=== PATIENT | female | born 1950 | race Caucasian/White ===

== ENCOUNTER 2016-09-04 06:00 | Inpatient (IN) | payer MEDICARE, OTHER ==
[2016-09-04] MEDS ORDERED: IBUPROFEN 600 MG TAB PO STA (06:09)
[2016-09-04] MEDS ORDERED: ACETAMINOPHEN TAB 500 MG TAB PO STA (06:09)
--- NOTE | 2016-09-04 06:13 | ED ---
General Adult HPI - General Source: patient, EMS, RN notes reviewed Mode of arrival: EMS Limitations: no limitations <Subhash Strickland - Last Filed: 09/04/16 06:58> <Subhash Amos - Last Filed: 09/04/16 08:44> - General Chief complaint: Back Pain/Injury Stated complaint: back pain Time Seen by Provider: 09/04/16 06:00 - History of Present Illness Initial comments: This is a 65-year-old female who presents emergency department stating that last couple of days she's had some right lower back pain. Patient points to her sacroiliac area. Patient states there is no pain radiating down her leg. Patient states movement doesn't appear to make it worse. Patient also is complaining of urinary frequency. And patient states she does not have a fever even though we took her temperature and she has 100.9 temperature in the ER. Patient denies any cough or difficulty breathing [place] of breath. Patient states she has had a ulceration to the bottom of the right foot on the instep which is been there for quite a while. Patient states it started and is spread a little. Patient states she also has a mild headache. Patient denies any recent lifting or trauma to the lower back. (Subhash Strickland) - Related Data Home Medications Medication Instructions Recorded Confirmed Acyclovir [Zovirax] 400 mg PO BID 01/21/15 04/09/15 Aspirin [Adult Low Dose Aspirin EC] 81 mg PO DAILY 01/21/15 04/09/15 Atorvastatin [Lipitor] 80 mg PO HS 01/21/15 04/09/15 Gemfibrozil [Lopid] 600 mg PO AC-BID 01/21/15 04/09/15 Hydrochlorothiazide [Hydrodiuril] 25 mg PO DAILY 01/21/15 04/09/15 Insulin Aspart [NovoLOG] 10 - 50 units SQ ACHS 01/21/15 04/09/15 Insulin Detemir [Levemir] 40 - 80 unit SQ TID 01/21/15 04/09/15 Lisinopril 40 mg PO DAILY 01/21/15 04/09/15 Metoprolol Tartrate [Lopressor] 75 mg PO BID 01/21/15 04/09/15 Naproxen Sodium [Aleve] 220 mg PO DAILY 01/21/15 04/09/15 Primidone [Mysoline] 150 mg PO BID 01/21/15 04/09/15 Venlafaxine HCl [Effexor XR] 150 mg PO BID 01/21/15 04/09/15 clonazePAM [KlonoPIN] 1 mg PO BID 01/21/15 04/09/15 metFORMIN HCL [Glucophage] 1,000 mg PO HS 01/21/15 04/09/15 Acetaminophen Tab [Tylenol Tab] 1,000 mg PO Q6HR PRN 01/28/15 04/09/15 Albuterol Inhaler [Ventolin 1 - 2 puff INHALATION Q6HR PRN 01/28/15 04/09/15 Inhaler] Aspirin/Acetaminophen/Caffeine 1 each PO Q6H PRN 01/28/15 04/09/15 [Excedrin Extra Strength Caplet] Cetirizine HCl [Zyrtec] 10 mg PO HS 03/11/15 04/09/15 Allergies Allergy/AdvReac Type Severity Reaction Status Date / Time codeine Allergy Nausea & Verified 09/04/16 06:02 Vomiting codeine phosphate AdvReac Unknown Verified 09/04/16 06:02 [From Codar GF] guaifenesin [From Codar GF] AdvReac Unknown Verified 09/04/16 06:02 Review of Systems ROS Other: All systems not noted in ROS Statement are negative. <Subhash Strickland - Last Filed: 09/04/16 06:58> ROS Other: All systems not noted in ROS Statement are negative. <Subhash Amos - Last Filed: 09/04/16 08:44> ROS Statement: Those systems with pertinent positive or pertinent negative responses have been documented in the HPI. Past Medical History Past Medical History: COPD, Diabetes Mellitus, Hyperlipidemia, Hypertension, Musculoskeletal Disorder, Osteoarthritis (OA) Additional Past Medical History / Comment(s): tremors, migraines History of Any Multi-Drug Resistant Organisms: None Reported Past Surgical History: Cholecystectomy, Hysterectomy, Orthopedic Surgery, Tubal Ligation Additional Past Surgical History / Comment(s): partial amp. toe R foot. June 2014 - cervical fusion (steel plate and cages) Past Anesthesia/Blood Transfusion Reactions: Motion Sickness Past Psychological History: Depression Smoking Status: Former smoker - Past Family History Mother Family Medical History: Cancer <Subhash Strickland - Last Filed: 09/04/16 06:58> General Exam Limitations: no limitations <Subhash Strickland - Last Filed: 09/04/16 06:58> General appearance: alert, in no apparent distress Head exam: Present: atraumatic, normocephalic, normal inspection Eye exam: Present: normal appearance, PERRL, EOMI. Absent: scleral icterus, conjunctival injection, periorbital swelling ENT exam: Present: normal exam, mucous membranes moist Neck exam: Present: normal inspection. Absent: tenderness, meningismus, lymphadenopathy Respiratory exam: Present: normal lung sounds bilaterally. Absent: respiratory distress, wheezes, rales, rhonchi, stridor Cardiovascular Exam: Present: regular rate, normal rhythm, normal heart sounds. Absent: systolic murmur, diastolic murmur, rubs, gallop, clicks GI/Abdominal exam: Present: soft, normal bowel sounds. Absent: distended, tenderness, guarding, rebound, rigid Extremities exam: Present: normal inspection, full ROM, normal capillary refill. Absent: tenderness, pedal edema, joint swelling, calf tenderness Back exam: Present: normal inspection Neurological exam: Present: alert, oriented X3, CN II-XII intact Psychiatric exam: Present: normal affect, normal mood Skin exam: Present: warm, dry, intact, normal color. Absent: rash <Subhash Amos Sunita - Last Filed: 09/04/16 08:44> - General Exam Comments Initial Comments: GENERAL: Patient is well-developed and well-nourished. Patient is nontoxic and well- hydrated and is in mild distress. ENT: Neck is soft and supple. No significant lymphadenopathy is noted. Oropharynx is clear. Moist mucous membranes. Neck has full range of motion without eliciting any pain. EYES: The sclera were anicteric and conjunctiva were pink and moist. Extraocular movements were intact and pupils were equal round and reactive to light. Eyelids were unremarkable. PULMONARY: Unlabored respirations. Good breath sounds bilaterally. No audible rales rhonchi or wheezing was noted. CARDIOVASCULAR: There is a regular rate and rhythm without any murmurs gallops or rubs. ABDOMEN: Soft and nontender with normal bowel sounds. No palpable organomegaly was noted. There is no palpable pulsatile mass. SKIN: There is a ulceration to the left foot on the plantar surface in the instep of the foot. It is mildly erythematous NEUROLOGIC: Patient is alert and oriented x3. Cranial nerves II through XII are grossly intact. Motor and sensory are also intact. Normal speech, volume and content. Symmetrical smile. MUSCULOSKELETAL: Normal extremities with adequate strength and full range of motion. No lower extremity swelling or edema. No calf tenderness. LYMPHATICS: No significant lymphadenopathy is noted PSYCHIATRIC: Normal psychiatric evaluation. Normal interpersonal interactions appears functionally intact in deals appropriately with others. No signs of depression. No signs of anxiety. (Subhash Strickland) Course <Suhbash Strickland - Last Filed: 09/04/16 06:58> <Subhash Amos - Last Filed: 09/04/16 08:44> Vital Signs 09/04/16 06:02 Temperature 100.9 F H Pulse Rate 75 Respiratory 18 Rate Blood Pressure 186/77 O2 Sat by Pulse 97 Oximetry - Reevaluation(s) Reevaluation #1: 09/04/16 08:43 Patient is having symptoms and pain control, feeling better with IV hydration and fever control (Subhash Amos) Medical Decision Making - Lab Data Result diagrams: 09/04/16 06:15 09/04/16 06:15 <Subhash Strickland - Last Filed: 09/04/16 06:58> - Lab Data Result diagrams: 09/04/16 06:15 09/04/16 06:15 - Radiology Data Radiology results: report reviewed (CT head and pelvis negative for kidney stone positive pyelonephritis), image reviewed <Subhash Amos - Last Filed: 09/04/16 08:44> - Medical Decision Making Dr. Amos will be taking over the care of this patient at 7 AM (Subhash Strickland) 58 female here with fever flank pain. Positive left-sided pyelonephritis, no kidney stone noted, patient will be admitted for IV antibiotics and IV resuscitation, fever control and treatment of sepsis (Subhash Amos) - Lab Data Lab Results 09/04/16 09/04/16 09/04/16 Range/Units 06:15 06:15 06:15 WBC 11.9 H (3.8-10.6) k/uL RBC 3.46 L (3.80-5.40) m/uL Hgb 12.0 (11.4-16.0) gm/dL Hct 34.3 (34.0-46.0) % MCV 99.1 (80.0-100.0) fL MCH 34.6 (25.0-35.0) pg MCHC 34.9 (31.0-37.0) g/dL RDW 14.1 (11.5-15.5) % Plt Count 230 (150-450) k/uL Neutrophils % 87 % Lymphocytes % 6 % Monocytes % 5 % Eosinophils % 1 % Basophils % 0 % Neutrophils # 10.3 H (1.3-7.7) k/uL Lymphocytes # 0.7 L (1.0-4.8) k/uL Monocytes # 0.6 (0-1.0) k/uL Eosinophils # 0.1 (0-0.7) k/uL Basophils # 0.0 (0-0.2) k/uL PT (9.0-12.0) sec INR (<1.2) APTT (22.0-30.0) sec Sodium 135 L (137-145) mmol/L Potassium 4.9 (3.5-5.1) mmol/L Chloride 105 (98-107) mmol/L Carbon Dioxide 17 L (22-30) mmol/L Anion Gap 13 mmol/L BUN 23 H (7-17) mg/dL Creatinine 0.81 (0.52-1.04) mg/dL Est GFR (MDRD) Af Amer >60 (>60 ml/min/1.73 sqM) Est GFR (MDRD) Non-Af >60 (>60 ml/min/1.73 sqM) Glucose 206 H (74-99) mg/dL Plasma Lactic Acid [place] 1.7 (0.7-2.0) mmol/L Calcium 8.9 (8.4-10.2) mg/dL Total Bilirubin 0.5 (0.2-1.3) mg/dL AST 23 (14-36) U/L ALT 29 (9-52) U/L Alkaline Phosphatase 164 H (38-126) U/L Total Protein 6.7 (6.3-8.2) g/dL Albumin 4.2 (3.5-5.0) g/dL Urine Color Urine Appearance (Clear) Urine pH (5.0-8.0) Ur Specific [place] (1.001-1.035) Urine Protein (Negative) Urine Glucose (UA) (Negative) Urine Ketones (Negative) Urine Blood (Negative) Urine Nitrite (Negative) Urine Bilirubin (Negative) Urine Urobilinogen (<2.0) mg/dL Ur Leukocyte Esterase (Negative) Urine WBC (0-5) /hpf Urine WBC Clumps (None) /hpf Ur Squamous Epith Cells (0-4) /hpf Urine Bacteria (None) /hpf 09/04/16 09/04/16 Range/Units 06:15 06:45 WBC (3.8-10.6) k/uL RBC (3.80-5.40) m/uL Hgb (11.4-16.0) gm/dL Hct (34.0-46.0) % MCV (80.0-100.0) fL MCH (25.0-35.0) pg MCHC (31.0-37.0) g/dL RDW (11.5-15.5) % Plt Count (150-450) k/uL Neutrophils % % Lymphocytes % % Monocytes % % Eosinophils % % Basophils % % Neutrophils # (1.3-7.7) k/uL Lymphocytes # (1.0-4.8) k/uL Monocytes # (0-1.0) k/uL Eosinophils # (0-0.7) k/uL Basophils # (0-0.2) k/uL PT 10.3 (9.0-12.0) sec INR 1.0 (<1.2) APTT 33.2 H (22.0-30.0) sec Sodium (137-145) mmol/L Potassium (3.5-5.1) mmol/L Chloride (98-107) mmol/L Carbon Dioxide (22-30) mmol/L Anion Gap mmol/L BUN (7-17) mg/dL Creatinine (0.52-1.04) mg/dL Est GFR (MDRD) Af Amer (>60 ml/min/1.73 sqM) Est GFR (MDRD) Non-Af (>60 ml/min/1.73 sqM) Glucose (74-99) mg/dL Plasma Lactic Acid [place] (0.7-2.0) mmol/L Calcium (8.4-10.2) mg/dL Total Bilirubin (0.2-1.3) mg/dL AST (14-36) U/L ALT (9-52) U/L Alkaline Phosphatase (38-126) U/L Total Protein (6.3-8.2) g/dL Albumin (3.5-5.0) g/dL Urine Color Yellow Urine Appearance Cloudy H (Clear) Urine pH 5.5 (5.0-8.0) Ur Specific [place] 1.014 (1.001-1.035) Urine Protein 1+ H (Negative) Urine Glucose (UA) Negative (Negative) Urine Ketones Negative (Negative) Urine Blood Trace H (Negative) Urine Nitrite Positive H (Negative) Urine Bilirubin Negative (Negative) Urine Urobilinogen <2.0 (<2.0) mg/dL Ur Leukocyte Esterase Large H (Negative) Urine WBC >182 H (0-5) /hpf Urine WBC Clumps Few H (None) /hpf Ur Squamous Epith Cells <1 (0-4) /hpf Urine Bacteria Few H (None) /hpf Disposition <Subhash Strickland - Last Filed: 09/04/16 06:58> <Subhash Amos - Last Filed: 09/04/16 08:44> Clinical Impression: UTI (urinary tract infection), Pyelonephritis, Fever Disposition: ADMITTED IP TO THIS HOSP Condition: Fair Referrals: Rainer Dey MD [Primary Care Provider] - 1-2 days
[2016-09-04] MEDS: SODIUM CHLORIDE 0.9% 500 ML IV SCH ×2 (06:14→07:46)
[2016-09-04 06:33] LABS: Basophils % (A) 0 %; CH 34.7; CHCM 35.2; Eosinophils # (A) 0.1 k/uL (0-0.7); Eosinophils % (A) 1 %; HCT 34.3 % (34.0-46.0); HDW 3.22; Luc % (Auto) 1; Lymphocytes # (A) 0.7 k/uL (1.0-4.8); Lymphocytes % (A) 6 %; MCH 34.6 pg (25.0-35.0); MCHC 34.9 g/dL (31.0-37.0); MCV 99.1 fL (80.0-100.0); Monocytes # (A) 0.6 k/uL (0-1.0); Monocytes % (A) 5 %; Neutrophils # (A) 10.3 k/uL (1.3-7.7); Neutrophils % (A) 87 %; RBC 3.46 m/uL (3.80-5.40); RDW 14.1 % (11.5-15.5); WBC 11.9 k/uL (3.8-10.6); WBC (Perox) 12.15
[2016-09-04 06:38] LABS: Partial Thromboplastin Time 33.2 sec (22.0-30.0); Prothrombin Time 10.3 sec (9.0-12.0)
[2016-09-04 06:40] LABS: ALT 29 U/L (9-52); AST 23 U/L (14-36); Alkaline Phosphatase 164 U/L (38-126); Anion Gap 13 mmol/L; Blood Urea Nitrogen 23 mg/dL (7-17); Calcium 8.9 mg/dL (8.4-10.2); Carbon Dioxide 17 mmol/L (22-30); Chloride 105 mmol/L (98-107); Glucose 206 mg/dL (74-99); Non-African American GFR(MDRD) >60 (>60 ml/min/1.73 sqM); Potassium 4.9 mmol/L (3.5-5.1); Sodium 135 mmol/L (137-145); Total Bilirubin 0.5 mg/dL (0.2-1.3); Total Protein 6.7 g/dL (6.3-8.2)
[2016-09-04 07:01] LABS: Appearance,Urine Cloudy (Clear); Bacteria,Urine Few /hpf; Bilirubin,Urine Negative (Negative); Glucose,Urine (UA) Negative (Negative); Ketones,Urine Negative (Negative); Leukocyte Esterase,Urine Large (Negative); Nitrite,Urine Positive (Negative); PH, Urine 5.5 (5.0-8.0); Particle Count 7368; Protein,Urine 1+ (Negative); Specific Gravity,Urine 1.014 (1.001-1.035); Squamous Epithelial Cell,Urine <1 /hpf (0-4); UA Billing (MACRO vs. MICRO) MICRO; Urobilinogen,Urine <2.0 mg/dL (<2.0); WBC,Urine >182 /hpf (0-5)
--- NOTE | 2016-09-04 07:09 | XR ---
EXAM: XR Chest, 2 Views CLINICAL HISTORY: Reason: Fever TECHNIQUE: Frontal and lateral views of the chest. COMPARISON: None FINDINGS: Lungs: The lung volumes are low with hypoventilatory changes. There is no acute airspace disease or pulmonary edema. Pleural space: Unremarkable. No pneumothorax. Heart: Mild prominence of the cardiomediastinal silhouette. Bones/joints: Anterior cervical fusion plate is visualized from C6 partially down to T1. There are no acute osseous abnormalities. IMPRESSION: Low lung volumes with hypoventilatory changes. No acute cardiopulmonary abnormalities.
[2016-09-04] MEDS ORDERED: cefTRIAXone 2,000 MG in SODIUM CHLORIDE 0.9% 100 ML IVPB STA (07:38)
[2016-09-04] MEDS ORDERED: MORPHINE SULFATE 4 MG/ML SYRINGE IVP STA (07:48)
--- NOTE | 2016-09-04 08:11 | CT ---
EXAMINATION TYPE: CT abdomen pelvis wo con DATE OF EXAM: 09/04/2016 COMPARISON: NONE HISTORY: Bilateral flank pain, UTI CT DLP: 832.3 mGycm Examination of the solid and hollow viscera is limited given the lack of contrast. FINDINGS: LUNG BASES: No evidence for nodule. No evidence for infiltrate. LIVER/GB: Cholecystectomy clips are in place. No space-occupying hepatic lesion. PANCREAS: No pancreatic mass identified. No inflammatory process seen. SPLEEN: No evidence for splenomegaly. No intrasplenic lesions seen. ADRENALS: No adrenal nodules identified. No evidence for thickening. KIDNEYS: There is bilateral left greater than right perinephric stranding which is nonspecific and ca n be seen in patients with prior infection or obstruction. Correlate clinically. No evidence for gee l mass. No nephrolithiasis. No hydronephrosis. BOWEL: Appendix has a normal appearance. No evidence of bowel obstruction. No inflammatory process. Lymph nodes: No evidence for adenopathy greater than 1 cm. Abdominal aorta: Atheromatous changes seen. No evidence for aneurysm. Genital organs: No significant abnormality. Other: Subcutaneous low anterior abdominal wall increased attenuation may reflect ecchymosis from tra umatic event or injection. Small umbilical fat-containing hernia. Degenerative changes the lumbar spi ne IMPRESSION: 1.There is bilateral left greater than right perinephric stranding which is nonspecific and can be se en in patients with prior infection or obstruction. Correlate clinically.
[2016-09-04] MEDS ORDERED: SODIUM CHLORIDE 0.9% 1,000 ML IV ONE (08:41)
[2016-09-04] MEDS ORDERED: SODIUM CHLORIDE 0.9% 2,000 ML IV STA (08:41)
[2016-09-04 10:07] LABS: Glucose,Whole Blood 235 mg/dL (75-99)
[2016-09-04] MEDS: SODIUM CHLORIDE 0.9% 1,000 ML IV SCH ×2 (10:08→21:57)
[2016-09-04] MEDS: ENOXAPARIN 40 MG/0.4 ML SYRINGE SQ SCH (11:00)
[2016-09-04 11:56] VITALS: BMI 31.3
[2016-09-04] MEDS ORDERED: ALBUTEROL NEBULIZED 2.5 MG/3 ML INHALATION PRN (12:45)
--- NOTE | 2016-09-04 12:45 | P.HPIM ---
History of Present Illness This is a 65-year-old female who presents emergency department stating that last couple of days she's had some right lower back pain. Patient points to her sacroiliac area. Patient states there is no pain radiating down her leg. Patient states movement doesn't appear to make it worse. Patient also is complaining of urinary frequency. And patient states she does not have a fever even though we took her temperature and she has 100.9 temperature in the ER. Patient denies any cough or difficulty breathing [place] of breath. Patient states she has had a ulceration to the bottom of the right foot on the instep which is been there for quite a while. Patient states it started and is spread a little. Patient states she also has a mild headache. Patient denies any recent lifting or trauma to the lower back. The significant abnormalities that were found in further evaluation of her supple pyelonephritis, and significantly abnormal urine with Ativan 200 WBC in the urine with positive leukocyte esterase. Patient was started on IV antibiotics. Urine cultures blood cultures were obtained. Review of Systems REVIEW OF SYSTEMS: CONSTITUTIONAL: No fever, no malaise, no fatigue. HEENT: No recent visual problems or hearing problems. Denied any sore throat. CARDIOVASCULAR: No chest pain, orthopnea, PND, no palpitations, no syncope. PULMONARY: No shortness of breath, no cough, no hemoptysis. GASTROINTESTINAL: No diarrhea, no nausea, no vomiting, no abdominal pain. Normoactive bowel sounds. NEUROLOGICAL: No headaches, no weakness, no numbness. HEMATOLOGICAL: Denies any bleeding or petechiae. GENITOURINARY: Denies any burning micturition, patient does have increased frequency MUSCULOSKELETAL/RHEUMATOLOGICAL: Denies any joint pain, swelling, or any muscle pain. ENDOCRINE: Denies any polyuria or polydipsia. The rest of the 14-point review of systems is negative. Past Medical History Past Medical History: COPD, Diabetes Mellitus, Hyperlipidemia, Hypertension, Musculoskeletal Disorder, Osteoarthritis (OA) Additional Past Medical History / Comment(s): tremors, migraines History of Any Multi-Drug Resistant Organisms: None Reported Past Surgical History: Cholecystectomy, Hysterectomy, Orthopedic Surgery, Tubal Ligation Additional Past Surgical History / Comment(s): partial amp. toe R foot. June 2014 - cervical fusion (steel plate and cages) Past Anesthesia/Blood Transfusion Reactions: Motion Sickness Past Psychological History: Depression Smoking Status: Former smoker Past Alcohol Use History: None Reported Past Drug Use History: None Reported - Past Family History Mother Family Medical History: Cancer Medications and Allergies Home Medications Medication Instructions Recorded Confirmed Type Aspirin [Adult Low Dose Aspirin EC] 81 mg PO DAILY 01/21/15 09/04/16 History Atorvastatin [Lipitor] 80 mg PO HS 01/21/15 09/04/16 History Hydrochlorothiazide [Hydrodiuril] 25 mg PO DAILY 01/21/15 09/04/16 History Insulin Aspart [NovoLOG] See Protocol SQ ACHS 01/21/15 09/04/16 History Insulin Detemir [Levemir] 40 - 72 unit SQ BID 01/21/15 09/04/16 History Lisinopril 40 mg PO DAILY 01/21/15 09/04/16 History Metoprolol Tartrate [Lopressor] 75 mg PO BID 01/21/15 09/04/16 History Naproxen Sodium [Aleve] 220 mg PO DAILY 01/21/15 09/04/16 History Primidone [Mysoline] 150 mg PO BID 01/21/15 09/04/16 History Venlafaxine HCl [Effexor XR] 150 mg PO BID 01/21/15 09/04/16 History clonazePAM [KlonoPIN] 1 mg PO BID 01/21/15 09/04/16 History metFORMIN HCL [Glucophage] 1,000 mg PO HS 01/21/15 09/04/16 History Acetaminophen Tab [Tylenol Tab] 1,500 mg PO Q6HR PRN 01/28/15 09/04/16 History Albuterol Inhaler [Ventolin 1 - 2 puff INHALATION Q6HR PRN 01/28/15 09/04/16 History Inhaler] Cetirizine HCl [Zyrtec] 10 mg PO HS 03/11/15 09/04/16 History Propranolol [Inderal] 10 mg PO BID 09/04/16 09/04/16 History Allergies Allergy/AdvReac Type Severity Reaction Status Date / Time codeine Allergy Nausea & Verified 09/04/16 11:47 Vomiting codeine phosphate AdvReac Unknown Verified 09/04/16 11:47 [From Codar GF] guaifenesin [From Codar GF] AdvReac Unknown Verified 09/04/16 11:47 Physical Exam Vitals: Vital Signs Temp Pulse Pulse Resp BP BP Pulse Ox 09/04/16 10:14 98.2 F 71 16 145/69 95 09/04/16 09:15 98.9 F 83 20 171/85 92 L 09/04/16 08:00 71 18 167/72 92 L 09/04/16 06:02 100.9 F H 75 18 186/77 97 Intake and Output 09/03/16 09/04/16 09/04/16 22:59 06:59 14:59 Other: Weight 90.718 kg 90.71 kg Patient Weight 09/05/16 06:59 Weight 90.71 kg PHYSICAL EXAMINATION: GENERAL: The patient is alert and oriented x3, not in any acute distress. Well developed, well nourished. HEENT: Pupils are round and equally reacting to light. EOMI. No scleral icterus. No conjunctival pallor. Normocephalic, atraumatic. No pharyngeal erythema. No thyromegaly. CARDIOVASCULAR: S1 and S2 present. No murmurs, rubs, or gallops. PULMONARY: Chest is clear to auscultation, no wheezing or crackles. ABDOMEN: Soft, nontender, nondistended, normoactive bowel sounds. No palpable organomegaly. Doesn't have any significant course total angle tenderness. MUSCULOSKELETAL: No joint swelling or deformity. EXTREMITIES: No cyanosis, clubbing, or pedal edema. NEUROLOGICAL: Gross neurological examination did not reveal any focal deficits. SKIN: No rashes. Results CBC & Chem 7: 09/04/16 06:15 09/04/16 06:15 Labs: Abnormal Lab Results - Last 24 Hours (Table) 09/04/16 09/04/16 09/04/16 Range/Units 06:15 06:15 06:15 WBC 11.9 H (3.8-10.6) k/uL RBC 3.46 L (3.80-5.40) m/uL Neutrophils # 10.3 H (1.3-7.7) k/uL Lymphocytes # 0.7 L (1.0-4.8) k/uL APTT 33.2 H (22.0-30.0) sec Sodium 135 L (137-145) mmol/L Carbon Dioxide 17 L (22-30) mmol/L BUN 23 H (7-17) mg/dL Glucose 206 H (74-99) mg/dL POC Glucose (mg/dL) (75-99) mg/dL Alkaline Phosphatase 164 H (38-126) U/L Urine Appearance (Clear) Urine Protein (Negative) Urine Blood (Negative) Urine Nitrite (Negative) Ur Leukocyte Esterase (Negative) Urine WBC (0-5) /hpf Urine WBC Clumps (None) /hpf Urine Bacteria (None) /hpf 09/04/16 09/04/16 Range/Units 06:45 10:05 WBC (3.8-10.6) k/uL RBC (3.80-5.40) m/uL Neutrophils # (1.3-7.7) k/uL Lymphocytes # (1.0-4.8) k/uL APTT (22.0-30.0) sec Sodium (137-145) mmol/L Carbon Dioxide (22-30) mmol/L BUN (7-17) mg/dL Glucose (74-99) mg/dL POC Glucose (mg/dL) 235 H (75-99) mg/dL Alkaline Phosphatase (38-126) U/L Urine Appearance Cloudy H (Clear) Urine Protein 1+ H (Negative) Urine Blood Trace H (Negative) Urine Nitrite Positive H (Negative) Ur Leukocyte Esterase Large H (Negative) Urine WBC >182 H (0-5) /hpf Urine WBC Clumps Few H (None) /hpf Urine Bacteria Few H (None) /hpf Microbiology - Last 24 Hours (Table) 09/04/16 06:45 Urine Culture - Preliminary Urine,Voided 09/04/16 06:15 Wound Culture - Preliminary Foot - Left Assessment and Plan Plan: #1 sepsis secondary to urinary tract infection: Patient is on IV fluids and Rocephin which will be continued awaiting urine cultures and blood cultures. #2 Anion gap metabolic acidosis will obtain lactic acid levels. Part of metabolic is xerosis is secondary to hyperchloremia. #3 type 2 diabetes mellitus: Continue with home regimen and titration of medications depending on the blood sugars here. #4 hypertension: Hold off antiemesis medications with concerns of severe sepsis and hypotension. #5 COPD without any acute exacerbation. #6 hyperlipidemia.
[2016-09-04 12:54] LABS: Glucose,Whole Blood 178 mg/dL (75-99)
[2016-09-04] MEDS: ONDANSETRON 4 MG/2 ML VIAL IVP PRN (13:13)
[2016-09-04] MEDS: ACETAMINOPHEN TAB 325 MG TAB PO PRN (14:34)
[2016-09-04 15:42] LABS: Glucose,Whole Blood 262 mg/dL (75-99)
[2016-09-04 18:06] LABS: Glucose,Whole Blood 293 mg/dL (75-99)
[2016-09-04] MEDS: INSULIN LISPRO (humaLOG) 300 UNIT/3 ML VIAL SQ SCH ×2 (18:29→21:57)
[2016-09-04 18:34] LABS: Hemoglobin A1C 6.4 % (4.2-6.1)
[2016-09-04 20:04] LABS: Glucose,Whole Blood 298 mg/dL (75-99)
[2016-09-04] MEDS: INSULIN DETEMIR 100 UNIT/ML 10 ML VIAL SQ SCH (21:49)
[2016-09-04] MEDS: PRIMIDONE 50 MG TAB PO SCH (21:50)
[2016-09-04] MEDS: METOPROLOL TARTRATE 50 MG TAB PO SCH (21:51)
[2016-09-04] MEDS: VENLAFAXINE HCL ER 75 MG CAP PO SCH (21:51)
[2016-09-04] MEDS: ATORVASTATIN 80 MG TAB PO SCH (21:51)
[2016-09-04] MEDS: LORATADINE 10 MG TAB PO SCH (21:51)
[2016-09-05] MEDS: SODIUM CHLORIDE 0.9% 1,000 ML IV SCH ×2 (07:07→15:12)
[2016-09-05] MEDS: cefTRIAXone 2,000 MG in SODIUM CHLORIDE 0.9% 100 ML IVPB SCH (07:08)
[2016-09-05] MEDS: ACETAMINOPHEN TAB 325 MG TAB PO PRN ×3 (07:10→20:46)
[2016-09-05] MEDS: ASPIRIN 81 MG CHEW PO SCH (07:15)
[2016-09-05] MEDS: VENLAFAXINE HCL ER 75 MG CAP PO SCH ×2 (07:15→20:28)
[2016-09-05] MEDS: METOPROLOL TARTRATE 50 MG TAB PO SCH ×2 (07:15→20:29)
[2016-09-05] MEDS: ENOXAPARIN 40 MG/0.4 ML SYRINGE SQ SCH (07:15)
[2016-09-05] MEDS: PRIMIDONE 50 MG TAB PO SCH ×2 (07:15→20:28)
[2016-09-05] MEDS: INSULIN DETEMIR 100 UNIT/ML 10 ML VIAL SQ SCH ×2 (07:26→20:29)
[2016-09-05 07:49] LABS: CH 34.3; CHCM 34.4; HCT 29.6 % (34.0-46.0); HDW 3.35; HGB 10.2 gm/dL (11.4-16.0); MCH 34.7 pg (25.0-35.0); MCHC 34.5 g/dL (31.0-37.0); MCV 100.4 fL (80.0-100.0); Macrocytosis Slight; Mean Platelet Volume 8.3; RBC 2.95 m/uL (3.80-5.40); WBC 7.3 k/uL (3.8-10.6)
[2016-09-05 08:08] LABS: Glucose,Whole Blood 219 mg/dL (75-99)
[2016-09-05 08:18] LABS: Anion Gap 11 mmol/L; Blood Urea Nitrogen 15 mg/dL (7-17); Calcium 8.2 mg/dL (8.4-10.2); Carbon Dioxide 22 mmol/L (22-30); Chloride 103 mmol/L (98-107); Glucose 208 mg/dL (74-99); Non-African American GFR(MDRD) >60 (>60 ml/min/1.73 sqM); Potassium 3.9 mmol/L (3.5-5.1); Sodium 136 mmol/L (137-145)
[2016-09-05] MEDS: INSULIN LISPRO (humaLOG) 300 UNIT/3 ML VIAL SQ SCH ×4 (08:21→20:29)
--- NOTE | 2016-09-05 10:32 | P.PN ---
Subjective 65-year-old admitted secondary to sepsis from urinary tract infection and pyelonephritis and patient has positive blood cultures today.. Patient flank pain improved today. Patient today denied any chest pain, nausea, abdominal pain, fever, chills, dysuria, lightheadedness, new focal weakness. Objective - Vital Signs Vital signs: Vital Signs Temp 98.8 F 09/05/16 07:00 Pulse 87 09/05/16 08:00 Resp 16 09/05/16 08:00 BP 165/73 09/05/16 07:00 Pulse Ox 94 L 09/05/16 07:00 Intake & Output 09/04/16 09/05/16 09/05/16 18:59 06:59 18:59 Intake Total 450 500 Balance 450 500 Weight 90.71 kg 90.71 kg Intake: Intake, IV Titration 350 Amount Sodium Chloride 0.9% 1, 350 000 ml @ 100 mls/hr IV . Q10H KATIE Rx#:[id number] Oral 100 500 Other: Voiding Method Toilet Toilet # Voids 2 1 1 - Exam GENERAL: The patient is alert and oriented x3, not in any acute distress. Well developed, well nourished. HEENT: Pupils are round and equally reacting to light. EOMI. No scleral icterus. No conjunctival pallor. Normocephalic, atraumatic. No pharyngeal erythema. No thyromegaly. CARDIOVASCULAR: S1 and S2 present. No murmurs, rubs, or gallops. PULMONARY: Chest is clear to auscultation, no wheezing or crackles. ABDOMEN: Soft, nontender, nondistended, normoactive bowel sounds. No palpable organomegaly. Doesn't have any significant course total angle tenderness. MUSCULOSKELETAL: No joint swelling or deformity. EXTREMITIES: No cyanosis, clubbing, or pedal edema. NEUROLOGICAL: Gross neurological examination did not reveal any focal deficits. SKIN: No rashes. - Labs CBC & Chem 7: 09/05/16 07:09/05/16 07:17 Labs: Abnormal Lab Results - Last 24 Hours (Table) 09/04/16 09/04/16 09/04/16 Range/Units 06:15 12:41 15:37 RBC (3.80-5.40) m/uL Hgb (11.4-16.0) gm/dL Hct (34.0-46.0) % MCV (80.0-100.0) fL Sodium (137-145) mmol/L Glucose (74-99) mg/dL POC Glucose (mg/dL) 178 H 262 H (75-99) mg/dL Hemoglobin A1c 6.4 H (4.2-6.1) % Calcium (8.4-10.2) mg/dL 09/04/16 09/04/16 09/05/16 Range/Units 17:51 20:02 07:17 RBC 2.95 L (3.80-5.40) m/uL Hgb 10.2 L (11.4-16.0) gm/dL Hct 29.6 L (34.0-46.0) % MCV 100.4 H (80.0-100.0) fL Sodium (137-145) mmol/L Glucose (74-99) mg/dL POC Glucose (mg/dL) 293 H 298 H (75-99) mg/dL Hemoglobin A1c (4.2-6.1) % Calcium (8.4-10.2) mg/dL 09/05/16 09/05/16 Range/Units 07:17 07:56 RBC (3.80-5.40) m/uL Hgb (11.4-16.0) gm/dL Hct (34.0-46.0) % MCV (80.0-100.0) fL Sodium 136 L (137-145) mmol/L Glucose 208 H (74-99) mg/dL POC Glucose (mg/dL) 219 H (75-99) mg/dL Hemoglobin A1c (4.2-6.1) % Calcium 8.2 L (8.4-10.2) mg/dL Microbiology - Last 24 Hours (Table) 09/04/16 06:18 Blood Culture Gram Stain - Preliminary Blood 09/04/16 06:15 Gram Stain - Preliminary Foot - Left Wound Culture - Preliminary Presumptive Staph aureus 09/04/16 06:15 Blood Culture - Final Blood 09/04/16 06:45 Urine Culture - Preliminary Urine,Voided Assessment and Plan Plan: #1 sepsis secondary to urinary tract infection: Patient is on IV fluids and Rocephin which will be continued awaiting urine cultures. patient is an appropriate antibiotics will repeat blood cultures today and tomorrow and blood cultures are positive for gram-negative bacilli. #2 Anion gap metabolic lactic acid levels are now within normal limits and anion gap metabolic acidosis resolved. Part of metabolic acidosis is secondary to hyperchloremia. #3 type 2 diabetes mellitus: Continue with home regimen and titration of medications depending on the blood sugars here. #4 hypertension: The patient is bit higher today patient will be resumed back on her lisinopril hydrochlorothiazide will be held #5 COPD without any acute exacerbation. #6 hyperlipidemia.
[2016-09-05 12:04] LABS: Glucose,Whole Blood 264 mg/dL (75-99)
[2016-09-05] MEDS: ONDANSETRON 4 MG/2 ML VIAL IVP PRN ×2 (15:32→20:27)
[2016-09-05 17:07] LABS: Glucose,Whole Blood 323 mg/dL (75-99)
[2016-09-05 20:24] LABS: Glucose,Whole Blood 327 mg/dL (75-99)
[2016-09-05] MEDS: ATORVASTATIN 80 MG TAB PO SCH (20:25)
[2016-09-05] MEDS: LORATADINE 10 MG TAB PO SCH (20:30)
[2016-09-06] MEDS: SODIUM CHLORIDE 0.9% 1,000 ML IV SCH ×2 (06:52→12:46)
[2016-09-06 07:32] LABS: Glucose,Whole Blood 263 mg/dL (75-99)
[2016-09-06] MEDS: METOPROLOL TARTRATE 50 MG TAB PO SCH ×2 (07:44→20:00)
[2016-09-06] MEDS: ASPIRIN 81 MG CHEW PO SCH (07:44)
[2016-09-06] MEDS: VENLAFAXINE HCL ER 75 MG CAP PO SCH ×2 (07:44→20:05)
[2016-09-06] MEDS: LISINOPRIL 20 MG TAB PO SCH (07:44)
[2016-09-06] MEDS: PRIMIDONE 50 MG TAB PO SCH ×2 (07:44→20:21)
[2016-09-06] MEDS: ENOXAPARIN 40 MG/0.4 ML SYRINGE SQ SCH (07:44)
[2016-09-06] MEDS: cefTRIAXone 2,000 MG in SODIUM CHLORIDE 0.9% 100 ML IVPB SCH (07:45)
[2016-09-06] MEDS: INSULIN LISPRO (humaLOG) 300 UNIT/3 ML VIAL SQ SCH ×5 (07:45→21:41)
[2016-09-06] MEDS: INSULIN DETEMIR 100 UNIT/ML 10 ML VIAL SQ SCH ×2 (07:53→20:03)
--- NOTE | 2016-09-06 08:25 | P.PN ---
Subjective Principal diagnosis: Flank pain. This is a continue progress note on a 65-year-old white female essentially admitted for pyelonephritis and sepsis. She, on admission, had bilateral flank pain with elevated temperature. Now, she has mainly right-sided flank pain and headache. We'll go ahead and reconcile her home medications. No significant chest pain. No diarrhea is stated. Objective - Vital Signs Vital signs: Vital Signs Temp 97.9 F 09/06/16 07:00 Pulse 74 09/06/16 07:00 Resp 16 09/06/16 07:00 BP 204/94 09/06/16 07:00 Pulse Ox 92 L 09/06/16 07:00 Intake & Output 09/05/16 09/06/16 09/06/16 18:59 06:59 18:59 Intake Total 800 Balance 800 Weight 90.71 kg Intake: IV 800 Sodium Chloride 0.9% 1, 800 000 ml @ 100 mls/hr IV . Q10H KATIE Rx#:[id number] Other: Voiding Method Toilet Toilet # Voids 2 2 - Constitutional General appearance: Present: average body habitus - EENT Eyes: Absent: abnormal pupil - Respiratory Respiratory: bilateral: CTA - Cardiovascular Rhythm: regular Heart sounds: normal: S1, S2 - Gastrointestinal General gastrointestinal: Present: soft. Absent: tenderness - Neurologic Neurologic: Present: CNII-XII intact - Labs CBC & Chem 7: 09/05/16 07:17 09/05/16 07:17 Labs: Abnormal Lab Results - Last 24 Hours (Table) 09/05/16 09/05/16 09/05/16 Range/Units 11:56 17:03 20:23 POC Glucose (mg/dL) 264 H 323 H 327 H (75-99) mg/dL 09/06/16 Range/Units 07:30 POC Glucose (mg/dL) 263 H (75-99) mg/dL Microbiology - Last 24 Hours (Table) 09/04/16 06:18 Blood Culture Gram Stain - Preliminary Blood Blood Culture - Preliminary Gram Neg Bacilli 09/04/16 06:45 Urine Culture - Preliminary Urine,Voided Gram Neg Bacilli 09/04/16 06:15 Gram Stain - Preliminary Foot - Left Wound Culture - Preliminary Presumptive Staph aureus 09/04/16 06:15 Blood Culture - Final Blood Assessment and Plan (1) Pyelonephritis Status: Acute (2) Cervical postlaminectomy syndrome Status: Chronic (3) Chronic pain syndrome Status: Chronic Plan: Reconcile home medications. Check CBC in the a.m. Pain control. Question need for Ultram. The patient states she does not wish to take any Tylenol based products. Time with Patient: Less than 30
[2016-09-06 08:34] LABS: Basophils % (A) 0 %; CH 34.5; Eosinophils # (A) 0.1 k/uL (0-0.7); Eosinophils % (A) 1 %; HCT 28.3 % (34.0-46.0); HDW 3.51; HGB 9.8 gm/dL (11.4-16.0); Luc # (Auto) 0.18; Luc % (Auto) 4; Lymphocytes # (A) 0.8 k/uL (1.0-4.8); Lymphocytes % (A) 18 %; MCH 34.4 pg (25.0-35.0); MCHC 34.6 g/dL (31.0-37.0); MCV 99.3 fL (80.0-100.0); Mean Platelet Volume 8.6; Monocytes # (A) 0.4 k/uL (0-1.0); Monocytes % (A) 8 %; Neutrophils # (A) 3.3 k/uL (1.3-7.7); Neutrophils % (A) 69 %; Poikilocytosis Slight; RBC 2.84 m/uL (3.80-5.40); RDW 14.2 % (11.5-15.5); WBC 4.7 k/uL (3.8-10.6); WBC (Perox) 4.99
[2016-09-06] MEDS ORDERED: PROPRANOLOL 10 MG TAB PO SCH (09:00)
[2016-09-06] MEDS: clonazePAM 1 MG TAB PO SCH ×2 (09:30→20:16)
[2016-09-06] MEDS: traMADol 50 MG TAB PO PRN ×2 (09:33→23:01)
[2016-09-06 12:34] LABS: Glucose,Whole Blood 296 mg/dL (75-99)
[2016-09-06] MEDS: PROPRANOLOL 10 MG TAB PO SCH ×2 (12:41→19:59)
[2016-09-06] MEDS: ACYCLOVIR 200 MG CAP PO SCH ×2 (12:42→20:04)
[2016-09-06] MEDS: GEMFIBROZIL 600 MG TAB PO SCH ×2 (12:43→16:41)
[2016-09-06] MEDS: amLODIPine 5 MG TAB PO SCH (12:43)
[2016-09-06 16:39] LABS: Glucose,Whole Blood 274 mg/dL (75-99)
[2016-09-06] MEDS: metFORMIN 500 MG TAB PO SCH (20:01)
[2016-09-06] MEDS: ATORVASTATIN 80 MG TAB PO SCH (20:03)
[2016-09-06] MEDS: LORATADINE 10 MG TAB PO SCH (20:10)
[2016-09-06 20:20] LABS: Glucose,Whole Blood 273 mg/dL (75-99)
[2016-09-07] MEDS: SODIUM CHLORIDE 0.9% 1,000 ML IV SCH ×3 (06:11→15:19)
[2016-09-07 07:20] LABS: Glucose,Whole Blood 158 mg/dL (75-99)
[2016-09-07] MEDS: GEMFIBROZIL 600 MG TAB PO SCH ×2 (07:55→15:19)
[2016-09-07] MEDS: INSULIN LISPRO (humaLOG) 300 UNIT/3 ML VIAL SQ SCH ×4 (07:55→21:32)
[2016-09-07] MEDS: PROPRANOLOL 10 MG TAB PO SCH ×2 (07:56→21:22)
[2016-09-07] MEDS: ACYCLOVIR 200 MG CAP PO SCH ×2 (07:56→21:21)
[2016-09-07] MEDS: METOPROLOL TARTRATE 50 MG TAB PO SCH ×2 (07:56→21:22)
[2016-09-07] MEDS: PRIMIDONE 50 MG TAB PO SCH ×2 (07:57→21:22)
[2016-09-07] MEDS: VENLAFAXINE HCL ER 75 MG CAP PO SCH ×2 (07:57→21:22)
[2016-09-07] MEDS: LISINOPRIL 20 MG TAB PO SCH (07:57)
[2016-09-07] MEDS: amLODIPine 5 MG TAB PO SCH (08:03)
[2016-09-07] MEDS: ASPIRIN 81 MG CHEW PO SCH (08:04)
[2016-09-07] MEDS: ENOXAPARIN 40 MG/0.4 ML SYRINGE SQ SCH (08:06)
[2016-09-07] MEDS: INSULIN DETEMIR 100 UNIT/ML 10 ML VIAL SQ SCH ×2 (08:20→21:34)
[2016-09-07] MEDS: cefTRIAXone 2,000 MG in SODIUM CHLORIDE 0.9% 100 ML IVPB SCH (08:21)
[2016-09-07] MEDS: clonazePAM 1 MG TAB PO SCH ×2 (08:21→21:33)
[2016-09-07 08:43] LABS: CH 34.5; HCT 29.3 % (34.0-46.0); HDW 3.58; HGB 10.4 gm/dL (11.4-16.0); MCH 35.1 pg (25.0-35.0); MCHC 35.4 g/dL (31.0-37.0); MCV 99.1 fL (80.0-100.0); Mean Platelet Volume 8.3; Poikilocytosis Slight; RBC 2.95 m/uL (3.80-5.40); RDW 14.3 % (11.5-15.5); WBC 6.2 k/uL (3.8-10.6)
[2016-09-07 11:58] LABS: Glucose,Whole Blood 270 mg/dL (75-99)
[2016-09-07 17:30] LABS: Glucose,Whole Blood 223 mg/dL (75-99)
[2016-09-07 20:20] LABS: Glucose,Whole Blood 195 mg/dL (75-99)
[2016-09-07] MEDS: LORATADINE 10 MG TAB PO SCH (21:23)
[2016-09-07] MEDS: ATORVASTATIN 80 MG TAB PO SCH (21:23)
[2016-09-07] MEDS: metFORMIN 500 MG TAB PO SCH (21:23)
[2016-09-07] MEDS: traMADol 50 MG TAB PO PRN (23:15)
[2016-09-08] MEDS: SODIUM CHLORIDE 0.9% 1,000 ML IV SCH ×2 (06:12→15:33)
[2016-09-08 07:24] LABS: Glucose,Whole Blood 125 mg/dL (75-99)
[2016-09-08] MEDS: INSULIN DETEMIR 100 UNIT/ML 10 ML VIAL SQ SCH ×2 (07:40→20:46)
[2016-09-08] MEDS: cefTRIAXone 2,000 MG in SODIUM CHLORIDE 0.9% 100 ML IVPB SCH (07:40)
[2016-09-08] MEDS: ENOXAPARIN 40 MG/0.4 ML SYRINGE SQ SCH (07:41)
[2016-09-08] MEDS: clonazePAM 1 MG TAB PO SCH ×2 (07:41→20:54)
[2016-09-08] MEDS: ASPIRIN 81 MG CHEW PO SCH (07:42)
[2016-09-08] MEDS: PROPRANOLOL 10 MG TAB PO SCH ×2 (07:42→20:45)
[2016-09-08] MEDS: PRIMIDONE 50 MG TAB PO SCH ×2 (07:42→20:45)
[2016-09-08] MEDS: ACYCLOVIR 200 MG CAP PO SCH ×2 (07:42→20:45)
[2016-09-08] MEDS: VENLAFAXINE HCL ER 75 MG CAP PO SCH ×2 (07:42→20:45)
[2016-09-08] MEDS: amLODIPine 5 MG TAB PO SCH ×2 (07:43→20:47)
[2016-09-08] MEDS: METOPROLOL TARTRATE 50 MG TAB PO SCH ×2 (07:43→20:51)
[2016-09-08] MEDS: LISINOPRIL 20 MG TAB PO SCH (07:43)
[2016-09-08] MEDS: INSULIN LISPRO (humaLOG) 300 UNIT/3 ML VIAL SQ SCH ×4 (07:44→20:48)
[2016-09-08] MEDS: GEMFIBROZIL 600 MG TAB PO SCH ×2 (07:44→17:52)
--- NOTE | 2016-09-08 08:26 | P.PN ---
Subjective Principal diagnosis: Elevated blood pressure. Continuing care. This is a continue progress on a 65-year-old white female centimeter for pyelonephritis. She hasn't underlying history of diabetes which is fairly well controlled. Her blood sugar has been stable. However, she has developed hypertension. We will restart her hydrochlorothiazide today. White blood cell count was not nominal. She's been afebrile tolerating diet Objective - Vital Signs Vital signs: Vital Signs Temp 98.1 F 09/08/16 07:00 Pulse 62 09/08/16 07:00 Resp 18 09/08/16 07:00 BP 197/85 09/08/16 07:00 Pulse Ox 95 09/08/16 07:00 Intake & Output 09/07/16 09/08/16 09/08/16 18:59 06:59 18:59 Intake Total 360 1140 Balance 360 1140 Intake: IV 900 Sodium Chloride 0.9% 1, 900 000 ml @ 100 mls/hr IV . Q10H KATIE Rx#:[id number] Oral 360 240 Other: Voiding Method Toilet Toilet # Voids 2 3 - Constitutional General appearance: Present: average body habitus - EENT Eyes: Absent: abnormal pupil - Respiratory Respiratory: bilateral: CTA - Cardiovascular Rhythm: regular Heart sounds: normal: S1, S2 - Gastrointestinal General gastrointestinal: Present: soft. Absent: tenderness - Integumentary Integumentary: Absent: cellulitis - Psychiatric Psychiatric: Present: A&O x's 3, appropriate affect, intact judgment & insight - Labs CBC & Chem 7: 09/07/16 08:06 09/05/16 07:17 Labs: Abnormal Lab Results - Last 24 Hours (Table) 09/07/16 09/07/16 09/07/16 Range/Units 08:06 11:47 17:28 RBC 2.95 L (3.80-5.40) m/uL Hgb 10.4 L (11.4-16.0) gm/dL Hct 29.3 L (34.0-46.0) % MCH 35.1 H (25.0-35.0) pg POC Glucose (mg/dL) 270 H 223 H (75-99) mg/dL 09/07/16 09/08/16 Range/Units 20:18 07:22 RBC (3.80-5.40) m/uL Hgb (11.4-16.0) gm/dL Hct (34.0-46.0) % MCH (25.0-35.0) pg POC Glucose (mg/dL) 195 H 125 H (75-99) mg/dL Microbiology - Last 24 Hours (Table) 09/05/16 09:24 Blood Culture - Preliminary Blood No Growth after 48 hours 09/06/16 07:38 Blood Culture - Preliminary Blood No Growth after 24 hours Assessment and Plan (1) Pyelonephritis Status: Acute (2) Cervical postlaminectomy syndrome Status: Chronic (3) Chronic pain syndrome Status: Chronic Plan: Because of her blood pressure. We will go ahead and possibly given another dose and Norvasc 5 mg. Restart hydrochlorothiazide 25 mg daily. Check CMP in a.m. Anticipate discharge in a.m. Time with Patient: Less than 30
[2016-09-08] MEDS ORDERED: amLODIPine 5 MG TAB PO STA (09:28)
[2016-09-08] MEDS: HYDROCHLOROTHIAZIDE 25 MG TAB PO SCH (10:10)
[2016-09-08 10:33] LABS: ALT 43 U/L (9-52); AST 43 U/L (14-36); Alkaline Phosphatase 111 U/L (38-126); Anion Gap 9 mmol/L; Blood Urea Nitrogen 14 mg/dL (7-17); Calcium 8.3 mg/dL (8.4-10.2); Carbon Dioxide 23 mmol/L (22-30); Chloride 105 mmol/L (98-107); Glucose 215 mg/dL (74-99); Non-African American GFR(MDRD) >60 (>60 ml/min/1.73 sqM); Potassium 4.4 mmol/L (3.5-5.1); Sodium 137 mmol/L (137-145); Total Bilirubin 0.2 mg/dL (0.2-1.3); Total Protein 5.7 g/dL (6.3-8.2)
[2016-09-08 11:18] LABS: Glucose,Whole Blood 252 mg/dL (75-99)
[2016-09-08] MEDS: ALPRAZolam 0.5 MG TAB PO PRN ×2 (16:28→22:05)
[2016-09-08 17:25] LABS: Glucose,Whole Blood 184 mg/dL (75-99)
[2016-09-08] MEDS: traMADol 50 MG TAB PO PRN (17:32)
[2016-09-08 20:17] LABS: Glucose,Whole Blood 180 mg/dL (75-99)
[2016-09-08] MEDS: metFORMIN 500 MG TAB PO SCH (20:45)
[2016-09-08] MEDS: ATORVASTATIN 80 MG TAB PO SCH (20:45)
[2016-09-08] MEDS: LORATADINE 10 MG TAB PO SCH (20:46)
[2016-09-08] MEDS ORDERED: hydrALAZINE HCL 20 MG/ML 1 ML VIAL IVP STA (22:18)
[2016-09-09] MEDS: SODIUM CHLORIDE 0.9% 1,000 ML IV SCH ×2 (01:33→08:54)
[2016-09-09] MEDS: traMADol 50 MG TAB PO PRN (01:34)
[2016-09-09] MEDS: hydrALAZINE HCL 10 MG TAB PO SCH ×2 (03:50→07:34)
[2016-09-09 07:15] LABS: Glucose,Whole Blood 220 mg/dL (75-99)
[2016-09-09] MEDS: METOPROLOL TARTRATE 50 MG TAB PO SCH (07:31)
[2016-09-09] MEDS: clonazePAM 1 MG TAB PO SCH (07:31)
[2016-09-09] MEDS: cefTRIAXone 2,000 MG in SODIUM CHLORIDE 0.9% 100 ML IVPB SCH (07:31)
[2016-09-09] MEDS: LISINOPRIL 20 MG TAB PO SCH (07:33)
[2016-09-09] MEDS: HYDROCHLOROTHIAZIDE 25 MG TAB PO SCH (07:33)
[2016-09-09] MEDS: ALPRAZolam 0.5 MG TAB PO PRN (07:33)
[2016-09-09] MEDS: PROPRANOLOL 10 MG TAB PO SCH (07:33)
[2016-09-09] MEDS: amLODIPine 5 MG TAB PO SCH (07:34)
[2016-09-09] MEDS: INSULIN DETEMIR 100 UNIT/ML 10 ML VIAL SQ SCH (07:52)
[2016-09-09] MEDS: INSULIN LISPRO (humaLOG) 300 UNIT/3 ML VIAL SQ SCH (07:53)
[2016-09-09 07:56] VITALS: RESP 16; TEMP 98
--- NOTE | 2016-09-09 08:28 | P.DS ---
Providers Date of admission: 09/04/16 08:41 Attending physician: Rainer Dey Primary care physician: Rainer Dey - Discharge Diagnosis(es) (1) Pyelonephritis Current Visit: Yes Status: Acute (2) Cervical postlaminectomy syndrome Current Visit: No Status: Chronic (3) Chronic pain syndrome Current Visit: No Status: Chronic (4) Hypertension Current Visit: Yes Status: Acute Hospital Course: This is a discharge summary on a 65-year-old white female essentially admitted for pallor nephritis and sepsis. She was placed on ceftriaxone and did quite well. However, she's developed malignant hypertension. Medications have been adjusted. She wishes to go home under the understanding that if she has any symptoms, she will return immediately. She'll follow-up with me in 24 hours for blood pressure check and adjustment. I suggested possible cardiology evaluation today, she wishes to go home. She has not had a history of severe hypertension since she's been a patient mine for the last several years. We will discharge her in guarded condition to follow-up with me as stated above. Patient Condition at Discharge: Fair Plan - Discharge Summary New Discharge Prescriptions: New RX: amLODIPine [Norvasc] 10 mg PO DAILY #30 tab RX: Gemfibrozil [Lopid] 600 mg PO AC-BID tab Levofloxacin [Levaquin] 500 mg PO DAILY #7 tab Continue RX: Insulin Detemir [Levemir] 40 - 72 unit SQ BID RX: Insulin Aspart [NovoLOG] See Protocol SQ ACHS RX: Atorvastatin [Lipitor] 80 mg PO HS RX: metFORMIN HCL [Glucophage] 1,000 mg PO HS RX: clonazePAM [KlonoPIN] 1 mg PO BID RX: Venlafaxine HCl [Effexor XR] 150 mg PO BID RX: Primidone [Mysoline] 150 mg PO BID RX: Metoprolol Tartrate [Lopressor] 75 mg PO BID RX: Lisinopril 40 mg PO DAILY RX: Hydrochlorothiazide [Hydrodiuril] 25 mg PO DAILY RX: Naproxen Sodium [Aleve] 220 mg PO DAILY RX: Aspirin [Adult Low Dose Aspirin EC] 81 mg PO DAILY RX: Acetaminophen Tab [Tylenol] 1,500 mg PO Q6HR PRN PRN Reason: Pain RX: Albuterol Inhaler [Ventolin Hfa Inhaler] 1 - 2 puff INHALATION Q6HR PRN PRN Reason: Shortness Of Breath RX: Cetirizine HCl [Zyrtec] 10 mg PO HS RX: Propranolol [Inderal] 10 mg PO BID Discharge Medication List RX: Aspirin [Adult Low Dose Aspirin EC] 81 mg PO DAILY 01/21/15 [History] RX: Atorvastatin [Lipitor] 80 mg PO HS 01/21/15 [History] RX: Hydrochlorothiazide [Hydrodiuril] 25 mg PO DAILY 01/21/15 [History] RX: Insulin Aspart [NovoLOG] See Protocol SQ ACHS 01/21/15 [History] RX: Insulin Detemir [Levemir] 40 - 72 unit SQ BID 01/21/15 [History] RX: Lisinopril 40 mg PO DAILY 01/21/15 [History] RX: Metoprolol Tartrate [Lopressor] 75 mg PO BID 01/21/15 [History] RX: Naproxen Sodium [Aleve] 220 mg PO DAILY 01/21/15 [History] RX: Primidone [Mysoline] 150 mg PO BID 01/21/15 [History] RX: Venlafaxine HCl [Effexor XR] 150 mg PO BID 01/21/15 [History] RX: clonazePAM [KlonoPIN] 1 mg PO BID 01/21/15 [History] RX: metFORMIN HCL [Glucophage] 1,000 mg PO HS 01/21/15 [History] RX: Acetaminophen Tab [Tylenol] 1,500 mg PO Q6HR PRN 01/28/15 [History] RX: Albuterol Inhaler [Ventolin Hfa Inhaler] 1 - 2 puff INHALATION Q6HR PRN [History] RX: Cetirizine HCl [Zyrtec] 10 mg PO HS 03/11/15 [History] RX: Propranolol [Inderal] 10 mg PO BID 09/04/16 [History] Levofloxacin [Levaquin] 500 mg PO DAILY #7 tab 09/09/16 [Rx] RX: Gemfibrozil [Lopid] 600 mg PO AC-BID tab 09/09/16 [Rx] RX: amLODIPine [Norvasc] 10 mg PO DAILY #30 tab 09/09/16 [Rx] Follow up Appointment(s)/Referral(s): Tiburcio,Rainer, MD [Primary Care Provider] - 1-2 days Discharge Disposition: HOME SELF-CARE
[2016-09-09] MEDS: ASPIRIN 81 MG CHEW PO SCH (08:43)
[2016-09-09] MEDS: ENOXAPARIN 40 MG/0.4 ML SYRINGE SQ SCH (08:44)
[2016-09-09] MEDS: ACYCLOVIR 200 MG CAP PO SCH (08:44)
[2016-09-09] MEDS: VENLAFAXINE HCL ER 75 MG CAP PO SCH (08:44)
[2016-09-09] MEDS: GEMFIBROZIL 600 MG TAB PO SCH (08:44)
[2016-09-09] MEDS: PRIMIDONE 50 MG TAB PO SCH (08:56)
[2016-09-09 10:06] VITALS: BP 160/68; PULSE 60
== END 2016-09-09 11:27 | disposition home or self-care (01) | DRG 872 ==
LOC: EC 06:00 → 5MS5E 08:41
PROVIDERS: ADMIT Family Medicine; ATTEND Family Medicine
DX: A41.50 Gram-negative sepsis, unspecified (principal); E87.2 Acidosis; J44.9 Chronic obstructive pulmonary disease, unspecified; E87.8 Other disorders of electrolyte and fluid balance, not elsewhere classified; N12 Tubulo-interstitial nephritis, not specified as acute or chronic; I10 Essential (primary) hypertension; E11.9 Type 2 diabetes mellitus without complications; M96.1 Postlaminectomy syndrome, not elsewhere classified; G43.909 Migraine, unspecified, not intractable, without status migrainosus; R25.1 Tremor, unspecified; L97.519 Non-pressure chronic ulcer of other part of right foot with unspecified severity; F32.9 Major depressive disorder, single episode, unspecified; M19.90 Unspecified osteoarthritis, unspecified site; L85.3 Xerosis cutis; E78.5 Hyperlipidemia, unspecified; G89.4 Chronic pain syndrome; Z79.899 Other long term (current) drug therapy; Z79.82 Long term (current) use of aspirin; Z79.4 Long term (current) use of insulin; Z87.891 Personal history of nicotine dependence; Z88.5 Allergy status to narcotic agent; Z88.8 Allergy status to other drugs, medicaments and biological substances; Z80.9 Family history of malignant neoplasm, unspecified; Z79.1 Long term (current) use of non-steroidal anti-inflammatories (NSAID); Z90.710 Acquired absence of both cervix and uterus; Z90.49 Acquired absence of other specified parts of digestive tract; Z98.51 Tubal ligation status; Z89.421 Acquired absence of other right toe(s); Z98.1 Arthrodesis status
CPT/HCPCS: 36415; 71020; 74176; 80048; 80053; 81001; 83036; 83605; 85025; 85027; 85610; 85730; 87040; 87070; 87077; 87086; 87186; 87205; 96361; 96365; 96375; 99285

== ENCOUNTER → 2016-09-27 | Outpatient (CLI) | payer MEDICARE ==
--- NOTE | 2016-10-07 10:25 | MM ---
Reason for exam: screening (asymptomatic). Last mammogram was performed 3 years and 7 months ago. History: Patient is postmenopausal. Family history of breast cancer in maternal aunt. Physical Findings: A clinical breast exam by your physician is recommended on an annual basis and results should be correlated with mammographic findings. MG Screening Mammo w CAD Bilateral CC and MLO view(s) were taken. Prior study comparison: March 07, 2013, mammogram, performed at [facility]. September 27, 2011, mammogram, performed at [facility]. There are scattered fibroglandular densities. No significant changes when compared with prior studies. ASSESSMENT: Negative, BI-RAD 1 RECOMMENDATION: Routine screening mammogram of both breasts in 1 year.
== END | disposition home or self-care (01) ==
LOC: RADMAMWWP 14:40
PROVIDERS: ATTEND Family Medicine
DX: Z12.31 Encounter for screening mammogram for malignant neoplasm of breast (principal)

== ENCOUNTER 2016-10-18 12:56 | Emergency (ER) | payer MEDICARE ==
--- NOTE | 2016-10-18 13:36 | ED ---
General Adult HPI - General Chief complaint: Wound/Laceration Stated complaint: Ulcer on Left Foot Time Seen by Provider: 10/18/16 13:35 Source: patient Mode of arrival: ambulatory Limitations: no limitations - History of Present Illness Initial comments: Patient is a 65-year-old female with past medical history of poorly controlled diabetes who presents to the emergency department via private vehicle for evaluation of left foot wound patient states that approximately one year ago she developed a blister on the medial arch of her foot, she was placed in a walking boot by her milieu counselor. She subsequently developed a pressure sore from the strap on the walking boot area patient reports that she is followed with her milieu counselor over the course of one year and has been told that she can no longer manage the patient's wound in the patient needs to be seen by primary care and wound care. Patient reports that she has attempted to establish care with a primary care doctor but that she's been unable to get an appointment. Patient's [id number] works at a primary care office and encouraged the patient to come to the emergency department for further evaluation. Patient reports that the wound is nontender, there is no purulence or foul odor from the wound. She keeps the wound clean and dressed as she was educated to do so by her milieu counselor. She denies any fevers, chills, nausea or vomiting. Patient does report that she feels very isolated at home. She states that this makes her very sad. She states that at times she has thoughts that she could stop taking all of her diabetes medications and just . Patient does have a son and [id number] that live in town as well as 2 grandchildren but she reports she sees them minimally. She does have a therapist that she follows with closely. She was last seen by her therapist on Tuesday. Was independently and is able to drive. She does not participate in any social groups or holiness activities. She has no history of suicide attempts in the past. - Related Data Home Medications Medication Instructions Recorded Confirmed Aspirin [Adult Low Dose Aspirin EC] 81 mg PO DAILY 01/21/15 10/18/16 Atorvastatin [Lipitor] 80 mg PO HS 01/21/15 10/18/16 Hydrochlorothiazide [Hydrodiuril] 25 mg PO DAILY 01/21/15 10/18/16 Insulin Aspart [NovoLOG] See Protocol SQ AC-TID 01/21/15 10/18/16 Lisinopril 40 mg PO DAILY 01/21/15 10/18/16 Metoprolol Tartrate [Lopressor] 75 mg PO BID 01/21/15 10/18/16 Naproxen Sodium [Aleve] 220 mg PO DAILY PRN 01/21/15 10/18/16 Primidone [Mysoline] 150 mg PO BID 01/21/15 10/18/16 Venlafaxine HCl [Effexor XR] 150 mg PO BID 01/21/15 10/18/16 clonazePAM [KlonoPIN] 1 mg PO BID 01/21/15 10/18/16 Albuterol Inhaler [Ventolin Hfa 1 - 2 puff INHALATION RT-Q6H PRN 01/28/15 Inhaler] Cetirizine HCl [Zyrtec] 10 mg PO HS 03/11/15 10/18/16 Propranolol [Inderal] 20 mg PO BID 09/04/16 10/18/16 Acyclovir [Zovirax] 400 mg PO BID 10/18/16 10/18/16 Insulin Detemir [Levemir Flextouch] 40 unit SQ QAM 10/18/16 10/18/16 Insulin Detemir [Levemir Flextouch] 80 units SQ HS 10/18/16 10/18/16 metFORMIN HCL ER [Glucophage Xr] 1,000 mg PO PC-SUPPER 10/18/16 10/18/16 Previous Rx's Medication Instructions Recorded Gemfibrozil [Lopid] 600 mg PO AC-BID tab 09/09/16 amLODIPine [Norvasc] 10 mg PO DAILY #30 tab 09/09/16 Allergies Allergy/AdvReac Type Severity Reaction Status Date / Time codeine Allergy Nausea & Verified 10/18/16 14:10 Vomiting codeine phosphate AdvReac Unknown Verified 10/18/16 14:10 [From Codar GF] [email or web address] [From Codar GF] AdvReac Unknown Verified 10/18/16 14:10 Review of Systems ROS Statement: Those systems with pertinent positive or pertinent negative responses have been documented in the HPI. ROS Other: All systems not noted in ROS Statement are negative. Constitutional: Denies: fever, chills ENT: Denies: throat pain Respiratory: Denies: cough, dyspnea Cardiovascular: Denies: chest pain, palpitations Endocrine: Denies: fatigue Gastrointestinal: Denies: abdominal pain, nausea, vomiting Genitourinary: Denies: urgency, dysuria Musculoskeletal: Denies: back pain Skin: Reports: lesions Psychiatric: Reports: depression Hematological/Lymphatic: Denies: easy bleeding, easy bruising Past Medical History Past Medical History: COPD, Diabetes Mellitus, Hyperlipidemia, Hypertension, Musculoskeletal Disorder, Osteoarthritis (OA) Additional Past Medical History / Comment(s): tremors, migraines History of Any Multi-Drug Resistant Organisms: None Reported Past Surgical History: Cholecystectomy, Hysterectomy, Orthopedic Surgery, Tubal Ligation Additional Past Surgical History / Comment(s): partial amp. toe R foot. June 2014 - cervical fusion (steel plate and cages) Past Anesthesia/Blood Transfusion Reactions: Motion Sickness Past Psychological History: Depression Smoking Status: Former smoker Past Alcohol Use History: None Reported Past Drug Use History: None Reported - Past Family History Mother Family Medical History: Cancer General Exam Limitations: no limitations General appearance: alert Head exam: Present: atraumatic, normocephalic, normal inspection Eye exam: Present: normal appearance, PERRL, EOMI. Absent: scleral icterus, conjunctival injection, periorbital swelling ENT exam: Present: normal exam, mucous membranes moist Neck exam: Present: normal inspection. Absent: tenderness, meningismus, lymphadenopathy Respiratory exam: Present: normal lung sounds bilaterally. Absent: respiratory distress, wheezes, rales, rhonchi, stridor Cardiovascular Exam: Present: regular rate, normal rhythm, normal heart sounds. Absent: systolic murmur, diastolic murmur, rubs, gallop, clicks GI/Abdominal exam: Present: soft, normal bowel sounds. Absent: distended, tenderness, guarding, rebound, rigid Extremities exam: Present: full ROM, normal capillary refill. Absent: tenderness, pedal edema Left Foot/Toe exam: Present: full ROM. Absent: tenderness, deformity, crepitus 1 - Chronic nonhealing ulcer, no surrounding cellulitis, no purulence Neurological exam: Present: alert, oriented X3 Psychiatric exam: Present: depressed, flat affect Skin exam: Present: warm, dry Course Vital Signs 10/18/16 10/18/16 13:00 15:52 Temperature 97.4 F L 98.0 F Pulse Rate 55 L 72 Respiratory 16 16 Rate Blood Pressure 191/126 174/75 O2 Sat by Pulse 96 98 Oximetry - Reevaluation(s) Reevaluation #1: Patient reevaluated, blood pressure has improved. Will be evaluated by social work Reevaluation #2: Patient reevaluated, awaiting social work consult Medical Decision Making - Medical Decision Making Patient was seen and evaluated History was obtained from patient Patient with chronic nonhealing ulcer of left medial foot, no surrounding cellulitis no evidence of infection Granulation tissues noted in the wound bed Labs were ordered Foot ulcer with no evidence of acute infection, I advised the patient she needs to be referred to primary care and wound care. Patient states that she is planning to follow up with Dr. Dey in the next week and to be referred to wound care. She has made no attempts to contact wound care to establish care there at this point. I will provide her with referrals Patient with passive suicidal thoughts. Expresses depression over feeling lonely. States that she has considered stopping her anti-hyperglycemics, psych will be consult at. clerical warehouse worker unable to evaluate patient due to hyperglycemia and hypertension. Insulin ordered for hyperglycemia. Patient reevaluated and hypertension has improved. Patient was evaluated by the psychiatric service criminal justice social worker. Who discussed the patient's care with the psychiatrist on-call. They state that considering the patient's history, establish care with a therapist outpatient they feel she is safe for discharge home at this time. All questions pertaining to care were answered to the best of my ability and the patient was discharged home in stable condition with referrals to primary care, wound care. Patient was advised to return to the emergency department should she develop any worsening pain, swelling, erythema or drainage from the wound in her foot. Patient's breast understanding and agreement with plan. - Lab Data Result diagrams: 10/18/16 14:31 10/18/16 14:31 Lab Results 10/18/16 10/18/16 10/18/16 Range/Units 13:25 14:31 14:31 WBC 8.5 (3.8-10.6) k/uL RBC 2.90 L (3.80-5.40) m/uL Hgb 9.6 L (11.4-16.0) gm/dL Hct 29.0 L (34.0-46.0) % MCV 100.0 (80.0-100.0) fL MCH 33.3 (25.0-35.0) pg MCHC 33.3 (31.0-37.0) g/dL RDW 14.8 (11.5-15.5) % Plt Count 414 (150-450) k/uL Neutrophils % 66 % Lymphocytes % 23 % Monocytes % 7 % Eosinophils % 2 % Basophils % 0 % Neutrophils # 5.6 (1.3-7.7) k/uL Lymphocytes # 2.0 (1.0-4.8) k/uL Monocytes # 0.6 (0-1.0) k/uL Eosinophils # 0.1 (0-0.7) k/uL Basophils # 0.0 (0-0.2) k/uL Macrocytosis Slight Sodium 138 (137-145) mmol/L Potassium 5.1 (3.5-5.1) mmol/L Chloride 106 (98-107) mmol/L Carbon Dioxide 21 L (22-30) mmol/L Anion Gap 11 mmol/L BUN 25 H (7-17) mg/dL Creatinine 0.90 (0.52-1.04) mg/dL Est GFR (MDRD) Af Amer >60 (>60 ml/min/1.73 sqM) Est GFR (MDRD) Non-Af >60 (>60 ml/min/1.73 sqM) Glucose 301 H (74-99) mg/dL POC Glucose (mg/dL) (75-99) mg/dL POC Glu Supervisor Insulation ID Calcium 9.4 (8.4-10.2) mg/dL Urine Color Yellow Urine Appearance Clear (Clear) Urine pH 5.5 (5.0-8.0) Ur Specific [place] 1.016 (1.001-1.035) Urine Protein Trace H (Negative) Urine Glucose (UA) 2+ H (Negative) Urine Ketones Negative (Negative) Urine Blood Negative (Negative) Urine Nitrite Negative (Negative) Urine Bilirubin Negative (Negative) Urine Urobilinogen <2.0 (<2.0) mg/dL Ur Leukocyte Esterase Small H (Negative) Urine RBC 1 (0-5) /hpf Urine WBC 4 (0-5) /hpf Ur Squamous Epith Cells 1 (0-4) /hpf Urine Bacteria Rare H (None) /hpf 10/18/16 Range/Units 16:18 WBC (3.8-10.6) k/uL RBC (3.80-5.40) m/uL Hgb (11.4-16.0) gm/dL Hct (34.0-46.0) % MCV (80.0-100.0) fL MCH (25.0-35.0) pg MCHC (31.0-37.0) g/dL RDW (11.5-15.5) % Plt Count (150-450) k/uL Neutrophils % % Lymphocytes % % Monocytes % % Eosinophils % % Basophils % % Neutrophils # (1.3-7.7) k/uL Lymphocytes # (1.0-4.8) k/uL Monocytes # (0-1.0) k/uL Eosinophils # (0-0.7) k/uL Basophils # (0-0.2) k/uL Macrocytosis Sodium (137-145) mmol/L Potassium (3.5-5.1) mmol/L Chloride (98-107) mmol/L Carbon Dioxide (22-30) mmol/L Anion Gap mmol/L BUN (7-17) mg/dL Creatinine (0.52-1.04) mg/dL Est GFR (MDRD) Af Amer (>60 ml/min/1.73 sqM) Est GFR (MDRD) Non-Af (>60 ml/min/1.73 sqM) Glucose (74-99) mg/dL POC Glucose (mg/dL) 364 H (75-99) mg/dL POC Glu Supervisor Insulation ID Samir, Livia Calcium (8.4-10.2) mg/dL Urine Color Urine Appearance (Clear) Urine pH (5.0-8.0) Ur Specific [place] (1.001-1.035) Urine Protein (Negative) Urine Glucose (UA) (Negative) Urine Ketones (Negative) Urine Blood (Negative) Urine Nitrite (Negative) Urine Bilirubin (Negative) Urine Urobilinogen (<2.0) mg/dL Ur Leukocyte Esterase (Negative) Urine RBC (0-5) /hpf Urine WBC (0-5) /hpf Ur Squamous Epith Cells (0-4) /hpf Urine Bacteria (None) /hpf Disposition Clinical Impression: Diabetic foot ulcer, Depression Disposition: HOME SELF-CARE Condition: Good Instructions: Chronic Wound Care (ED) Referrals: Rainer Dey MD [Primary Care Provider] - 1-2 days [facility] [[facility] - 1-2 days Wes Austin MD [STAFF PHYSICIAN] - 1-2 days Time of Disposition: 17:58 Decision Time: 17:58
[2016-10-18 14:48] LABS: Basophils % (A) 0 %; CH 34.2; CHCM 34.5; Eosinophils # (A) 0.1 k/uL (0-0.7); Eosinophils % (A) 2 %; HDW 3.29; HGB 9.6 gm/dL (11.4-16.0); Luc % (Auto) 2; Lymphocytes % (A) 23 %; MCH 33.3 pg (25.0-35.0); MCHC 33.3 g/dL (31.0-37.0); Macrocytosis Slight; Mean Platelet Volume 8.5; Monocytes # (A) 0.6 k/uL (0-1.0); Monocytes % (A) 7 %; Neutrophils # (A) 5.6 k/uL (1.3-7.7); Neutrophils % (A) 66 %; RDW 14.8 % (11.5-15.5); WBC 8.5 k/uL (3.8-10.6); WBC (Perox) 8.63
[2016-10-18 14:58] LABS: Anion Gap 11 mmol/L; Blood Urea Nitrogen 25 mg/dL (7-17); Calcium 9.4 mg/dL (8.4-10.2); Carbon Dioxide 21 mmol/L (22-30); Chloride 106 mmol/L (98-107); Glucose 301 mg/dL (74-99); Non-African American GFR(MDRD) >60 (>60 ml/min/1.73 sqM); Potassium 5.1 mmol/L (3.5-5.1); Sodium 138 mmol/L (137-145)
[2016-10-18] MEDS ORDERED: INSULIN REGULAR 100 UNIT/ML VIAL SQ ONE ×2 (15:14→17:56)
--- NOTE | 2016-10-18 15:24 | XR ---
EXAMINATION TYPE: XR foot complete LT DATE OF EXAM: 10/18/2016 COMPARISON: NONE HISTORY: Diabetic ulcer medial side proximal left foot x1 year TECHNIQUE: 3 view left foot FINDINGS: No displaced fractures are evident. Hammertoes are present. Degenerative joint changes are present especially noted at the first metatarsophalangeal joint space. Soft tissue abnormality is noted at the medial proximal forefoot. No suspicious cortical erosions are identified to suggest osteomyelitis. Some soft tissue swelling over the distal foot may be present. There are some changes which appear to be related to the calcaneus laterally as identified on the AP projection IMPRESSION: 1. No suspicious erosions to suggest acute osteomyelitis. 2. Some Charcot joint of the calcaneal cuboid junction may be present. Additional evaluation can be p erformed as clinically indicated. 3. Degenerative changes within the first metatarsophalangeal joint space
[2016-10-18 15:42] LABS: Appearance,Urine Clear (Clear); Bacteria,Urine Rare /hpf; Bilirubin,Urine Negative (Negative); Glucose,Urine (UA) 2+ (Negative); Ketones,Urine Negative (Negative); Leukocyte Esterase,Urine Small (Negative); Nitrite,Urine Negative (Negative); PH, Urine 5.5 (5.0-8.0); Particle Count 1189; Protein,Urine Trace (Negative); RBC,Urine 1 /hpf (0-5); Specific Gravity,Urine 1.016 (1.001-1.035); Squamous Epithelial Cell,Urine 1 /hpf (0-4); UA Billing (MACRO vs. MICRO) MICRO; Urobilinogen,Urine <2.0 mg/dL (<2.0); WBC,Urine 4 /hpf (0-5)
[2016-10-18 15:53] VITALS: TEMP 98
[2016-10-18 16:22] LABS: Glucose,Whole Blood 364 mg/dL (75-99)
[2016-10-18 18:31] VITALS: BP 178/76; PULSE 78; RESP 18
== END 2016-10-18 18:40 | disposition home or self-care (01) ==
LOC: EC 12:56
DX: E11.621 Type 2 diabetes mellitus with foot ulcer (principal); L97.429 Non-pressure chronic ulcer of left heel and midfoot with unspecified severity; F32.9 Major depressive disorder, single episode, unspecified; R45.851 Suicidal ideations; E11.65 Type 2 diabetes mellitus with hyperglycemia; E78.5 Hyperlipidemia, unspecified; I10 Essential (primary) hypertension; M19.90 Unspecified osteoarthritis, unspecified site; Z87.891 Personal history of nicotine dependence; Z79.4 Long term (current) use of insulin; Z79.82 Long term (current) use of aspirin; Z79.899 Other long term (current) drug therapy; Z79.84 Long term (current) use of oral hypoglycemic drugs; Z88.5 Allergy status to narcotic agent; Z88.8 Allergy status to other drugs, medicaments and biological substances; Z89.421 Acquired absence of other right toe(s)
CPT/HCPCS: 36415; 80048; 81001; 82075; 85025; 87070; 87077; 87186; 87205; 99284

== ENCOUNTER 2017-12-07 16:00 | Inpatient (IN) | payer MEDICARE ==
[2017-12-07] MEDS ORDERED: SODIUM CHLORIDE 0.9% 1,000 ML IV ONE (16:05)
--- NOTE | 2017-12-07 16:25 | ED ---
Altered Mental Status HPI - General Stated Complaint: ALTERED MENTAL STATUS Time Seen by Provider: 12/07/17 16:00 Source: patient, EMS, RN notes reviewed Mode of arrival: EMS Limitations: no limitations - History of Present Illness Initial Comments: This is a 66-year-old female with a history of diabetes any recent left below the knee" about 2 months ago who is brought in by EMS for evaluation of altered mental status decreased level of consciousness. She apparently has been declining over the past 2 weeks as far as her cognitive abilities. She's had 2 recent falls last one being in early this morning. She has exertional dyspnea. She has a history of familial tremors and has had some increasing tremors. She denies any fevers chills nausea vomiting sweats dysuria cough phlegm production or other symptoms at this time her blood glucose was 158 per paramedics. No dysrhythmias reported. No other modifying factors at this time MD Complaint: altered mental status, confusion, decreased responsiveness - Related Data Home Medications Medication Instructions Recorded Confirmed Aspirin [Adult Low Dose Aspirin EC] 81 mg PO DAILY 01/21/15 12/07/17 Atorvastatin [Lipitor] 80 mg PO HS 01/21/15 12/07/17 Insulin Aspart [NovoLOG] See Protocol SQ ACHS 01/21/15 12/07/17 Lisinopril 40 mg PO DAILY 01/21/15 12/07/17 Primidone [Mysoline] 150 mg PO BID 01/21/15 12/07/17 clonazePAM [KlonoPIN] 1 mg PO BID 01/21/15 12/07/17 Albuterol Inhaler [Ventolin Hfa 1 - 2 puff INHALATION RT-Q6H PRN 01/28/15 Inhaler] Cetirizine HCl [Zyrtec] 10 mg PO DAILY 03/11/15 12/07/17 Insulin Detemir [Levemir Flextouch] 45 units SQ HS 10/18/16 12/07/17 Acetaminophen/Diphenhydramine 2 tab PO HS PRN 12/07/17 12/07/17 [Tylenol PM 500-25mg] Carvedilol [Coreg] 12.5 mg PO BID 12/07/17 12/07/17 Chlorthalidone 25 mg PO DAILY 12/07/17 12/07/17 DULoxetine HCL [Cymbalta] 30 mg PO BID 12/07/17 12/07/17 Famotidine [Pepcid] 20 mg PO BID 12/07/17 12/07/17 Isosorbide Mononitrate ER [Imdur] 30 mg PO DAILY 12/07/17 12/07/17 Losartan [Cozaar] 50 mg PO DAILY 12/07/17 12/07/17 amLODIPine [Norvasc] 5 mg PO DAILY 12/07/17 12/07/17 levETIRAcetam [Keppra] 500 mg PO BID 12/07/17 12/07/17 metFORMIN HCL 1,000 mg PO BID 12/07/17 12/07/17 Previous Rx's Medication Instructions Recorded Gemfibrozil [Lopid] 600 mg PO AC-BID tab 09/09/16 Allergies Allergy/AdvReac Type Severity Reaction Status Date / Time codeine Allergy Nausea & Verified 12/07/17 16:52 Vomiting codeine phosphate AdvReac Unknown Verified 12/07/17 16:52 [From Codar GF] guaifenesin [From Codar GF] AdvReac Unknown Verified 12/07/17 16:52 Review of Systems ROS Statement: Those systems with pertinent positive or pertinent negative responses have been documented in the HPI. ROS Other: All systems not noted in ROS Statement are negative. Past Medical History Past Medical History: COPD, Diabetes Mellitus, Hyperlipidemia, Hypertension, Musculoskeletal Disorder, Osteoarthritis (OA) Additional Past Medical History / Comment(s): tremors, migraines History of Any Multi-Drug Resistant Organisms: None Reported Past Surgical History: Cholecystectomy, Hysterectomy, Orthopedic Surgery, Tubal Ligation Additional Past Surgical History / Comment(s): partial amp. toe R foot. June 2014 - cervical fusion (steel plate and cages) Past Anesthesia/Blood Transfusion Reactions: Motion Sickness Past Psychological History: Depression Smoking Status: Former smoker Past Alcohol Use History: None Reported Past Drug Use History: None Reported - Past Family History Mother Family Medical History: Cancer General Exam - General Exam Comments Initial Comments: well-nourished awake alert but confused female she is confused to the year at this time Limitations: no limitations General appearance: alert Head exam: Present: atraumatic, normocephalic, normal inspection Eye exam: Present: normal appearance, PERRL, EOMI. Absent: scleral icterus, conjunctival injection, periorbital swelling ENT exam: Present: mucous membranes dry Neck exam: Present: normal inspection, full ROM, other (No stridor JVD or bruits ). Absent: tenderness, meningismus, lymphadenopathy Respiratory exam: Present: normal lung sounds bilaterally. Absent: respiratory distress, wheezes, rales, rhonchi, stridor Cardiovascular Exam: Present: regular rate, normal rhythm, normal heart sounds. Absent: systolic murmur, diastolic murmur, rubs, gallop, clicks GI/Abdominal exam: Present: soft, normal bowel sounds. Absent: distended, tenderness, guarding, rebound, rigid, bruit, pulsatile mass, hernia Rectal exam: Present: deferred Extremities exam: Present: full ROM, normal capillary refill, other (Left lower leg limitations demonstrated no evidence of any wound dehiscence no evidence of infection.). Absent: tenderness, pedal edema, joint swelling, calf tenderness Back exam: Present: normal inspection Neurological exam: Present: alert, altered, CN II-XII intact, other. Absent: motor sensory deficit Psychiatric exam: Present: normal affect, normal mood Skin exam: Present: warm, dry, intact, normal color. Absent: rash Course Vital Signs 12/07/17 16:03 Temperature 98.7 F Pulse Rate 98 Respiratory 16 Rate Blood Pressure 190/97 O2 Sat by Pulse 97 Oximetry Medical Decision Making - Medical Decision Making I did discuss findings with the patient and with family members as well as with Dr. Dey the patient be admitted for evaluation of altered mental status and dehydration and failure to thrive - Lab Data Result diagrams: 12/07/17 16:11 12/07/17 16:11 Lab Results 12/07/17 12/07/17 12/07/17 Range/Units 16:11 16:11 16:11 WBC 10.2 (3.8-10.6) k/uL RBC 4.09 (3.80-5.40) m/uL Hgb 12.0 (11.4-16.0) gm/dL Hct 37.6 (34.0-46.0) % MCV 92.0 (80.0-100.0) fL MCH 29.4 (25.0-35.0) pg MCHC 31.9 (31.0-37.0) g/dL RDW 15.8 H (11.5-15.5) % Plt Count 349 (150-450) k/uL Neutrophils % 77 % Lymphocytes % 16 % Monocytes % 4 % Eosinophils % 1 % Basophils % 0 % Neutrophils # 7.9 H (1.3-7.7) k/uL Lymphocytes # 1.6 (1.0-4.8) k/uL Monocytes # 0.4 (0-1.0) k/uL Eosinophils # 0.1 (0-0.7) k/uL Basophils # 0.0 (0-0.2) k/uL PT (9.0-12.0) sec INR (<1.2) APTT (22.0-30.0) sec Sodium 141 (137-145) mmol/L Potassium 5.6 H (3.5-5.1) mmol/L Chloride 107 (98-107) mmol/L Carbon Dioxide 12 L (22-30) mmol/L Anion Gap 22 mmol/L BUN 18 H (7-17) mg/dL Creatinine 1.02 (0.52-1.04) mg/dL Est GFR (CKD-EPI)AfAm 66 (>60 ml/min/1.73 sqM) Est GFR (CKD-EPI)NonAf 57 (>60 ml/min/1.73 sqM) Glucose 155 H (74-99) mg/dL Calcium 9.9 (8.4-10.2) mg/dL Magnesium 1.3 L (1.6-2.3) mg/dL Total Bilirubin 0.4 (0.2-1.3) mg/dL AST 30 (14-36) U/L ALT 29 (9-52) U/L Alkaline Phosphatase 170 H (38-126) U/L Ammonia (<30) umol/L Total Creatine Kinase 208 H (30-135) U/L CK-MB (CK-2) 2.0 (0.0-2.4) ng/mL CK-MB (CK-2) Rel Index 1.0 Troponin I 0.033 (0.000-0.034) ng/mL Total Protein 7.4 (6.3-8.2) g/dL Albumin 4.6 (3.5-5.0) g/dL TSH 0.627 (0.465-4.680) mIU/L Urine Color Urine Appearance (Clear) Urine pH (5.0-8.0) Ur Specific [place] (1.001-1.035) Urine Protein (Negative) Urine Glucose (UA) (Negative) Urine Ketones (Negative) Urine Blood (Negative) Urine Nitrite (Negative) Urine Bilirubin (Negative) Urine Urobilinogen (<2.0) mg/dL Ur Leukocyte Esterase (Negative) Urine RBC (0-5) /hpf Urine WBC (0-5) /hpf Ur Squamous Epith Cells (0-4) /hpf Urine Bacteria (None) /hpf Hyaline Casts (0-2) /lpf Urine Mucus (None) /hpf Urine Opiates Screen (NotDetected) Ur Oxycodone Screen (NotDetected) Urine Methadone Screen (NotDetected) Ur Propoxyphene Screen (NotDetected) Ur Barbiturates Screen (NotDetected) U Tricyclic Antidepress (NotDetected) Ur Phencyclidine Scrn (NotDetected) Ur Amphetamines Screen (NotDetected) U Methamphetamines Scrn (NotDetected) U Benzodiazepines Scrn (NotDetected) Urine Cocaine Screen (NotDetected) U Marijuana (THC) Screen (NotDetected) 12/07/17 12/07/17 12/07/17 Range/Units 16:11 16:11 17:30 WBC (3.8-10.6) k/uL RBC (3.80-5.40) m/uL Hgb (11.4-16.0) gm/dL Hct (34.0-46.0) % MCV (80.0-100.0) fL MCH (25.0-35.0) pg MCHC (31.0-37.0) g/dL RDW (11.5-15.5) % Plt Count (150-450) k/uL Neutrophils % % Lymphocytes % % Monocytes % % Eosinophils % % Basophils % % Neutrophils # (1.3-7.7) k/uL Lymphocytes # (1.0-4.8) k/uL Monocytes # (0-1.0) k/uL Eosinophils # (0-0.7) k/uL Basophils # (0-0.2) k/uL PT 15.9 H (9.0-12.0) sec INR 1.7 H (<1.2) APTT 40.6 H (22.0-30.0) sec Sodium (137-145) mmol/L Potassium (3.5-5.1) mmol/L Chloride (98-107) mmol/L Carbon Dioxide (22-30) mmol/L Anion Gap mmol/L BUN (7-17) mg/dL Creatinine (0.52-1.04) mg/dL Est GFR (CKD-EPI)AfAm (>60 ml/min/1.73 sqM) Est GFR (CKD-EPI)NonAf (>60 ml/min/1.73 sqM) Glucose (74-99) mg/dL Calcium (8.4-10.2) mg/dL Magnesium (1.6-2.3) mg/dL Total Bilirubin (0.2-1.3) mg/dL AST (14-36) U/L ALT (9-52) U/L Alkaline Phosphatase (38-126) U/L Ammonia <9 (<30) umol/L Total Creatine Kinase (30-135) U/L CK-MB (CK-2) (0.0-2.4) ng/mL CK-MB (CK-2) Rel Index Troponin I (0.000-0.034) ng/mL Total Protein (6.3-8.2) g/dL Albumin (3.5-5.0) g/dL TSH (0.465-4.680) mIU/L Urine Color Yellow Urine Appearance Cloudy H (Clear) Urine pH 5.5 (5.0-8.0) Ur Specific [place] 1.020 (1.001-1.035) Urine Protein 3+ H (Negative) Urine Glucose (UA) Negative (Negative) Urine Ketones 4+ H (Negative) Urine Blood Moderate H (Negative) Urine Nitrite Negative (Negative) Urine Bilirubin 1+ H (Negative) Urine Urobilinogen 3.0 (<2.0) mg/dL Ur Leukocyte Esterase Small H (Negative) Urine RBC >182 H (0-5) /hpf Urine WBC 15 H (0-5) /hpf Ur Squamous Epith Cells 4 (0-4) /hpf Urine Bacteria Rare H (None) /hpf Hyaline Casts 3 H (0-2) /lpf Urine Mucus Rare H (None) /hpf Urine Opiates Screen Not Detected (NotDetected) Ur Oxycodone Screen Not Detected (NotDetected) Urine Methadone Screen Not Detected (NotDetected) Ur Propoxyphene Screen Not Detected (NotDetected) Ur Barbiturates Screen Detected H (NotDetected) U Tricyclic Antidepress Not Detected (NotDetected) Ur Phencyclidine Scrn Not Detected (NotDetected) Ur Amphetamines Screen Not Detected (NotDetected) U Methamphetamines Scrn Not Detected (NotDetected) U Benzodiazepines Scrn Not Detected (NotDetected) Urine Cocaine Screen Not Detected (NotDetected) U Marijuana (THC) Screen Not Detected (NotDetected) - EKG Data -: EKG Interpreted by Me EKG shows normal: sinus rhythm (Sinus rhythm rate of 101 44 QRS 84 QT since QTC 350/[address] configuration) - Radiology Data Radiology results: report reviewed (I did review the imaging and report no acute findings.), image reviewed Disposition Clinical Impression: Delirium due to general medical condition, Dehydration, Hypomagnesemia syndrome , Failure to thrive in adult Disposition: ADMITTED IP TO THIS [facility] Condition: Stable Referrals: Rainer Dey MD [Primary Care Provider] - 1-2 days
[2017-12-07 16:36] LABS: Basophils % (A) 0 %; Eosinophils # (A) 0.1 k/uL (0-0.7); Eosinophils % (A) 1 %; HCT 37.6 % (34.0-46.0); Lymphocytes # (A) 1.6 k/uL (1.0-4.8); Lymphocytes % (A) 16 %; MCH 29.4 pg (25.0-35.0); MCHC 31.9 g/dL (31.0-37.0); Mean Platelet Volume 7.5; Monocytes # (A) 0.4 k/uL (0-1.0); Monocytes % (A) 4 %; Neutrophils # (A) 7.9 k/uL (1.3-7.7); Neutrophils % (A) 77 %; Platelet Count 349 k/uL (150-450); RBC 4.09 m/uL (3.80-5.40); RDW 15.8 % (11.5-15.5); WBC 10.2 k/uL (3.8-10.6)
[2017-12-07 16:44] LABS: Albumin 4.6 g/dL (3.5-5.0); Calcium 9.9 mg/dL (8.4-10.2); Magnesium 1.3 mg/dL (1.6-2.3); Potassium 5.6 mmol/L (3.5-5.1); Total Bilirubin 0.4 mg/dL (0.2-1.3); Total Protein 7.4 g/dL (6.3-8.2)
[2017-12-07 16:50] LABS: INR 1.7 (<1.2); Partial Thromboplastin Time 40.6 sec (22.0-30.0); Prothrombin Time 15.9 sec (9.0-12.0)
[2017-12-07 17:12] LABS: Troponin I 0.033 ng/mL (0.000-0.034)
--- NOTE | 2017-12-07 17:42 | CT ---
EXAMINATION TYPE: CT brain wo con DATE OF EXAM: 12/07/2017 COMPARISON: None HISTORY: Fall injury CT DLP: 1183.4 mGycm Automated exposure control for dose reduction was used. FINDINGS: There is mild cerebral cortical atrophy. There is no mass effect nor midline shift. There is no sign of intracranial hemorrhage. The calvarium is intact. IMPRESSION: NEGATIVE CT SCAN OF THE BRAIN.
[2017-12-07 17:52] LABS: Appearance,Urine Cloudy (Clear); Bacteria,Urine Rare /hpf; Bilirubin,Urine 1+ (Negative); Blood,Urine Moderate (Negative); Color,Urine Yellow; Glucose,Urine (UA) Negative (Negative); Hyaline Casts,Urine 3 /lpf (0-2); Ketones,Urine 4+ (Negative); Leukocyte Esterase,Urine Small (Negative); Mucus,Urine Rare /hpf; Nitrite,Urine Negative (Negative); PH, Urine 5.5 (5.0-8.0); Protein,Urine 3+ (Negative); RBC,Urine >182 /hpf (0-5); Squamous Epithelial Cell,Urine 4 /hpf (0-4); WBC,Urine 15 /hpf (0-5)
[2017-12-07 17:57] LABS: Amphetamine Screen,Urine Not Detected (NotDetected); Barbiturate Screen,Urine Detected (NotDetected); Benzodiazepines Screen,Urine Not Detected (NotDetected); Cocaine Screen,Urine Not Detected (NotDetected); Methadone Screen, Urine Not Detected (NotDetected); Opiate Screen,Urine Not Detected (NotDetected); Oxycodone Screen, Urine Not Detected (NotDetected); Phencyclidine Screen,Urine Not Detected (NotDetected); Tricyclic Antidepressant,Urine Not Detected (NotDetected); Urn Cannabinoid Scrn Not Detected (NotDetected)
--- NOTE | 2017-12-07 18:08 | XR ---
EXAMINATION TYPE: XR chest 2V DATE OF EXAM: 12/07/2017 COMPARISON: 09/04/2016 HISTORY: Altered mental status TECHNIQUE: Frontal and lateral views of the chest are obtained. FINDINGS: Heart and mediastinum are normal. Lungs are clear. Diaphragm is normal. Bony thorax is int act. There are chest leads. IMPRESSION: Normal chest. No change.
[2017-12-07] MEDS ORDERED: MAGNESIUM SULFATE-D5W PMX 1 GM in DEXTROSE/WATER 1 100ML.BAG IVPB ONE (20:18)
[2017-12-07] MEDS ORDERED: NALOXONE 0.4 MG/ML 1 ML VIAL IV PRN (20:19)
[2017-12-07] MEDS ORDERED: ALBUTEROL NEBULIZED 2.5 MG/3 ML INHALATION PRN (20:22)
[2017-12-07] MEDS ORDERED: ACETAMINOPHEN TAB 500 MG TAB PO PRN (20:22)
[2017-12-07] MEDS ORDERED: SODIUM CHLORIDE 0.9% 500 ML 500 ML IV STA (20:24)
[2017-12-07] MEDS ORDERED: diphenhydrAMINE 50 MG CAP PO PRN (20:27)
[2017-12-07] MEDS ORDERED: hydrALAZINE HCL 20 MG/ML 1 ML VIAL IVP STA (21:09)
[2017-12-07 21:59] LABS: Glucose,Whole Blood 156 mg/dL (75-99)
[2017-12-07] MEDS: CARVEDILOL 12.5 MG TAB PO SCH (22:36)
[2017-12-07] MEDS: DULoxetine HCL 30 MG CAPSULE.DR PO SCH (22:36)
[2017-12-07] MEDS: ATORVASTATIN 80 MG TAB PO SCH (22:36)
[2017-12-07] MEDS: metFORMIN 500 MG TAB PO SCH (22:37)
[2017-12-07] MEDS: FAMOTIDINE 20 MG TAB PO SCH (22:37)
[2017-12-07] MEDS: PRIMIDONE 50 MG TAB PO SCH (22:37)
[2017-12-07] MEDS: INSULIN DETEMIR 100 UNIT/ML 10 ML VIAL SQ SCH (22:37)
[2017-12-07] MEDS: levETIRAcetam 500 MG TAB PO SCH (22:37)
[2017-12-07] MEDS: clonazePAM 1 MG TAB PO SCH (22:48)
[2017-12-07] MEDS: SODIUM CHLORIDE 0.9% 1,000 ML IV SCH (22:49)
[2017-12-08 00:34] LABS: Glucose,Whole Blood 191 mg/dL (75-99)
[2017-12-08] MEDS: INSULIN DETEMIR 100 UNIT/ML 10 ML VIAL SQ SCH ×2 (00:44→20:37)
[2017-12-08] MEDS: traMADol 50 MG TAB PO PRN ×2 (01:11→15:00)
[2017-12-08 03:52] LABS: Glucose,Whole Blood 183 mg/dL (75-99)
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
[2017-12-08 07:32] LABS: Glucose,Whole Blood 171 mg/dL (75-99)
[2017-12-08] MEDS: metFORMIN 500 MG TAB PO SCH ×2 (08:24→20:23)
[2017-12-08] MEDS: FENOFIBRATE 160 MG TAB PO SCH (08:24)
[2017-12-08] MEDS: ISOSORBIDE MONONITRATE ER 30 MG TAB.ER.24H PO SCH (08:24)
[2017-12-08] MEDS: PRIMIDONE 50 MG TAB PO SCH ×2 (08:24→20:23)
[2017-12-08] MEDS: clonazePAM 1 MG TAB PO SCH ×2 (08:24→20:32)
[2017-12-08] MEDS: CARVEDILOL 12.5 MG TAB PO SCH ×2 (08:25→17:58)
[2017-12-08] MEDS: amLODIPine 10 MG TAB PO SCH (08:25)
[2017-12-08] MEDS: LOSARTAN 50 MG TAB PO SCH (08:25)
[2017-12-08] MEDS: levETIRAcetam 500 MG TAB PO SCH ×2 (08:25→20:23)
[2017-12-08] MEDS: CHLORTHALIDONE 25 MG TAB PO SCH (08:25)
[2017-12-08] MEDS: DULoxetine HCL 30 MG CAPSULE.DR PO SCH ×2 (08:25→20:23)
[2017-12-08] MEDS: ASPIRIN 81 MG PO SCH (08:25)
[2017-12-08 08:46] LABS: Anisocytosis Slight; Basophils % (A) 0 %; Eosinophils # (A) 0.3 k/uL (0-0.7); Eosinophils % (A) 3 %; HCT 32.4 % (34.0-46.0); HGB 10.7 gm/dL (11.4-16.0); Lymphocytes # (A) 2.4 k/uL (1.0-4.8); Lymphocytes % (A) 25 %; MCH 30.1 pg (25.0-35.0); MCHC 32.9 g/dL (31.0-37.0); MCV 91.3 fL (80.0-100.0); Mean Platelet Volume 7.3; Monocytes # (A) 0.7 k/uL (0-1.0); Monocytes % (A) 7 %; Neutrophils # (A) 6.1 k/uL (1.3-7.7); Neutrophils % (A) 63 %; Platelet Count 298 k/uL (150-450); RBC 3.55 m/uL (3.80-5.40); RDW 16.1 % (11.5-15.5); WBC 9.7 k/uL (3.8-10.6)
[2017-12-08] MEDS ORDERED: amLODIPine 5 MG TAB PO SCH (09:00)
[2017-12-08] MEDS: LORATADINE 10 MG TAB PO SCH (09:04)
[2017-12-08] MEDS: LISINOPRIL 20 MG TAB PO SCH (09:04)
[2017-12-08] MEDS: SODIUM CHLORIDE 0.9% 1,000 ML IV SCH ×2 (09:04→20:22)
[2017-12-08] MEDS: FAMOTIDINE 20 MG TAB PO SCH ×2 (09:04→21:47)
[2017-12-08 12:17] LABS: Glucose,Whole Blood 211 mg/dL (75-99)
[2017-12-08] MEDS: INSULIN ASPART 100 UNIT/ML 1 ML 10 ML VIAL SQ SCH ×3 (12:39→20:37)
[2017-12-08 16:37] LABS: Hemoglobin A1C 6.3 % (4.0-6.0)
[2017-12-08 16:56] LABS: Glucose,Whole Blood 200 mg/dL (75-99)
[2017-12-08] MEDS: ATORVASTATIN 80 MG TAB PO SCH (20:23)
[2017-12-08] MEDS: ACETAMINOPHEN TAB 500 MG TAB PO PRN (20:32)
[2017-12-08 20:44] LABS: Glucose,Whole Blood 180 mg/dL (75-99)
[2017-12-09 02:13] LABS: Glucose,Whole Blood 165 mg/dL (75-99)
--- NOTE | 2017-12-09 07:34 | P.PN ---
Subjective Progress Note Date: 12/09/17 Principal diagnosis: Dehydration. Altered mental status This continue present 58-year-old white female essentially admitted for dehydration and altered mental status. Appreciate neurology input. The patient has rested well and states no voiding difficulties. I suspect given her left lower 78 dictation and comorbidities, we will place to ECF in several days. No voiding difficulties. No significant nausea, vomiting or diarrhea. Objective - Vital Signs Vital signs: Vital Signs Temp 97.8 F 12/09/17 06:00 Pulse 64 12/09/17 06:00 Resp 20 12/09/17 06:00 BP 137/65 12/09/17 06:00 Pulse Ox 97 12/09/17 06:00 Intake & Output 12/08/17 12/09/17 12/09/17 18:59 06:59 18:59 Intake Total 840 500 Balance 840 500 Intake: Intake, IV Titration 640 Amount Sodium Chloride 0.9% 1, 640 000 ml @ 80 mls/hr IV . [id number] KATIE Rx#:[id number] Oral 200 500 Other: # Voids 1 1 # Bowel Movements 0 - Constitutional General appearance: Present: average body habitus - EENT Eyes: Absent: abnormal pupil - Respiratory Respiratory: bilateral: CTA, diminished - Cardiovascular Rhythm: regular Heart sounds: normal: S1, S2 Abnormal Heart Sounds: Absent: S3 Gallop - Gastrointestinal General gastrointestinal: Present: soft. Absent: tenderness - Neurologic Neurologic: Present: CNII-XII intact - Psychiatric Psychiatric: Present: A&O x's 3 - Labs CBC & Chem 7: 12/08/17 08:13 12/07/17 16:11 Labs: Abnormal Lab Results - Last 24 Hours (Table) 12/08/17 12/08/17 12/08/17 Range/Units 07:22 08:13 08:13 RBC 3.55 L (3.80-5.40) m/uL Hgb 10.7 L (11.4-16.0) gm/dL Hct 32.4 L (34.0-46.0) % RDW 16.1 H (11.5-15.5) % POC Glucose (mg/dL) 171 H (75-99) mg/dL Hemoglobin A1c 6.3 H (4.0-6.0) % 12/08/17 12/08/17 12/08/17 Range/Units 12:16 16:55 20:30 RBC (3.80-5.40) m/uL Hgb (11.4-16.0) gm/dL Hct (34.0-46.0) % RDW (11.5-15.5) % POC Glucose (mg/dL) 211 H 200 H 180 H (75-99) mg/dL Hemoglobin A1c (4.0-6.0) % 12/09/17 Range/Units 02:09 RBC (3.80-5.40) m/uL Hgb (11.4-16.0) gm/dL Hct (34.0-46.0) % RDW (11.5-15.5) % POC Glucose (mg/dL) 165 H (75-99) mg/dL Hemoglobin A1c (4.0-6.0) % Microbiology - Last 24 Hours (Table) 12/07/17 16:11 Blood Culture - Preliminary Blood No Growth after 24 hours Assessment and Plan (1) Altered mental status Current Visit: Yes Status: Acute Code(s): R41.82 - ALTERED MENTAL STATUS, UNSPECIFIED SNOMED Code(s): 785848205 (2) Memory loss Current Visit: Yes Status: Acute Code(s): R41.3 - OTHER AMNESIA SNOMED Code(s): 804354770 (3) Knee contusion Current Visit: Yes Status: Acute Code(s): S80.00XA - CONTUSION OF UNSPECIFIED KNEE, INITIAL ENCOUNTER SNOMED Code(s): 17967798 (4) Fall (on)(from) incline, initial encounter Current Visit: Yes Status: Acute Code(s): W10.2XXA - FALL (ON)(FROM) INCLINE , INITIAL ENCOUNTER SNOMED Code(s): 614981432 (5) Dehydration Current Visit: Yes Status: Acute Code(s): E86.0 - DEHYDRATION SNOMED Code( s): 36880701 (6) Chronic pain syndrome Current Visit: No Status: Chronic Code(s): G89.4 - CHRONIC PAIN SYNDROME SNOMED Code(s): 050440965 Plan: The patient will get her magnesium rechecked today. ECF placement most likely given her mentation. Check CBC CMP and magnesium in a.m. Dr. Matute's group will be covering for the weekend. Anticipate discharge on Tuesday for transfer to probable home versus ECF. Time with Patient: Less than 30
[2017-12-09 07:46] LABS: Glucose,Whole Blood 153 mg/dL (75-99)
[2017-12-09] MEDS: DULoxetine HCL 30 MG CAPSULE.DR PO SCH ×2 (07:54→21:27)
[2017-12-09] MEDS: LORATADINE 10 MG TAB PO SCH (07:54)
[2017-12-09] MEDS: PRIMIDONE 50 MG TAB PO SCH ×2 (07:54→21:27)
[2017-12-09] MEDS: LOSARTAN 50 MG TAB PO SCH (07:54)
[2017-12-09] MEDS: CHLORTHALIDONE 25 MG TAB PO SCH (07:54)
[2017-12-09] MEDS: LISINOPRIL 20 MG TAB PO SCH (07:54)
[2017-12-09] MEDS: FENOFIBRATE 160 MG TAB PO SCH (07:54)
[2017-12-09] MEDS: ISOSORBIDE MONONITRATE ER 30 MG TAB.ER.24H PO SCH (07:54)
[2017-12-09] MEDS: metFORMIN 500 MG TAB PO SCH ×2 (07:54→21:27)
[2017-12-09] MEDS: FAMOTIDINE 20 MG TAB PO SCH ×2 (07:54→21:27)
[2017-12-09] MEDS: levETIRAcetam 500 MG TAB PO SCH ×2 (07:54→21:27)
[2017-12-09] MEDS: ASPIRIN 81 MG PO SCH (07:55)
[2017-12-09] MEDS: clonazePAM 1 MG TAB PO SCH ×2 (07:55→21:35)
[2017-12-09] MEDS: amLODIPine 10 MG TAB PO SCH (07:55)
[2017-12-09] MEDS: CARVEDILOL 12.5 MG TAB PO SCH ×2 (07:55→18:42)
[2017-12-09] MEDS: INSULIN ASPART 100 UNIT/ML 1 ML 10 ML VIAL SQ SCH ×4 (07:55→21:36)
[2017-12-09 08:19] LABS: HCT 30.4 % (34.0-46.0); HGB 10.3 gm/dL (11.4-16.0); MCH 30.9 pg (25.0-35.0); MCV 90.8 fL (80.0-100.0); Mean Platelet Volume 7.7; Platelet Count 263 k/uL (150-450); RBC 3.34 m/uL (3.80-5.40); WBC 6.7 k/uL (3.8-10.6)
[2017-12-09] MEDS ORDERED: Magnesium Replacement Protocol 1 EACH MISC MISCELLANE PRN (08:38)
[2017-12-09] MEDS: MAGNESIUM SULFATE-D5W PMX 1 GM in DEXTROSE/WATER 1 100ML.BAG IVPB SCH ×3 (09:22→11:31)
[2017-12-09] MEDS: SODIUM CHLORIDE 0.9% 1,000 ML IV SCH (10:25)
[2017-12-09] MEDS: ACETAMINOPHEN TAB 325 MG TAB PO PRN (11:41)
[2017-12-09 11:59] LABS: Glucose,Whole Blood 278 mg/dL (75-99)
[2017-12-09 17:09] LABS: Glucose,Whole Blood 129 mg/dL (75-99)
[2017-12-09] MEDS ORDERED: MD COMMUNICATION TO PHARMACY 1 EACH MISC PO PRN (17:15)
[2017-12-09] MEDS ORDERED: LEVOFLOXACIN 500MG-D5W PMX 500 MG in DEXTROSE/WATER 1 100ML.BAG IVPB SCH (18:00)
[2017-12-09 20:36] LABS: Glucose,Whole Blood 202 mg/dL (75-99)
[2017-12-09] MEDS: ACETAMINOPHEN TAB 500 MG TAB PO PRN (20:37)
[2017-12-09] MEDS: ATORVASTATIN 80 MG TAB PO SCH (21:27)
[2017-12-09] MEDS: INSULIN DETEMIR 100 UNIT/ML 10 ML VIAL SQ SCH (21:35)
[2017-12-10] MEDS: SODIUM CHLORIDE 0.9% 1,000 ML IV SCH ×2 (05:08→09:16)
[2017-12-10 07:30] LABS: Glucose,Whole Blood 76 mg/dL (75-99)
[2017-12-10 07:35] LABS: HCT 29.8 % (34.0-46.0); MCH 30.3 pg (25.0-35.0); MCHC 33.6 g/dL (31.0-37.0); MCV 90.1 fL (80.0-100.0); Mean Platelet Volume 7.5; Platelet Count 228 k/uL (150-450); RBC 3.31 m/uL (3.80-5.40); RDW 15.8 % (11.5-15.5); WBC 6.8 k/uL (3.8-10.6)
[2017-12-10] MEDS: INSULIN ASPART 100 UNIT/ML 1 ML 10 ML VIAL SQ SCH ×4 (07:47→21:08)
[2017-12-10 07:55] LABS: ALT 22 U/L (9-52); AST 21 U/L (14-36); Albumin 3.1 g/dL (3.5-5.0); Alkaline Phosphatase 99 U/L (38-126); Anion Gap 7 mmol/L; Blood Urea Nitrogen 12 mg/dL (7-17); Calcium 8.6 mg/dL (8.4-10.2); Carbon Dioxide 23 mmol/L (22-30); Chloride 108 mmol/L (98-107); Glucose 75 mg/dL (74-99); Magnesium 1.6 mg/dL (1.6-2.3); Potassium 4.2 mmol/L (3.5-5.1); Sodium 138 mmol/L (137-145); Total Bilirubin 0.2 mg/dL (0.2-1.3); Total Protein 5.6 g/dL (6.3-8.2)
[2017-12-10] MEDS: PRIMIDONE 50 MG TAB PO SCH ×2 (09:14→21:03)
[2017-12-10] MEDS: CARVEDILOL 12.5 MG TAB PO SCH ×2 (09:14→16:40)
[2017-12-10] MEDS: LORATADINE 10 MG TAB PO SCH (09:15)
[2017-12-10] MEDS: levETIRAcetam 500 MG TAB PO SCH ×2 (09:15→21:04)
[2017-12-10] MEDS: amLODIPine 10 MG TAB PO SCH (09:15)
[2017-12-10] MEDS: LISINOPRIL 20 MG TAB PO SCH (09:15)
[2017-12-10] MEDS: FAMOTIDINE 20 MG TAB PO SCH ×2 (09:15→21:04)
[2017-12-10] MEDS: CHLORTHALIDONE 25 MG TAB PO SCH (09:15)
[2017-12-10] MEDS: metFORMIN 500 MG TAB PO SCH ×2 (09:16→21:03)
[2017-12-10] MEDS: LOSARTAN 50 MG TAB PO SCH (09:16)
[2017-12-10] MEDS: FENOFIBRATE 160 MG TAB PO SCH (09:16)
[2017-12-10] MEDS: ISOSORBIDE MONONITRATE ER 30 MG TAB.ER.24H PO SCH (09:20)
[2017-12-10] MEDS: DULoxetine HCL 30 MG CAPSULE.DR PO SCH ×2 (09:20→21:03)
[2017-12-10] MEDS: clonazePAM 1 MG TAB PO SCH ×2 (09:23→21:07)
--- NOTE | 2017-12-10 10:11 | CONS ---
DATE OF CONSULTATION: 12/10/2017 This patient is known to me from the past. Patient had a left BK amputation done by me in the past. She came in with some mental status change. The patient has some abrasion on the right foot big toe and knee area. She has been admitted for further evaluation. I was consulted for local wound care. MEDICAL HISTORY: 1. History of COPD. 2. Diabetes. 3. Hypertension. PHYSICAL EXAMINATION: Patient was seen in her room, lying comfortably in bed. NECK: Supple. Trachea central. CHEST: Clear on auscultation. ABDOMEN: Soft. Femorals are palpable. Left BKA stump is healing well. On the right big toe patient has some abrasion of the skin. No discharge or redness noted. PLAN: We will use Silvadene cream and cover with 4x4. At this point, she does not need any surgical intervention. If she goes home, I will follow her in my office. We will continue with local wound care. If she needs surgical intervention, we will proceed. At this point, we will treat with local wound care. MMODL / IJN: [id number] / MTDD
[2017-12-10] MEDS: ASPIRIN 81 MG PO SCH (10:45)
[2017-12-10 11:54] LABS: Glucose,Whole Blood 104 mg/dL (75-99)
--- NOTE | 2017-12-10 16:29 | P.PN ---
Subjective it security consultant hospitalist covering for over the weekend. this is a pleasant 66 yo F presents with altered mental status. when i asked the pt , she told me she came to hospital because she fell twice at home while she was trying to get out of bed while she forgot to use her prosthesis so she fell and hit her head twice , but she was not sure if she passed out or not. however son at bed side state that is not the reason she came to hospital but because she looked confused when his called her . as per son, pt is improving significantly since admission but she is still confused which is her new baseline and that they are obtaining guardianship in this coming Tuesday. pt keeps forgetting since last year, eg as per son she was telling everybody she is having Physical therapy when she is not. today pt was complaining from epigastric discomfort. with little dyspnea. Objective - Vital Signs Vital signs: Vital Signs Temp 97.8 F 12/10/17 15:00 Pulse 55 L 12/10/17 15:00 Resp 18 12/10/17 15:00 BP 154/71 12/10/17 15:00 Pulse Ox 97 12/10/17 15:00 Intake & Output 12/09/17 12/10/17 12/10/17 18:59 06:59 18:59 Intake Total 365 Balance 365 Weight 77.111 kg Intake: Oral 365 Other: Voiding Method Bedside Commode Bedpan # Voids 1 6 2 # Bowel Movements 1 - Exam GENERAL: The patient is alert and awake, not in any acute distress. HEENT: Pupils are round and equally reacting to light. EOMI. No scleral icterus. No conjunctival pallor. Normocephalic, atraumatic. No pharyngeal erythema. No thyromegaly. CARDIOVASCULAR: S1 and S2 present. No murmurs, rubs, or gallops. PULMONARY: Chest is clear to auscultation, no wheezing or crackles. ABDOMEN: Soft, nontender, nondistended, normoactive bowel sounds. No palpable organomegaly. MUSCULOSKELETAL: No joint swelling or deformity. EXTREMITIES: No cyanosis, clubbing, or pedal edema. NEUROLOGICAL: Gross neurological examination did not reveal any focal deficits. SKIN: No rashes. - Labs CBC & Chem 7: 12/10/17 07:14 12/10/17 07:14 Labs: Abnormal Lab Results - Last 24 Hours (Table) 12/09/17 12/09/17 12/10/17 Range/Units 17:04 20:36 07:14 RBC 3.31 L (3.80-5.40) m/uL Hgb 10.0 L (11.4-16.0) gm/dL Hct 29.8 L (34.0-46.0) % RDW 15.8 H (11.5-15.5) % Chloride (98-107) mmol/L POC Glucose (mg/dL) 129 H 202 H (75-99) mg/dL Total Protein (6.3-8.2) g/dL Albumin (3.5-5.0) g/dL 12/10/17 12/10/17 Range/Units 07:14 11:51 RBC (3.80-5.40) m/uL Hgb (11.4-16.0) gm/dL Hct (34.0-46.0) % RDW (11.5-15.5) % Chloride 108 H (98-107) mmol/L POC Glucose (mg/dL) 104 H (75-99) mg/dL Total Protein 5.6 L (6.3-8.2) g/dL Albumin 3.1 L (3.5-5.0) g/dL Microbiology - Last 24 Hours (Table) 12/07/17 16:11 Blood Culture - Preliminary Blood No Growth after 48 hours Assessment and Plan Assessment: metabolic encephalopathy secondary to UTI and possible other causes UTI possible syncope frequent fall possible dementia epigastric discomfort dehydration Plan: this is a pleasant 66 F presents with UTI and confusion, possible syncope. we will do serial cardiac enzymes , and call cardiology consult for further evaluation . pt looks has a baseline of worsening dementia , will benefit from re-evaluation with mini-mental exam for dementia as outpt . pt with possible UTI , unfortunately urine cultuer has not been sent before , we will sen urine culture although the yield is low now as pt is been on antibiotic already , continue with antibiotic for now.pt with h/o seizure , we will call neurology consult. family are obtaining guardinship on this tuesday . GI and DVT prophylasix . further recommendation as per medical progress dvt px : heparin GI px: pepcid prognosis is guarded PT/OT ;pending
[2017-12-10] MEDS: LEVOFLOXACIN 500 MG TAB PO SCH (16:40)
[2017-12-10 17:33] LABS: Glucose,Whole Blood 127 mg/dL (75-99)
[2017-12-10 18:04] LABS: Creatine Kinase MB 0.8 ng/mL (0.0-2.4)
--- NOTE | 2017-12-10 19:07 | P.CNNES ---
History of Present Illness Consult date: 12/10/17 Requesting physician: Rainer Dey Reason for Consult: Altered mental status History of Present Illness: Patient is a pleasant 66-year-old female who is being evaluated by the neurology service on 12/11/2017 per the request of Dr. Dey for altered mental status. Patient has a significant history of diabetes with foot ulcers. Patient recently had left below the knee amputation. Patient informs me she feels her mentation has been declining ever since last December. Patient informs me last December she had a fall at home hitting her head on the cement. She was seen at a local facility and transferred to [facility] due to subdural hematoma. No surgical intervention was required. Patient states ever since then she has noticed her memory has not been the same. Patient's family states memory is declining as well. This is not an acute finding. Patient has been treated for multiple infections prior to amputation. Patient had a PICC line giving antibiotics to herself to try and save her leg. Patient states she lives alone. Given multiple infections, recent surgery with loss of lower leg, and the fact she lives alone and is trying to perform all her own ADLs she is extremely stressed and is noticing herself that her mentation is not as it used to be. Patient's states her family is wanting to place her in a penitentiary due to her declining cognition , and this upsets her. Patient is tearful speaking about it. Patient has history of tremors for which she follows with Dr. Caban as an outpatient. Vital signs on admission were temperature 98.7, pulse rate 98, respiratory rate 16, blood pressure 190/97, and O2 saturation was 97% on room air. Labs on admission show disc exam 5.6, BUN 18, glucose 155, magnesium low at 1.3. UA reveals urinary tract infection. Computed tomography scan on admission was negative for any acute process. At the time of my evaluation, patient is sitting up in bed eating dinner and appears to be in no acute distress. Review of Systems REVIEW OF SYSTEMS: Otherwise unremarkable and noncontributory. Past Medical History Past Medical History: COPD, Diabetes Mellitus, Hyperlipidemia, Hypertension, Musculoskeletal Disorder, Osteoarthritis (OA) Additional Past Medical History / Comment(s): tremors, migraines History of Any Multi-Drug Resistant Organisms: None Reported Past Surgical History: Cholecystectomy, Hysterectomy, Orthopedic Surgery, Tubal Ligation Additional Past Surgical History / Comment(s): partial amp. toe R foot. June 2014 - cervical fusion (steel plate and cages) Past Anesthesia/Blood Transfusion Reactions: Motion Sickness Past Psychological History: Depression Smoking Status: Former smoker Past Alcohol Use History: None Reported Past Drug Use History: None Reported - Past Family History Mother Family Medical History: Cancer Medications and Allergies Home Medications Medication Instructions Recorded Confirmed Type Aspirin [Adult Low Dose Aspirin EC] 81 mg PO DAILY 01/21/15 12/07/17 History Atorvastatin [Lipitor] 80 mg PO HS 01/21/15 12/07/17 History Insulin Aspart [NovoLOG] See Protocol SQ ACHS 01/21/15 12/07/17 History Lisinopril 40 mg PO DAILY 01/21/15 12/07/17 History Primidone [Mysoline] 150 mg PO BID 01/21/15 12/07/17 History clonazePAM [KlonoPIN] 1 mg PO BID 01/21/15 12/07/17 History Albuterol Inhaler [Ventolin Hfa 1 - 2 puff INHALATION RT-Q6H PRN 01/28/15 History Inhaler] Cetirizine HCl [Zyrtec] 10 mg PO DAILY 03/11/15 12/07/17 History Gemfibrozil [Lopid] 600 mg PO AC-BID tab 09/09/16 12/07/17 Rx Insulin Detemir [Levemir Flextouch] 45 units SQ HS 10/18/16 12/07/17 History Acetaminophen/Diphenhydramine 2 tab PO HS PRN 12/07/17 12/07/17 History [Tylenol PM 500-25mg] Carvedilol [Coreg] 12.5 mg PO BID 12/07/17 12/07/17 History Chlorthalidone 25 mg PO DAILY 12/07/17 12/07/17 History DULoxetine HCL [Cymbalta] 30 mg PO BID 12/07/17 12/07/17 History Famotidine [Pepcid] 20 mg PO BID 12/07/17 12/07/17 History Isosorbide Mononitrate ER [Imdur] 30 mg PO DAILY 12/07/17 12/07/17 History Losartan [Cozaar] 50 mg PO DAILY 12/07/17 12/07/17 History amLODIPine [Norvasc] 5 mg PO DAILY 12/07/17 12/07/17 History levETIRAcetam [Keppra] 500 mg PO BID 12/07/17 12/07/17 History metFORMIN HCL 1,000 mg PO BID 12/07/17 12/07/17 History Allergies Allergy/AdvReac Type Severity Reaction Status Date / Time codeine Allergy Nausea & Verified 12/07/17 16:52 Vomiting codeine phosphate AdvReac Nausea & Verified 12/07/17 23:26 [From Codar GF] Vomiting guaifenesin [From Codar GF] AdvReac Unknown Verified 12/07/17 16:52 Physical Examination - Vital Signs Vital Signs: Vital Signs Temp Pulse Pulse Resp BP Pulse Ox 12/10/17 15:00 97.8 F 55 L 18 154/71 97 12/10/17 09:14 70 12/10/17 07:00 97.6 F 54 L 18 153/65 96 12/09/17 22:54 98.0 F 66 18 137/64 98 12/09/17 19:30 81 16 12/09/17 19:21 84 16 Intake and Output 12/10/17 12/10/17 12/10/17 06:59 14:59 22:59 Intake Total 365 350 Balance 365 350 Intake: Oral 365 350 Other: Voiding Method Bedpan Bedside Commode # Voids 6 2 Weight 77.111 kg PHYSICAL EXAM: GENERAL APPEARANCE: Patient is a well-developed, female who appears to be in no acute distress. HEENT: Normocephalic, atraumatic, no facial asymmetry is seen. Neck is supple with no masses felt. CARDIOVASCULAR: Regular rate and rhythm. ABDOMEN: Nontender, nondistended. EXTREMITIES: Show left below the knee amputation. NEUROLOGICAL EXAM: Patient is awake, alert, and oriented 3. Speech and language are normal. Strength is full in bilateral upper extremities. Strength is 5/5 in right lower extremity and 4/5 in left lower extremity. Left lower extremity is below the knee amputation. No facial asymmetry is seen on cranial nerve testing. Sensory exam is normal to light touch in all 4 extremities. No seizure activity noted. Patient has significant postural tremors/intentional tremors. Results - Laboratory Findings CBC and BMP: 12/10/17 07:14 12/10/17 07:14 Abnormal Lab Findings: Abnormal Labs 12/07/17 12/07/17 12/07/17 16:11 16:11 16:11 RBC Hgb Hct RDW 15.8 H Neutrophils # 7.9 H PT INR APTT Potassium 5.6 H Chloride Carbon Dioxide 12 L BUN 18 H Glucose 155 H POC Glucose (mg/dL) Hemoglobin A1c Magnesium 1.3 L Alkaline Phosphatase 170 H Total Creatine Kinase 208 H Total Protein Albumin Urine Appearance Urine Protein Urine Ketones Urine Blood Urine Bilirubin Ur Leukocyte Esterase Urine RBC Urine WBC Urine Bacteria Hyaline Casts Urine Mucus Ur Barbiturates Screen 12/07/17 12/07/17 12/07/17 16:11 17:30 21:57 RBC Hgb Hct RDW Neutrophils # PT 15.9 H INR 1.7 H APTT 40.6 H Potassium Chloride Carbon Dioxide BUN Glucose POC Glucose (mg/dL) 156 H Hemoglobin A1c Magnesium Alkaline Phosphatase Total Creatine Kinase Total Protein Albumin Urine Appearance Cloudy H Urine Protein 3+ H Urine Ketones 4+ H Urine Blood Moderate H Urine Bilirubin 1+ H Ur Leukocyte Esterase Small H Urine RBC >182 H Urine WBC 15 H Urine Bacteria Rare H Hyaline Casts 3 H Urine Mucus Rare H Ur Barbiturates Screen Detected H 12/08/17 12/08/17 12/08/17 00:26 03:40 07:22 RBC Hgb Hct RDW Neutrophils # PT INR APTT Potassium Chloride Carbon Dioxide BUN Glucose POC Glucose (mg/dL) 191 H 183 H 171 H Hemoglobin A1c Magnesium Alkaline Phosphatase Total Creatine Kinase Total Protein Albumin Urine Appearance Urine Protein Urine Ketones Urine Blood Urine Bilirubin Ur Leukocyte Esterase Urine RBC Urine WBC Urine Bacteria Hyaline Casts Urine Mucus Ur Barbiturates Screen 12/08/17 12/08/17 12/08/17 08:13 08:13 12:16 RBC 3.55 L Hgb 10.7 L Hct 32.4 L RDW 16.1 H Neutrophils # PT INR APTT Potassium Chloride Carbon Dioxide BUN Glucose POC Glucose (mg/dL) 211 H Hemoglobin A1c 6.3 H Magnesium Alkaline Phosphatase Total Creatine Kinase Total Protein Albumin Urine Appearance Urine Protein Urine Ketones Urine Blood Urine Bilirubin Ur Leukocyte Esterase Urine RBC Urine WBC Urine Bacteria Hyaline Casts Urine Mucus Ur Barbiturates Screen 12/08/17 12/08/17 12/09/17 16:55 20:30 02:09 RBC Hgb Hct RDW Neutrophils # PT INR APTT Potassium Chloride Carbon Dioxide BUN Glucose POC Glucose (mg/dL) 200 H 180 H 165 H Hemoglobin A1c Magnesium Alkaline Phosphatase Total Creatine Kinase Total Protein Albumin Urine Appearance Urine Protein Urine Ketones Urine Blood Urine Bilirubin Ur Leukocyte Esterase Urine RBC Urine WBC Urine Bacteria Hyaline Casts Urine Mucus Ur Barbiturates Screen 12/09/17 12/09/17 12/09/17 07:21 07:33 07:33 RBC 3.34 L Hgb 10.3 L Hct 30.4 L RDW 16.0 H Neutrophils # PT INR APTT Potassium Chloride Carbon Dioxide BUN Glucose POC Glucose (mg/dL) 153 H Hemoglobin A1c Magnesium 1.3 L Alkaline Phosphatase Total Creatine Kinase Total Protein Albumin Urine Appearance Urine Protein Urine Ketones Urine Blood Urine Bilirubin Ur Leukocyte Esterase Urine RBC Urine WBC Urine Bacteria Hyaline Casts Urine Mucus Ur Barbiturates Screen 12/09/17 12/09/17 12/09/17 11:53 17:04 20:36 RBC Hgb Hct RDW Neutrophils # PT INR APTT Potassium Chloride Carbon Dioxide BUN Glucose POC Glucose (mg/dL) 278 H 129 H 202 H Hemoglobin A1c Magnesium Alkaline Phosphatase Total Creatine Kinase Total Protein Albumin Urine Appearance Urine Protein Urine Ketones Urine Blood Urine Bilirubin Ur Leukocyte Esterase Urine RBC Urine WBC Urine Bacteria Hyaline Casts Urine Mucus Ur Barbiturates Screen 12/10/17 12/10/17 12/10/17 07:14 07:14 11:51 RBC 3.31 L Hgb 10.0 L Hct 29.8 L RDW 15.8 H Neutrophils # PT INR APTT Potassium Chloride 108 H Carbon Dioxide BUN Glucose POC Glucose (mg/dL) 104 H Hemoglobin A1c Magnesium Alkaline Phosphatase Total Creatine Kinase Total Protein 5.6 L Albumin 3.1 L Urine Appearance Urine Protein Urine Ketones Urine Blood Urine Bilirubin Ur Leukocyte Esterase Urine RBC Urine WBC Urine Bacteria Hyaline Casts Urine Mucus Ur Barbiturates Screen 12/10/17 17:31 RBC Hgb Hct RDW Neutrophils # PT INR APTT Potassium Chloride Carbon Dioxide BUN Glucose POC Glucose (mg/dL) 127 H Hemoglobin A1c Magnesium Alkaline Phosphatase Total Creatine Kinase Total Protein Albumin Urine Appearance Urine Protein Urine Ketones Urine Blood Urine Bilirubin Ur Leukocyte Esterase Urine RBC Urine WBC Urine Bacteria Hyaline Casts Urine Mucus Ur Barbiturates Screen Assessment and Plan Plan: Impression: 1. Altered mental status, resolved 2. Postural tremors 3. Diabetes mellitus 4. Urinary tract infection 5. Hyperkalemia 6. Hypertension 7. Hyperlipidemia 8. Recent fall 9. Memory loss Recommendations: It does appear patient is having some cognitive function decline over the last year. This is not an acute finding. I doubt this is stroke. Due to the fact that memory loss is interfering with her daily living, further workup can be done as an outpatient to rule out or rule in dementia. Cognitive testing can be done per psychology and a lumbar puncture can be performed to send out cerebral spinal fluid for Alzheimer dementia testing. I recommend a psychiatric consult due to patient's significant anxiety over her current situation. As for her tremors, I suggest increasing Mysoline 150 mg by mouth to 3 times a day. Given her essential tremors along with head tremors, propanolol would be the best choice of drug. Patient states there are times she cannot eat due to tremors. I suggest reevaluating her antihypertensive medicines and adding propanolol 40 mg twice a day to start. No further neurological workup is needed at this time. Patient should follow-up with her neurologist Dr. Caban upon discharge. I will continue to follow with you on an as-needed basis. Feel free to call with any questions or concerns. Thank you for allowing me to participate in the care of your patient. Feel free to call with any questions or concerns. I performed an examination of the patient and discussed the management with the MAIL MESSENGER CONTRACTOR. I have reviewed the MAIL MESSENGER CONTRACTOR notes and agree with the findings and plan of care.
[2017-12-10 20:31] LABS: Glucose,Whole Blood 181 mg/dL (75-99)
[2017-12-10] MEDS: ATORVASTATIN 80 MG TAB PO SCH (21:03)
[2017-12-10] MEDS: HEPARIN SODIUM,PORCINE 5,000 UNIT/ML 1 ML VIAL SQ SCH (21:04)
[2017-12-10] MEDS: INSULIN DETEMIR 100 UNIT/ML 10 ML VIAL SQ SCH (21:08)
[2017-12-11 00:54] LABS: Creatine Kinase MB 0.7 ng/mL (0.0-2.4)
[2017-12-11 00:57] LABS: Troponin I 0.014 ng/mL (0.000-0.034)
[2017-12-11] MEDS: ACETAMINOPHEN TAB 500 MG TAB PO PRN (01:02)
[2017-12-11 07:04] LABS: Glucose,Whole Blood 82 mg/dL (75-99)
[2017-12-11] MEDS: PRIMIDONE 50 MG TAB PO SCH ×2 (08:23→21:51)
[2017-12-11] MEDS: amLODIPine 10 MG TAB PO SCH (08:24)
[2017-12-11] MEDS: LISINOPRIL 20 MG TAB PO SCH (08:24)
[2017-12-11] MEDS: ISOSORBIDE MONONITRATE ER 30 MG TAB.ER.24H PO SCH (08:24)
[2017-12-11] MEDS: CARVEDILOL 12.5 MG TAB PO SCH ×2 (08:24→17:54)
[2017-12-11] MEDS: LOSARTAN 50 MG TAB PO SCH (08:24)
[2017-12-11] MEDS: LORATADINE 10 MG TAB PO SCH (08:24)
[2017-12-11] MEDS: ASPIRIN 81 MG PO SCH (08:24)
[2017-12-11] MEDS: metFORMIN 500 MG TAB PO SCH ×2 (08:24→21:50)
[2017-12-11] MEDS: CHLORTHALIDONE 25 MG TAB PO SCH (08:24)
[2017-12-11] MEDS: FENOFIBRATE 160 MG TAB PO SCH (08:24)
[2017-12-11] MEDS: FAMOTIDINE 20 MG TAB PO SCH ×2 (08:24→21:51)
[2017-12-11] MEDS: levETIRAcetam 500 MG TAB PO SCH ×2 (08:24→21:51)
[2017-12-11] MEDS: DULoxetine HCL 30 MG CAPSULE.DR PO SCH ×2 (08:25→21:50)
[2017-12-11] MEDS: clonazePAM 1 MG TAB PO SCH ×2 (08:25→21:56)
[2017-12-11] MEDS: INSULIN ASPART 100 UNIT/ML 1 ML 10 ML VIAL SQ SCH ×4 (08:25→21:52)
[2017-12-11] MEDS: HEPARIN SODIUM,PORCINE 5,000 UNIT/ML 1 ML VIAL SQ SCH ×2 (08:25→21:51)
--- NOTE | 2017-12-11 08:42 | CONS ---
CONSULTATION DATE OF SERVICE: 12/10/2017. REASON FOR CONSULTATION: Right great toe wound. HISTORY OF PRESENT ILLNESS: The patient is a 66-year-old female well known to my service from [facility] wound care where the patient was evaluated for left foot nonhealing wound. The patient started having left [id number] amputation done by Dr. Calderon. The patient wound to the left BKA stump has completely healed up. The patient now has been brought to the [facility] ER on December 07 for mental status changes and recurrent falls. Apparently the patient has been declining over the last 2 weeks and did have multiple falls. The patient denies high-grade fever, rigors or chills. Denies having any headache. No URI symptoms. No chest pain, shortness of breath or cough. No abdominal pain or any diarrhea. The patient also developed a wound on her right big toe as well as a ruptured blister. However, the patient not very clear how did the blister started or if the patient has any trauma to that toe. I was asked to see the patient for further local wound care and need for antibiotic therapy. REVIEW OF SYSTEMS: CONSTITUTIONAL: Positive for weakness. No fever. Eyes no complaint. ENT no complaint. Respiratory no complaint. Cardiovascular no complaint. Genitourinary no complaint. Gastrointestinal: No complaint. Musculoskeletal as per HPI. INTEGUMENTARY as per HPI. Psychological no complaint. Endocrine: No complaint. Neurologic no complaint. PAST MEDICAL HISTORY: Significant for COPD, diabetes mellitus, hypertension, hyperlipidemia, osteoarthritis, tremors, migraine, and diabetic foot wound to the left foot. PAST SURGICAL HISTORY: Cholecystectomy hysterectomy, tubal ligation, cervical fusion and left [id number] amputation. SOCIAL HISTORY: Remote history of smoking. No drinking. No drug use. FAMILY HISTORY: Mother with history of cancer. ALLERGIES: CODEINE. MEDICATIONS: Medications currently include the patient is on Ultram, Mysoline, Narcan, Glucophage, Cozaar, Claritin, Zestril, Levaquin, Keppra, Imdur, Levemir, NovoLog, Fenofibrate, Pepcid, Cymbalta, Benadryl, Klonopin, Coreg, Lipitor, aspirin, Norvasc and Tylenol. EXAMINATION: Blood pressure is 197/79 with a pulse of 53. Temperature 96.7, she is 93% on room air. General description is an elderly female up in the chair in no distress. No tachypnea or accessory muscles of respiration use. HEENT: Shows pallor. No scleral icterus. Oral mucosa membranes dry. No pharyngeal erythema or thrush. Neck: Trachea central. No thyromegaly. LUNGS: Unlabored breathing. Clear to auscultation anteriorly. No wheeze or crackles. Heart S1, S2. Regular rate and rhythm. ABDOMEN: Soft, no tenderness. No guarding or rigidity. Extremities: Feet examination of the right big toe did have a wound which is mostly superficial. No significant redness or any foul-smelling drainage. No slough tissue. Neurological: The patient is awake, alert, oriented x3. Mood and affect normal. LABS: Hemoglobin is 10 with white count 6.8. BUN of 12, creatinine 0.73. Electrolytes have been normal. Liver enzymes are normal. Urine mostly with hematuria and no significant pyuria. Blood culture has been negative. DIAGNOSTIC IMPRESSION AND PLAN: 1. Patient with right big toe wound started as a blister. Currently with no evidence of any cellulitis. We will recommend local wound care. 2. Mildly positive UA with predominantly red cells. The patient with no urinary symptoms. Clinically doubt UTI to be responsible for symptoms of multiple falls. PLAN: 1. We would advise local wound care to the right big toe with Aquacel Silver dressing to be changed q.48 hours and discontinue the Silvadene as can cause mostly maceration of the wound. 2. We will continue to monitor the patient closely for any signs, symptoms of infection which should be treated aggressively in view of previous history of osteomyelitis of the left foot. Thank you for this consultation. Will follow this patient along with you. MMODL / IJN: [id number] /
--- NOTE | 2017-12-11 10:48 | P.PN ---
Subjective industrial relations officer hospitalist covering for over the weekend. this is a pleasant 66 yo F presents with altered mental status. when i asked the pt , she told me she came to hospital because she fell twice at home while she was trying to get out of bed while she forgot to use her prosthesis so she fell and hit her head twice , but she was not sure if she passed out or not. however son at bed side state that is not the reason she came to hospital but because she looked confused when his called her . as per son, pt is improving significantly since admission but she is still confused which is her new baseline and that they are obtaining guardianship in this coming Tuesday. pt keeps forgetting since last year, eg as per son she was telling everybody she is having Physical therapy when she is not. today pt was complaining from epigastric discomfort. with little dyspnea. 12/11/2017 Patient is awake and alert today she is oriented to time place and person. She denies any urinary signs and symptoms. No dysuria and she says that her frequency during the night is improving to 3-4/10, which is usually more than that. Vitas looks kaur and patient is afebrile. Neurology consult is appreciated and medication has been adjusted. Patient has been treated for UTI. Urine culture still in the process. Patient denies chest pain. No more dizziness or syncope. Blood pressure is better. Cardiology to evaluate the patient. ID and Dr. Calderon are seeing the patient for her right toe wound. Objective - Vital Signs Vital signs: Vital Signs Temp 97.5 F L 12/11/17 07:00 Pulse 57 L 12/11/17 07:00 Resp 18 12/11/17 07:00 BP 158/67 12/11/17 07:00 Pulse Ox 93 L 12/11/17 07:00 Intake & Output 12/10/17 12/11/17 12/11/17 18:59 06:59 18:59 Intake Total 715 Balance 715 Weight 77.111 kg Intake: Oral 715 Other: Voiding Method Bedside Commode Bedside Commode # Voids 2 1 # Bowel Movements 1 - Exam GENERAL: The patient is alert and awake, not in any acute distress. HEENT: Pupils are round and equally reacting to light. EOMI. No scleral icterus. No conjunctival pallor. Normocephalic, atraumatic. No pharyngeal erythema. No thyromegaly. CARDIOVASCULAR: S1 and S2 present. No murmurs, rubs, or gallops. PULMONARY: Chest is clear to auscultation, no wheezing or crackles. ABDOMEN: Soft, nontender, nondistended, normoactive bowel sounds. No palpable organomegaly. MUSCULOSKELETAL: No joint swelling or deformity. EXTREMITIES: No cyanosis, clubbing, or pedal edema. NEUROLOGICAL: Gross neurological examination did not reveal any focal deficits. SKIN: No rashes. - Labs CBC & Chem 7: 12/10/17 07:14 12/10/17 07:14 Labs: Abnormal Lab Results - Last 24 Hours (Table) 12/10/17 12/10/17 12/10/17 Range/Units 11:51 17:31 20:30 POC Glucose (mg/dL) 104 H 127 H 181 H (75-99) mg/dL Microbiology - Last 24 Hours (Table) 12/10/17 17:00 Urine Culture - Preliminary Urine,Clean Catch 12/07/17 16:11 Blood Culture - Preliminary Blood No Growth after 72 hours Assessment and Plan Assessment: metabolic encephalopathy secondary to UTI and possible other causes UTI possible syncope frequent fall possible dementia epigastric discomfort dehydration Plan: this is a pleasant 66 F presents with UTI and confusion, possible syncope. we will do serial cardiac enzymes , and call cardiology consult for further evaluation . pt looks has a baseline of worsening dementia , will benefit from re-evaluation with mini-mental exam for dementia as outpt . pt with possible UTI , unfortunately urine cultuer has not been sent before , we will sen urine culture although the yield is low now as pt is been on antibiotic already , continue with antibiotic for now.pt with h/o seizure , we will call neurology consult. family are obtaining guardinship on this tuesday . GI and DVT prophylasix . further recommendation as per medical progress dvt px : heparin GI px: pepcid prognosis is guarded PT/OT ;pending
[2017-12-11 11:27] LABS: Glucose,Whole Blood 193 mg/dL (75-99)
--- NOTE | 2017-12-11 14:49 | P.CRDCN ---
History of Present Illness History of present illness: This is a pleasant 66-year-old female past medical history significant for COPD, diabetes mellitus, dyslipidemia, hypertension, recent left [id number] amputation secondary to nonhealing ulcer and former nicotine dependence. She denies history of coronary artery disease. We have been asked to see her in consultation for symptoms of possible syncope. She states she has been falling much more frequently in the last year or so. She states she gets dizzy prior to falling. She denies symptoms of chest pain, shortness of breath or palpitations. She states she suffered a similar episode in December of last year where she got dizzy and fell suffering a subdural hematoma. She was treated at [facility] in [place]. She stated that time they told her she may have suffered a heart attack based on EKG findings. His records are unavailable at this time. CT of the brain was obtained at admission is negative for an acute intracranial process. She has also been seen in consultation by neurology and they have recommended further outpatient evaluation of possible dementia. EKG reveals sinus mechanism with no acute ST or T wave abnormalities noted. Chest x-ray is negative for acute cardiopulmonary process. Laboratory data reviewed, cardiac enzymes negative 2, hemoglobin 10, platelets 228, sodium 138, potassium 4.2, creatinine 0.73. Current cardiac medications include losartan 50 mg daily, amlodipine 5 mg daily , Imdur 30 mg daily, lisinopril 40 mg daily, aspirin 81 mg daily, atorvastatin 80 mg daily, carvedilol 12.5 mg twice a day and chlorthalidone 25 mg daily. At the time of my exam: CONSTITUTIONAL: Denies fever. Denies chills. EYES: Denies blurred vision. Denies vision changes. Denies eye pain. EARS, NOSE, MOUTH & THROAT: Denies headache. Denies sore throat. Denies ear pain. CARDIOVASCULAR: Denies chest pain. Denies shortness of breath. Denies orthopnea. Denies PND. Denies palpitations. RESPIRATORY: Denies cough. GASTROINTESTINAL: Denies abdominal pain. Denies diarrhea. Denies constipation. Denies nausea. Denies vomiting. MUSCULOSKELETAL: Denies myalgias. INTEGUMENTARY: Denies pruitis. Denies rash. NEUROLOGIC: Denies numbness. Denies tingling. Denies weakness. PSYCHIATRIC: Denies anxiety. Denies depression. ENDOCRINE: Denies fatigue. Denies weight change. Denies polydipsia. Denies polyurina. GENITOURINARY: Denies burning, hematuria or urgency with micturation. HEMATOLOGIC: Denies history of anemia. Denies bleeding. Blood pressure 158/67 heart rate 57 afebrile maintaining oxygen saturation on room air GENERAL: This is a 66-year-old female in no apparent distress at the time of my examination. HEENT: Head is atraumatic, normocephalic. Pupils are equal, round. Sclerae anicteric. Conjunctivae are clear. Mucous membranes of the mouth are moist. Neck is supple. There is no jugular venous distention. No carotid bruit is heard. LUNGS: Clear to auscultation no wheezes, rales or rhonchi. No chest wall tenderness is noted on palpation or with deep breathing. HEART: Regular rate and rhythm without murmurs, rubs or gallops. S1 and S2 heard. ABDOMEN: Soft, nontender. Bowel sounds are heard. No organomegaly noted. EXTREMITIES: No evidence of peripheral edema and no calf tenderness noted. Left BKA. VASCULAR: Radial and dorsalis pedis pulse palpated, no evidence of clubbing. Left BKA. NEUROLOGIC: Patient is awake, alert and oriented x3. ASSESSMENT Syncope with fall Altered mental status Urinary tract infection Hypertension Dyslipidemia PLAN An acute coronary event has been ruled out with no EKG evidence of ischemia and negative cardiac enzymes. Obtain records from recent hospitalization at [facility] December 2016. Her symptoms are not indicative of an arrhythmia or coronary etiology. We will obtain a 2-D echocardiogram and Doppler study to assess cardiac structure and function. Home medications have been discussed with the patient and we advised discontinuing lisinopril. She is our [place] on [place]. The use of both medications can cause kidney dysfunction. If blood pressure is elevated we can increase losartan to 100 mg daily. This has been explained in detail to the patient. Further recommendations to follow based upon clinical course. Thank you kindly for this consultation. Nurse Practitioner note has been reviewed, I agree with a documented findings and plan of care. Patient was seen and examined. Past Medical History Past Medical History: COPD, Diabetes Mellitus, Hyperlipidemia, Hypertension, Musculoskeletal Disorder, Osteoarthritis (OA) Additional Past Medical History / Comment(s): tremors, migraines History of Any Multi-Drug Resistant Organisms: None Reported Past Surgical History: Cholecystectomy, Hysterectomy, Orthopedic Surgery, Tubal Ligation Additional Past Surgical History / Comment(s): partial amp. toe R foot. June 2014 - cervical fusion (steel plate and cages) Past Anesthesia/Blood Transfusion Reactions: Motion Sickness Past Psychological History: Depression Smoking Status: Former smoker Past Alcohol Use History: None Reported Past Drug Use History: None Reported - Past Family History Mother Family Medical History: Cancer Medications and Allergies Home Medications Medication Instructions Recorded Confirmed Type Aspirin [Adult Low Dose Aspirin EC] 81 mg PO DAILY 01/21/15 12/07/17 History Atorvastatin [Lipitor] 80 mg PO HS 01/21/15 12/07/17 History Insulin Aspart [NovoLOG] See Protocol SQ ACHS 01/21/15 12/07/17 History Lisinopril 40 mg PO DAILY 01/21/15 12/07/17 History Primidone [Mysoline] 150 mg PO BID 01/21/15 12/07/17 History clonazePAM [KlonoPIN] 1 mg PO BID 01/21/15 12/07/17 History Albuterol Inhaler [Ventolin Hfa 1 - 2 puff INHALATION RT-Q6H PRN 01/28/15 History Inhaler] Cetirizine HCl [Zyrtec] 10 mg PO DAILY 03/11/15 12/07/17 History Gemfibrozil [Lopid] 600 mg PO AC-BID tab 09/09/16 12/07/17 Rx Insulin Detemir [Levemir Flextouch] 45 units SQ HS 10/18/16 12/07/17 History Acetaminophen/Diphenhydramine 2 tab PO HS PRN 12/07/17 12/07/17 History [Tylenol PM 500-25mg] Carvedilol [Coreg] 12.5 mg PO BID 12/07/17 12/07/17 History Chlorthalidone 25 mg PO DAILY 12/07/17 12/07/17 History DULoxetine HCL [Cymbalta] 30 mg PO BID 12/07/17 12/07/17 History Famotidine [Pepcid] 20 mg PO BID 12/07/17 12/07/17 History Isosorbide Mononitrate ER [Imdur] 30 mg PO DAILY 12/07/17 12/07/17 History Losartan [Cozaar] 50 mg PO DAILY 12/07/17 12/07/17 History amLODIPine [Norvasc] 5 mg PO DAILY 12/07/17 12/07/17 History levETIRAcetam [Keppra] 500 mg PO BID 12/07/17 12/07/17 History metFORMIN HCL 1,000 mg PO BID 12/07/17 12/07/17 History Allergies Allergy/AdvReac Type Severity Reaction Status Date / Time codeine Allergy Nausea & Verified 12/07/17 16:52 Vomiting codeine phosphate AdvReac Nausea & Verified 12/07/17 23:26 [From Codar GF] Vomiting guaifenesin [From Codar GF] AdvReac Unknown Verified 12/07/17 16:52 Physical Exam Vitals: Vital Signs Temp Pulse Resp BP Pulse Ox 12/11/17 07:00 97.5 F L 57 L 18 158/67 93 L 12/10/17 22:38 96.7 F L 63 17 197/79 96 12/10/17 15:00 97.8 F 55 L 18 154/71 97 Intake and Output 12/10/17 12/11/17 12/11/17 22:59 06:59 14:59 Intake Total 350 0 Balance 350 0 Intake: Intake, IV Titration 0 Amount Sodium Chloride 0.9% 1, 0 000 ml @ 80 mls/hr IV . [id number] [facility] Rx#:[id number] Oral 350 Other: Voiding Method Bedside Commode # Voids 2 1 # Bowel Movements 1 Results 12/10/17 07:14 12/10/17 07:14 Cardiac Enzymes 12/10/17 12/11/17 Range/Units 16:28 00:12 CK-MB (CK-2) 0.8 0.7 (0.0-2.4) ng/mL Troponin I 0.014 (0.000-0.034) ng/mL Current Medications Generic Name Dose Route Start Last Admin Trade Name Freq PRN Reason Stop Dose Admin Acetaminophen 1,000 mg 12/07/17 20:27 12/11/17 01:02 Tylenol Tab PO 1,000 mg HS PRN Administration Pain/Insomnia Acetaminophen 650 mg 12/09/17 11:27 12/09/17 11:41 Tylenol Tab PO 650 mg Q6HR PRN Administration Fever and/ or Mild Pain Albuterol Sulfate 2.5 mg 12/07/17 20:22 12/09/17 19:21 Ventolin Nebulized INHALATION 2.5 mg RT-Q6H PRN Administration Shortness Of Breath Amlodipine Besylate 10 mg 12/08/17 09:00 12/11/17 08:24 Norvasc PO 10 mg DAILY KATIE Administration Aspirin 81 mg 12/08/17 09:00 12/11/17 08:24 Aspirin PO 81 mg DAILY KATIE Administration Atorvastatin Calcium 80 mg 12/07/17 21:00 12/10/17 21:03 Lipitor PO 80 mg HS KATIE Administration Carvedilol 25 mg 12/11/17 07:30 12/11/17 08:24 Coreg PO 25 mg BID-W/MEALS KATIE Administration Chlorthalidone 25 mg 12/08/17 09:00 12/11/17 08:24 Hygroton PO 25 mg DAILY KATIE Administration Clonazepam 1 mg 12/07/17 21:00 12/11/17 08:25 Klonopin PO 1 mg BID KATIE Administration Diphenhydramine HCl 100 mg 12/07/17 20:27 12/11/17 01:02 Benadryl PO 100 mg HS PRN Administration Pain/Insomnia Duloxetine HCl 30 mg 12/07/17 21:00 12/11/17 08:25 Cymbalta PO 30 mg BID KATIE Administration Famotidine 20 mg 12/07/17 21:00 12/11/17 08:24 Pepcid PO 20 mg BID KATIE Administration Fenofibrate 160 mg 12/08/17 09:00 12/11/17 08:24 Lofibra PO 160 mg DAILY KATIE Administration Heparin Sodium (Porcine) 5,000 unit 12/10/17 21:00 12/11/17 08:25 Heparin SQ 5,000 unit Q12HR KATIE Administration Insulin Aspart 0 unit 12/08/17 12:30 12/11/17 12:52 Novolog SQ Not Given ACHS [facility] Protocol Insulin Detemir 45 unit 12/07/17 21:00 12/10/17 21:08 Levemir SQ 45 unit HS KATIE Administration Isosorbide Mononitrate 30 mg 12/08/17 09:00 12/11/17 08:24 Imdur PO 30 mg DAILY KATIE Administration Levetiracetam 500 mg 12/07/17 21:00 12/11/17 08:24 Keppra PO 500 mg BID KATIE Administration Levofloxacin 500 mg 12/10/17 18:00 12/10/17 16:40 Levaquin PO 500 mg Q24H KATIE Administration Loratadine 10 mg 12/08/17 09:00 12/11/17 08:24 Claritin PO 10 mg DAILY KATIE Administration Losartan Potassium 50 mg 12/08/17 09:00 12/11/17 08:24 Cozaar PO 50 mg DAILY KAITE Administration Metformin HCl 1,000 mg 12/07/17 21:00 12/11/17 08:24 Glucophage PO 1,000 mg BID KATIE Administration Miscellaneous Information 1 each 12/09/17 08:38 Magnesium Per Protocol MISCELLANE DAILY PRN Per Protocol Protocol Naloxone HCl 0.2 mg 12/07/17 20:19 Narcan IV Q2M PRN Opioid Reversal Primidone 150 mg 12/07/17 21:00 12/11/17 08:23 Mysoline PO 150 mg BID KATIE Administration Tramadol HCl 50 mg 12/08/17 00:32 12/08/17 15:00 Ultram PO 50 mg QID PRN Administration pain Intake and Output 12/10/17 12/11/17 12/11/17 22:59 06:59 14:59 Intake Total 350 0 Balance 350 0 Intake: Intake, IV Titration 0 Amount Sodium Chloride 0.9% 1, 0 000 ml @ 80 mls/hr IV . [id number] [facility] Rx#:[id number] Oral 350 Other: Voiding Method Bedside Commode # Voids 2 1 # Bowel Movements 1 12/10/17 07:14 12/10/17 07:14
[2017-12-11 17:27] LABS: Glucose,Whole Blood 183 mg/dL (75-99)
[2017-12-11] MEDS: LEVOFLOXACIN 500 MG TAB PO SCH (17:54)
[2017-12-11] MEDS: ACETAMINOPHEN TAB 325 MG TAB PO PRN (18:18)
[2017-12-11 21:05] LABS: Glucose,Whole Blood 120 mg/dL (75-99)
[2017-12-11] MEDS: ATORVASTATIN 80 MG TAB PO SCH (21:51)
--- NOTE | 2017-12-11 23:02 | PN ---
PROGRESS NOTE DATE OF SERVICE: 12/11/2017. REASON FOR FOLLOWUP: Right big toe wound. INTERVAL HISTORY: The patient is currently afebrile. She is breathing comfortably. Patient denies having any chest pain, shortness of breath or cough. No abdominal pain or any pain to the right big toe area. EXAMINATION: Blood pressure is 149/65 with a pulse of 63, temperature 98.3. She is 95% on room air. General description is an elderly female up in the chair in no distress. Respiratory system: Unlabored breathing. Clear to auscultation anteriorly. Heart S1, S2. Regular rate and rhythm. Abdomen soft, no tenderness. Right big toe currently covered with Aquacel Silver. Overall drainage has resolved. No redness. DIAGNOSTIC IMPRESSION AND PLAN: Patient with right big toe wound with no evidence of any cellulitis. Recommend local wound care with Aquacel Silver dressing. No need for any systemic antibiotic therapy. Continue supportive care. MMODL / IJN: [id number] /
[2017-12-12 03:14] LABS: Glucose,Whole Blood 125 mg/dL (75-99)
[2017-12-12] MEDS: INSULIN DETEMIR 100 UNIT/ML 10 ML VIAL SQ SCH ×2 (03:31→20:59)
[2017-12-12 07:35] LABS: Glucose,Whole Blood 151 mg/dL (75-99)
--- NOTE | 2017-12-12 07:53 | P.DS ---
Providers Date of admission: 12/07/17 20:19 Attending physician: Rainer Dey Consults: 12/09/17 17:12 Consult Physician Routine Consulting Provider: Arlene Johns Consult Reason/Comments: right great toe ulcer Do you want consulting provider notified?: Yes 12/09/17 17:13 Consult Physician Routine Consulting Provider: Tien Calderon Consult Reason/Comments: right great toe ulcer Do you want consulting provider notified?: Yes 12/10/17 13:57 Consult Physician Routine Consulting Provider: Fang Madden Consult Reason/Comments: ams, fall Do you want consulting provider notified?: Yes 12/10/17 16:17 Consult Physician Urgent Consulting Provider: Rafa Callahan Consult Reason/Comments: EPIGASTRIC DISCOMFORT , POSSIBLE SYNCOPE Do you want consulting provider notified?: Yes Primary care physician: Rainer Dey - Discharge Diagnosis(es) (1) Altered mental status Current Visit: Yes Status: Acute (2) Memory loss Current Visit: Yes Status: Acute (3) Knee contusion Current Visit: Yes Status: Acute (4) Fall (on)(from) incline, initial encounter Current Visit: Yes Status: Acute (5) Dehydration Current Visit: Yes Status: Acute (6) Chronic pain syndrome Current Visit: No Status: Chronic Hospital Course: This discharge summary on a 66-year-old white female essentially admitted for altered mental status dehydration and element of pneumonia. Altered mental status is most likely related to presenile dementia. Syncopal episodes were also noted. However, given cardiac enzymes being negative and workup with cardiology being negative, we will continue to observe at this point. She has had history of fall and has significant safety issues related to living at home. Her mentation is slowly coming senile at times with elements of memory loss. The patient will be transferred to [facility] after discussion with her guardian. Family is in agreement Patient Condition at Discharge: Stable Plan - Discharge Summary Discharge Rx Participant: No New Discharge Prescriptions: New Acetaminophen Tab [Tylenol] 650 mg PO Q6HR PRN tab PRN Reason: Fever and/ or Mild Pain amLODIPine [Norvasc] 10 mg PO DAILY tab Levofloxacin [Levaquin] 500 mg PO Q24H #0 tab traMADol HCl [Ultram] 50 mg PO QID PRN #120 tab PRN Reason: pain Continue Insulin Aspart [NovoLOG] See Protocol SQ ACHS Atorvastatin [Lipitor] 80 mg PO HS Primidone [Mysoline] 150 mg PO BID Lisinopril 40 mg PO DAILY Aspirin [Adult Low Dose Aspirin EC] 81 mg PO DAILY Albuterol Inhaler [Ventolin Hfa Inhaler] 1 - 2 puff INHALATION RT-Q6H PRN PRN Reason: Shortness Of Breath Cetirizine HCl [Zyrtec] 10 mg PO DAILY Gemfibrozil [Lopid] 600 mg PO AC-BID tab Insulin Detemir [Levemir Flextouch] 45 units SQ HS Acetaminophen/Diphenhydramine [Tylenol PM 500-25mg] 2 tab PO HS PRN PRN Reason: Pain Carvedilol [Coreg] 12.5 mg PO BID Chlorthalidone 25 mg PO DAILY DULoxetine HCL [Cymbalta] 30 mg PO BID Famotidine [Pepcid] 20 mg PO BID Isosorbide Mononitrate ER [Imdur] 30 mg PO DAILY levETIRAcetam [Keppra] 500 mg PO BID Losartan [Cozaar] 50 mg PO DAILY metFORMIN HCL 1,000 mg PO BID clonazePAM [KlonoPIN] 1 mg PO BID #60 tab Discontinued amLODIPine [Norvasc] 5 mg PO DAILY Discharge Medication List Aspirin [Adult Low Dose Aspirin EC] 81 mg PO DAILY 01/21/15 [History] Atorvastatin [Lipitor] 80 mg PO HS 01/21/15 [History] Insulin Aspart [NovoLOG] See Protocol SQ ACHS 01/21/15 [History] Lisinopril 40 mg PO DAILY 01/21/15 [History] Primidone [Mysoline] 150 mg PO BID 01/21/15 [History] Albuterol Inhaler [Ventolin Hfa Inhaler] 1 - 2 puff INHALATION RT-Q6H PRN [History] Cetirizine HCl [Zyrtec] 10 mg PO DAILY 03/11/15 [History] Gemfibrozil [Lopid] 600 mg PO AC-BID tab 09/09/16 [Rx] Insulin Detemir [Levemir Flextouch] 45 units SQ HS 10/18/16 [History] Acetaminophen/Diphenhydramine [Tylenol PM 500-25mg] 2 tab PO HS PRN 12/07/17 [ History] Carvedilol [Coreg] 12.5 mg PO BID 12/07/17 [History] Chlorthalidone 25 mg PO DAILY 12/07/17 [History] DULoxetine HCL [Cymbalta] 30 mg PO BID 12/07/17 [History] Famotidine [Pepcid] 20 mg PO BID 12/07/17 [History] Isosorbide Mononitrate ER [Imdur] 30 mg PO DAILY 12/07/17 [History] Losartan [Cozaar] 50 mg PO DAILY 12/07/17 [History] levETIRAcetam [Keppra] 500 mg PO BID 12/07/17 [History] metFORMIN HCL 1,000 mg PO BID 12/07/17 [History] Acetaminophen Tab [Tylenol] 650 mg PO Q6HR PRN tab 12/12/17 [Rx] Levofloxacin [Levaquin] 500 mg PO Q24H #0 tab 12/12/17 [Rx] amLODIPine [Norvasc] 10 mg PO DAILY tab 12/12/17 [Rx] clonazePAM [KlonoPIN] 1 mg PO BID #60 tab 12/12/17 [Rx] traMADol HCl [Ultram] 50 mg PO QID PRN #120 tab 12/12/17 [Rx] Follow up Appointment(s)/Referral(s): Tien Calderon MD [STAFF PHYSICIAN] - 1 Week Rainer Dey MD [Primary Care Provider] - 1 Week Activity/Diet/Wound Care/Special Instructions: Aquacel Silver on toe wounds, change Q48 hours. Follow in wound care enter with Dr. Johns Discharge Disposition: TRANSFER TO SNF/ECF
[2017-12-12] MEDS: CHLORTHALIDONE 25 MG TAB PO SCH (08:26)
[2017-12-12] MEDS: FENOFIBRATE 160 MG TAB PO SCH (08:26)
[2017-12-12] MEDS: levETIRAcetam 500 MG TAB PO SCH ×2 (08:26→20:17)
[2017-12-12] MEDS: PRIMIDONE 50 MG TAB PO SCH ×2 (08:26→20:17)
[2017-12-12] MEDS: metFORMIN 500 MG TAB PO SCH ×2 (08:26→20:17)
[2017-12-12] MEDS: amLODIPine 10 MG TAB PO SCH (08:27)
[2017-12-12] MEDS: LOSARTAN 50 MG TAB PO SCH (08:27)
[2017-12-12] MEDS: HEPARIN SODIUM,PORCINE 5,000 UNIT/ML 1 ML VIAL SQ SCH ×2 (08:27→20:18)
[2017-12-12] MEDS: CARVEDILOL 12.5 MG TAB PO SCH ×2 (08:27→17:55)
[2017-12-12] MEDS: DULoxetine HCL 30 MG CAPSULE.DR PO SCH ×2 (08:27→20:18)
[2017-12-12] MEDS: ISOSORBIDE MONONITRATE ER 30 MG TAB.ER.24H PO SCH (08:27)
[2017-12-12] MEDS: FAMOTIDINE 20 MG TAB PO SCH ×2 (08:27→20:17)
[2017-12-12] MEDS: ASPIRIN 81 MG PO SCH (08:28)
[2017-12-12] MEDS: LORATADINE 10 MG TAB PO SCH (08:28)
[2017-12-12] MEDS: INSULIN ASPART 100 UNIT/ML 1 ML 10 ML VIAL SQ SCH ×4 (08:46→20:16)
[2017-12-12] MEDS: clonazePAM 1 MG TAB PO SCH ×2 (08:46→20:16)
[2017-12-12 08:50] LABS: Calcium 9.1 mg/dL (8.4-10.2); Potassium 4.7 mmol/L (3.5-5.1)
--- NOTE | 2017-12-12 11:53 | ECHOF ---
Referral Reason:dizzy MEASUREMENTS -------- HEIGHT: 170.2 cm WEIGHT: 77.1 kg BP: IVSd: 1.9 cm (0.6 - 1.1) LVIDd: 2.5 cm (3.9 - 5.3) LVPWd: 1.8 cm (0.6 - 1.1) IVSs: 1.8 cm LVIDs: 1.7 cm LVPWs: 1.7 cm Ao Diam: 3.2 cm (2.0 - 3.7) AV Cusp: 1.7 cm (1.5 - 2.6) LA Diam: 3.6 cm (2.7 - 3.8) MV EXCURSION: 9.718 mm (> 18.000) MV EF SLOPE: 42 mm/s (70 - 150) EPSS: 0.6 cm MV E Johnny: 0.71 m/s MV DecT: 284 ms MV A Johnny: 0.97 m/s MV E/A Ratio: 0.73 RAP: 5.00 mmHg RVSP: 11.59 mmHg FINDINGS -------- Sinus rhythm. This was a technically good study. The cavity size is decreased. There is severe concentric left ventricular hypertrophy. Overall le ft ventricular systolic function is normal with, an EF between 55 - 60 %. The right ventricle is normal in size and function. The left atrial size is normal. The right atrium is normal in size. The aortic valve is trileaflet and appears structurally normal. The mitral valve leaflets are mildly thickened. Mild mitral regurgitation is present. Mild tricuspid regurgitation present. The right ventricular systolic pressure, as measured by Doppl er, is 11.59mmHg. Pulmonic valve appears structurally normal. The aortic root size is normal. The pericardium is normal. CONCLUSIONS -------- 1. Sinus rhythm. 2. This was a technically good study. 3. The cavity size is decreased. 4. There is severe concentric left ventricular hypertrophy. 5. Overall left ventricular systolic function is normal with, an EF between 55 - 60 %. 6. The right ventricle is normal in size and function. 7. The left atrial size is normal. 8. The right atrium is normal in size. 9. The aortic valve is trileaflet and appears structurally normal. 10. The mitral valve leaflets are mildly thickened. 11. Mild mitral regurgitation is present. 12. Mild tricuspid regurgitation present. 13. The right ventricular systolic pressure, as measured by Doppler, is 11.59mmHg. 14. Pulmonic valve appears structurally normal. 15. The aortic root size is normal. 16. The pericardium is normal. [employer]ESS TENDER: Steph Ellis RDCS
--- NOTE | 2017-12-12 12:21 | PN ---
PROGRESS NOTE DATE OF SERVICE: 12/12/2017 REASON FOR FOLLOWUP: Right big toe wound. INTERVAL HISTORY: The patient is currently afebrile. She is breathing comfortably. Denies having any chest pain, shortness of breath, cough. No abdominal pain. Pain to the right foot wound area. PHYSICAL EXAMINATION: Blood pressure 140/72 with a pulse of 60, temperature 98.2, she is 95% on room air. General description is an elderly female, lying in bed in no distress. RESPIRATORY SYSTEM: Unlabored breathing, clear to auscultation anteriorly. HEART: S1, S2. Regular rate and rhythm. ABDOMEN: Soft, no tenderness. LABS: BUN of 15, creatinine 0.92. DIAGNOSTIC IMPRESSION AND PLAN: Patient with right big toe wound without evidence of any cellulitis. Local wound care with Aquacel Silver dressing without any further assistance with antibiotic upon discharge. The patient advised to [facility] up with [facility]. Plan of care discussed with the RN taking care of the patient. MMODL / IJN: [id number] /
[2017-12-12 12:44] LABS: Glucose,Whole Blood 136 mg/dL (75-99)
--- NOTE | 2017-12-12 15:10 | P.PN ---
Subjective Mrs. Bui is seen and examined. Past medical history significant for COPD, diabetes mellitus, dyslipidemia, hypertension, recent left [id number] amputation secondary to nonhealing ulcer and former nicotine dependence. Echocardiogram obtained reveals preserved left ventricular systolic function with ejection fraction 55-60%, mild MR and mild TR. Blood pressure 141/72 heart rate 68 afebrile maintaining oxygen saturation on room air. Amlodipine was increase to 10 mg daily per parimary. She denies chest pain, shortness of breath, dizziness or palpitations. Currently maintained on amlodipine 10 mg daily, aspirin 81 mg daily, atorvastatin 80 mg daily, carvedilol 25 mg twice a day, chlorthalidone 25 mg daily, Imdur 30 mg daily and losartan 50 mg daily. Report obtained from [facility]. Apparently back in December when she suffered a subdural hematoma she also developed an acute coronary event with evidence of ST elevation in AVR, ST depression inferior, lateral and anterolateral leads with troponin elevations. Due to her acute neurologic illness catheterization was not performed and she was initiated on maximum medical therapy. There were no wall motion abnormalities and normal LV systolic function on echo obtained at that time. GENERAL: Well-appearing, well-nourished and in no acute distress. NECK: Supple without JVD or thyromegaly. LUNGS: Breath sounds clear to auscultation bilaterally. Respiration equal and unlabored. No wheezes, rales or rhonchi. HEART: Regular rate and rhythm without murmurs, rubs or gallops. S1 and S2 heard. EXTREMITIES: Normal range of motion, no edema. No clubbing or cyanosis. Peripheral pulses intact. Left BKA. ASSESSMENT Possible syncope with fall. Not actual syncope with no LOC. Altered mental status Urinary tract infection Hypertension Dyslipidemia History of myocardial infarction with medical therapy recommended secondary to acute neurologic disorder at the time. PLAN Stable from a cardiac perspective. Amlodipine was increased to 10 mg daily and blood pressure is tolerating well with discontinuation of lisinopril. Follow-up with Dr. Callahan in 2 weeks. Nurse Practitioner note has been reviewed, I agree with a documented findings and plan of care. Patient was seen and examined. Objective - Vital Signs Vital signs: Vital Signs Temp 98.2 F 12/12/17 07:00 Pulse 60 12/12/17 07:00 Resp 18 12/12/17 08:00 BP 141/72 12/12/17 07:00 Pulse Ox 95 12/12/17 07:00 Intake & Output 12/11/17 12/12/17 12/12/17 18:59 06:59 18:59 Intake Total 600 950 Balance 600 950 Intake: Intake, IV Titration 0 Amount Sodium Chloride 0.9% 1, 0 000 ml @ 80 mls/hr IV . [id number] REPLACED BY [facility] Rx#:[id number] Oral 600 950 Other: Voiding Method Bedside Commode # Voids 1 2 # Bowel Movements 0 - Labs CBC & Chem 7: 12/10/17 07:14 12/12/17 07:47 Labs: Abnormal Lab Results - Last 24 Hours (Table) 12/11/17 12/11/17 12/12/17 Range/Units 17:14 20:31 03:12 Glucose (74-99) mg/dL POC Glucose (mg/dL) 183 H 120 H 125 H (75-99) mg/dL 12/12/17 12/12/17 12/12/17 Range/Units 07:24 07:47 12:41 Glucose 141 H (74-99) mg/dL POC Glucose (mg/dL) 151 H 136 H (75-99) mg/dL Microbiology - Last 24 Hours (Table) 12/07/17 16:11 Blood Culture - Preliminary Blood No Growth after 96 hours 12/10/17 17:00 Urine Culture - Final Urine,Clean Catch
[2017-12-12] MEDS: ACETAMINOPHEN TAB 325 MG TAB PO PRN (16:36)
[2017-12-12 17:39] LABS: Glucose,Whole Blood 132 mg/dL (75-99)
[2017-12-12] MEDS: LEVOFLOXACIN 500 MG TAB PO SCH (17:55)
[2017-12-12 20:22] LABS: Glucose,Whole Blood 189 mg/dL (75-99)
[2017-12-12] MEDS: ATORVASTATIN 80 MG TAB PO SCH (20:58)
[2017-12-13 07:30] LABS: Glucose,Whole Blood 132 mg/dL (75-99)
[2017-12-13] MEDS: CARVEDILOL 12.5 MG TAB PO SCH ×2 (07:58→21:09)
[2017-12-13] MEDS: clonazePAM 1 MG TAB PO SCH ×2 (07:58→21:13)
[2017-12-13] MEDS: HEPARIN SODIUM,PORCINE 5,000 UNIT/ML 1 ML VIAL SQ SCH ×2 (07:58→21:10)
[2017-12-13] MEDS: ISOSORBIDE MONONITRATE ER 30 MG TAB.ER.24H PO SCH (07:59)
[2017-12-13] MEDS: LORATADINE 10 MG TAB PO SCH (07:59)
[2017-12-13] MEDS: CHLORTHALIDONE 25 MG TAB PO SCH (07:59)
[2017-12-13] MEDS: DULoxetine HCL 30 MG CAPSULE.DR PO SCH ×2 (07:59→21:09)
[2017-12-13] MEDS: FAMOTIDINE 20 MG TAB PO SCH ×2 (07:59→21:09)
[2017-12-13] MEDS: levETIRAcetam 500 MG TAB PO SCH ×2 (07:59→21:09)
[2017-12-13] MEDS: LOSARTAN 50 MG TAB PO SCH (07:59)
[2017-12-13] MEDS: metFORMIN 500 MG TAB PO SCH ×2 (07:59→21:09)
[2017-12-13] MEDS: ASPIRIN 81 MG PO SCH (07:59)
[2017-12-13] MEDS: amLODIPine 10 MG TAB PO SCH (07:59)
[2017-12-13] MEDS: FENOFIBRATE 160 MG TAB PO SCH (08:00)
[2017-12-13] MEDS: INSULIN ASPART 100 UNIT/ML 1 ML 10 ML VIAL SQ SCH ×4 (08:00→21:11)
[2017-12-13] MEDS: PRIMIDONE 50 MG TAB PO SCH ×2 (08:03→21:10)
[2017-12-13] MEDS: ACETAMINOPHEN TAB 500 MG TAB PO PRN (09:23)
[2017-12-13 12:23] LABS: Glucose,Whole Blood 153 mg/dL (75-99)
[2017-12-13 14:30] VITALS: TEMP 97.5
[2017-12-13] MEDS: ACETAMINOPHEN TAB 325 MG TAB PO PRN (16:39)
[2017-12-13 17:18] LABS: Glucose,Whole Blood 108 mg/dL (75-99)
[2017-12-13 20:55] LABS: Glucose,Whole Blood 145 mg/dL (75-99)
[2017-12-13] MEDS: ATORVASTATIN 80 MG TAB PO SCH (21:09)
[2017-12-13] MEDS: INSULIN DETEMIR 100 UNIT/ML 10 ML VIAL SQ SCH (21:11)
--- NOTE | 2017-12-13 22:07 | P.PN ---
Subjective Principal diagnosis: Dehydration. Altered mental status This is a continuing progress on a 58-year-old white female essentially admitted for altered mental status and dehydration. The patient is essentially awaiting transfer to [facility]. Objective - Vital Signs Vital signs: Vital Signs Temp 97.5 F L 12/13/17 14:29 Pulse 58 L 12/13/17 14:29 Resp 18 12/13/17 16:00 BP 136/57 12/13/17 14:29 Pulse Ox 98 12/13/17 14:29 Intake & Output 12/13/17 12/13/17 12/14/17 06:59 18:59 06:59 Intake Total 600 720 Balance 600 720 Intake: Oral 600 720 Other: Voiding Method Toilet # Voids 2 2 1 # Bowel Movements 0 1 - Constitutional General appearance: Present: average body habitus - EENT Eyes: Absent: abnormal pupil - Neck Neck: Absent: lymphadenopathy - Respiratory Respiratory: bilateral: CTA - Cardiovascular Rhythm: regular Heart sounds: normal: S1, S2 Abnormal Heart Sounds: Absent: S3 Gallop - Gastrointestinal General gastrointestinal: Present: soft. Absent: tenderness - Psychiatric Psychiatric: Present: A&O x's 3. Absent: appropriate affect - Labs CBC & Chem 7: 12/10/17 07:14 12/12/17 07:47 Labs: Abnormal Lab Results - Last 24 Hours (Table) 12/13/17 12/13/17 12/13/17 Range/Units 07:02 12:20 17:15 POC Glucose (mg/dL) 132 H 153 H 108 H (75-99) mg/dL 12/13/17 Range/Units 20:25 POC Glucose (mg/dL) 145 H (75-99) mg/dL Microbiology - Last 24 Hours (Table) 12/07/17 16:11 Blood Culture - Final Blood No Growth after 144 hours Assessment and Plan (1) Altered mental status Current Visit: Yes Status: Acute Code(s): R41.82 - ALTERED MENTAL STATUS, UNSPECIFIED SNOMED Code(s): 768434734 (2) Memory loss Current Visit: Yes Status: Acute Code(s): R41.3 - OTHER AMNESIA SNOMED Code(s): 171547608 (3) Knee contusion Current Visit: Yes Status: Acute Code(s): S80.00XA - CONTUSION OF UNSPECIFIED KNEE, INITIAL ENCOUNTER SNOMED Code(s): 96519578 (4) Fall (on)(from) incline, initial encounter Current Visit: Yes Status: Acute Code(s): W10.2XXA - FALL (ON)(FROM) INCLINE , INITIAL ENCOUNTER SNOMED Code(s): 732473355 (5) Dehydration Current Visit: Yes Status: Acute Code(s): E86.0 - DEHYDRATION SNOMED Code( s): 26998783 (6) Chronic pain syndrome Current Visit: No Status: Chronic Code(s): G89.4 - CHRONIC PAIN SYNDROME SNOMED Code(s): 896986080 Plan: We will continue to follow. The patient seems stable for transfer but is awaiting insurance clearance for ECF in [facility]. Anticipate discharge in the a.m. Time with Patient: Less than 30
[2017-12-13] MEDS: LEVOFLOXACIN 500 MG TAB PO SCH (22:53)
--- NOTE | 2017-12-13 23:52 | PN ---
PROGRESS NOTE DATE OF SERVICE: 12/13/2017 REASON FOR FOLLOWUP: Right big toe wound. INTERVAL HISTORY: The patient is currently afebrile. She is breathing comfortably. Denies having any chest pain, shortness of breath or cough. No abdominal pain. She is currently waiting for longterm placement. Denies any pain to the right big toe area. PHYSICAL EXAMINATION: Blood pressure is 136/57 with a pulse of 58, temperature 97.5. She is 98% on room air. General description is an elderly female lying in bed in no distress. RESPIRATORY SYSTEM: Unlabored breathing. Clear to auscultation anteriorly. HEART: S1, S2. Regular rate and rhythm. ABDOMEN: Soft. No tenderness. Right big toe is being dressed by the RN. Overall the wound looks clean. LABS: White count 6.8. DIAGNOSTIC IMPRESSION AND PLAN: Patient with a right big toe wound, currently with no evidence of any cellulitis. Patient to continue wound care with an Aquacel Silver dressing. No need for antibiotic therapy. Continue with supportive care. MMODL / IJN: [id number] / ALOK
[2017-12-14 06:12] VITALS: BP 141/70; PULSE 66; RESP 16
[2017-12-14] MEDS: traMADol 50 MG TAB PO PRN (06:34)
[2017-12-14 07:02] LABS: Glucose,Whole Blood 140 mg/dL (75-99)
[2017-12-14] MEDS: INSULIN ASPART 100 UNIT/ML 1 ML 10 ML VIAL SQ SCH ×2 (08:04→13:00)
[2017-12-14] MEDS: CARVEDILOL 12.5 MG TAB PO SCH (08:04)
[2017-12-14] MEDS: PRIMIDONE 50 MG TAB PO SCH (08:07)
[2017-12-14] MEDS: clonazePAM 1 MG TAB PO SCH (08:08)
[2017-12-14] MEDS: ISOSORBIDE MONONITRATE ER 30 MG TAB.ER.24H PO SCH (08:08)
[2017-12-14] MEDS: FENOFIBRATE 160 MG TAB PO SCH (08:08)
[2017-12-14] MEDS: amLODIPine 10 MG TAB PO SCH (08:08)
[2017-12-14] MEDS: FAMOTIDINE 20 MG TAB PO SCH (08:08)
[2017-12-14] MEDS: levETIRAcetam 500 MG TAB PO SCH (08:08)
[2017-12-14] MEDS: LORATADINE 10 MG TAB PO SCH (08:08)
[2017-12-14] MEDS: metFORMIN 500 MG TAB PO SCH (08:08)
[2017-12-14] MEDS: CHLORTHALIDONE 25 MG TAB PO SCH (08:08)
[2017-12-14] MEDS: ASPIRIN 81 MG PO SCH (08:08)
[2017-12-14] MEDS: LOSARTAN 50 MG TAB PO SCH (08:08)
[2017-12-14] MEDS: DULoxetine HCL 30 MG CAPSULE.DR PO SCH (08:08)
[2017-12-14] MEDS: HEPARIN SODIUM,PORCINE 5,000 UNIT/ML 1 ML VIAL SQ SCH (08:08)
[2017-12-14 12:26] LABS: Glucose,Whole Blood 146 mg/dL (75-99)
[2017-12-14 13:23] VITALS: BMI 26.6
--- NOTE | 2017-12-14 13:56 | PN ---
PROGRESS NOTE DATE OF SERVICE: 12/14/2017 REASON FOR FOLLOWUP: Right big toe diabetic foot wound. No cellulitis. INTERVAL HISTORY: The patient is currently afebrile. She is breathing comfortably. Denies having any chest pain, shortness of breath. No cough, no abdominal pain, no pain to the right big toe area. PHYSICAL EXAMINATION: Blood pressure 141/70 with a pulse of 66, temperature 97.5. She is 95% on room air. General description is an elderly female, up in the chair in no distress. RESPIRATORY SYSTEM: Unlabored breathing, clear to auscultation anteriorly. HEART: S1, S2. Regular rate and rhythm. ABDOMEN: Soft, no tenderness. Right big toe currently no obvious drainage on the dressing. LABS: No new lab has been obtained today. DIAGNOSTIC IMPRESSION AND PLAN: Patient with right diabetic foot wound with no evidence of any cellulitis. Continue local wound care with an Aquacel silver dressing. [facility]. Continue supportive care. MMODL / IJN: [id number] /
--- NOTE | 2017-12-16 13:29 | CDI ---
Documentation Clarification Form Date: 12/16/2017 1:12:57 PM From: DEBBIE Saavedra; Tayler Ramirez Paste Maker Phone: If you have a question about this query, please contact Tayler Ramirez Paste Maker at [phone] between 8am and 5pm. Admit Date: 12/07/2017 8:19:00 PM Patient Name: Ivette Bui Visit Number: [id number] Discharge Date: 12/14/2017 ATTENTION: The Clinical Documentation Specialists (CDI) and [facility] Coding Staff appreciate your assistance in clarifying documentation. Please respond to the clarification below the line at the bottom and electronically sign. The CDI & [facility] Coding staff will review the response and follow-up if needed. Please note: Queries are made part of the Legal Health Record. If you have any questions, please contact the author of this message via ITS. Rainer Morel MD The diagnosis of UTI, as documented, requires clarification for accurate code assignment. It is documented as possible on 12/10. Water Carter dated 12/10 states clinically doubt UTI to be responsible for symptoms and multiple falls. Progress note 12/11 states patient treated for UTI. Patient history/risk factors: Senile dementia, healed DM foot ulcer, dehydration. Lab findings: Urine culture no growth. Urinalysis shows hyaline casts, WBC, RBC, rare bacteria. Treatment: Levaquin In your professional opinion, can you please clarify? UTI ruled in? UTI ruled out? Other, please specify Unable to determine See Discharge Summary addendum MTDD
== END 2017-12-14 14:02 | DRG 884 ==
LOC: EC 16:00 → EEVIPCON 20:19 → 4MS4W 20:19
PROVIDERS: ADMIT Family Medicine; ATTEND Family Medicine
DX: F03.90 Unspecified dementia, unspecified severity, without behavioral disturbance, psychotic disturbance, mood disturbance, and anxiety (principal); G93.41 Metabolic encephalopathy; J18.9 Pneumonia, unspecified organism; F05 Delirium due to known physiological condition; J44.0 Chronic obstructive pulmonary disease with (acute) lower respiratory infection; E11.621 Type 2 diabetes mellitus with foot ulcer; E78.5 Hyperlipidemia, unspecified; E83.42 Hypomagnesemia; E86.0 Dehydration; E87.5 Hyperkalemia; F32.9 Major depressive disorder, single episode, unspecified; G25.0 Essential tremor; G89.4 Chronic pain syndrome; I10 Essential (primary) hypertension; L97.519 Non-pressure chronic ulcer of other part of right foot with unspecified severity; R29.6 Repeated falls; R62.7 Adult failure to thrive; Z79.4 Long term (current) use of insulin; Z79.82 Long term (current) use of aspirin; Z79.899 Other long term (current) drug therapy; Z80.9 Family history of malignant neoplasm, unspecified; Z87.891 Personal history of nicotine dependence; Z89.512 Acquired absence of left leg below knee; Z90.710 Acquired absence of both cervix and uterus; Z88.5 Allergy status to narcotic agent; Z88.8 Allergy status to other drugs, medicaments and biological substances; Z90.49 Acquired absence of other specified parts of digestive tract; Z98.51 Tubal ligation status; Z98.1 Arthrodesis status; S80.01XA Contusion of right knee, initial encounter; Z60.2 Problems related to living alone
CPT/HCPCS: 36415; 70450; 71046; 80048; 80053; 80306; 81001; 82140; 82550; 82553; 83036; 83735; 84443; 84484; 85025; 85027; 85610; 85730; 87040; 87086; 93005; 93306; 94640; 94760; 96361; 96365; 99285

== ENCOUNTER 2018-10-07 23:10 | Inpatient (IN) | payer MEDICARE, OTHER ==
--- NOTE | 2018-10-07 23:55 | XR ---
EXAM: XR Chest, 1 View CLINICAL HISTORY: Chest pain TECHNIQUE: Frontal view of the chest. COMPARISON: Chest x-ray dated 12/07/2017 FINDINGS: Lungs: Lungs are clear. Pleural space: Unremarkable. No pneumothorax. Heart: Unremarkable. No cardiomegaly. Mediastinum: Unremarkable. Bones/joints: Evidence of fusion hardware noted within the cervical spine. IMPRESSION: No acute findings.
[2018-10-08 00:03] LABS: Basophils % (A) 0 %; Eosinophils # (A) 0.2 k/uL (0-0.7); Eosinophils % (A) 3 %; HCT 37.5 % (34.0-46.0); HGB 12.4 gm/dL (11.4-16.0); Lymphocytes # (A) 2.2 k/uL (1.0-4.8); Lymphocytes % (A) 24 %; MCH 31.8 pg (25.0-35.0); MCHC 33.2 g/dL (31.0-37.0); MCV 95.8 fL (80.0-100.0); Mean Platelet Volume 7.2; Monocytes # (A) 0.5 k/uL (0-1.0); Monocytes % (A) 6 %; Neutrophils % (A) 66 %; Platelet Count 359 k/uL (150-450); RBC 3.91 m/uL (3.80-5.40); RDW 13.7 % (11.5-15.5); WBC 9.1 k/uL (3.8-10.6)
[2018-10-08] MEDS ORDERED: MORPHINE SULFATE 4 MG/ML SYRINGE IVP STA (00:11)
[2018-10-08 00:14] LABS: Albumin 4.5 g/dL (3.5-5.0); Calcium 9.7 mg/dL (8.4-10.2); Magnesium 2.1 mg/dL (1.6-2.3); Potassium 4.5 mmol/L (3.5-5.1); Total Bilirubin 0.3 mg/dL (0.2-1.3); Total Protein 7.5 g/dL (6.3-8.2)
--- NOTE | 2018-10-08 00:30 | ED ---
Chest Pain HPI - General Chief Complaint: Chest Pain Stated Complaint: Chest Pain Source: patient, EMS Mode of arrival: EMS Limitations: no limitations - History of Present Illness Initial Comments: The patient is a 67-year-old female who presents to the emergency room with reported chest pain. She states has been going on for the past 5 days however she had worsening chest pain tonight. She did have one episode of emesis. EMS was called. 12-lead EKG was unremarkable to them. They did provide her with 325 mg of chewable aspirin and a nitro. The patient had improvement in her symptoms. She does report to a history of an CO. States that she has no stents in her heart. She denies associated shortness of breath, cough, fevers or chills. She denies any chest palpitations. No unilateral numbness or weakness. No radiating pain to her arm or back. She denies any abdominal pain. Denies any additional symptoms include headache, back pain, flank pain. There are no alleviating, precipitating or modifying factors - Related Data Home Medications Medication Instructions Recorded Confirmed Aspirin [Adult Low Dose Aspirin EC] 81 mg PO DAILY 01/21/15 10/07/18 Atorvastatin [Lipitor] 80 mg PO HS 01/21/15 10/07/18 Insulin Aspart [NovoLOG] See Protocol SQ ACHS 01/21/15 10/07/18 Primidone [Mysoline] 150 mg PO BID 01/21/15 10/07/18 Albuterol Inhaler [Ventolin Hfa 1 - 2 puff INHALATION RT-Q6H PRN 01/28/15 10/07/18 Inhaler] Cetirizine HCl [Zyrtec] 10 mg PO DAILY 03/11/15 10/07/18 Insulin Detemir [Levemir Flextouch] 50 units SQ HS 10/18/16 10/07/18 Carvedilol [Coreg] 12.5 mg PO BID 12/07/17 10/07/18 Chlorthalidone 25 mg PO DAILY 12/07/17 10/07/18 Famotidine [Pepcid] 20 mg PO BID 12/07/17 10/07/18 Isosorbide Mononitrate ER [Imdur] 30 mg PO DAILY 12/07/17 10/07/18 levETIRAcetam [Keppra] 500 mg PO BID 12/07/17 10/07/18 metFORMIN HCL 1,000 mg PO BID 12/07/17 10/07/18 Cholecalciferol [Vitamin D3 (25 5,000 unit PO DAILY 10/07/18 10/07/18 Mcg = 1000 Iu)] DULoxetine HCL [Cymbalta] 60 mg PO BID 10/07/18 10/07/18 Empagliflozin [Jardiance] 10 mg PO DAILY 10/07/18 10/07/18 Ferrous Sulfate [Feosol] 325 mg PO HS 10/07/18 10/07/18 INSULIN ASPART (NovoLOG) [NovoLOG 10 unit SQ AC-TID 10/07/18 10/07/18 (formulary)] Loperamide [Imodium] 2 mg PO QID PRN 10/07/18 10/07/18 Losartan Potassium 100 mg PO DAILY 10/07/18 10/07/18 Solifenacin Succinate [Vesicare] 5 mg PO DAILY 10/07/18 10/07/18 traMADol HCl [Ultram] 50 mg PO Q6H PRN 10/07/18 10/07/18 Previous Rx's Medication Instructions Recorded Gemfibrozil [Lopid] 600 mg PO AC-BID tab 09/09/16 Acetaminophen Tab [Tylenol] 650 mg PO Q6HR PRN tab 12/12/17 amLODIPine [Norvasc] 10 mg PO DAILY tab 12/12/17 clonazePAM [KlonoPIN] 1 mg PO BID #60 tab 12/12/17 Allergies Allergy/AdvReac Type Severity Reaction Status Date / Time codeine Allergy Nausea & Verified 10/07/18 23:23 Vomiting ibuprofen [From Motrin] Allergy Unknown Verified 10/07/18 23:23 codeine phosphate AdvReac Nausea & Verified 10/07/18 23:23 [From Codar GF] Vomiting guaifenesin [From Codar GF] AdvReac Unknown Verified 10/07/18 23:23 Review of Systems ROS Statement: Those systems with pertinent positive or pertinent negative responses have been documented in the HPI. ROS Other: All systems not noted in ROS Statement are negative. EKG Findings - EKG Comments: EKG Findings:: Initial EKG at 2317 demonstrates a sinus bradycardia with ventricular rate of 52. UT interval 164. QRS 102. QTC 429. There are Q waves in leads 3 and aVF. There appears to be J-point elevation in the inferior leads. Second EKG obtained at 2334 demonstrates a sinus bradycardia with a ventricular rate of 51. UT Interval 160. QRS 104. QTC 427. Persistent Q waves in 3 and aVF. Continues to be mild J-point elevation in 3 and aVF. Third EKG at 12:35 AM demonstrates sinus bradycardia with a ventricular rate of 52. UT interval in 162. QRS 98. QTC 433. Persistent Q-wave in lead 3 and aVF. J- point elevation continues in 3 and aVF Past Medical History Past Medical History: COPD, Diabetes Mellitus, Hyperlipidemia, Hypertension, Musculoskeletal Disorder, Osteoarthritis (OA) Additional Past Medical History / Comment(s): tremors, migraines History of Any Multi-Drug Resistant Organisms: None Reported Past Surgical History: Cholecystectomy, Hysterectomy, Orthopedic Surgery, Tubal Ligation Additional Past Surgical History / Comment(s): partial amp. toe R foot. June 2014 - cervical fusion (steel plate and cages) Past Anesthesia/Blood Transfusion Reactions: Motion Sickness Past Psychological History: Depression Smoking Status: Former smoker Past Alcohol Use History: None Reported Past Drug Use History: None Reported - Past Family History Mother Family Medical History: Cancer General Exam Limitations: no limitations Course Vital Signs 10/07/18 23:12 Temperature 98.0 F Pulse Rate 52 L Respiratory 18 Rate Blood Pressure 136/73 O2 Sat by Pulse 95 Oximetry Chest Pain MDM - MDM Upon arrival the patient is placed into room 5. She is hooked up to continuous pulse ox and cardiac monitoring. A peripheral IV had been previously established. A 12-lead EKG was performed which demonstrates a Q wave in lead 3 and aVF. She has J-point elevation in these leads as well. The patient states that her pain is improved at this time. I did conduct laboratory studies and the patient was sent for chest x-ray. Serial EKGs were performed and continued to stay stable. The patient reports that her pain has completely subsided. First troponin returned and is negative. As a am concerned by the patient's history, I did recommend heparinizing the patient. She does have a history of a traumatic subdural and therefore I did perform a CT of the patient's brain. I did discuss results with the patient. I did recommend hospital admission for which patient did agree. I did call Dr. Gracia and I'm currently awaiting callback. The patient remained in stable condition and was awaiting a bed on the floor Disposition Clinical Impression: Atypical chest pain Disposition: ADMITTED IP TO THIS [facility] Condition: Stable Is patient prescribed a controlled substance at d/c from ED?: No Referrals: Tomasa Sommer MD [Primary Care Provider] - 1-2 days Decision to Admit Reason: Admit from EC Decision Date: 10/08/18 Decision Time: 02:29
[2018-10-08 00:53] LABS: D-Dimer 0.28 mg/L FEU (<0.60); INR 0.9 (<1.2); Prothrombin Time 9.7 sec (9.0-12.0)
--- NOTE | 2018-10-08 01:42 | CT ---
EXAM: CT Head Without Intravenous Contrast CLINICAL HISTORY: Pain TECHNIQUE: Axial computed tomography images of the head/brain without intravenous contrast. CTDI is 0.085, 0.085, 49.1 mGy and DLP is 1125.4 mGy-cm. This CT exam was performed using one or more of the following dose reduction techniques: automated exposure control, adjustment of the mA and/or kV according to patient size, and/or use of iterative reconstruction technique. COMPARISON: CT head dated 12/07/2017 FINDINGS: Brain: No acute infarct, hemorrhage, mass or edema. No significant white matter disease. Ventricles: Unremarkable. No ventriculomegaly. Bones/joints: Unremarkable. No acute fracture. Soft tissues: Unremarkable. Sinuses: Mild mucosal thickening in the paranasal sinuses. Mastoid air cells: Unremarkable as visualized. No mastoid effusion. IMPRESSION: No acute findings.
[2018-10-08] MEDS ORDERED: NALOXONE 0.4 MG/ML 1 ML VIAL IV PRN (02:29)
[2018-10-08] MEDS ORDERED: traMADol 50 MG TAB PO PRN (02:31)
[2018-10-08] MEDS ORDERED: ACETAMINOPHEN TAB 325 MG TAB PO PRN (02:31)
[2018-10-08] MEDS ORDERED: HEPARIN SODIUM,PORCINE 5,000 UNIT/ML 1 ML VIAL IV ONE (02:42)
[2018-10-08] MEDS ORDERED: HEPARIN SODIUM,PORCINE 5,000 UNIT/ML 1 ML VIAL IV PRN (02:42)
[2018-10-08] MEDS: HEPARIN SOD,PORK IN 0.45% NACL 25,000 UNIT in 0.45% NACL 1 250ML.BAG IV SCH (03:40)
[2018-10-08 07:05] LABS: Glucose,Whole Blood 147 mg/dL (75-99)
[2018-10-08] MEDS ORDERED: CARVEDILOL 12.5 MG TAB PO SCH (07:30)
[2018-10-08] MEDS ORDERED: ASPIRIN 81 MG PO SCH (09:00)
[2018-10-08] MEDS ORDERED: FAMOTIDINE 20 MG TAB PO SCH (09:00)
[2018-10-08] MEDS ORDERED: CHLORTHALIDONE 25 MG TAB PO SCH (09:00)
[2018-10-08] MEDS ORDERED: SODIUM CHLORIDE 0.9% 1,000 ML in EMPTY BAG 1 BAG IV ONE (09:36)
[2018-10-08] MEDS ORDERED: ALPRAZolam 0.25 MG TAB PO PRN (09:36)
[2018-10-08] MEDS ORDERED: NITROGLYCERIN SL TABS 0.4 MG TAB SUBLINGUAL PRN (09:36)
[2018-10-08] MEDS ORDERED: ALPRAZolam 0.5 MG TAB PO PRN (09:36)
[2018-10-08] MEDS ORDERED: ATORVASTATIN 80 MG TAB PO STA (09:39)
[2018-10-08] MEDS ORDERED: ASPIRIN 325 MG TAB PO STA (09:39)
[2018-10-08] MEDS: levETIRAcetam 500 MG TAB PO SCH ×2 (10:24→20:55)
[2018-10-08] MEDS: amLODIPine 10 MG TAB PO SCH (10:24)
[2018-10-08] MEDS: ISOSORBIDE MONONITRATE ER 30 MG TAB.ER.24H PO SCH (10:24)
[2018-10-08] MEDS: FENOFIBRATE 160 MG TAB PO SCH ×2 (10:25→17:22)
[2018-10-08] MEDS: LORATADINE 10 MG TAB PO SCH (10:25)
[2018-10-08] MEDS: DULoxetine HCL 60 MG CAPSULE.DR PO SCH ×2 (10:25→20:55)
[2018-10-08] MEDS: clonazePAM 1 MG TAB PO SCH ×2 (10:25→20:55)
[2018-10-08] MEDS: TROSPIUM CHLORIDE 20 MG TABLET PO SCH (10:25)
[2018-10-08] MEDS: LOSARTAN 50 MG TAB PO SCH (10:25)
[2018-10-08] MEDS: PRIMIDONE 50 MG TAB PO SCH ×2 (10:25→20:55)
--- NOTE | 2018-10-08 10:44 | P.CRDCN ---
History of Present Illness History of present illness: This is a pleasant 67-year-old female past medical history significant for COPD, hypertension, dyslipidemia, diabetes mellitus and former nicotine dependence. She denies prior history of coronary artery disease. She states she was told in the past she suffered a myocardial infarction however has never had a cardiac catheterization or stent placement. We have been asked to see her in consultation secondary to chest discomfort. She states she woke up suddenly last evening with a sharp pain in the midsternal region. There is no radiation to the arm, back, neck or jaw. She felt mildly short of breath associated with this discomfort. She also was nauseated and vomited one time. During the course of this episode she felt like her heart was racing. It seemed like it wa s racing fast and regular. Upon arrival to the emergency department her chest pain had resolved. She has a history of subdural hematoma therefore breathing CT was done prior to initiation of heparin. There is no evidence of an acute intracranial abnormality. EKG reveals sinus mechanism, inferior Q waves noted. When compared to old EKGs was evidence of prior inferior Q-wave however is prominent. Chest x-ray is negative for an acute cardiopulmonary process. Laboratory data reviewed, CBC unremarkable, d-dimer 0.28, sodium 141, potassium 4.5, creatinine 1.21, magnesium 2.1, first troponin was negative second 0.054, proBNP 266. Current cardiac medications include aspirin 81 mg daily, atorvastatin 80 mg daily, carvedilol 12.5 mg twice a day, chlorthalidone 25 mg daily Imdur 30 mg daily, losartan 100 mg daily, amlodipine 10 mg daily. Most recent echocardiogram obtained November 2017 reveals preserved LV systolic function with ejection fraction 55-60%. At the time of my exam: CONSTITUTIONAL: Denies fever. Denies chills. EYES: Denies blurred vision. Denies vision changes. Denies eye pain. EARS, NOSE, MOUTH & THROAT: Denies headache. Denies sore throat. Denies ear pain. CARDIOVASCULAR: Denies chest pain. Denies shortness of breath. Denies orthopnea. Denies PND. Denies palpitations. RESPIRATORY: Denies cough. GASTROINTESTINAL: Denies abdominal pain. Denies diarrhea. Denies constipation. Denies nausea. Denies vomiting. MUSCULOSKELETAL: Denies myalgias. INTEGUMENTARY: Denies pruitis. Denies rash. NEUROLOGIC: Denies numbness. Denies tingling. Denies weakness. PSYCHIATRIC: Denies anxiety. Denies depression. ENDOCRINE: Denies fatigue. Denies weight change. Denies polydipsia. Denies polyurina. GENITOURINARY: Denies burning, hematuria or urgency with micturation. HEMATOLOGIC: Denies history of anemia. Denies bleeding. Blood pressure 149/68 heart rate 58 afebrile maintaining oxygen saturation on room air GENERAL: This is a 67-year-old female in no apparent distress at the time of my examination. HEENT: Head is atraumatic, normocephalic. Pupils are equal, round. Sclerae anicteric. Conjunctivae are clear. Mucous membranes of the mouth are moist. Neck is supple. There is no jugular venous distention. No carotid bruit is heard. LUNGS: Clear to auscultation no wheezes, rales or rhonchi. No chest wall tenderness is noted on palpation or with deep breathing. HEART: Regular rate and rhythm without murmurs, rubs or gallops. S1 and S2 heard. ABDOMEN: Soft, nontender. Bowel sounds are heard. No organomegaly noted. EXTREMITIES: No evidence of peripheral edema and no calf tenderness noted. VASCULAR: Radial and dorsalis pedis pulses palpated, no evidence of clubbing. NEUROLOGIC: Patient is awake, alert and oriented x3. ASSESSMENT Non-ST elevated myocardial infarction Chest pain Hypertension Dyslipidemia COPD Diabetes mellitus Chronic kidney disease Former nicotine dependence PLAN Continue heparin infusion per protocol. Obtain 2-D echocardiogram and Doppler study to assess cardiac structure and function. Obtain third troponin in 6 hours. Discontinue chlorthalidone. Repeat renal function in the morning. Continue carvedilol, aspirin, atorvastatin, losartan, amlodipine and Imdur as previously ordered. Further recommendations follow based upon clinical course. Thank you kindly for this consultation. Nurse Practitioner note has been reviewed, I agree with a documented findings and plan of care. Patient was seen and examined. Past Medical History Past Medical History: COPD, Diabetes Mellitus, Hyperlipidemia, Hypertension, Musculoskeletal Disorder, Osteoarthritis (OA) Additional Past Medical History / Comment(s): tremors, migraines History of Any Multi-Drug Resistant Organisms: None Reported Past Surgical History: Cholecystectomy, Hysterectomy, Orthopedic Surgery, Tubal Ligation Additional Past Surgical History / Comment(s): partial amp. toe R foot. June 2014 - cervical fusion (steel plate and cages) Past Anesthesia/Blood Transfusion Reactions: No Reported Reaction Past Psychological History: Depression Smoking Status: Former smoker Past Alcohol Use History: None Reported Past Drug Use History: None Reported - Past Family History Mother Family Medical History: Cancer Medications and Allergies Home Medications Medication Instructions Recorded Confirmed Type Aspirin [Adult Low Dose Aspirin EC] 81 mg PO DAILY 01/21/15 10/07/18 History Atorvastatin [Lipitor] 80 mg PO HS 01/21/15 10/07/18 History Insulin Aspart [NovoLOG] See Protocol SQ ACHS 01/21/15 10/07/18 History Primidone [Mysoline] 150 mg PO BID 01/21/15 10/07/18 History Albuterol Inhaler [Ventolin Hfa 1 - 2 puff INHALATION RT-Q6H PRN 01/28/15 10/07/18 History Inhaler] Cetirizine HCl [Zyrtec] 10 mg PO DAILY 03/11/15 10/07/18 History Gemfibrozil [Lopid] 600 mg PO AC-BID tab 09/09/16 10/07/18 Rx Insulin Detemir [Levemir Flextouch] 50 units SQ HS 10/18/16 10/07/18 History Carvedilol [Coreg] 12.5 mg PO BID 12/07/17 10/07/18 History Chlorthalidone 25 mg PO DAILY 12/07/17 10/07/18 History Famotidine [Pepcid] 20 mg PO BID 12/07/17 10/07/18 History Isosorbide Mononitrate ER [Imdur] 30 mg PO DAILY 12/07/17 10/07/18 History levETIRAcetam [Keppra] 500 mg PO BID 12/07/17 10/07/18 History metFORMIN HCL 1,000 mg PO BID 12/07/17 10/07/18 History Acetaminophen Tab [Tylenol] 650 mg PO Q6HR PRN tab 12/12/17 10/07/18 Rx amLODIPine [Norvasc] 10 mg PO DAILY tab 12/12/17 10/07/18 Rx clonazePAM [KlonoPIN] 1 mg PO BID #60 tab 12/12/17 10/07/18 Rx Cholecalciferol [Vitamin D3 (25 5,000 unit PO DAILY 10/07/18 10/07/18 History Mcg = 1000 Iu)] DULoxetine HCL [Cymbalta] 60 mg PO BID 10/07/18 10/07/18 History Empagliflozin [Jardiance] 10 mg PO DAILY 10/07/18 10/07/18 History Ferrous Sulfate [Feosol] 325 mg PO HS 10/07/18 10/07/18 History INSULIN ASPART (NovoLOG) [NovoLOG 10 unit SQ AC-TID 10/07/18 10/07/18 History (formulary)] Loperamide [Imodium] 2 mg PO QID PRN 10/07/18 10/07/18 History Losartan Potassium 100 mg PO DAILY 10/07/18 10/07/18 History Solifenacin Succinate [Vesicare] 5 mg PO DAILY 10/07/18 10/07/18 History traMADol HCl [Ultram] 50 mg PO Q6H PRN 10/07/18 10/07/18 History Allergies Allergy/AdvReac Type Severity Reaction Status Date / Time codeine Allergy Nausea & Verified 10/07/18 23:23 Vomiting ibuprofen [From Motrin] Allergy Unknown Verified 10/07/18 23:23 codeine phosphate AdvReac Nausea & Verified 10/07/18 23:23 [From Codar GF] Vomiting guaifenesin [From Codar GF] AdvReac Unknown Verified 10/07/18 23:23 Physical Exam Vitals: Vital Signs Temp Pulse Pulse Resp BP BP Pulse Ox 10/08/18 07:45 96 10/08/18 04:35 98.2 F 49 L 18 137/76 97 10/08/18 04:30 49 L 18 10/08/18 04:00 97.8 F 10/08/18 03:45 55 L 20 142/68 98 10/08/18 02:36 97.9 F 52 L 18 137/66 99 10/07/18 23:12 98.0 F 52 L 18 136/73 95 Intake and Output 10/07/18 10/08/18 10/08/18 22:59 06:59 14:59 Other: Weight 81.647 kg Results 10/07/18 23:45 10/07/18 23:45 Cardiac Enzymes 10/07/18 10/07/18 Range/Units 23:45 23:45 AST 35 (14-36) U/L Troponin I <0.012 (0.000-0.034) ng/mL Coagulation 10/07/18 Range/Units 23:45 PT 9.7 (9.0-12.0) sec APTT 34.0 H (22.0-30.0) sec CBC 10/07/18 Range/Units 23:45 WBC 9.1 (3.8-10.6) k/uL RBC 3.91 (3.80-5.40) m/uL Hgb 12.4 (11.4-16.0) gm/dL Hct 37.5 (34.0-46.0) % Plt Count 359 (150-450) k/uL Comprehensive Metabolic Panel 10/07/18 Range/Units 23:45 Sodium 141 (137-145) mmol/L Potassium 4.5 (3.5-5.1) mmol/L Chloride 100 (98-107) mmol/L Carbon Dioxide 27 (22-30) mmol/L BUN 37 H (7-17) mg/dL Creatinine 1.21 H (0.52-1.04) mg/dL Glucose 159 H (74-99) mg/dL Calcium 9.7 (8.4-10.2) mg/dL AST 35 (14-36) U/L ALT 12 (9-52) U/L Alkaline Phosphatase 131 H (38-126) U/L Total Protein 7.5 (6.3-8.2) g/dL Albumin 4.5 (3.5-5.0) g/dL Current Medications Generic Name Dose Route Start Last Admin Trade Name Freq PRN Reason Stop Dose Admin Acetaminophen 650 mg 10/08/18 02:31 Tylenol Tab PO Q6HR PRN Fever and/ or Mild Pain Amlodipine Besylate 10 mg 10/08/18 09:00 Norvasc PO DAILY [facility] Aspirin 81 mg 10/08/18 09:00 Aspirin PO DAILY [facility] Atorvastatin Calcium 80 mg 10/08/18 21:00 Lipitor PO HS [facility] Carvedilol 12.5 mg 10/08/18 07:30 Coreg PO BID-W/MEALS [facility] Chlorthalidone 25 mg 10/08/18 09:00 [place]gro[place] PO DAILY [facility] Clonazepam 1 mg 10/08/18 09:00 Klonopin PO BID [facility] Duloxetine HCl 60 mg 10/08/18 09:00 Cymbalta PO BID [facility] Famotidine 20 mg 10/08/18 09:00 Pepcid PO BID [facility] Fenofibrate 160 mg 10/08/18 07:30 Lofibra PO AC-BID [facility] Ferrous Sulfate 325 mg 10/08/18 21:00 Feosol PO HS KATIE Heparin Sodium (Porcine) 0 unit 10/08/18 02:42 Heparin IV PER PROTOCOL PRN Low PTT Protocol Heparin Sodium/Sodium Chloride 250 mls @ 9.798 mls/hr 10/08/18 03:00 10/08/18 03:40 25,000 unit/ Sodium Chloride IV 12 units/kg/hr .Q24H KATIE 9.798 mls/hr Administration Protocol 12 UNITS/KG/HR Insulin Detemir 50 unit 10/08/18 21:00 Levemir SQ HS [facility] Isosorbide Mononitrate 30 mg 10/08/18 09:00 Imdur PO DAILY [facility] Levetiracetam 500 mg 10/08/18 09:00 Keppra PO BID [facility] Loratadine 10 mg 10/08/18 09:00 Claritin PO DAILY [facility] Losartan Potassium 100 mg 10/08/18 09:00 Cozaar PO DAILY [facility] Naloxone HCl 0.2 mg 10/08/18 02:29 Narcan IV Q2M PRN Opioid Reversal Primidone 150 mg 10/08/18 09:00 Mysoline PO BID [facility] Tramadol HCl 50 mg 10/08/18 02:31 Ultram PO Q6H PRN pain Trospium 20 mg 10/08/18 09:00 Sanctura PO DAILY [facility] Intake and Output 10/07/18 10/08/18 10/08/18 22:59 06:59 14:59 Other: Weight 81.647 kg 10/07/18 23:45 10/07/18 23:45
[2018-10-08 11:45] LABS: Glucose,Whole Blood 196 mg/dL (75-99)
--- NOTE | 2018-10-08 15:09 | P.HPIM ---
History of Present Illness H&P Date: 10/08/18 Chief Complaint: Chest pressure midsternal, nausea and vomiting This is a pleasant 67-year-old lady patient of Dr. Sommer patient currently decides medical large off [place], was brought in to the emergency room secondary to chest pressure midsternal, radiating to bilateral sternal rib cage area, no dictation to the neck back or shoulders. She has underlying history of diabetes mellitus type 2, hyperlipidemia, hypertension, below the knee amputation, and prior history of cholecystectomy secondary to gallbladder stones. Patient had an old EKG showing Q waves inferior leads, patient denies any episode of documented VA, no history of CHF, she did have very bad fall s everal years ago with a consequent subdural hematoma. No craniotomy performed for the subdural hematoma She was transferred via ambulance, with complaint of chest rupture, sharp, lasting for approximately 30 minutes, she had some palpitations after she had some 1 episode of nonbilious emesis, without any blood. 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 EKG shows no acute ST-T wave changes, old Q waves noted in the inferior leads consult were made with cardiology for the chest pain, abdominal ultrasound to be done. . Patient was seen by cardiology today with plans for cardiac cath in the morning. Maintain IV hydration Review of Systems Constitutional: Reports as per HPI, Denies anorexia, Denies chills, Denies chronic headaches, Denies chronic pain, Denies daytime sleepiness, Denies fatigue, Denies fever, Denies lethargy, Denies malaise, Denies night sweats, Denies poor appetite, Denies sweats, Denies weakness, Denies weight gain, Denies weight loss Ears, nose, mouth and throat: Reports as per HPI, Denies ant. neck pain, Denies bleeding gums, Denies dental pain, Denies dysphagia, Denies epistaxis, Denies headache, Denies hoarseness, Denies mouth pain, Denies nasal congestion, Denies nasal discharge, Denies neck fullness/pressure, Denies neck lump, Denies nose pain, Denies odynophagia, Denies post-nasal drip, Denies sinus pain, Denies sinus pressure, Denies swelling in mouth, Denies swelling in throat, Denies sore throat, Denies vertigo, Denies voice changes Cardiovascular: Reports as per HPI, Reports chest pain, Denies claudication, Denies decreased exercise tolerance, Denies dyspnea on exertion, Denies edema, Denies high blood pressure, Denies irregular heart beat, Denies leg edema, Denies lightheadedness, Denies orthopnea, Denies palpitations, Denies paroxysmal nocturnal dyspnea, Denies phlebitis, Denies rapid heart beat, Denies shortness of breath, Denies syncope Respiratory: Reports as per HPI Gastrointestinal: Reports as per HPI, Reports nausea, Reports vomiting Genitourinary: Reports as per HPI, Denies abnormal vaginal bleeding, Denies decreased libido, Denies difficulty conceiving, Denies difficulty voiding, Denies dysmenorrhea, Denies dyspareunia, Denies dysuria, Denies flank pain, Denies genital sores, Denies hematuria, Denies hot flashes, Denies incomplete emptying, Denies kidney stones, Denies menorrhagia, Denies mixed incontinence, Denies nocturia, Denies pelvic pain, Denies post void dribbling, Denies , Denies prolapse symptoms, Denies stress incontinence, Denies urge incontinence, Denies urgency, Denies urinary frequency, Denies vaginal discharge, Denies vaginal dryness, Denies vaginal itching, Denies vaginal odor Menstruation: Reports as per HPI, Reports postmenopausal Musculoskeletal: Reports as per HPI (Below the knee amputation left side) Integumentary: Reports rash (Right toe second digit has a healed blacjened callus being managed [facility] when care) Neurological: Reports as per HPI, Denies aphasia, Denies ataxia, Denies balance difficulties, Denies burning pain, Denies change in mentation, Denies change in smell/taste, Denies change in speech, Denies confusion, Denies convulsions, Denies double vision, Denies gait dysfunction, Denies head injury, Denies headaches, Denies hearing difficulties, Denies lack of coordination, Denies loss of vision, Denies memory loss, Denies migraines, Denies motor disturbance, Denies numbness, Denies paralysis, Denies paresthesias, Denies seizures, Denies sensory deficit, Denies spasticity, Denies syncope, Denies tic, Denies tingling, Denies transient paralysis, Denies tremors, Denies vertigo, Denies weakness, Denies visual changes Psychiatric: Reports as per HPI, Denies anhedonia, Denies anxiety, Denies anxiety attacks, Denies change in appetite, Denies change in libido, Denies change in sleep habits, Denies confusion, Denies depression, Denies difficulty concentrating, Denies disorientation, Denies hallucinations, Denies hopeless ness, Denies hypersomnia, Denies insomnia, Denies irritability, Denies memory loss, Denies mood swings, Denies paranoia, Denies sadness/tearfulness, Denies sleep disturbances, Denies suicidal ideation Past Medical History Past Medical History: COPD, Diabetes Mellitus, Hyperlipidemia, Hypertension, Musculoskeletal Disorder, Osteoarthritis (OA) Additional Past Medical History / Comment(s): tremors, migraines History of Any Multi-Drug Resistant Organisms: None Reported Past Surgical History: Cholecystectomy, Hysterectomy, Orthopedic Surgery, Tubal Ligation Additional Past Surgical History / Comment(s): partial amp. toe R foot. June 2014 - cervical fusion (steel plate and cages) Past Anesthesia/Blood Transfusion Reactions: No Reported Reaction Past Psychological History: Depression Smoking Status: Former smoker Past Alcohol Use History: None Reported Past Drug Use History: None Reported - Past Family History Mother Family Medical History: Coronary Artery Disease (CAD), Hypertension Father Family Medical History: Coronary Artery Disease (CAD), Hypertension Brother(s) Family Medical History: No Reported History, Coronary Artery Disease (CAD) Son(s) Family Medical History: No Reported History Medications and Allergies Home Medications Medication Instructions Recorded Confirmed Type Aspirin [Adult Low Dose Aspirin EC] 81 mg PO DAILY 01/21/15 10/07/18 History Atorvastatin [Lipitor] 80 mg PO HS 01/21/15 10/07/18 History Insulin Aspart [NovoLOG] See Protocol SQ ACHS 01/21/15 10/07/18 History Primidone [Mysoline] 150 mg PO BID 01/21/15 10/07/18 History Albuterol Inhaler [Ventolin Hfa 1 - 2 puff INHALATION RT-Q6H PRN 01/28/15 10/07/18 History Inhaler] Cetirizine HCl [Zyrtec] 10 mg PO DAILY 03/11/15 10/07/18 History Gemfibrozil [Lopid] 600 mg PO AC-BID tab 09/09/16 10/07/18 Rx Insulin Detemir [Levemir Flextouch] 50 units SQ HS 10/18/16 10/07/18 History Carvedilol [Coreg] 12.5 mg PO BID 12/07/17 10/07/18 History Chlorthalidone 25 mg PO DAILY 12/07/17 10/07/18 History Famotidine [Pepcid] 20 mg PO BID 12/07/17 10/07/18 History Isosorbide Mononitrate ER [Imdur] 30 mg PO DAILY 12/07/17 10/07/18 History levETIRAcetam [Keppra] 500 mg PO BID 12/07/17 10/07/18 History metFORMIN HCL 1,000 mg PO BID 12/07/17 10/07/18 History Acetaminophen Tab [Tylenol] 650 mg PO Q6HR PRN tab 12/12/17 10/07/18 Rx amLODIPine [Norvasc] 10 mg PO DAILY tab 12/12/17 10/07/18 Rx clonazePAM [KlonoPIN] 1 mg PO BID #60 tab 12/12/17 10/07/18 Rx Cholecalciferol [Vitamin D3 (25 5,000 unit PO DAILY 10/07/18 10/07/18 History Mcg = 1000 Iu)] DULoxetine HCL [Cymbalta] 60 mg PO BID 10/07/18 10/07/18 History Empagliflozin [Jardiance] 10 mg PO DAILY 10/07/18 10/07/18 History Ferrous Sulfate [Feosol] 325 mg PO HS 10/07/18 10/07/18 History INSULIN ASPART (NovoLOG) [NovoLOG 10 unit SQ AC-TID 10/07/18 10/07/18 History (formulary)] Loperamide [Imodium] 2 mg PO QID PRN 10/07/18 10/07/18 History Losartan Potassium 100 mg PO DAILY 10/07/18 10/07/18 History Solifenacin Succinate [Vesicare] 5 mg PO DAILY 10/07/18 10/07/18 History traMADol HCl [Ultram] 50 mg PO Q6H PRN 10/07/18 10/07/18 History Allergies Allergy/AdvReac Type Severity Reaction Status Date / Time codeine Allergy Nausea & Verified 10/07/18 23:23 Vomiting ibuprofen [From Motrin] Allergy Unknown Verified 10/07/18 23:23 codeine phosphate AdvReac Nausea & Verified 10/07/18 23:23 [From Codar GF] Vomiting guaifenesin [From Codar GF] AdvReac Unknown Verified 10/07/18 23:23 Physical Exam Vitals: Vital Signs Temp Pulse Pulse Resp BP BP Pulse Ox 10/08/18 12:00 97.4 F L 54 L 16 147/66 97 10/08/18 08:00 97.5 F L 50 L 16 149/68 96 10/08/18 07:45 96 10/08/18 04:35 98.2 F 49 L 18 137/76 97 10/08/18 04:30 49 L 18 10/08/18 04:00 97.8 F 10/08/18 03:45 55 L 20 142/68 98 10/08/18 02:36 97.9 F 52 L 18 137/66 99 10/07/18 23:12 98.0 F 52 L 18 136/73 95 Intake and Output 10/07/18 10/08/18 10/08/18 22:59 06:59 14:59 Intake Total 82.14 Output Total 402 Balance -319.86 Intake: Intake, IV Titration 82.14 Amount Heparin Sod,Pork in 0.45% 82.14 NaCl 25,000 unit In 0.45 % NaCl 1 250ml.bag @ 12 UNITS/KG/HR 9.798 mls/hr IV .Q24H [facility] Rx#: [id number] Output: Urine 400 Stool 2 Other: Voiding Method Bedside Commode Bedpan # Bowel Movements 1 Weight 81.647 kg - Constitutional General appearance: average body habitus, cooperative, no acute distress - EENT Eyes: anicteric sclerae, EOMI, PERRLA, dentition normal, normal appearance ENT: NA/AT, normal oropharynx - Neck Neck: normal ROM - Respiratory Respiratory: bilateral: CTA, negative: diminished, dullness, rales - Cardiovascular Rhythm: regular Heart sounds: normal: S1, S2 Abnormal Heart Sounds: no systolic murmur, no diastolic murmur, no rub, no S3 Gallop, no S4 Gallop, no click, no other - Gastrointestinal General gastrointestinal: normal bowel sounds, soft - Integumentary Integumentary: normal - Neurologic Neurologic: CNII-XII intact - Musculoskeletal Musculoskeletal: generalized weakness, strength equal bilaterally - Psychiatric Psychiatric: A&O x's 3, appropriate affect, intact judgment & insight Results CBC & Chem 7: 10/07/18 23:45 10/07/18 23:45 Labs: Abnormal Lab Results - Last 24 Hours (Table) 10/07/18 10/07/18 10/08/18 Range/Units 23:45 23:45 07:02 APTT 34.0 H (22.0-30.0) sec BUN 37 H (7-17) mg/dL Creatinine 1.21 H (0.52-1.04) mg/dL Glucose 159 H (74-99) mg/dL POC Glucose (mg/dL) (75-99) mg/dL Alkaline Phosphatase 131 H (38-126) U/L Troponin I 0.054 H* (0.000-0.034) ng/mL 10/08/18 10/08/18 10/08/18 Range/Units 07:04 11:22 11:22 APTT 117.6 H* (22.0-30.0) sec BUN (7-17) mg/dL Creatinine (0.52-1.04) mg/dL Glucose (74-99) mg/dL POC Glucose (mg/dL) 147 H (75-99) mg/dL Alkaline Phosphatase (38-126) U/L Troponin I 0.061 H* (0.000-0.034) ng/mL 10/08/18 Range/Units 11:44 APTT (22.0-30.0) sec BUN (7-17) mg/dL Creatinine (0.52-1.04) mg/dL Glucose (74-99) mg/dL POC Glucose (mg/dL) 196 H (75-99) mg/dL Alkaline Phosphatase (38-126) U/L Troponin I (0.000-0.034) ng/mL Laboratory Results WBC 9.1 k/uL (3.8-10.6) 10/07/18 23:45 RBC 3.91 m/uL (3.80-5.40) 10/07/18 23:45 Hgb 12.4 gm/dL (11.4-16.0) 10/07/18 23:45 Hct 37.5 % (34.0-46.0) 10/07/18 23:45 MCV 95.8 fL (80.0-100.0) 10/07/18 23:45 MCH 31.8 pg (25.0-35.0) 10/07/18 23:45 MCHC 33.2 g/dL (31.0-37.0) 10/07/18 23:45 RDW 13.7 % (11.5-15.5) 10/07/18 23:45 Plt Count 359 k/uL (150-450) 10/07/18 23:45 Neutrophils % 66 % 10/07/18 23:45 Lymphocytes % 24 % 10/07/18 23:45 Monocytes % 6 % 10/07/18 23:45 Eosinophils % 3 % 10/07/18 23:45 Basophils % 0 % 10/07/18 23:45 Neutrophils # 6.0 k/uL (1.3-7.7) 10/07/18 23:45 Lymphocytes # 2.2 k/uL (1.0-4.8) 10/07/18 23:45 Monocytes # 0.5 k/uL (0-1.0) 10/07/18 23:45 Eosinophils # 0.2 k/uL (0-0.7) 10/07/18 23:45 Basophils # 0.0 k/uL (0-0.2) 10/07/18 23:45 PT 9.7 sec (9.0-12.0) 10/07/18 23:45 INR 0.9 (<1.2) 10/07/18 23:45 APTT 117.6 sec (22.0-30.0) H* 10/08/18 11:22 D-Dimer 0.28 mg/L FEU (<0.60) 10/07/18 23:45 Sodium 141 mmol/L (137-145) 10/07/18 23:45 Potassium 4.5 mmol/L (3.5-5.1) 10/07/18 23:45 Chloride 100 mmol/L (98-107) 10/07/18 23:45 Carbon Dioxide 27 mmol/L (22-30) 10/07/18 23:45 Anion Gap 14 mmol/L 10/07/18 23:45 BUN 37 mg/dL (7-17) H 10/07/18 23:45 Creatinine 1.21 mg/dL (0.52-1.04) H 10/07/18 23:45 Est GFR (CKD-EPI)AfAm 53 (>60 ml/min/1.73 sqM) 10/07/18 23:45 Est GFR (CKD-EPI)NonAf 46 (>60 ml/min/1.73 sqM) 10/07/18 23:45 Glucose 159 mg/dL (74-99) H 10/07/18 23:45 POC Glucose (mg/dL) 196 mg/dL (75-99) H 10/08/18 11:44 POC Glu Field Technical Support Consultant ID Mitzi Guthrie 10/08/18 11:44 Calcium 9.7 mg/dL (8.4-10.2) 10/07/18 23:45 Magnesium 2.1 mg/dL (1.6-2.3) 10/07/18 23:45 Total Bilirubin 0.3 mg/dL (0.2-1.3) 10/07/18 23:45 AST 35 U/L (14-36) 10/07/18 23:45 ALT 12 U/L (9-52) 10/07/18 23:45 Alkaline Phosphatase 131 U/L (38-126) H 10/07/18 23:45 Troponin I 0.061 ng/mL (0.000-0.034) H* 10/08/18 11:22 NT-Pro-B Natriuret Pep 266 pg/mL 10/07/18 23:45 Total Protein 7.5 g/dL (6.3-8.2) 10/07/18 23:45 Albumin 4.5 g/dL (3.5-5.0) 10/07/18 23:45 Thrombosis Risk Factor Assmnt - DVT/VTE Prophylaxis DVT/VTE Prophylaxis: Pharmacologic Prophylaxis ordered - Choose All That Apply Any of the Below Risk Factors Present?: Yes Each Factor Represents 1 point: Acute VA, Obesity (BMI >25) Other Risk Factors: Yes Each Risk Factor Represents 2 Points: Age 61-74 years Other congenital or acquired thrombophilia - If yes, enter type in comment: No Thrombosis Risk Factor Assessment Total Risk Factor Score: 4 Thrombosis Risk Factor Assessment Level: Moderate Risk Assessment and Plan Plan: 1. Atypical chest pain, with abnormal EKG Q-wave inferior leads, slight elevation of troponins, patient seen by cardiology, and plans for cardiac cath in the morning. Patient requires IV hydration secondary to creatinine of 1.21, patient is currently on Norvasc, Coreg, isosorbide 30, continue heparin drip 2. Diabetes mellitus with complications, left above-knee amputation, continue on Levemir 50 units at bedtime, start NovoLog scale in the morning while patient is nothing by mouth, thereafter NovoLog 10 units pre-meal 3 times a day can be restarted, A1c to be done, Accu-Cheks before meals and at bedtime, 3. Hyperlipidemia, on low fiber and Lipitor 18 no changes made 5. CK D stage III, patient expected to receive contrast dye for cardiac cath in the morning, maintain IV fluids and hydration 1-2 days post aortic cath patient is on metformin prior to admission and is held for the next 48bhrs 6. Hypertension 7 COPD without any exacerbation we'll provide albuterol on a when necessary basis, and exacerbation History of a subdural hematoma Below the knee amputation left side, undergoing therapies at [facility] Chronic pain neuralgia and dysthymia, Cymbalta 60 mg twice a day clonazepam 1 mg twice a day Depakote and Prinivil
[2018-10-08 17:05] LABS: Glucose,Whole Blood 211 mg/dL (75-99)
[2018-10-08] MEDS: CARVEDILOL 12.5 MG TAB PO SCH (17:22)
[2018-10-08] MEDS: INSULIN ASPART (NovoLOG) 100 UNIT/ML VIAL SQ SCH ×2 (17:33→20:56)
[2018-10-08 20:31] LABS: Glucose,Whole Blood 259 mg/dL (75-99)
[2018-10-08] MEDS: FERROUS SULFATE 325 MG TAB PO SCH (20:55)
[2018-10-08] MEDS: INSULIN DETEMIR (LEVEMIR) 100 UNIT/ML SYR SQ SCH (20:56)
[2018-10-08] MEDS ORDERED: INSULIN DETEMIR (LEVEMIR) 100 UNIT/ML SYR SQ SCH (21:00)
[2018-10-08] MEDS ORDERED: ATORVASTATIN 80 MG TAB PO SCH (21:00)
[2018-10-09] MEDS: HEPARIN SOD,PORK IN 0.45% NACL 25,000 UNIT in 0.45% NACL 1 250ML.BAG IV SCH (03:45)
[2018-10-09 06:41] LABS: Glucose,Whole Blood 211 mg/dL (75-99)
[2018-10-09] MEDS: CARVEDILOL 12.5 MG TAB PO SCH ×2 (08:56→17:29)
[2018-10-09] MEDS: ISOSORBIDE MONONITRATE ER 30 MG TAB.ER.24H PO SCH (08:56)
[2018-10-09] MEDS: FENOFIBRATE 160 MG TAB PO SCH ×2 (08:57→17:29)
[2018-10-09] MEDS: PRIMIDONE 50 MG TAB PO SCH ×2 (08:57→20:38)
[2018-10-09] MEDS: LOSARTAN 50 MG TAB PO SCH (08:57)
[2018-10-09] MEDS: DULoxetine HCL 60 MG CAPSULE.DR PO SCH ×2 (08:57→20:38)
[2018-10-09] MEDS: LORATADINE 10 MG TAB PO SCH (08:57)
[2018-10-09] MEDS: levETIRAcetam 500 MG TAB PO SCH ×2 (08:58→20:38)
[2018-10-09] MEDS: amLODIPine 10 MG TAB PO SCH (08:58)
[2018-10-09] MEDS: TROSPIUM CHLORIDE 20 MG TABLET PO SCH (08:58)
[2018-10-09] MEDS: clonazePAM 1 MG TAB PO SCH ×2 (08:58→20:38)
[2018-10-09] MEDS: INSULIN ASPART (NovoLOG) 100 UNIT/ML VIAL SQ SCH ×4 (08:58→21:02)
[2018-10-09] MEDS: FAMOTIDINE 20 MG TAB PO SCH (08:58)
[2018-10-09] MEDS ORDERED: ASPIRIN 81 MG PO SCH (09:00)
[2018-10-09] MEDS ORDERED: IV FLUID CONTINUATION 100 ML IV ONE (09:18)
[2018-10-09 09:27] LABS: Basophils % (A) 0 %; Eosinophils # (A) 0.2 k/uL (0-0.7); Eosinophils % (A) 3 %; HCT 33.9 % (34.0-46.0); HGB 11.6 gm/dL (11.4-16.0); Lymphocytes # (A) 2.2 k/uL (1.0-4.8); Lymphocytes % (A) 38 %; MCH 33.3 pg (25.0-35.0); MCHC 34.3 g/dL (31.0-37.0); Mean Platelet Volume 7.2; Monocytes # (A) 0.4 k/uL (0-1.0); Monocytes % (A) 7 %; Neutrophils # (A) 2.8 k/uL (1.3-7.7); Neutrophils % (A) 49 %; Platelet Count 276 k/uL (150-450); RBC 3.49 m/uL (3.80-5.40); RDW 13.6 % (11.5-15.5); WBC 5.7 k/uL (3.8-10.6)
[2018-10-09] MEDS ORDERED: SODIUM CHLORIDE 0.9% 1,000 ML IV ONE (09:32)
[2018-10-09] MEDS ORDERED: fentaNYL (PF) 50 MCG/ML 2 ML AMP IV ONE (09:41)
[2018-10-09] MEDS ORDERED: LIDOCAINE 1% INJ 10MG/ML (20 ML MDV) SQ ONE ×2 (09:43→09:44)
[2018-10-09] MEDS ORDERED: MIDAZOLAM (PF) 2 MG/2 ML VIAL IV ONE (09:44)
[2018-10-09] MEDS ORDERED: BIVALIRUDIN BOLUS 250 MG/50 ML IV ONE (09:58)
[2018-10-09] MEDS ORDERED: TICAGRELOR 90 MG TAB PO ONE (10:00)
[2018-10-09] MEDS ORDERED: BIVALIRUDIN 250 MG in SODIUM CHLORIDE 0.9% 50 ML IV ONE (10:00)
[2018-10-09] MEDS ORDERED: IOPAMIDOL-370 100ML BTL INJ ONE ×3 (10:12→10:30)
[2018-10-09] MEDS ORDERED: NITROGLYCERIN 1000MCG/10ML SYRINGE INTRACORON ONE (10:16)
[2018-10-09 10:20] LABS: Calcium 9.5 mg/dL (8.4-10.2); Potassium 4.5 mmol/L (3.5-5.1)
[2018-10-09] MEDS ORDERED: RX INFO: IV CONTRAST WAS GIVEN 1 EACH MISC MISCELLANE PRN (10:33)
[2018-10-09] MEDS ORDERED: ATROPINE SULFATE 0.1 MG/ML 10ML SYRINGE IV PRN (10:33)
[2018-10-09] MEDS ORDERED: NITROGLYCERIN SL TABS 0.4 MG TAB SUBLINGUAL PRN (10:33)
[2018-10-09] MEDS ORDERED: MAG HYDROX/AL HYDROX/SIMETH 30 ML CUP PO PRN (10:33)
[2018-10-09] MEDS ORDERED: ZOLPIDEM 5 MG TAB PO PRN (10:33)
[2018-10-09 10:45] LABS: Glucose,Whole Blood 160 mg/dL (75-99)
[2018-10-09] MEDS ORDERED: SODIUM CHLORIDE 0.9% 1,000 ML IV SCH (10:45)
--- NOTE | 2018-10-09 11:49 | CC ---
CARDIAC CATHETERIZATION REPORT Mrs. Bui is a 67-year-old female with known history of diabetes, hypertension, hyperlipidemia, history of peripheral vascular disease who presented with symptoms of chest discomfort and evidence of non ST-segment elevation myocardial infarction. In view of that, recommendation was made regarding cardiac catheterization. The procedure as well as the risks and the complications were discussed with the patient who is in full understanding and agreement. PROCEDURE: Patient was brought to the laboratory supervisor in a fasting semi-sedated state after receiving fentanyl and Benadryl and achieving moderate conscious sedated state. Using Xylocaine anesthesia in the Seldinger technique, a 6-Tajik sheath was introduced in the right radial artery. Selective right and left coronary angiography performed using 5- Tajik 3.5 bend right and left Taylor catheter. Multiple views of the coronary artery including hemiaxial views obtained. Following that, angioplasty and stenting was performed. Following that, 5-Tajik tight pigtail catheter was introduced in the left ventricle and pressures were calculated. Following that, catheter and sheaths were removed. Hemostasis was obtained with deployment of a TR band. There was no immediate complication. Patient was returned to her room in stable condition. Of note, the patient received intra-arterial verapamil. FINDINGS: FLUOROSCOPY: There was calcification involving the LAD as well as the right coronary artery. LEFT MAIN: This is a large-sized vessel bifurcating left circumflex, left anterior descending artery. Left main coronary artery has no evidence of high-grade stenosis. LEFT ANTERIOR DESCENDING ARTERY : This is a large-sized vessel reaching toward the apex with a wraparound apex segment giving rise to 2 diagonal branches. The left anterior descending artery proximally has a 50% plaque. There is another intimal plaque of 30% to 40% in the mid segment. The rest of the vessel has no high-grade stenosis. LEFT CIRCUMFLEX: This is a nondominant vessel giving rise to a very proximal obtuse marginal branch. The second obtuse marginal branch is small in caliber. Beyond the second obtuse marginal branch, there is a 99% stenosis. Beyond that, the vessel is small in caliber. RIGHT CORONARY ARTERY: This is a dominant vessel bifurcating distally PDA and posterolateral segment and branches. The right coronary artery and proximal segment has a 99% stenosis. There is another 80% plaque in the mid segment. The distal vessel has diffuse intimal disease up to 30% to 50%. LEFT VENTRICULOGRAM: Left ventriculogram is not performed. HEMODYNAMICS: There was no gradient across the aortic valve. The left ventricular end- diastolic pressure was 4 to 8 mmHg. CONCLUSION: 1. 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 2. Moderate disease in the LAD. 3. Critical stenosis in the distal left circumflex but beyond that the vessel is quite small. RECOMMENDATION: In view of the finding and presentation, I recommend proceeding with angioplasty and stenting. The procedure as well as the risks and complication were discussed with the patient who is in full understanding and agreement. MMMONSTERL / IJN: [id number] / ALOK
--- NOTE | 2018-10-09 13:10 | PTCA ---
PERCUTANEOUSTRANS CORORONARY ANGIOGRAPHY Mrs. Bui is a 67-year-old female with known history of hypertension, hyperlipidemia, diabetes mellitus, and history of peripheral disease, who presented with non ST-segment elevation myocardial infarction, underwent cardiac catheterization, was found to have critical stenosis involving the proximal and mid RCA. In view of that, recommendation was made regarding angioplasty and stenting. The procedure as well as the risks and the complications were discussed with the patient who is in full understanding and agreement. PROCEDURE: A 6-Vietnamese FR4 guiding catheter introduced in the system after cannulating the right right coronary ostium a 0.014 balanced medium weight J-wire was advanced across the lesion, positioned distally. Subsequently another 0.014 balanced medium weight J-wire was advanced next to the first one and positioned in a bette fashion. Subsequently a 2.5 x 12 mm Trek balloon was advanced and multiple inflations at 10 atmospheres were done. Following that, the balloon was removed and a 2.5 x 33 mm Xience Jie stent was deployed postdilated at 16 atmospheres. After the last inflation, after appropriate wait, the balloon and the guidewire were withdrawn back in the guiding catheter. Images were obtained and repeated. Those images reveal stable successful stenting. At that point, left ventricular end-diastolic pressure was measured using a 5- Vietnamese tight pigtail catheter. Following that, catheter and sheaths were removed. Hemostasis was obtained with deployment of a TR band. There was no immediate complication. The patient was returned to her room in stable condition. Of note, the patient received Angiomax per protocol as well as oral loading dose of Brilinta. She had mild chest discomfort with the inflation that resolved at the end of the procedure. RESULTS: Successful stenting of a long segment of the RCA in the proximal and mid segment with reduction of stenosis from 99% to 0% with intimal disease in the distal segment. RECOMMENDATION: The patient will be continued on aspirin, Brilinta, beta satinder, ARB, and statin. The importance of dual antiplatelet treatment were discussed with the patient and she is in full understanding and agreement. DURATION OF PROCEDURE: 42 minutes. SHAZIA / JOSE: [id number] /
[2018-10-09 13:32] LABS: Glucose,Whole Blood 135 mg/dL (75-99)
--- NOTE | 2018-10-09 16:22 | P.PN ---
Subjective Progress Note Date: 10/09/18 This is a pleasant 67-year-old lady patient of Dr. Sommer patient currently decides [facility] [place], was brought in to the emergency room secondary to chest pressure midsternal, radiating to bilateral sternal rib cage area, no dictation to the neck back or shoulders. She has underlying history of diabetes mellitus type 2, hyperlipidemia, hypertension, below the knee amputation, and prior history of cholecystectomy secondary to gallbladder stones. Patient had an old EKG showing Q waves inferior leads, patient denies any episode of documented [place], no history of CHF, she did have very bad fall several years ago with a consequent subdural hematoma. No craniotomy performed for the subdural hematoma She was transferred via ambulance, with complaint of chest rupture, sharp, lasting for approximately 30 minutes, she had some palpitations after she had some 1 episode of nonbilious emesis, without any blood. Patient denies any fever no chills, no hematuria no dysuria, emergency room labs include glucose of 159, d-dimer 0.28 hemoglobin 12.4 WBC count 9 troponin are 0.01 2.054 and 0.061 liver function tests normal except for alkaline phosphatase 131, no lipase performed, STUDY DIRECTOR proBNP of 266. EKG shows no acute ST-T wave changes, old Q waves noted in the inferior leads consult were made with cardiology for the chest pain, abdominal ultrasound to be done. . Patient was seen by cardiology today with plans for cardiac cath in the morning. Maintain IV hydration 10/09: Patient underwent heart catheterization that revealed subtotally occluded proximal right coronary artery with significant lesion in the mid RCA. Moderate disease in the L right ear. Critical stenosis in the distal left circumflex but beyond that the vessel is quite small. Patient underwent successful stenting of the RCA in the proximal and mid segment with Dr. Callahan. Patient has been started on Proventil. Review of Systems Constitutional: R Denies anorexia, Denies chills, Denies chronic headaches, Denies chronic pain, Denies daytime sleepiness, Denies fatigue, Denies fever, Denies lethargy, Denies malaise, Denies night sweats, Denies poor appetite, Denies sweats, Denies weakness, Denies weight gain, Denies weight loss Ears, nose, mouth and throat: Denies ant. neck pain, Denies bleeding gums, Denies dental pain, Denies dysphagia, Denies epistaxis, Denies headache, Denies hoarseness, Denies mouth pain, Denies nasal congestion, Denies nasal discharge, Denies neck fullness/pressure, Denies neck lump, Denies nose pain, Denies serge nophagia, Denies post-nasal drip, Denies sinus pain, Denies sinus pressure, Denies swelling in mouth, Denies swelling in throat, Denies sore throat, Denies vertigo, Denies voice changes Cardiovascular: Reports chest pain, Denies claudication, Denies decreased exercise tolerance, Denies dyspnea on exertion, Denies edema, Denies high blood pressure, Denies irregular heart beat, Denies leg edema, Denies lightheadedness, Denies orthopnea, Denies palpitations, Denies paroxysmal nocturnal dyspnea, Denies phlebitis, Denies rapid heart beat, Denies shortness of breath, Denies syncope Respiratory: Denies shortness of breath, denies cough, denies wheezing Gastrointestinal: Reports nausea, Reports vomiting Genitourinary: Denies abnormal vaginal bleeding, Denies decreased libido, Denies difficulty conceiving, Denies difficulty voiding, Denies dysmenorrhea, Denies dyspareunia, Denies dysuria, Denies flank pain, Denies genital sores, Denies hematuria, Denies hot flashes, Denies incomplete emptying, Denies kidney stones, Denies menorrhagia, Denies mixed incontinence, Denies nocturia, Denies pelvic pain, Denies post void dribbling, Denies , Denies prolapse symptoms, Denies stress incontinence, Denies urge incontinence, Denies urgency, Denies urinary frequency, Denies vaginal discharge, Denies vaginal dryness, Denies vaginal itching, Denies vaginal odor Menstruation: Reports postmenopausal Musculoskeletal: (Below the knee amputation left side) Integumentary: Reports rash (Right toe second digit has a healed blacjened callus being managed [facility] when care) Neurological: Denies aphasia, Denies ataxia, Denies balance difficulties, Denies burning pain, Denies change in mentation, Denies change in smell/taste, Denies change in speech, Denies confusion, Denies convulsions, Denies double vision, Denies gait dysfunction, Denies head injury, Denies headaches, Denies hearing difficulties, Denies lack of coordination, Denies loss of vision, Denies memory loss, Denies migraines, Denies motor disturbance, Denies numbness, Denies paralysis, Denies paresthesias, Denies seizures, Denies sensory deficit, Denies spasticity, Denies syncope, Denies tic, Denies tingling, Denies transient paralysis, Denies tremors, Denies vertigo, Denies weakness, Denies visual changes Psychiatric: Reports as per HPI, Denies anhedonia, Denies anxiety, Denies anxiety attacks, Denies change in appetite, Denies change in libido, Denies change in sleep habits, Denies confusion, Denies depression, Denies difficulty concentrating, Denies disorientation, Denies hallucinations, Denies hopelessness, Denies hypersomnia, Denies insomnia, Denies irritability, Denies memory loss, Denies mood swings, Denies paranoia, Denies sadness/tearfulness, Denies sleep disturbances, Denies suicidal ideation Objective - Vital Signs Vital signs: Vital Signs Temp 97.5 F L 10/09/18 07:05 Pulse 42 L 10/09/18 08:43 Resp 12 10/09/18 10:00 BP 145/69 10/09/18 07:05 Pulse Ox 95 10/09/18 10:00 Intake & Output 10/08/18 10/09/18 10/09/18 18:59 06:59 18:59 Intake Total 562.14 676.24 85.74 Output Total 1003 3 Balance -440.86 673.24 85.74 Intake: IV 85.74 Intake, IV Titration 82.14 676.24 Amount Heparin Sod,Pork in 0.45% 82.14 109.24 NaCl 25,000 unit In 0.45 % NaCl 1 250ml.bag @ 12 UNITS/KG/HR 9.798 mls/hr IV .Q24H [facility] Rx#: [id number] Sodium Chloride 0.9% 1, 567 000 ml In Empty Bag 1 bag @ 1 ML/KG/HR 81.647 mls/ hr IV .[id number] [facility] Rx#: [id number] Oral 480 Output: Urine 1000 Stool 3 3 Other: Voiding Method Bedside Commode Bedside Commode Bedside Commode Bedpan Bedpan Bedpan # Voids 1 # Bowel Movements 1 - Exam - Constitutional General appearance: average body habitus, cooperative, no acute distress, patient resting on stretcher in the extended stay unit - EENT Eyes: anicteric sclerae, EOMI, PERRLA, dentition normal, normal appearance ENT: NA/AT, normal oropharynx - Neck Neck: normal ROM - Respiratory Respiratory: bilateral: CTA, negative: diminished, dullness, rales - Cardiovascular Rhythm: regular Heart sounds: normal: S1, S2 Abnormal Heart Sounds: no systolic murmur, no diastolic murmur, no rub, no S3 Gallop, no S4 Gallop, no click, no other - Gastrointestinal General gastrointestinal: normal bowel sounds, soft - Integumentary Integumentary: normal - Neurologic Neurologic: CNII-XII intact - Musculoskeletal Musculoskeletal: generalized weakness, strength equal bilaterally - Psychiatric Psychiatric: A&O x's 3, appropriate affect, intact judgment & insight - Labs CBC & Chem 7: 10/09/18 08:38 10/09/18 08:38 Labs: Abnormal Lab Results - Last 24 Hours (Table) 10/08/18 10/08/18 10/08/18 Range/Units 17:03 19:39 20:14 RBC (3.80-5.40) m/uL Hct (34.0-46.0) % APTT 47.7 H (22.0-30.0) sec BUN (7-17) mg/dL Creatinine (0.52-1.04) mg/dL Glucose (74-99) mg/dL POC Glucose (mg/dL) 211 H 259 H (75-99) mg/dL 10/09/18 10/09/18 10/09/18 Range/Units 06:30 08:38 08:38 RBC 3.49 L (3.80-5.40) m/uL Hct 33.9 L (34.0-46.0) % APTT (22.0-30.0) sec BUN 31 H (7-17) mg/dL Creatinine 1.15 H (0.52-1.04) mg/dL Glucose 177 H (74-99) mg/dL POC Glucose (mg/dL) 211 H (75-99) mg/dL 10/09/18 Range/Units 10:43 RBC (3.80-5.40) m/uL Hct (34.0-46.0) % APTT (22.0-30.0) sec BUN (7-17) mg/dL Creatinine (0.52-1.04) mg/dL Glucose (74-99) mg/dL POC Glucose (mg/dL) 160 H (75-99) mg/dL Assessment and Plan Plan: 1. Non-ST elevated myocardial infarction. Patient is status post heart catheterization and stent placement. Continue aspirin 81 mg daily, Lipitor 80 mg at bedtime, Coreg 12.5 mg twice daily, Brilinta 90 mg twice daily. 2. Diabetes mellitus with complications, left above-knee amputation, continue on Levemir 50 units at bedtime, NovoLog scale, NovoLog 10 units pre-meal 3 times a day can be restarted, A1c to be done, Accu-Cheks before meals and at bedtime, 3. Hyperlipidemia, on low fiber and Lipitor 18 no changes made 4. CKD stage III. Recheck lab work in the morning. 5. Hypertension. Continue Norvasc, Coreg, losartan. Chlorthalidone on hold. 6. COPD without exacerbation. 7. History of a subdural hematoma, stable 8. Below the knee amputation left side, undergoing therapies at [facility] 9. Chronic pain neuralgia and dysthymia, Cymbalta 60 mg twice a day clonazepam 1 mg twice a day and Keppra 500 mg twice daily. 10. GI prophylaxis. Pepcid. Discharge plan: Return to medical [place] tomorrow Impression and plan of care have been directed as dictated by the signing physician. Adrianna Saenz nurse practitioner acting as scribe for signing physician.
[2018-10-09 17:07] LABS: Glucose,Whole Blood 143 mg/dL (75-99)
[2018-10-09 19:28] LABS: Hemoglobin A1C 6.6 % (4.0-6.0)
[2018-10-09] MEDS: FERROUS SULFATE 325 MG TAB PO SCH (20:38)
[2018-10-09 20:46] LABS: Glucose,Whole Blood 231 mg/dL (75-99)
[2018-10-09] MEDS ORDERED: ATORVASTATIN 80 MG TAB PO SCH (21:00)
[2018-10-09] MEDS: INSULIN DETEMIR (LEVEMIR) 100 UNIT/ML SYR SQ SCH (22:05)
[2018-10-10 06:46] LABS: Glucose,Whole Blood 173 mg/dL (75-99)
[2018-10-10] MEDS: FENOFIBRATE 160 MG TAB PO SCH ×2 (06:55→17:27)
[2018-10-10] MEDS: CARVEDILOL 12.5 MG TAB PO SCH ×2 (06:55→17:27)
[2018-10-10] MEDS: INSULIN ASPART (NovoLOG) 100 UNIT/ML VIAL SQ SCH ×3 (06:56→17:27)
[2018-10-10 08:38] LABS: Calcium 9.7 mg/dL (8.4-10.2)
[2018-10-10 08:40] LABS: Potassium 4.4 mmol/L (3.5-5.1)
[2018-10-10] MEDS ORDERED: ASPIRIN 81 MG PO SCH (09:00)
[2018-10-10] MEDS ORDERED: TICAGRELOR 90 MG TAB PO SCH (09:00)
[2018-10-10] MEDS: DULoxetine HCL 60 MG CAPSULE.DR PO SCH (09:20)
[2018-10-10] MEDS: LORATADINE 10 MG TAB PO SCH (09:20)
[2018-10-10] MEDS: ISOSORBIDE MONONITRATE ER 30 MG TAB.ER.24H PO SCH (09:20)
[2018-10-10] MEDS: amLODIPine 10 MG TAB PO SCH (09:21)
[2018-10-10] MEDS: clonazePAM 1 MG TAB PO SCH (09:21)
[2018-10-10] MEDS: levETIRAcetam 500 MG TAB PO SCH (09:21)
[2018-10-10] MEDS: PRIMIDONE 50 MG TAB PO SCH ×2 (09:22→09:27)
[2018-10-10] MEDS: LOSARTAN 50 MG TAB PO SCH (09:24)
[2018-10-10] MEDS: FAMOTIDINE 20 MG TAB PO SCH (09:28)
[2018-10-10] MEDS: TROSPIUM CHLORIDE 20 MG TABLET PO SCH (10:06)
--- NOTE | 2018-10-10 10:45 | P.DS ---
Providers Date of admission: 10/08/18 11:59 Expected date of discharge: 10/10/18 Attending physician: Winsome Gracia Consults: 10/08/18 02:30 Consult Physician Urgent Consulting Provider: Oliva Mendoza Consult Reason/Comments: acute chest pain Do you want consulting provider notified?: Yes 10/09/18 10:33 Consult Physician Routine Consulting Provider: Oliva Mendoza Consult Reason/Comments: Post Interventional patient Do you want consulting provider notified?: Already Contacted Primary care physician: Tomasa Sommer [facility] Course: This is a pleasant 67-year-old lady patient of Dr. Sommer patient currently resides at [facility], was brought in to the emergency room secondary to chest pressure midsternal, radiating to bilateral sternal rib cage area, no dictation to the neck back or shoulders. She has underlying history of diabetes mellitus type 2, hyperlipidemia, hypertension, below the knee amputation, and prior history of cholecystectomy secondary to gallbladder stones. Patient had an old EKG showing Q waves inferior leads, patient denies any episode of documented [place], no history of CHF, she did have very bad fall several years ago with a consequent subdural hematoma. No craniotomy performed for the subdural hematoma She was transferred via ambulance, with complaint of chest rupture, sharp, lasting for approximately 30 minutes, she had some palpitations after she had some 1 episode of nonbilious emesis, without any blood. Patient denies any fever no chills, no hematuria no dysuria, emergency room labs include glucose of 159, d-dimer 0.28 hemoglobin 12.4 WBC count 9 troponin are 0.01 2.054 and 0.061 liver function tests normal except for alkaline phosphatase 131, no lipase performed, SENIOR INFORMATION SECURITY CONSULTANT proBNP of 266. EKG shows no acute ST-T wave changes, old Q waves noted in the inferior leads consult were made with cardiology for the chest pain, abdominal ultrasound to be done. . Patient was seen by cardiology today with plans for cardiac cath in the morning. Maintain IV hydration 10/09: Patient underwent heart catheterization that revealed subtotally occluded proximal right coronary artery with significant lesion in the mid RCA. Moderate disease in the L right ear. Critical stenosis in the distal left circumflex but beyond that the vessel is quite small. Patient underwent successful stenting of the RCA in the proximal and mid segment with Dr. Callahan. Patient has been started on Brilinta. 10/10: Patient has been afebrile, heart rate 54, blood pressure 127/63, pulse ox 97% on room air. Repeat BUN 28 creatinine 1.07, blood sugar 149. Patient denies any chest pain, shortness of breath. Patient will be discharged back to [facility] today in stable condition. Discharge diagnoses: 1. Non-ST elevated myocardial infarction. 2. Diabetes mellitus with complications, left above-knee amputation 3. Hyperlipidemia 4. CKD stage III. 5. Hypertension. 6. COPD without exacerbation. 7. History of a subdural hematoma, stable 8. Below the knee amputation left side, undergoing therapies at [facility] 9. Chronic pain neuralgia and dysthymia Discharge plan: Return to [facility] [place] Impression and plan of care have been directed as dictated by the signing physician. Adrianna Saenz nurse practitioner acting as scribe for signing physician. Patient Condition at Discharge: Good Plan - Discharge Summary Discharge Rx Participant: No New Discharge Prescriptions: New Ticagrelor [Brilinta] 90 mg PO BID tab Nitroglycerin Sl Tabs [Nitrostat] 0.4 mg SUBLINGUAL Q5M PRN tab PRN Reason: Chest Pain Continue Insulin Aspart [NovoLOG] See Protocol SQ ACHS Atorvastatin [Lipitor] 80 mg PO HS Primidone [Mysoline] 150 mg PO BID Aspirin [Adult Low Dose Aspirin EC] 81 mg PO DAILY Albuterol Inhaler [Ventolin Hfa Inhaler] 1 - 2 puff INHALATION RT-Q6H PRN PRN Reason: Shortness Of Breath Cetirizine HCl [Zyrtec] 10 mg PO DAILY Gemfibrozil [Lopid] 600 mg PO AC-BID tab Insulin Detemir [Levemir Flextouch] 50 units SQ HS Carvedilol [Coreg] 12.5 mg PO BID Famotidine [Pepcid] 20 mg PO BID Isosorbide Mononitrate ER [Imdur] 30 mg PO DAILY levETIRAcetam [Keppra] 500 mg PO BID Acetaminophen Tab [Tylenol] 650 mg PO Q6HR PRN tab PRN Reason: Fever and/ or Mild Pain amLODIPine [Norvasc] 10 mg PO DAILY tab clonazePAM [KlonoPIN] 1 mg PO BID #60 tab Cholecalciferol [Vitamin D3 (25 Mcg = 1000 Iu)] 5,000 unit PO DAILY DULoxetine HCL [Cymbalta] 60 mg PO BID Empagliflozin [Jardiance] 10 mg PO DAILY Ferrous Sulfate [Iron (65 MG Elemental)] 325 mg PO HS INSULIN ASPART (NovoLOG) [NovoLOG (formulary)] 10 unit SQ AC-TID Loperamide [Imodium] 2 mg PO QID PRN PRN Reason: Loose Stool Losartan Potassium 100 mg PO DAILY Solifenacin Succinate [Vesicare] 5 mg PO DAILY metFORMIN HCL 1,000 mg PO BID #0 traMADol HCl [Ultram] 50 mg PO Q6H PRN #12 tab PRN Reason: pain Discontinued Chlorthalidone 25 mg PO DAILY Discharge Medication List Aspirin [Adult Low Dose Aspirin EC] 81 mg PO DAILY 01/21/15 [History] Atorvastatin [Lipitor] 80 mg PO HS 01/21/15 [History] Insulin Aspart [NovoLOG] See Protocol SQ ACHS 01/21/15 [History] Primidone [Mysoline] 150 mg PO BID 01/21/15 [History] Albuterol Inhaler [Ventolin Hfa Inhaler] 1 - 2 puff INHALATION RT-Q6H PRN 01/28/15 [History] Cetirizine HCl [Zyrtec] 10 mg PO DAILY 03/11/15 [History] Gemfibrozil [Lopid] 600 mg PO AC-BID tab 09/09/16 [Rx] Insulin Detemir [Levemir Flextouch] 50 units SQ HS 10/18/16 [History] Carvedilol [Coreg] 12.5 mg PO BID 12/07/17 [History] Famotidine [Pepcid] 20 mg PO BID 12/07/17 [History] Isosorbide Mononitrate ER [Imdur] 30 mg PO DAILY 12/07/17 [History] levETIRAcetam [Keppra] 500 mg PO BID 12/07/17 [History] Acetaminophen Tab [Tylenol] 650 mg PO Q6HR PRN tab 12/12/17 [Rx] amLODIPine [Norvasc] 10 mg PO DAILY tab 12/12/17 [Rx] clonazePAM [KlonoPIN] 1 mg PO BID #60 tab 12/12/17 [Rx] Cholecalciferol [Vitamin D3 (25 Mcg = 1000 Iu)] 5,000 unit PO DAILY 10/07/18 [History] DULoxetine HCL [Cymbalta] 60 mg PO BID 10/07/18 [History] Empagliflozin [Jardiance] 10 mg PO DAILY 10/07/18 [History] Ferrous Sulfate [Iron (65 MG Elemental)] 325 mg PO HS 10/07/18 [History] INSULIN ASPART (NovoLOG) [NovoLOG (formulary)] 10 unit SQ AC-TID 10/07/18 [History] Loperamide [Imodium] 2 mg PO QID PRN 10/07/18 [History] Losartan Potassium 100 mg PO DAILY 10/07/18 [History] Solifenacin Succinate [Vesicare] 5 mg PO DAILY 10/07/18 [History] Nitroglycerin Sl Tabs [Nitrostat] 0.4 mg SUBLINGUAL Q5M PRN tab 10/10/18 [Rx] Ticagrelor [Brilinta] 90 mg PO BID tab 10/10/18 [Rx] metFORMIN HCL 1,000 mg PO BID #0 10/10/18 [Rx] traMADol HCl [Ultram] 50 mg PO Q6H PRN #12 tab 10/10/18 [Rx] Follow up Appointment(s)/Referral(s): Rafa Callahan MD [STAFF PHYSICIAN] - 1 Week Tomasa Sommer MD [Primary Care Provider] - 1 Week (at [facility]) Activity/Diet/Wound Care/Special Instructions: Medihoney daily to right third toe wound Discharge Disposition: TRANSFER TO SNF/ECF
[2018-10-10 10:54] VITALS: BMI 28.3
[2018-10-10 11:42] LABS: Glucose,Whole Blood 200 mg/dL (75-99)
--- NOTE | 2018-10-10 11:56 | PN ---
PROGRESS NOTE Mrs. Bui is a 67-year-old female who presented with symptoms of chest pain and non ST-segment elevation myocardial infarction, underwent cardiac catheterization, was found to have significant obstructive disease in the RCA, underwent stenting of that vessel. She is doing well this morning, denying any chest pain. Her breathing has been stable. She denies any dizziness or palpitation. She denies any nausea. She continues to be at this time on aspirin once a day, Brilinta 90 mg twice a day, carvedilol 12.5 mg twice a day, fenofibrate 160 mg daily, Lipitor 80 mg daily, insulin, isosorbide mononitrate 30 mg daily, losartan 100 mg daily. PHYSICAL EXAMINATION: Blood pressure 127/60 with a heart in the 50s. LUNGS: Clear. HEART: Regular rate and rhythm, S1, S2. No S3 with a systolic murmur. ABDOMEN: Soft, nontender. EXTREMITIES: Status post right BKA and radial pulse intact, EKG revealed no acute changes with sinus bradycardia. LAB DATA: Revealed BUN and creatinine 28 and 1.07. IMPRESSION: 1. Status post stenting of the right coronary artery in the setting of non ST-segment elevation myocardial infarction. 2. Hypertension. 3. Hyperlipidemia. 4. Diabetes mellitus. 5. Status post below-knee amputation. 6. Renal failure, improved. RECOMMENDATION: From the cardiac standpoint, she should be able to be discharged home today and followed as an outpatient. MMMONSTERL / DOMINICKN: [id number] /
--- NOTE | 2018-10-10 13:08 | ECHOF ---
Referral Reason:chest pain MEASUREMENTS -------- HEIGHT: 170.2 cm WEIGHT: 81.6 kg BP: 136/60 RVIDd: 2.8 cm (< 3.3) IVSd: 1.1 cm (0.6 - 1.1) LVIDd: 4.5 cm (3.9 - 5.3) LVPWd: 1.2 cm (0.6 - 1.1) IVSs: 2.1 cm LVIDs: 1.8 cm LVPWs: 2.1 cm LAESV Index (A-L): 25.16 ml/m Ao Diam: 3.1 cm (2.0 - 3.7) AV Cusp: 2.0 cm (1.5 - 2.6) LA Diam: 3.7 cm (2.7 - 3.8) MV EXCURSION: 15.271 mm (> 18.000) MV EF SLOPE: 62 mm/s (70 - 150) EPSS: 0.5 cm MV E Johnny: 0.70 m/s MV DecT: 237 ms MV A Johnny: 0.88 m/s MV E/A Ratio: 0.79 RAP: 5.00 mmHg RVSP: 13.89 mmHg FINDINGS -------- Sinus rhythm. This was a technically good study. The left ventricular size is normal. There is borderline concentric left ventricular hypertrophy. Overall left ventricular systolic function is normal with, an EF between 55 - 60 %. The diastolic filling pattern is normal for the age of the patient 16.88. The right ventricle is normal in size. The left atrial size is normal. Normal LA size by volume 22+/-6 ml/m2. The right atrial size is normal. Interatrial and interventricular septum intact. The aortic valve is trileaflet and appears structurally normal. The mitral valve is normal. There is trace mitral regurgitation. The tricuspid valve appears structurally normal. Trace tricuspid regurgitation present. Right lorie tricular systolic pressure is normal at < 35 mmHg. There is no pulmonic regurgitation present. The aortic root size is normal. Normal inferior vena cava with normal inspiratory collapse consistent with estimated right atrial pre ssure of 5 mmHg. The flow patterns, measured by Doppler, appear normal. There is no pericardial effusion. CONCLUSIONS -------- 1. Sinus rhythm. 2. This was a technically good study. 3. The left ventricular size is normal. 4. There is borderline concentric left ventricular hypertrophy. 5. Overall left ventricular systolic function is normal with, an EF between 55 - 60 %. 6. The diastolic filling pattern is normal for the age of the patient 16.88 7. The right ventricle is normal in size. 8. The left atrial size is normal. 9. Normal LA size by volume 22+/-6 ml/m2. 10. The right atrial size is normal. 11. Interatrial and interventricular septum intact. 12. The aortic valve is trileaflet and appears structurally normal. 13. The mitral valve is normal. 14. There is trace mitral regurgitation. 15. The tricuspid valve appears structurally normal. 16. Trace tricuspid regurgitation present. 17. Right ventricular systolic pressure is normal at < 35 mmHg. 18. There is no pulmonic regurgitation present. 19. The aortic root size is normal. 20. Normal inferior vena cava with normal inspiratory collapse consistent with estimated right atrial pressure of 5 mmHg. 21. The flow patterns, measured by Doppler, appear normal. 22. There is no pericardial effusion. VENEER PATCHER: Steph Ellis RDCS
[2018-10-10 13:44] VITALS: BP 120/47; PULSE 57; RESP 17; TEMP 98
[2018-10-10 16:50] LABS: Glucose,Whole Blood 312 mg/dL (75-99)
== END 2018-10-10 18:01 | DRG 247 ==
LOC: EC 23:10 → 1SOBS 10-08 02:30 → OBSVTOIN 10-08 11:59 → 3SCARD 10-09 14:08
PROVIDERS: ADMIT Family Medicine; ATTEND Family Medicine
PROC: 027034Z Dilation of Coronary Artery, One Artery with Drug-eluting Intraluminal Device, Percutaneous Approach (ICD-10-PCS; principal; 2018-10-09 09:18)
PROC: B2111ZZ Fluoroscopy of Multiple Coronary Arteries using Low Osmolar Contrast (ICD-10-PCS; 2018-10-09 09:18)
DX: I21.4 Non-ST elevation (NSTEMI) myocardial infarction (principal); E11.22 Type 2 diabetes mellitus with diabetic chronic kidney disease; E11.51 Type 2 diabetes mellitus with diabetic peripheral angiopathy without gangrene; N18.3 Chronic kidney disease, stage 3 (moderate); J44.9 Chronic obstructive pulmonary disease, unspecified; I25.10 Atherosclerotic heart disease of native coronary artery without angina pectoris; E78.5 Hyperlipidemia, unspecified; I12.9 Hypertensive chronic kidney disease with stage 1 through stage 4 chronic kidney disease, or unspecified chronic kidney disease; M19.90 Unspecified osteoarthritis, unspecified site; G89.29 Other chronic pain; F34.1 Dysthymic disorder; I25.2 Old myocardial infarction; M79.2 Neuralgia and neuritis, unspecified; Z79.82 Long term (current) use of aspirin; Z79.4 Long term (current) use of insulin; Z79.899 Other long term (current) drug therapy; Z86.79 Personal history of other diseases of the circulatory system; Z89.512 Acquired absence of left leg below knee; Z86.69 Personal history of other diseases of the nervous system and sense organs; Z90.49 Acquired absence of other specified parts of digestive tract; Z90.710 Acquired absence of both cervix and uterus; Z98.1 Arthrodesis status; Z87.891 Personal history of nicotine dependence; Z98.51 Tubal ligation status; Z88.5 Allergy status to narcotic agent; Z88.6 Allergy status to analgesic agent; Z88.8 Allergy status to other drugs, medicaments and biological substances; Z82.49 Family history of ischemic heart disease and other diseases of the circulatory system
CPT/HCPCS: 36415; 70450; 71045; 80048; 80053; 83036; 83735; 83880; 84484; 85025; 85347; 85379; 85610; 85730; 93005; 93306; 93458; 94760; 96365; 96376; 99285; C1874

== ENCOUNTER 2018-12-04 00:58 | Observation (INO) | payer MEDICARE, OTHER ==
--- NOTE | 2018-12-04 01:02 | ED ---
Abdominal Pain HPI - General Stated Complaint: Abd Pain Time Seen by Provider: 12/04/18 01:02 - History of Present Illness Initial Comments: Ivette is a 67-year-old female who presents the emergency department today via EMS from [facility] for evaluation of 1 week of progressively worsening nausea, vomiting and diarrhea. Patient reports she's been experiencing loose stools and diarrhea since Tuesday, they've been coming more frequent and she's developed abdominal cramping and nausea today. Upon arrival to the emergency department patient is having both episodes of nonbloody diarrhea nonbloody nonbilious emesis. Patient reports generalized abdominal cramping. Patient denies any history of irritable or inflammatory bowel disease. She reports she was recently on Keflex but never been on any other significant antibiotics. She has no history of C. diff. No known sick contacts. No one else with similar symptoms. - Related Data Home Medications Medication Instructions Recorded Confirmed Aspirin [Adult Low Dose Aspirin EC] 81 mg PO DAILY 01/21/15 12/04/18 Atorvastatin [Lipitor] 80 mg PO HS 01/21/15 12/04/18 Insulin Aspart [NovoLOG] See Protocol SQ ACHS 01/21/15 12/04/18 Primidone [Mysoline] 150 mg PO BID 01/21/15 12/04/18 Albuterol Inhaler [Ventolin Hfa 1 - 2 puff INHALATION RT-Q6H PRN 01/28/15 12/04/18 Inhaler] Cetirizine HCl [Zyrtec] 10 mg PO DAILY 03/11/15 12/04/18 Insulin Detemir [Levemir Flextouch] 50 units SQ HS 10/18/16 12/04/18 Carvedilol [Coreg] 12.5 mg PO BID 12/07/17 12/04/18 Famotidine [Pepcid] 20 mg PO BID 12/07/17 12/04/18 Isosorbide Mononitrate ER [Imdur] 30 mg PO DAILY 12/07/17 12/04/18 levETIRAcetam [Keppra] 500 mg PO BID 12/07/17 12/04/18 Cholecalciferol [Vitamin D3 (25 5,000 unit PO DAILY 10/07/18 12/04/18 Mcg = 1000 Iu)] DULoxetine HCL [Cymbalta] 60 mg PO BID 10/07/18 12/04/18 Empagliflozin [Jardiance] 10 mg PO DAILY 10/07/18 12/04/18 Ferrous Sulfate [Iron (65 MG 325 mg PO HS 10/07/18 12/04/18 Elemental)] INSULIN ASPART (NovoLOG) [NovoLOG 10 unit SQ AC-TID 10/07/18 12/04/18 (formulary)] Loperamide [Imodium] 2 mg PO QID PRN 10/07/18 12/04/18 Losartan Potassium 100 mg PO DAILY 10/07/18 12/04/18 Solifenacin Succinate [Vesicare] 5 mg PO DAILY 10/07/18 12/04/18 Previous Rx's Medication Instructions Recorded Gemfibrozil [Lopid] 600 mg PO AC-BID tab 09/09/16 Acetaminophen Tab [Tylenol] 650 mg PO Q6HR PRN tab 12/12/17 amLODIPine [Norvasc] 10 mg PO DAILY tab 12/12/17 clonazePAM [KlonoPIN] 1 mg PO BID #60 tab 12/12/17 Nitroglycerin Sl Tabs [Nitrostat] 0.4 mg SUBLINGUAL Q5M PRN tab 10/10/18 Ticagrelor [Brilinta] 90 mg PO BID tab 10/10/18 metFORMIN HCL 1,000 mg PO BID #0 10/10/18 traMADol HCl [Ultram] 50 mg PO Q6H PRN #12 tab 10/10/18 Allergies Allergy/AdvReac Type Severity Reaction Status Date / Time codeine Allergy Nausea & Verified 10/07/18 23:23 Vomiting ibuprofen [From Motrin] Allergy Unknown Verified 10/07/18 23:23 codeine phosphate AdvReac Nausea & Verified 10/07/18 23:23 [From Codar GF] Vomiting guaifenesin [From Codar GF] AdvReac Unknown Verified 10/07/18 23:23 Review of Systems ROS Statement: Those systems with pertinent positive or pertinent negative responses have been documented in the HPI. ROS Other: All systems not noted in ROS Statement are negative. Past Medical History Past Medical History: COPD, Diabetes Mellitus, Hyperlipidemia, Hypertension, Musculoskeletal Disorder, Osteoarthritis (OA) Additional Past Medical History / Comment(s): tremors, migraines History of Any Multi-Drug Resistant Organisms: None Reported Past Surgical History: Cholecystectomy, Hysterectomy, Orthopedic Surgery, Tubal Ligation Additional Past Surgical History / Comment(s): partial amp. toe R foot. June 2014 - cervical fusion (steel plate and cages) Past Anesthesia/Blood Transfusion Reactions: No Reported Reaction Past Psychological History: Depression Smoking Status: Former smoker Past Alcohol Use History: None Reported Past Drug Use History: None Reported - Past Family History Father Family Medical History: Coronary Artery Disease (CAD), Hypertension Brother(s) Family Medical History: No Reported History, Coronary Artery Disease (CAD) Son(s) Family Medical History: No Reported History Mother Family Medical History: Coronary Artery Disease (CAD), Hypertension General Exam - General Exam Comments Initial Comments: Physical Exam GENERAL: Appears dehydrated HENT: Normocephalic, Atraumatic. EYES: PERRL, EOMI PULMONARY: Unlabored respirations CARDIOVASCULAR: Regular rhythm ABDOMEN: Soft nondistended Non-peritoneal No pulsatile mass SKIN: Skin is clear with no lesions or rashes and otherwise unremarkable. : Deferred NEUROLOGIC: Patient is alert and oriented x3 MUSCULOSKELETAL: Right BKA PSYCHIATRIC: Normal psychiatric evaluation. Course Vital Signs 12/04/18 12/04/18 12/04/18 01:02 02:00 04:00 Temperature 97.6 F Pulse Rate 72 70 74 Respiratory 20 18 20 Rate Blood Pressure 116/67 116/67 119/60 O2 Sat by Pulse 95 94 L 95 Oximetry Medical Decision Making - Medical Decision Making Patient was seen and evaluated history is obtained from the patient Patient appears dehydrated 67-year-old female who is wheelchair dependent secondary to previous amputation. She is experiencing gastroenteritis type symptoms with nausea vomiting diarrhea however they have been persistent for 1 week. Labs are consistent with dehydration, no significant electrolyte abno rmalities no leukocytosis or anemia Urinalysis consistent with urinary tract infection - Rocephin ordered X-ray consistent with ileus Given the urinary tract infection, ileus, nausea, vomiting, diarrhea concern the patient will not hold down by mouth antibiotics or could have diarrhea which would prevent absorption of antibiotics that the patient warrants admission hospital for IV antibiotics fluid rehydration and further evaluation. Patient is agreeable to this. Patient will be admitted to Dr Sommer - Lab Data Result diagrams: 12/04/18 01:15 12/04/18 01:15 Lab Results 12/04/18 12/04/18 12/04/18 Range/Units 01:15 01:15 02:36 WBC 8.7 (3.8-10.6) k/uL RBC 3.74 L (3.80-5.40) m/uL Hgb 12.3 (11.4-16.0) gm/dL Hct 35.3 (34.0-46.0) % MCV 94.4 (80.0-100.0) fL MCH 32.8 (25.0-35.0) pg MCHC 34.8 (31.0-37.0) g/dL RDW 13.4 (11.5-15.5) % Plt Count 365 (150-450) k/uL Neutrophils % 68 % Lymphocytes % 23 % Monocytes % 5 % Eosinophils % 2 % Basophils % 0 % Neutrophils # 5.9 (1.3-7.7) k/uL Lymphocytes # 2.0 (1.0-4.8) k/uL Monocytes # 0.5 (0-1.0) k/uL Eosinophils # 0.1 (0-0.7) k/uL Basophils # 0.0 (0-0.2) k/uL Sodium 139 (137-145) mmol/L Potassium 4.4 (3.5-5.1) mmol/L Chloride 107 (98-107) mmol/L Carbon Dioxide 15 L (22-30) mmol/L Anion Gap 17 mmol/L BUN 44 H (7-17) mg/dL Creatinine 1.24 H (0.52-1.04) mg/dL Est GFR (CKD-EPI)AfAm 51 (>60 ml/min/1.73 sqM) Est GFR (CKD-EPI)NonAf 44 (>60 ml/min/1.73 sqM) Glucose 171 H (74-99) mg/dL Calcium 9.3 (8.4-10.2) mg/dL Total Bilirubin 0.4 (0.2-1.3) mg/dL AST 25 (14-36) U/L ALT 7 L (9-52) U/L Alkaline Phosphatase 142 H (38-126) U/L Total Protein 7.4 (6.3-8.2) g/dL Albumin 4.3 (3.5-5.0) g/dL Amylase 45 (30-110) U/L Lipase 195 (23-300) U/L Urine Color Light Red Urine Appearance Cloudy H (Clear) Urine pH 5.5 (5.0-8.0) Ur Specific [place] 1.018 (1.001-1.035) Urine Protein 2+ H (Negative) Urine Glucose (UA) 4+ H (Negative) Urine Ketones Negative (Negative) Urine Blood Moderate H (Negative) Urine Nitrite Negative (Negative) Urine Bilirubin Negative (Negative) Urine Urobilinogen <2.0 (<2.0) mg/dL Ur Leukocyte Esterase Large H (Negative) Urine RBC >182 H (0-5) /hpf Urine WBC >182 H (0-5) /hpf Urine WBC Clumps Few H (None) /hpf Ur Squamous Epith Cells 6 H (0-4) /hpf Urine Mucus Occasional H (None) /hpf C. difficile (EIA) Intrp (Negative) 12/04/18 Range/Units 02:36 WBC (3.8-10.6) k/uL RBC (3.80-5.40) m/uL Hgb (11.4-16.0) gm/dL Hct (34.0-46.0) % MCV (80.0-100.0) fL MCH (25.0-35.0) pg MCHC (31.0-37.0) g/dL RDW (11.5-15.5) % Plt Count (150-450) k/uL Neutrophils % % Lymphocytes % % Monocytes % % Eosinophils % % Basophils % % Neutrophils # (1.3-7.7) k/uL Lymphocytes # (1.0-4.8) k/uL Monocytes # (0-1.0) k/uL Eosinophils # (0-0.7) k/uL Basophils # (0-0.2) k/uL Sodium (137-145) mmol/L Potassium (3.5-5.1) mmol/L Chloride (98-107) mmol/L Carbon Dioxide (22-30) mmol/L Anion Gap mmol/L BUN (7-17) mg/dL Creatinine (0.52-1.04) mg/dL Est GFR (CKD-EPI)AfAm (>60 ml/min/1.73 sqM) Est GFR (CKD-EPI)NonAf (>60 ml/min/1.73 sqM) Glucose (74-99) mg/dL Calcium (8.4-10.2) mg/dL Total Bilirubin (0.2-1.3) mg/dL AST (14-36) U/L ALT (9-52) U/L Alkaline Phosphatase (38-126) U/L Total Protein (6.3-8.2) g/dL Albumin (3.5-5.0) g/dL Amylase (30-110) U/L Lipase (23-300) U/L Urine Color Urine Appearance (Clear) Urine pH (5.0-8.0) Ur Specific [place] (1.001-1.035) Urine Protein (Negative) Urine Glucose (UA) (Negative) Urine Ketones (Negative) Urine Blood (Negative) Urine Nitrite (Negative) Urine Bilirubin (Negative) Urine Urobilinogen (<2.0) mg/dL Ur Leukocyte Esterase (Negative) Urine RBC (0-5) /hpf Urine WBC (0-5) /hpf Urine WBC Clumps (None) /hpf Ur Squamous Epith Cells (0-4) /hpf Urine Mucus (None) /hpf C. difficile (EIA) Intrp Negative (Negative) Disposition Clinical Impression: UTI (urinary tract infection), Ileus, Nausea vomiting and diarrhea Disposition: ADMITTED IP TO THIS HOSP Condition: Stable Is patient prescribed a controlled substance at d/c from ED?: No
[2018-12-04 02:21] LABS: Basophils % (A) 0 %; Eosinophils # (A) 0.1 k/uL (0-0.7); Eosinophils % (A) 2 %; HCT 35.3 % (34.0-46.0); HGB 12.3 gm/dL (11.4-16.0); Lymphocytes % (A) 23 %; MCH 32.8 pg (25.0-35.0); MCHC 34.8 g/dL (31.0-37.0); MCV 94.4 fL (80.0-100.0); Mean Platelet Volume 6.5; Monocytes # (A) 0.5 k/uL (0-1.0); Monocytes % (A) 5 %; Neutrophils # (A) 5.9 k/uL (1.3-7.7); Neutrophils % (A) 68 %; Platelet Count 365 k/uL (150-450); RBC 3.74 m/uL (3.80-5.40); RDW 13.4 % (11.5-15.5); WBC 8.7 k/uL (3.8-10.6)
[2018-12-04 02:35] LABS: Albumin 4.3 g/dL (3.5-5.0); Calcium 9.3 mg/dL (8.4-10.2); Total Bilirubin 0.4 mg/dL (0.2-1.3); Total Protein 7.4 g/dL (6.3-8.2)
[2018-12-04 02:39] LABS: Potassium 4.4 mmol/L (3.5-5.1)
[2018-12-04] MEDS ORDERED: SODIUM CHLORIDE 0.9% 1,000 ML IV ONE (02:45)
[2018-12-04] MEDS ORDERED: DICYCLOMINE 10 MG/ML 2 ML AMP IM STA (02:45)
[2018-12-04 02:52] LABS: Appearance,Urine Cloudy (Clear); Bilirubin,Urine Negative (Negative); Blood,Urine Moderate (Negative); Color,Urine Light Red; Glucose,Urine (UA) 4+ (Negative); Ketones,Urine Negative (Negative); Leukocyte Esterase,Urine Large (Negative); Mucus,Urine Occasional /hpf; Nitrite,Urine Negative (Negative); PH, Urine 5.5 (5.0-8.0); Protein,Urine 2+ (Negative); RBC,Urine >182 /hpf (0-5); Specific Gravity,Urine 1.018 (1.001-1.035); Squamous Epithelial Cell,Urine 6 /hpf (0-4); Urobilinogen,Urine <2.0 mg/dL (<2.0); WBC,Urine >182 /hpf (0-5)
--- NOTE | 2018-12-04 03:10 | XR ---
EXAMINATION TYPE: XR KUB DATE OF EXAM: 12/04/2018 COMPARISON: NONE HISTORY: Abdominal pain TECHNIQUE: 2 views supine FINDINGS: There is mild gaseous distention of loops of bowel including small bowel. There is no sign of free air. There are from cholecystectomy. Lung bases appear clear. IMPRESSION: Abdominal gas pattern suggestive of mild ileus. No free air.
[2018-12-04] MEDS ORDERED: NALOXONE 0.4 MG/ML 1 ML VIAL IV PRN (03:50)
[2018-12-04] MEDS ORDERED: ONDANSETRON 4 MG/2 ML VIAL IVP PRN (03:50)
[2018-12-04 08:13] VITALS: BMI 28.6
[2018-12-04] MEDS: PANTOPRAZOLE 40 MG/10 ML VIAL IV SCH (09:36)
[2018-12-04] MEDS: HEPARIN SODIUM,PORCINE 5,000 UNIT/ML 1 ML VIAL SQ SCH ×3 (09:36→23:29)
[2018-12-04] MEDS: SODIUM CHLORIDE 0.9% 1,000 ML IV SCH ×4 (09:36→23:48)
[2018-12-04] MEDS ORDERED: NITROGLYCERIN SL TABS 0.4 MG TAB SUBLINGUAL PRN (11:08)
[2018-12-04] MEDS ORDERED: traMADol 50 MG TAB PO PRN (11:08)
[2018-12-04] MEDS ORDERED: LOPERAMIDE 2 MG CAP PO PRN (11:08)
[2018-12-04 11:41] LABS: Glucose,Whole Blood 148 mg/dL (75-99)
[2018-12-04] MEDS: CARVEDILOL 12.5 MG TAB PO SCH ×2 (12:54→17:40)
[2018-12-04] MEDS: amLODIPine 10 MG TAB PO SCH (12:54)
[2018-12-04] MEDS: ASPIRIN 81 MG PO SCH (12:54)
[2018-12-04] MEDS: clonazePAM 1 MG TAB PO SCH ×2 (12:54→21:12)
[2018-12-04] MEDS: DULoxetine HCL 60 MG CAPSULE.DR PO SCH ×2 (12:55→21:12)
[2018-12-04] MEDS: FAMOTIDINE 20 MG TAB PO SCH (12:55)
[2018-12-04] MEDS: levETIRAcetam 500 MG TAB PO SCH ×2 (12:55→21:12)
[2018-12-04] MEDS: INSULIN ASPART (NovoLOG) 100 UNIT/ML VIAL SQ SCH ×3 (12:55→21:12)
[2018-12-04] MEDS: ISOSORBIDE MONONITRATE ER 30 MG TAB.ER.24H PO SCH (12:55)
[2018-12-04] MEDS: TICAGRELOR 90 MG TAB PO SCH ×2 (12:55→21:12)
--- NOTE | 2018-12-04 14:54 | P.HPIM ---
History of Present Illness H&P Date: 12/04/18 Chief Complaint: Abdominal bloating, diarrhea This is a 67-year-old female patient of Dr. Sommer currently residing as a long-term resident at [facility] with past medical history of diabetes mellitus type 2, hypertension, hyperlipidemia, left below the knee amputation due to nonhealing ulcer, cholecystectomy secondary to gallbladder stones, chronic anemia, diabetes mellitus type 2 insulin requiring, gastroesophageal reflux disease. Dr. Sommer received a call yesterday the patient was having bowel distention. Patient was having vomiting significant amounts as well as diarrhea. She states she has a little bit of dysuria. Symptoms have been going on for most of the week and gradually worsening. Diarrhea episodes are been more frequent along with abdominal cramping and has developed. Stools have been nonbloody. [facility] Patient came into [facility] emergency center for evaluation and found to be afebrile, heart rate 116/67, heart rate 72, pulse ox 95% on room air. KUB showed possible mild ileus. She was found to be acidotic with a CO2 of 15, BUN 44 and creatinine 1.24, blood sugar 171. Alkaline phosphatase 142. Urinalysis cloudy, blood moderate, leukoesterase large, RBCs 182, wbc's 182. C. difficile toxin negative. Patient was started on Rocephin and admitted to the [facility] floor. Patient also started on IV fluids. Review of Systems Constitutional: Reports anorexia, Reports fatigue, Reports lethargy, Reports poor appetite, Reports weakness, Denies chills, Denies fever Eyes: denies blurred vision, denies pain Ears, nose, mouth and throat: Denies dysphagia, Denies nasal congestion, Denies nasal discharge, Denies vertigo Cardiovascular: Denies chest pain, Denies decreased exercise tolerance, Denies dyspnea on exertion, Denies edema, Denies leg edema, Denies lightheadedness, Denies shortness of breath, Denies syncope Respiratory: Denies congestion, Denies cough, Denies cough with sputum, Denies dyspnea, Denies excessive sputum, Denies hemoptysis, Denies home oxygen, Denies respiratory infections, Denies snoring, Denies wheezing Gastrointestinal: Reports abdominal pain, Reports bloating, Reports change in bowel habits, Reports diarrhea, Reports loss of appetite, Reports nausea, Reports vomiting, Denies constipation, Denies hematemesis, Denies melena Genitourinary: Reports dysuria, Denies hematuria, Denies urinary frequency Musculoskeletal: Reports muscle weakness, Denies myalgias Integumentary: Denies pruritus, Denies rash, Denies wounds Neurological: Denies change in mentation, Denies change in speech, Denies numbness, Denies weakness Psychiatric: Denies anxiety, Denies depression Endocrine: Denies fatigue, Denies weight change Past Medical History Past Medical History: COPD, Diabetes Mellitus, Hyperlipidemia, Hypertension, Musculoskeletal Disorder, Osteoarthritis (OA) Additional Past Medical History / Comment(s): tremors, migraines, History of Any Multi-Drug Resistant Organisms: None Reported Past Surgical History: Cholecystectomy, Hysterectomy, Orthopedic Surgery, Tubal Ligation Additional Past Surgical History / Comment(s): partial amp. toe R foot, June 2014 - cervical fusion (steel plate and cages), [facility]KA (07/2017), Heart cath with stents (10/2018) Past Anesthesia/Blood Transfusion Reactions: No Reported Reaction Smoking Status: Never smoker - Past Family History Father Family Medical History: Coronary Artery Disease (CAD), Hypertension Additional Family Medical History / Comment(s): Father at age 82 from coronary artery disease. Brother(s) Family Medical History: No Reported History, Coronary Artery Disease (CAD) Son(s) Family Medical History: No Reported History Mother Family Medical History: Coronary Artery Disease (CAD), Hypertension Additional Family Medical History / Comment(s): Mother at age 87 from coronary artery disease. Medications and Allergies Home Medications Medication Instructions Recorded Confirmed Type Aspirin [Adult Low Dose Aspirin EC] 81 mg PO DAILY 01/21/15 12/04/18 History Atorvastatin [Lipitor] 80 mg PO HS@199901/21/15 12/04/18 History Primidone [Mysoline] 150 mg PO BID 01/21/15 12/04/18 History Albuterol Inhaler [Ventolin Hfa 1 - 2 puff INHALATION RT-Q6H PRN 01/28/15 12/04/18 History Inhaler] Gemfibrozil [Lopid] 600 mg PO AC-BID tab 09/09/16 12/04/18 Rx Insulin Detemir [Levemir Flextouch] 50 units SQ HS 09/04/17 10/21/19 History Carvedilol [Coreg] 12.5 mg PO BID 12/07/17 12/04/18 History Famotidine [Pepcid] 20 mg PO DAILY 12/07/17 12/04/18 History Isosorbide Mononitrate ER [Imdur] 30 mg PO DAILY 12/07/17 12/04/18 History levETIRAcetam [Keppra] 500 mg PO BID 12/07/17 12/04/18 History Acetaminophen Tab [Tylenol] 650 mg PO Q6HR PRN tab 12/12/17 12/04/18 Rx amLODIPine [Norvasc] 10 mg PO DAILY tab 12/12/17 12/04/18 Rx clonazePAM [KlonoPIN] 1 mg PO BID #60 tab 12/12/17 12/04/18 Rx Cholecalciferol [Vitamin D3 (25 5,000 unit PO DAILY 10/07/18 12/04/18 History Mcg = 1000 Iu)] DULoxetine HCL [Cymbalta] 60 mg PO BID 10/07/18 12/04/18 History Empagliflozin [Jardiance] 10 mg PO DAILY 10/07/18 12/04/18 History Ferrous Sulfate [Iron (65 MG 325 mg PO HS 10/07/18 12/04/18 History Elemental)] Loperamide [Imodium] 2 mg PO QID PRN 10/07/18 12/04/18 History Solifenacin Succinate [Vesicare] 5 mg PO DAILY 10/07/18 12/04/18 History Nitroglycerin Sl Tabs [Nitrostat] 0.4 mg SUBLINGUAL Q5M PRN tab 10/10/18 12/04/18 Rx Ticagrelor [Brilinta] 90 mg PO BID tab 10/10/18 12/04/18 Rx metFORMIN HCL 1,000 mg PO BID #0 10/10/18 12/04/18 Rx traMADol HCl [Ultram] 50 mg PO Q6H PRN #12 tab 10/10/18 12/04/18 Rx Insulin Aspart [NovoLOG Flexpen] 10 units SQ AC-TID 12/04/18 12/04/18 History Insulin Aspart [NovoLOG Flexpen] See Protocol SQ ACHS 12/04/18 12/04/18 History Valsartan [Diovan] 160 mg PO DAILY 12/04/18 12/04/18 History Allergies Allergy/AdvReac Type Severity Reaction Status Date / Time codeine Allergy Nausea & Verified 12/04/18 07:12 Vomiting ibuprofen [From Motrin] Allergy Unknown Verified 12/04/18 07:12 codeine phosphate AdvReac Nausea & Verified 12/04/18 07:12 [From Codar GF] Vomiting guaifenesin [From Codar GF] AdvReac Unknown Verified 12/04/18 07:12 Physical Exam Vitals: Vital Signs Temp Pulse Pulse Resp BP BP Pulse Ox 12/04/18 11:32 97.8 F 77 17 134/74 97 12/04/18 07:40 98.1 F 82 17 143/66 99 12/04/18 04:00 74 20 119/60 95 12/04/18 02:00 70 18 116/67 94 L 12/04/18 01:02 97.6 F 72 20 116/67 95 Intake and Output 12/03/18 12/04/18 12/04/18 22:59 06:59 14:59 Other: Voiding Method Toilet Weight 83.007 kg Gen: This is a 67-year-old female. Patient is resting in bed and appears to be comfortable. HEENT: Head is atraumatic, normocephalic. Pupils equal, round. Sclerae is anicteric. NECK: Supple. No JVD. No lymphadenopathy. No thyromegaly. LUNGS: Clear to auscultation. No wheezes or rhonchi. No intercostal retractions. HEART: Regular rate and rhythm. No murmur. ABDOMEN: Soft. Bowel sounds are present. No masses. Left lower quadrant tenderness. EXTREMITIES: No pedal edema. No calf tenderness. NEUROLOGICAL: Patient is awake, alert and oriented x3. Cranial nerves 2 through 12 are grossly intact. Results CBC & Chem 7: 12/04/18 01:15 12/04/18 01:15 Labs: Abnormal Lab Results - Last 24 Hours (Table) 12/04/18 12/04/18 12/04/18 Range/Units 01:15 01:15 02:36 RBC 3.74 L (3.80-5.40) m/uL Carbon Dioxide 15 L (22-30) mmol/L BUN 44 H (7-17) mg/dL Creatinine 1.24 H (0.52-1.04) mg/dL Glucose 171 H (74-99) mg/dL POC Glucose (mg/dL) (75-99) mg/dL ALT 7 L (9-52) U/L Alkaline Phosphatase 142 H (38-126) U/L Urine Appearance Cloudy H (Clear) Urine Protein 2+ H (Negative) Urine Glucose (UA) 4+ H (Negative) Urine Blood Moderate H (Negative) Ur Leukocyte Esterase Large H (Negative) Urine RBC >182 H (0-5) /hpf Urine WBC >182 H (0-5) /hpf Urine WBC Clumps Few H (None) /hpf Ur Squamous Epith Cells 6 H (0-4) /hpf Urine Mucus Occasional H (None) /hpf 12/04/18 Range/Units 11:39 RBC (3.80-5.40) m/uL Carbon Dioxide (22-30) mmol/L BUN (7-17) mg/dL Creatinine (0.52-1.04) mg/dL Glucose (74-99) mg/dL POC Glucose (mg/dL) 148 H (75-99) mg/dL ALT (9-52) U/L Alkaline Phosphatase (38-126) U/L Urine Appearance (Clear) Urine Protein (Negative) Urine Glucose (UA) (Negative) Urine Blood (Negative) Ur Leukocyte Esterase (Negative) Urine RBC (0-5) /hpf Urine WBC (0-5) /hpf Urine WBC Clumps (None) /hpf Ur Squamous Epith Cells (0-4) /hpf Urine Mucus (None) /hpf Thrombosis Risk Factor Assmnt - DVT/VTE Prophylaxis DVT/VTE Prophylaxis: Pharmacologic Prophylaxis ordered - Choose All That Apply Other Risk Factors: Yes Each Risk Factor Represents 2 Points: Age 61-74 years Thrombosis Risk Factor Assessment Total Risk Factor Score: 2 Thrombosis Risk Factor Assessment Level: Low Risk Assessment and Plan Plan: 1. Abdominal pain, distention, diarrhea, nausea and vomiting most likely secondary to gastroenteritis and possible ileus. C. difficile toxin has been negative on multiple testings. Continue IV fluids, Zofran for nausea. CAT scan of the abdomen with oral contrast only ordered. Metformin and fenofibrate on hold. Imodium 2 mg 4 times daily as needed 2. Urinary tract infection. Patient started on ceftriaxone. Await urine culture report. 3. Chronic kidney disease stage III. Monitor kidney function. 4. Diabetes mellitus type 2. Hold metformin and Jardiance. Resume Levemir at 75% of home dose. Hold scheduled NovoLog. Continue NovoLog scale before meals and at bedtime. 5. Hypertension. Continue Norvasc 10 mg daily, valsartan 160 mg daily, Coreg 12.5 mg twice daily. 6. Hyperlipidemia. Continue statin. 7. Left below the knee amputation secondary to nonhealing diabetic ulcer. 8. Gastroesophageal reflux disease. Pepcid. 9. Recent non-ST elevated myocardial infarction with coronary artery disease status post stents in October 2018. Continue Brilinta 90 mg twice daily, aspirin 81 mg daily, Lipitor 80 mg at bedtime, Coreg 12.5 mg twice daily. 10. DVT prophylaxis. Brilinta. 11. GI prophylaxis. Pepcid. Patient will be admitted to the hospital for a minimum of 2 night stay. Discharge plan: Return to [facility] under the care of Dr. Sommer Impression and plan of care have been directed as dictated by the signing physician. Adrianna Saenz nurse practitioner acting as scribe for signing physician.
[2018-12-04] MEDS: IOPAMIDOL CONTRAST (ORAL USE) VIAL PO PRN ×2 (15:14→16:06)
[2018-12-04 17:12] LABS: Glucose,Whole Blood 177 mg/dL (75-99)
--- NOTE | 2018-12-04 20:08 | CT ---
EXAMINATION TYPE: CT abdomen pelvis wo con DATE OF EXAM: 12/04/2018 COMPARISON: 09/04/2016 INDICATION: Diarrhea DLP: 743.50 mGycm, Automated exposure control for dose reduction was used. CONTRAST: 0 mL of Isovue 300. Study performed with Oral Contrast TECHNIQUE: Axial images were obtained from above the diaphragm to the pubic rami in the axial plane a t 5 mm thick sections. Reconstructed images are reviewed on the computer in the coronal plane. FINDINGS: Limited CT sections are obtained the lung bases. The lung bases are clear. CT ABDOMEN: Liver: Normal Spleen: Normal Pancreas: Pancreas is atrophic. Adrenal glands: The adrenal glands are normal. Gallbladder: Surgically absent Kidneys: No masses are evident. No hydronephrosis is present. No cysts are present. Study is perfo rmed without intravenous contrast. Aorta: Vascular calcification is within the aorta. Inferior vena cava: Normal. CT PELVIS: Loops of bowel within the abdomen and pelvis are normal. There are loops of bowel which are incom pletely distended or lack oral contrast limiting their evaluation. Appendix: Not identified. No suspicious tubular structures or inflammatory changes are evident. Urinary bladder: Decompressed and cannot be evaluated Genitourinary structures: Uterus is not identified. Adnexal regions are clear. Osseous structures: No suspicious lytic or sclerotic lesions. IMPRESSIONS: 1. No suspicious abnormality to account for abdominal discomfort or diarrhea.
[2018-12-04 20:41] LABS: Glucose,Whole Blood 144 mg/dL (75-99)
[2018-12-04] MEDS ORDERED: INSULIN DETEMIR (LEVEMIR) 100 UNIT/ML SYR SQ SCH (21:00)
[2018-12-04] MEDS: ATORVASTATIN 80 MG TAB PO SCH (21:12)
[2018-12-04] MEDS: PRIMIDONE 50 MG TAB PO SCH (21:12)
[2018-12-04] MEDS: FERROUS SULFATE 325 MG TAB PO SCH (21:12)
[2018-12-04] MEDS: INSULIN DETEMIR (LEVEMIR) 100 UNIT/ML SYR SQ SCH (21:13)
[2018-12-05 07:10] LABS: Glucose,Whole Blood 119 mg/dL (75-99)
[2018-12-05] MEDS: INSULIN ASPART (NovoLOG) 100 UNIT/ML VIAL SQ SCH ×4 (08:06→20:18)
[2018-12-05] MEDS: TICAGRELOR 90 MG TAB PO SCH ×2 (08:11→19:53)
[2018-12-05] MEDS: levETIRAcetam 500 MG TAB PO SCH ×2 (08:11→19:54)
[2018-12-05] MEDS: VALSARTAN 160 MG TAB PO SCH (08:11)
[2018-12-05] MEDS: TROSPIUM CHLORIDE 20 MG TABLET PO SCH (08:11)
[2018-12-05] MEDS: clonazePAM 1 MG TAB PO SCH ×2 (08:12→19:54)
[2018-12-05] MEDS: FAMOTIDINE 20 MG TAB PO SCH (08:12)
[2018-12-05] MEDS: PANTOPRAZOLE 40 MG/10 ML VIAL IV SCH (08:12)
[2018-12-05] MEDS: ISOSORBIDE MONONITRATE ER 30 MG TAB.ER.24H PO SCH (08:12)
[2018-12-05] MEDS: HEPARIN SODIUM,PORCINE 5,000 UNIT/ML 1 ML VIAL SQ SCH ×5 (08:12→23:23)
[2018-12-05] MEDS: DULoxetine HCL 60 MG CAPSULE.DR PO SCH ×2 (08:12→19:53)
[2018-12-05] MEDS: amLODIPine 10 MG TAB PO SCH (08:12)
[2018-12-05] MEDS: PRIMIDONE 50 MG TAB PO SCH ×2 (08:12→19:55)
[2018-12-05] MEDS: CARVEDILOL 12.5 MG TAB PO SCH ×2 (08:12→17:14)
[2018-12-05] MEDS: ASPIRIN 81 MG PO SCH (08:12)
[2018-12-05] MEDS ORDERED: FENOFIBRATE 160 MG TAB PO SCH (09:00)
[2018-12-05] MEDS: SODIUM CHLORIDE 0.9% 1,000 ML IV SCH (10:38)
[2018-12-05 11:14] LABS: Glucose,Whole Blood 157 mg/dL (75-99)
--- NOTE | 2018-12-05 13:59 | P.PN ---
Subjective Progress Note Date: 12/05/18 This is a 67-year-old female patient of Dr. Sommer currently residing as a long-term resident at [facility] with past medical history of diabetes mellitus type 2, hypertension, hyperlipidemia, left below the knee amputation due to nonhealing ulcer, cholecystectomy secondary to gallbladder stones, chronic anemia, diabetes mellitus type 2 insulin requiring, gastroesophageal reflux disease. Dr. Sommer received a call yesterday the patient was having bowel distention. Patient was having vomiting significant amounts as well as diarrhea. She states she has a little bit of dysuria. Symptoms have been going on for most of the week and gradually worsening. Diarrhea episodes are been more frequent along with abdominal cramping and has developed. Stools have been nonbloody. C. difficile toxin done at the skilled nursing was negative. Patient came into [facility] emergency center for evaluation and found to be afebrile, heart rate 116/67, heart rate 72, pulse ox 95% on room air. KUB showed possible mild ileus. She was found to be acidotic with a CO2 of 15, BUN 44 and creatinine 1.24, blood sugar 171. Alkaline phosphatase 142. Urinalysis cloudy, blood moderate, leukoesterase large, RBCs 182, wbc's 182. C. difficile toxin negative. Patient was started on Rocephin and admitted to the MedSur floor. Patient also started on IV fluids. 12/05: Patient in episode of sternal chest pain this morning without shortness of breath, diaphoresis, radiation area and troponin negative. EKG showed old Q waves without acute ST changes. Vital signs are stable. Patient states that diarrhea is less watery and less frequent. CAT scan of the abdomen and pelvis revealed no suspicious abnormality to account for abdominal discomfort or diarrhea. Anticipate she'll be ready for discharge back to skilled nursing tomorrow. Review of Systems Constitutional: Reports anorexia, Reports fatigue, Reports lethargy, Reports poor appetite, Reports weakness, Denies chills, Denies fever Eyes: denies blurred vision, denies pain Ears, nose, mouth and throat: Denies dysphagia, Denies nasal congestion, Denies nasal discharge, Denies vertigo Cardiovascular: Reports chest pain, Denies decreased exercise tolerance, Denies dyspnea on exertion, Denies edema, Denies leg edema, Denies lightheadedness, Denies shortness of breath, Denies syncope Respiratory: Denies congestion, Denies cough, Denies cough with sputum, Denies dyspnea, Denies excessive sputum, Denies hemoptysis, Denies home oxygen, Denies respiratory infections, Denies snoring, Denies wheezing Gastrointestinal: Reports abdominal pain, Reports bloating, Reports change in bowel habits, Reports diarrhea, Reports loss of appetite, Reports nausea, Reports vomiting, Denies constipation, Denies hematemesis, Denies melena Genitourinary: Reports dysuria, Denies hematuria, Denies urinary frequency Musculoskeletal: Reports muscle weakness, Denies myalgias Integumentary: Denies pruritus, Denies rash, Denies wounds Neurological: Denies change in mentation, Denies change in speech, Denies numbness, Denies weakness Psychiatric: Denies anxiety, Denies depression Endocrine: Denies fatigue, Denies weight change Objective - Vital Signs Vital signs: Vital Signs Temp 97.9 F 12/05/18 11:32 Pulse 62 12/05/18 11:32 Resp 16 12/05/18 11:32 BP 121/66 12/05/18 11:32 Pulse Ox 96 12/05/18 11:32 Intake & Output 12/04/18 12/05/18 12/05/18 18:59 06:59 18:59 Intake Total 450 Balance 450 Intake: Intake, IV Titration 450 Amount cefTRIAXone 1 gm In 50 Sodium Chloride 0.9% 50 ml @ 100 mls/hr IVPB ONCE ONE Rx#:[id number] cefTRIAXone 1 gm In 400 Sodium Chloride 0.9% 50 ml @ 100 mls/hr IVPB Q24H [facility] Rx#:[id number] Other: Voiding Method Toilet Toilet Toilet # Voids 3 - Exam Gen: This is a 67-year-old female. Patient is resting in bed and appears to be comfortable and in no acute distress. HEENT: Head is atraumatic, normocephalic. Pupils equal, round. Sclerae is an icteric. NECK: Supple. No JVD. No lymphadenopathy. No thyromegaly. LUNGS: Clear to auscultation. No wheezes or rhonchi. No intercostal retractions. HEART: Regular rate and rhythm. No murmur. ABDOMEN: Soft. Bowel sounds are present. No masses. Left lower quadrant tenderness. EXTREMITIES: No pedal edema. No calf tenderness. NEUROLOGICAL: Patient is awake, alert and oriented x3. Cranial nerves 2 through 12 are grossly intact. - Labs CBC & Chem 7: 12/04/18 01:15 12/04/18 01:15 Labs: Abnormal Lab Results - Last 24 Hours (Table) 12/04/18 12/04/18 12/05/18 Range/Units 17:11 20:39 07:09 POC Glucose (mg/dL) 177 H 144 H 119 H (75-99) mg/dL 12/05/18 Range/Units 11:13 POC Glucose (mg/dL) 157 H (75-99) mg/dL Microbiology - Last 24 Hours (Table) 12/04/18 09:39 Blood Culture - Preliminary Blood No Growth after 24 hours Assessment and Plan Plan: 1. Abdominal pain, distention, diarrhea, nausea and vomiting most likely secondary to gastroenteritis and possible ileus. C. difficile toxin has been negative on multiple testings. Continue IV fluids, Zofran for nausea. CAT scan of the abdomen as above. Patient is on consistent carb diet. Metformin and fenofibrate on hold. Imodium 2 mg 4 times daily as needed 2. Urinary tract infection. Patient started on ceftriaxone. Await urine culture report. 3. Chronic kidney disease stage III. Monitor kidney function. 4. Diabetes mellitus type 2. Hold metformin and Jardiance. Resume Levemir at 75% of home dose. Hold scheduled NovoLog. Continue NovoLog scale before meals and at bedtime. 5. Hypertension. Continue Norvasc 10 mg daily, valsartan 160 mg daily, Coreg 12.5 mg twice daily. 6. Hyperlipidemia. Continue statin. 7. Left below the knee amputation secondary to nonhealing diabetic ulcer. 8. Gastroesophageal reflux disease. Pepcid. 9. Recent non-ST elevated myocardial infarction with coronary artery disease status post stents in October 2018. Continue Brilinta 90 mg twice daily, aspirin 81 mg daily, Lipitor 80 mg at bedtime, Coreg 12.5 mg twice daily. 10. DVT prophylaxis. Brilinta. 11. GI prophylaxis. Pepcid. 12. Chest pain with normal troponin and no acute EKG changes. Discharge plan: Return to [facility] under the care of Dr. Sommer Impression and plan of care have been directed as dictated by the signing physician. Adrianna Saenz nurse practitioner acting as scribe for signing physician.
[2018-12-05 17:12] LABS: Glucose,Whole Blood 198 mg/dL (75-99)
[2018-12-05] MEDS: FERROUS SULFATE 325 MG TAB PO SCH (19:54)
[2018-12-05] MEDS: ATORVASTATIN 80 MG TAB PO SCH (19:55)
[2018-12-05] MEDS: INSULIN DETEMIR (LEVEMIR) 100 UNIT/ML SYR SQ SCH (19:56)
[2018-12-05 19:58] LABS: Glucose,Whole Blood 255 mg/dL (75-99)
[2018-12-06] MEDS: SODIUM CHLORIDE 0.9% 1,000 ML IV SCH (06:16)
[2018-12-06 07:23] LABS: Glucose,Whole Blood 186 mg/dL (75-99)
[2018-12-06] MEDS ORDERED: PANTOPRAZOLE 40 MG TABLET PO SCH (07:30)
[2018-12-06] MEDS: INSULIN ASPART (NovoLOG) 100 UNIT/ML VIAL SQ SCH ×3 (07:54→17:44)
[2018-12-06] MEDS: PRIMIDONE 50 MG TAB PO SCH (07:54)
[2018-12-06] MEDS: TICAGRELOR 90 MG TAB PO SCH (07:55)
[2018-12-06] MEDS: amLODIPine 10 MG TAB PO SCH (07:55)
[2018-12-06] MEDS: DULoxetine HCL 60 MG CAPSULE.DR PO SCH (07:55)
[2018-12-06] MEDS: ISOSORBIDE MONONITRATE ER 30 MG TAB.ER.24H PO SCH (07:55)
[2018-12-06] MEDS: VALSARTAN 160 MG TAB PO SCH (07:55)
[2018-12-06] MEDS: TROSPIUM CHLORIDE 20 MG TABLET PO SCH (07:55)
[2018-12-06] MEDS: levETIRAcetam 500 MG TAB PO SCH (07:55)
[2018-12-06] MEDS: HEPARIN SODIUM,PORCINE 5,000 UNIT/ML 1 ML VIAL SQ SCH ×2 (07:56→17:43)
[2018-12-06] MEDS: CARVEDILOL 12.5 MG TAB PO SCH ×2 (07:56→17:43)
[2018-12-06] MEDS: ASPIRIN 81 MG PO SCH (07:56)
[2018-12-06] MEDS ORDERED: clonazePAM 0.5 MG TAB PO SCH (09:00)
[2018-12-06 11:14] LABS: Glucose,Whole Blood 274 mg/dL (75-99)
[2018-12-06 11:51] VITALS: BP 128/60; PULSE 56; RESP 20; TEMP 98
[2018-12-06] MEDS ORDERED: INSULIN DETEMIR (LEVEMIR) 100 UNIT/ML SYR SQ SCH ×2 (13:43→21:00)
--- NOTE | 2018-12-06 13:50 | P.DS ---
Providers Date of admission: 12/04/18 03:53 Expected date of discharge: 12/06/18 Attending physician: Tomasa Sommer Primary care physician: Tomasa Sommer [facility] Course: This is a 67-year-old female patient of Dr. Sommer currently residing as a long-term resident at [facility] with past medical history of diabetes mellitus type 2, hypertension, hyperlipidemia, left below the knee amputation due to nonhealing ulcer, cholecystectomy secondary to gallbladder stones, chronic anemia, diabetes mellitus type 2 insulin requiring, gastroesophageal reflux disease. Dr. Sommer received a call yesterday the patient was having bowel distention. Patient was having vomiting significant amounts as well as diarrhea. She states she has a little bit of dysuria. Symptoms have been going on for most of the week and gradually worsening. Diarrhea episodes are been more frequent along with abdominal cramping and has developed. Stools have been nonbloody. C. difficile toxin done at the long-term was negative. Patient came into [facility] emergency center for evaluation and found to be afebrile, heart rate 116/67, heart rate 72, pulse ox 95% on room air. KUB showed possible mild ileus. She was found to be acidotic with a CO2 of 15, BUN 44 and creatinine 1.24, blood sugar 171. Alkaline phosphatase 142. Urinalysis cloudy, blood moderate, leukoesterase large, RBCs 182, wbc's 182. C. difficile toxin negative. Patient was started on Rocephin and admitted to the MedSur floor. Patient also started on IV fluids. 12/05: Patient in episode of sternal chest pain this morning without shortness of breath, diaphoresis, radiation area and troponin negative. EKG showed old Q waves without acute ST changes. Vital signs are stable. Patient states that diarrhea is less watery and less frequent. CAT scan of the abdomen and pelvis revealed no suspicious abnormality to account for abdominal discomfort or diarrhea. Anticipate she'll be ready for discharge back to long-term tomorrow. 12/06: Patient has been afebrile, heart rate 56, blood pressure 120/60, pulse ox 97% on room air. Patient has had no diarrhea. Blood sugars are high for which her long acting insulin will be increased and NovoLog scale added. She will also resume guardians at the long-term. Patient will be placed on Ceftin for UTI to complete course. Patient will be discharged back to [facility] today in stable condition. Discharge diagnoses: 1. Abdominal pain, distention, diarrhea, nausea and vomiting most likely secondary to metformin 2. Urinary tract infection. 3. Chronic kidney disease stage III. 4. Diabetes mellitus type 2. 5. Hypertension. 6. Hyperlipidemia. 7. Left below the knee amputation secondary to nonhealing diabetic ulcer. 8. Gastroesophageal reflux disease. 9. Recent non-ST elevated myocardial infarction with coronary artery disease status post stents in October 2018. 10. Chest pain with normal troponin and no acute EKG changes. Discharge plan: Return to [facility] under the care of Dr. Sommer Impression and plan of care have been directed as dictated by the signing physician. Adrianna Saenz nurse practitioner acting as scribe for signing physician. Patient Condition at Discharge: Good Plan - Discharge Summary New Discharge Prescriptions: New RX: Insulin Detemir (Levemir) [Levemir] 42 unit SQ HS syr RX: INSULIN ASPART (NovoLOG) [NovoLOG (formulary)] 8 unit SQ AC-TID vial RX: INSULIN ASPART (NovoLOG) [NovoLOG (formulary)] 0 unit SQ ACHS vial Cefuroxime [Ceftin] 250 mg PO BID #14 tablet Continue RX: Atorvastatin [Lipitor] 80 mg PO HS@2000 RX: Primidone [Mysoline] 150 mg PO BID RX: Aspirin [Adult Low Dose Aspirin EC] 81 mg PO DAILY RX: Albuterol Inhaler [Ventolin Hfa Inhaler] 1 - 2 puff INHALATION RT-Q6H PRN PRN Reason: Shortness Of Breath RX: Carvedilol [Coreg] 12.5 mg PO BID RX: Famotidine [Pepcid] 20 mg PO DAILY RX: Isosorbide Mononitrate ER [Imdur] 30 mg PO DAILY RX: levETIRAcetam [Keppra] 500 mg PO BID RX: Acetaminophen Tab [Tylenol] 650 mg PO Q6HR PRN tab PRN Reason: Fever and/ or Mild Pain RX: amLODIPine [Norvasc] 10 mg PO DAILY tab RX: Cholecalciferol [Vitamin D3 (25 Mcg = 1000 Iu)] 5,000 unit PO DAILY RX: DULoxetine HCL [Cymbalta] 60 mg PO BID RX: Empagliflozin [Jardiance] 10 mg PO DAILY RX: Ferrous Sulfate [Iron (65 MG Elemental)] 325 mg PO HS RX: Loperamide [Imodium] 2 mg PO QID PRN PRN Reason: Loose Stool RX: Solifenacin Succinate [Vesicare] 5 mg PO DAILY RX: Ticagrelor [Brilinta] 90 mg PO BID tab RX: Nitroglycerin Sl Tabs [Nitrostat] 0.4 mg SUBLINGUAL Q5M PRN tab PRN Reason: Chest Pain RX: Valsartan [Diovan] 160 mg PO DAILY RX: clonazePAM [KlonoPIN] 1 mg PO BID #6 tab RX: traMADol HCl [Ultram] 50 mg PO Q6H PRN #12 tab PRN Reason: pain Discontinued RX: Gemfibrozil [Lopid] 600 mg PO AC-BID tab RX: Insulin Detemir [Levemir Flextouch] 50 units SQ HS RX: metFORMIN HCL 1,000 mg PO BID #0 Insulin Aspart [NovoLOG Flexpen] 10 units SQ AC-TID Insulin Aspart [NovoLOG Flexpen] See Protocol SQ ACHS Discharge Medication List RX: Aspirin [Adult Low Dose Aspirin EC] 81 mg PO DAILY 01/21/15 [History] RX: Atorvastatin [Lipitor] 80 mg PO HS@199901/21/15 [History] RX: Primidone [Mysoline] 150 mg PO BID 01/21/15 [History] RX: Albuterol Inhaler [Ventolin Hfa Inhaler] 1 - 2 puff INHALATION RT-Q6H PRN 01/28/15 [History] RX: Carvedilol [Coreg] 12.5 mg PO BID 12/07/17 [History] RX: Famotidine [Pepcid] 20 mg PO DAILY 12/07/17 [History] RX: Isosorbide Mononitrate ER [Imdur] 30 mg PO DAILY 12/07/17 [History] RX: levETIRAcetam [Keppra] 500 mg PO BID 12/07/17 [History] RX: Acetaminophen Tab [Tylenol] 650 mg PO Q6HR PRN tab 12/12/17 [Rx] RX: amLODIPine [Norvasc] 10 mg PO DAILY tab 12/12/17 [Rx] RX: Cholecalciferol [Vitamin D3 (25 Mcg = 1000 Iu)] 5,000 unit PO DAILY 10/07/18 [History] RX: DULoxetine HCL [Cymbalta] 60 mg PO BID 10/07/18 [History] RX: Empagliflozin [Jardiance] 10 mg PO DAILY 10/07/18 [History] RX: Ferrous Sulfate [Iron (65 MG Elemental)] 325 mg PO HS 10/07/18 [History] RX: Loperamide [Imodium] 2 mg PO QID PRN 10/07/18 [History] RX: Solifenacin Succinate [Vesicare] 5 mg PO DAILY 10/07/18 [History] RX: Nitroglycerin Sl Tabs [Nitrostat] 0.4 mg SUBLINGUAL Q5M PRN tab 10/10/18 [Rx] RX: Ticagrelor [Brilinta] 90 mg PO BID tab 10/10/18 [Rx] RX: Valsartan [Diovan] 160 mg PO DAILY 12/04/18 [History] Cefuroxime [Ceftin] 250 mg PO BID #14 tablet 12/06/18 [Rx] RX: INSULIN ASPART (NovoLOG) [NovoLOG (formulary)] 0 unit SQ ACHS vial 12/06/18 [Rx] RX: INSULIN ASPART (NovoLOG) [NovoLOG (formulary)] 8 unit SQ AC-TID vial 12/06/18 [Rx] RX: Insulin Detemir (Levemir) [Levemir] 42 unit SQ HS syr 12/06/18 [Rx] RX: clonazePAM [KlonoPIN] 1 mg PO BID #6 tab 12/06/18 [Rx] RX: traMADol HCl [Ultram] 50 mg PO Q6H PRN #12 tab 12/06/18 [Rx] Follow up Appointment(s)/Referral(s): Tomasa Sommer MD [Primary Care Provider] - 1 Week (at F) Discharge Disposition: TRANSFER TO SNF/ECF
[2018-12-06] MEDS ORDERED: INSULIN ASPART (NovoLOG) 100 UNIT/ML VIAL SQ SCH (17:30)
[2018-12-06 17:37] LABS: Glucose,Whole Blood 202 mg/dL (75-99)
== END 2018-12-06 18:25 ==
LOC: EC 00:58 → 3NMEDONC 03:53
PROVIDERS: ADMIT Internal Medicine; ATTEND Internal Medicine
DX: R11.2 Nausea with vomiting, unspecified (principal); R19.7 Diarrhea, unspecified; R10.84 Generalized abdominal pain; R14.0 Abdominal distension (gaseous); N39.0 Urinary tract infection, site not specified; R07.9 Chest pain, unspecified; I12.9 Hypertensive chronic kidney disease with stage 1 through stage 4 chronic kidney disease, or unspecified chronic kidney disease; N18.3 Chronic kidney disease, stage 3 (moderate); E11.22 Type 2 diabetes mellitus with diabetic chronic kidney disease; I25.2 Old myocardial infarction; I25.10 Atherosclerotic heart disease of native coronary artery without angina pectoris; E87.2 Acidosis; E78.5 Hyperlipidemia, unspecified; F32.9 Major depressive disorder, single episode, unspecified; J44.9 Chronic obstructive pulmonary disease, unspecified; K21.9 Gastro-esophageal reflux disease without esophagitis; M19.90 Unspecified osteoarthritis, unspecified site; D64.9 Anemia, unspecified; G43.909 Migraine, unspecified, not intractable, without status migrainosus; Z89.512 Acquired absence of left leg below knee; Z87.891 Personal history of nicotine dependence; Z79.82 Long term (current) use of aspirin; Z79.4 Long term (current) use of insulin; Z79.02 Long term (current) use of antithrombotics/antiplatelets; Z79.899 Other long term (current) drug therapy; Z79.891 Long term (current) use of opiate analgesic; Z88.5 Allergy status to narcotic agent; Z88.6 Allergy status to analgesic agent; Z88.8 Allergy status to other drugs, medicaments and biological substances; Z95.5 Presence of coronary angioplasty implant and graft; Z90.710 Acquired absence of both cervix and uterus; Z90.49 Acquired absence of other specified parts of digestive tract; Z98.51 Tubal ligation status; Z98.1 Arthrodesis status; Z99.3 Dependence on wheelchair; Z82.49 Family history of ischemic heart disease and other diseases of the circulatory system
CPT/HCPCS: 96376; 96361 ×2; 96366; 96372 ×4; 96375 ×2; 96365; 99285; 36415; 93005; 80053; 82150; 83690; 84484; 85025; 81001; 87040; 87324; 74018; 74176; G0378 ×3; J0500; J1644 ×3; J2405; J0696 ×2; C9113 ×2

== ENCOUNTER 2020-05-06 10:56 | Inpatient (IN) | payer MEDICARE, OTHER ==
[2020-05-06] MEDS ORDERED: SODIUM CHLORIDE 0.9% 1,000 ML IV STA ×2 (11:25→11:27)
[2020-05-06] MEDS ORDERED: ACETAMINOPHEN TAB 325 MG TAB PO STA (11:25)
--- NOTE | 2020-05-06 11:30 | ED ---
Fever HPI - General Chief Complaint: Fever Stated Complaint: weakness Time Seen by Provider: 05/06/20 11:09 Source: patient, EMS Mode of arrival: EMS Limitations: no limitations - History of Present Illness Initial Comments: 69-year-old female with history of diabetes, dyslipidemia, hypertension, COPD presents to emergency Department with chief complaint of weakness and fever. [facility] According [facility], patient has developed increased weakness over the last 2 days. Patient also developed a fever today. Patient is typically able to perform ADLs even though she has a left BKA. However, she has been dependent over the last 2 days due to the increased weakness. Patient reports nausea and multiple episodes no bilious nonbloody vomiting. Patient states she's not been able to drink any fluids duri ng this period. Patient reports her mouth feels very dry. She denies any urinary symptoms. Denies any chest pain or shortness of breath at this time. Patient supposedly had both doses of the Coban vaccine. - Related Data Home Medications Medication Instructions Recorded Confirmed Aspirin [Adult Low Dose Aspirin EC] 81 mg PO DAILY 01/21/15 05/06/20 Atorvastatin [Lipitor] 80 mg PO HS@199901/21/15 05/06/20 Primidone [Mysoline] 150 mg PO BID 01/21/15 05/06/20 levETIRAcetam [Keppra] 500 mg PO BID 12/07/17 05/06/20 Cholecalciferol [Vitamin D3 (25 5,000 unit PO DAILY 10/07/18 05/06/20 Mcg = 1000 Iu)] Ferrous Sulfate [Iron (65 MG 325 mg PO HS 10/07/18 05/06/20 Elemental)] Solifenacin Succinate [Vesicare] 5 mg PO DAILY 10/07/18 05/06/20 Valsartan [Diovan] 160 mg PO DAILY 12/04/18 05/06/20 Amitriptyline HCl [Elavil] 10 mg PO DAILY@1600 05/06/20 05/06/20 Dicyclomine [Bentyl] 10 mg PO BID 05/06/20 05/06/20 Furosemide [Lasix] 20 mg PO DAILY@0800 05/06/20 05/06/20 INSULIN ASPART (NovoLOG) [NovoLOG 4 unit SQ HS 05/06/20 05/06/20 (formulary)] INSULIN ASPART (NovoLOG) [NovoLOG 12 unit SQ AC-TID 05/06/20 05/06/20 (formulary)] Insulin Glargine,Hum.rec.anlog 54 unit SQ HS@199905/06/20 05/06/20 [Lantus Solostar] Isosorbide Mononitrate ER [Imdur] 60 mg PO DAILY 05/06/20 05/06/20 Omeprazole 20 mg PO DAILY 05/06/20 05/06/20 Pioglitazone [Actos] 30 mg PO DAILY@0800 05/06/20 05/06/20 Vascepa 1gm 2 gm PO BID 05/06/20 05/06/20 Venlafaxine HCl [Effexor XR] 150 mg PO DAILY 05/06/20 05/06/20 carvediloL [Coreg] 6.25 mg PO BID@0800,1600 05/06/20 05/06/20 clonazePAM [KlonoPIN] 1 mg PO TID@0500,1200,1800 05/06/20 05/06/20 Previous Rx's Medication Instructions Recorded Acetaminophen Tab [Tylenol] 650 mg PO Q6HR PRN tab 12/12/17 amLODIPine [Norvasc] 10 mg PO DAILY tab 12/12/17 Allergies Allergy/AdvReac Type Severity Reaction Status Date / Time codeine Allergy Nausea & Verified 12/04/18 07:12 Vomiting ibuprofen [From Motrin] Allergy Unknown Verified 12/04/18 07:12 promethazine Allergy Unknown Verified 05/06/20 12:05 yellow dye Allergy Swelling Verified 12/06/18 18:23 adhesive AdvReac Unknown Verified 05/06/20 12:05 codeine phosphate AdvReac Nausea & Verified 12/04/18 07:12 [From Codar GF] Vomiting guaifenesin [From Codar GF] AdvReac Unknown Verified 12/04/18 07:12 Review of Systems ROS Statement: Those systems with pertinent positive or pertinent negative responses have been documented in the HPI. ROS Other: All systems not noted in ROS Statement are negative. Past Medical History Past Medical History: COPD, Diabetes Mellitus, Hyperlipidemia, Hypertension, Musculoskeletal Disorder, Osteoarthritis (OA) Additional Past Medical History / Comment(s): tremors, migraines, History of Any Multi-Drug Resistant Organisms: None Reported Past Surgical History: Cholecystectomy, Hysterectomy, Orthopedic Surgery, Tubal Ligation Additional Past Surgical History / Comment(s): partial amp. toe R foot, June 2014 - cervical fusion (steel plate and cages), LBKA (07/2017), Heart cath with stents (10/2018) Past Anesthesia/Blood Transfusion Reactions: No Reported Reaction Past Psychological History: Depression, PTSD Smoking Status: Former smoker Past Alcohol Use History: None Reported Past Drug Use History: None Reported - Past Family History Father Family Medical History: Coronary Artery Disease (CAD), Hypertension Additional Family Medical History / Comment(s): Father at age 82 from coronary artery disease. Brother(s) Family Medical History: No Reported History, Coronary Artery Disease (CAD) Son(s) Family Medical History: No Reported History Mother Family Medical History: Coronary Artery Disease (CAD), Hypertension Additional Family Medical History / Comment(s): Mother at age 87 from coronary artery disease. General Exam Limitations: no limitations General appearance: alert, in no apparent distress, obese Head exam: Present: atraumatic, normocephalic, normal inspection Eye exam: Present: normal appearance, PERRL, EOMI Pupils: Present: normal accommodation ENT exam: Present: normal exam, normal oropharynx, mucous membranes dry, TM's normal bilaterally, normal external ear exam Neck exam: Present: normal inspection, full ROM. Absent: tenderness Respiratory exam: Present: normal lung sounds bilaterally. Absent: respiratory distress, wheezes, rales, rhonchi, stridor, chest wall tenderness, accessory muscle use Cardiovascular Exam: Present: regular rate, normal rhythm, normal heart sounds GI/Abdominal exam: Present: soft. Absent: distended, tenderness, guarding, ann ound Extremities exam: Present: normal inspection, full ROM, normal capillary refill, pedal edema (+2 pedal edema right lower extremity), other (Left BKA. Palpable DP and PT on right lower extremity.). Absent: tenderness, joint swelling, calf tenderness Back exam: Present: normal inspection, full ROM. Absent: tenderness, CVA tenderness (R), CVA tenderness (L) Neurological exam: Present: alert, oriented X3 Psychiatric exam: Present: normal affect, normal mood Skin exam: Present: warm, dry, intact, normal color Course Vital Signs 05/06/20 05/06/20 05/06/20 11:17 11:20 13:00 Temperature 100.7 F H 100.9 F H Pulse Rate 106 H 94 Respiratory 18 18 16 Rate Blood Pressure 146/74 O2 Sat by Pulse 95 95 Oximetry 05/06/20 14:00 Temperature 98.8 F Pulse Rate 94 Respiratory 16 Rate Blood Pressure O2 Sat by Pulse 95 Oximetry Medical Decision Making - Medical Decision Making 69-year-old female presents to emergency department with a chief complaint of weakness. On physical examination, patient is a and O 4 but she slow to answer questions. Patient was initially febrile, she was given Tylenol. She was worked up for sepsis. Initially given 1 g of Rocephin. Appropriate IV fluids. Patient is also dehydrated clinically. CBC reveals leukocytosis of 18,000. Also has an elevated d-dimer as well as a troponin of 0.31. CT chest angiogram reveals possible pulmonary embolism and the secondary branches. Patient will be started on high intensity heparin. UA positive for urinary tract infection with elevated leukocyte esterase, blood cells and nitrates. Urine culture pending. Blood culture pending. Lactic 2.6. Most recent urine culture reveals positive for Klebsiella which appears to be sensitive to Rocephin according to the sensitivity chart. Patient will be continued on IV fluids. Will be admitted to telemetry. Case was discussed with Admitting physician is Cardiology on consult - Lab Data Result diagrams: 05/06/20 12:14 05/06/20 12:14 Lab Results 05/06/20 05/06/20 05/06/20 Range/Units 12:14 12:14 12:14 WBC 18.9 H (3.8-10.6) k/uL RBC 4.35 (3.80-5.40) m/uL Hgb 14.8 (11.4-16.0) gm/dL Hct 41.7 (34.0-46.0) % MCV 95.8 (80.0-100.0) fL MCH 34.0 (25.0-35.0) pg MCHC 35.5 (31.0-37.0) g/dL RDW 13.9 (11.5-15.5) % Plt Count 170 (150-450) k/uL MPV 7.5 Neutrophils % (Manual) 85 % Band Neuts % (Manual) 3 % Lymphocytes % (Manual) 8 % Monocytes % (Manual) 4 % Neutrophils # (Manual) 16.60 H (1.3-7.7) k/uL Lymphocytes # (Manual) 1.51 (1.0-4.8) k/uL Monocytes # (Manual) 0.76 (0-1.0) k/uL Nucleated RBCs 0 (0-0) /100 WBC Manual Slide Review Performed Toxic Vacuolation Present RBC Morphology Normal Sodium 136 L (137-145) mmol/L Potassium 4.1 (3.5-5.1) mmol/L Chloride 99 (98-107) mmol/L Carbon Dioxide 26 (22-30) mmol/L Anion Gap 11 mmol/L BUN 28 H (7-17) mg/dL Creatinine 1.11 H (0.52-1.04) mg/dL Est GFR (CKD-EPI)AfAm 58 (>60 ml/min/1.73 sqM) Est GFR (CKD-EPI)NonAf 50 (>60 ml/min/1.73 sqM) Glucose 141 H (74-99) mg/dL Lactic Ac Sepsis Rflx Plasma Lactic Acid Darian 2.6 H* (0.7-2.0) mmol/L Calcium 9.7 (8.4-10.2) mg/dL Total Bilirubin 0.5 (0.2-1.3) mg/dL AST 36 (14-36) U/L ALT 25 (4-34) U/L Alkaline Phosphatase 86 (38-126) U/L Troponin I (0.000-0.034) ng/mL Total Protein 7.9 (6.3-8.2) g/dL Albumin 4.6 (3.5-5.0) g/dL Urine Color Urine Appearance (Clear) Urine pH (5.0-8.0) Ur Specific Candler (1.001-1.035) Urine Protein (Negative) Urine Glucose (UA) (Negative) Urine Ketones (Negative) Urine Blood (Negative) Urine Nitrite (Negative) Urine Bilirubin (Negative) Urine Urobilinogen (<2.0) mg/dL Ur Leukocyte Esterase (Negative) Urine RBC (0-5) /hpf Urine WBC (0-5) /hpf Urine WBC Clumps (None) /hpf Ur Squamous Epith Cells (0-4) /hpf Urine Bacteria (None) /hpf Urine Mucus (None) /hpf Coronavirus (PCR) (Not Detectd) Influenza Type A RNA (Not Detectd) Influenza Type B (PCR) (Not Detectd) 05/06/20 05/06/20 05/06/20 Range/Units 12:14 12:14 12:15 WBC (3.8-10.6) k/uL RBC (3.80-5.40) m/uL Hgb (11.4-16.0) gm/dL Hct (34.0-46.0) % MCV (80.0-100.0) fL MCH (25.0-35.0) pg MCHC (31.0-37.0) g/dL RDW (11.5-15.5) % Plt Count (150-450) k/uL MPV Neutrophils % (Manual) % Band Neuts % (Manual) % Lymphocytes % (Manual) % Monocytes % (Manual) % Neutrophils # (Manual) (1.3-7.7) k/uL Lymphocytes # (Manual) (1.0-4.8) k/uL Monocytes # (Manual) (0-1.0) k/uL Nucleated RBCs (0-0) /100 WBC Manual Slide Review Toxic Vacuolation RBC Morphology Sodium (137-145) mmol/L Potassium (3.5-5.1) mmol/L Chloride (98-107) mmol/L Carbon Dioxide (22-30) mmol/L Anion Gap mmol/L BUN (7-17) mg/dL Creatinine (0.52-1.04) mg/dL Est GFR (CKD-EPI)AfAm (>60 ml/min/1.73 sqM) Est GFR (CKD-EPI)NonAf (>60 ml/min/1.73 sqM) Glucose (74-99) mg/dL Lactic Ac Sepsis Rflx Plasma Lactic Acid Darian (0.7-2.0) mmol/L Calcium (8.4-10.2) mg/dL Total Bilirubin (0.2-1.3) mg/dL AST (14-36) U/L ALT (4-34) U/L Alkaline Phosphatase (38-126) U/L Troponin I 0.312 H* (0.000-0.034) ng/mL Total Protein (6.3-8.2) g/dL Albumin (3.5-5.0) g/dL Urine Color Urine Appearance (Clear) Urine pH (5.0-8.0) Ur Specific Candler (1.001-1.035) Urine Protein (Negative) Urine Glucose (UA) (Negative) Urine Ketones (Negative) Urine Blood (Negative) Urine Nitrite (Negative) Urine Bilirubin (Negative) Urine Urobilinogen (<2.0) mg/dL Ur Leukocyte Esterase (Negative) Urine RBC (0-5) /hpf Urine WBC (0-5) /hpf Urine WBC Clumps (None) /hpf Ur Squamous Epith Cells (0-4) /hpf Urine Bacteria (None) /hpf Urine Mucus (None) /hpf Coronavirus (PCR) Not Detected (Not Detectd) Influenza Type A RNA Not Detected (Not Detectd) Influenza Type B (PCR) Not Detected (Not Detectd) 05/06/20 05/06/20 Range/Units 12:43 13:06 WBC (3.8-10.6) k/uL RBC (3.80-5.40) m/uL Hgb (11.4-16.0) gm/dL Hct (34.0-46.0) % MCV (80.0-100.0) fL MCH (25.0-35.0) pg MCHC (31.0-37.0) g/dL RDW (11.5-15.5) % Plt Count (150-450) k/uL MPV Neutrophils % (Manual) % Band Neuts % (Manual) % Lymphocytes % (Manual) % Monocytes % (Manual) % Neutrophils # (Manual) (1.3-7.7) k/uL Lymphocytes # (Manual) (1.0-4.8) k/uL Monocytes # (Manual) (0-1.0) k/uL Nucleated RBCs (0-0) /100 WBC Manual Slide Review Toxic Vacuolation RBC Morphology Sodium (137-145) mmol/L Potassium (3.5-5.1) mmol/L Chloride (98-107) mmol/L Carbon Dioxide (22-30) mmol/L Anion Gap mmol/L BUN (7-17) mg/dL Creatinine (0.52-1.04) mg/dL Est GFR (CKD-EPI)AfAm (>60 ml/min/1.73 sqM) Est GFR (CKD-EPI)NonAf (>60 ml/min/1.73 sqM) Glucose (74-99) mg/dL Lactic Ac Sepsis Rflx Y Plasma Lactic Acid Darian (0.7-2.0) mmol/L Calcium (8.4-10.2) mg/dL Total Bilirubin (0.2-1.3) mg/dL AST (14-36) U/L ALT (4-34) U/L Alkaline Phosphatase (38-126) U/L Troponin I (0.000-0.034) ng/mL Total Protein (6.3-8.2) g/dL Albumin (3.5-5.0) g/dL Urine Color Yellow Urine Appearance Cloudy H (Clear) Urine pH 5.5 (5.0-8.0) Ur Specific Candler 1.014 (1.001-1.035) Urine Protein 2+ H (Negative) Urine Glucose (UA) Negative (Negative) Urine Ketones Negative (Negative) Urine Blood Moderate H (Negative) Urine Nitrite Positive H (Negative) Urine Bilirubin Negative (Negative) Urine Urobilinogen <2.0 (<2.0) mg/dL Ur Leukocyte Esterase Large H (Negative) Urine RBC 12 H (0-5) /hpf Urine WBC >182 H (0-5) /hpf Urine WBC Clumps Many H (None) /hpf Ur Squamous Epith Cells 2 (0-4) /hpf Urine Bacteria Many H (None) /hpf Urine Mucus Rare H (None) /hpf Coronavirus (PCR) (Not Detectd) Influenza Type A RNA (Not Detectd) Influenza Type B (PCR) (Not Detectd) - EKG Data EKG Comments: Sinus tachycardia Ventricular rate 106, MD 196, QRS 90, QTC 448. Disposition Clinical Impression: Urinary tract infection, Sepsis, Elevated troponin, Weakness, Pulmonary embolism Disposition: ADMITTED IP TO THIS HOSP Condition: Fair Is patient prescribed a controlled substance at d/c from ED?: No Referrals: Tomasa Sommer MD [Primary Care Provider] - 1-2 days Time of Disposition: 13:51
[2020-05-06 12:38] LABS: Albumin 4.6 g/dL (3.5-5.0); Calcium 9.7 mg/dL (8.4-10.2); Potassium 4.1 mmol/L (3.5-5.1); Total Bilirubin 0.5 mg/dL (0.2-1.3); Total Protein 7.9 g/dL (6.3-8.2)
--- NOTE | 2020-05-06 12:49 | XR ---
EXAMINATION TYPE: XR chest 2V DATE OF EXAM: 05/06/2020 COMPARISON: Chest x-ray 10/07/2018 HISTORY: Cough and shortness of breath TECHNIQUE: Frontal and lateral views of the chest are obtained. FINDINGS: There is no focal air space opacity, pleural effusion, or pneumothorax seen. The cardiac silhouette size is within normal limits. Surgical clips present in the right upper quadrant. Lung vo lumes are low. Patient is rotated, postop changes noted to the cervical spine, aorta is dense. The os seous structures are intact. IMPRESSION: No acute cardiopulmonary process. Expiratory rotated exam.
[2020-05-06 12:56] LABS: HCT 41.7 % (34.0-46.0); HGB 14.8 gm/dL (11.4-16.0); MCHC 35.5 g/dL (31.0-37.0); MCV 95.8 fL (80.0-100.0); Mean Platelet Volume 7.5; Platelet Count 170 k/uL (150-450); RBC 4.35 m/uL (3.80-5.40); RDW 13.9 % (11.5-15.5); WBC 18.9 k/uL (3.8-10.6)
[2020-05-06 13:34] LABS: Band Neutrophils % 3 %; Lymphocytes # (M) 1.51 k/uL (1.0-4.8); Monocytes # (M) 0.76 k/uL (0-1.0); Neutrophils % (M) 85 %; Nucleated Red Blood Cells 0 /100 WBC (0-0); Total Cells Counted 100
[2020-05-06 13:36] LABS: Toxic Vacuolation Present
[2020-05-06 13:38] LABS: Appearance,Urine Cloudy (Clear); Bacteria,Urine Many /hpf; Bilirubin,Urine Negative (Negative); Blood,Urine Moderate (Negative); Color,Urine Yellow; Glucose,Urine (UA) Negative (Negative); Ketones,Urine Negative (Negative); Leukocyte Esterase,Urine Large (Negative); Mucus,Urine Rare /hpf; Nitrite,Urine Positive (Negative); PH, Urine 5.5 (5.0-8.0); Protein,Urine 2+ (Negative); RBC,Urine 12 /hpf (0-5); Specific Gravity,Urine 1.014 (1.001-1.035); Squamous Epithelial Cell,Urine 2 /hpf (0-4); Urobilinogen,Urine <2.0 mg/dL (<2.0); WBC,Urine >182 /hpf (0-5)
--- NOTE | 2020-05-06 14:21 | CT ---
EXAMINATION TYPE: CT chest angio for PE DATE OF EXAM: 05/06/2020 COMPARISON: None HISTORY: Exertional dyspnea CT DLP: 657.4 mGycm Automated exposure control for dose reduction was used. CONTRAST: CT Chest for pulmonary embolism performed with with IV Contrast, patient injected with 80, wasted 9 m L of Isovue 370. FINDINGS: LUNGS: Motion artifact limits the exam. Subsegmental consolidation bilaterally. No pneumothorax or pl eural effusion. Groundglass changes in the lungs are nonspecific. MEDIASTINUM: Artifact limits assessment of the pulmonary vasculature pulmonary embolism. Main pulmona ry arteries enhance normally. However there is nonenhancement of the right upper lobe branch suspicio us for a small pulmonary embolism. Aorta of normal caliber. Heart is enlarged. OTHER: Low-attenuation liver suggestive of fatty infiltration. Hypertrophic and degenerative changes spine. Small hiatal hernia noted. IMPRESSION: 1. Cardiomegaly Limited exam demonstrates findings suspicious for a small right secondary branch pulm onary embolism. Correlate clinically. There are 2 nonspecific groundglass changes involving the lungs . May be on the basis of atelectasis and respiratory motion artifact.
[2020-05-06 14:53] LABS: Partial Thromboplastin Time 32.8 sec (22.0-30.0); Prothrombin Time 10.9 sec (9.0-12.0)
[2020-05-06] MEDS ORDERED: HEPARIN SODIUM,PORCINE 10,000 UNIT/ML 1 ML VIAL IV ONE (14:53)
[2020-05-06] MEDS ORDERED: NALOXONE 0.4 MG/ML 1 ML VIAL IV PRN (14:53)
[2020-05-06] MEDS ORDERED: HYDROmorphone 0.5 MG/0.5 ML SYRINGE IVP PRN (14:53)
[2020-05-06] MEDS ORDERED: ACETAMINOPHEN TAB 325 MG TAB PO PRN (14:53)
[2020-05-06] MEDS ORDERED: HEPARIN SODIUM,PORCINE 5,000 UNIT/ML 1 ML VIAL IV PRN (14:53)
[2020-05-06] MEDS ORDERED: LORazepam 2 MG/ML INJ IV PRN (14:53)
[2020-05-06] MEDS ORDERED: ONDANSETRON 4 MG/2 ML VIAL IVP PRN (14:53)
[2020-05-06] MEDS ORDERED: SODIUM CHLORIDE 0.9% 1,000 ML IV SCH (15:00)
[2020-05-06 15:01] LABS: D-Dimer 0.6 mg/L FEU (<0.60)
[2020-05-06] MEDS: HEPARIN SOD,PORK IN 0.45% NACL 25,000 UNIT in 0.45% NACL 1 250ML.BAG IV SCH (15:50)
[2020-05-06] MEDS ORDERED: VANCOMYCIN 1,000 MG in SODIUM CHLORIDE 0.9% 250 ML IVPB STA (19:53)
[2020-05-06 20:03] LABS: Glucose,Whole Blood 143 mg/dL (75-99)
[2020-05-06] MEDS: FERROUS SULFATE 325 MG TAB PO SCH (21:30)
[2020-05-06] MEDS: INSULIN ASPART (NovoLOG) 100 UNIT/ML VIAL SQ SCH (21:30)
[2020-05-06] MEDS: DICYCLOMINE 10 MG CAP PO SCH (21:31)
[2020-05-06] MEDS: VASCEPA PO SCH (21:31)
[2020-05-06] MEDS: ATORVASTATIN 80 MG TAB PO SCH (21:31)
[2020-05-06] MEDS: INSULIN DETEMIR (LEVEMIR) 100 UNIT/ML SYR SQ SCH (21:31)
[2020-05-06] MEDS: SODIUM CHLORIDE 0.9% 1,000 ML IV SCH (21:32)
[2020-05-06] MEDS: PRIMIDONE 50 MG TAB PO SCH (21:45)
[2020-05-06] MEDS: levETIRAcetam 500 MG TAB PO SCH (21:46)
[2020-05-07] MEDS: SODIUM CHLORIDE 0.9% 1,000 ML IV SCH ×2 (03:33→09:48)
[2020-05-07] MEDS: clonazePAM 1 MG TAB PO SCH ×3 (05:52→17:59)
[2020-05-07] MEDS: PANTOPRAZOLE 40 MG TABLET PO SCH (05:52)
[2020-05-07 05:58] LABS: Glucose,Whole Blood 131 mg/dL (75-99)
[2020-05-07 08:21] LABS: Basophils % (A) 0 %; Eosinophils # (A) 0.1 k/uL (0-0.7); Eosinophils % (A) 1 %; HCT 34.9 % (34.0-46.0); HGB 12.2 gm/dL (11.4-16.0); Lymphocytes # (A) 1.7 k/uL (1.0-4.8); Lymphocytes % (A) 13 %; MCH 33.9 pg (25.0-35.0); MCHC 34.9 g/dL (31.0-37.0); MCV 97.2 fL (80.0-100.0); Mean Platelet Volume 7.1; Monocytes # (A) 0.5 k/uL (0-1.0); Monocytes % (A) 4 %; Neutrophils # (A) 11.3 k/uL (1.3-7.7); Neutrophils % (A) 82 %; Platelet Count 160 k/uL (150-450); RBC 3.58 m/uL (3.80-5.40); RDW 13.9 % (11.5-15.5); WBC 13.8 k/uL (3.8-10.6)
[2020-05-07] MEDS: HEPARIN SOD,PORK IN 0.45% NACL 25,000 UNIT in 0.45% NACL 1 250ML.BAG IV SCH ×2 (08:30→10:41)
[2020-05-07] MEDS: INSULIN ASPART (NovoLOG) 100 UNIT/ML VIAL SQ SCH ×4 (08:31→20:12)
[2020-05-07 09:19] LABS: Calcium 7.8 mg/dL (8.4-10.2)
[2020-05-07] MEDS: CHOLECALCIFEROL 25 MCG (1000 IU) TABLET PO SCH (09:58)
[2020-05-07] MEDS: ASPIRIN 81 MG PO SCH (09:58)
[2020-05-07] MEDS: carvediloL 6.25 MG TAB PO SCH ×2 (09:58→17:59)
[2020-05-07] MEDS: DICYCLOMINE 10 MG CAP PO SCH ×2 (09:58→20:14)
[2020-05-07] MEDS: VASCEPA PO SCH ×2 (09:59→20:42)
[2020-05-07] MEDS: amLODIPine 10 MG TAB PO SCH (09:59)
[2020-05-07] MEDS: VENLAFAXINE HCL ER 150 MG CAP PO SCH (10:16)
[2020-05-07] MEDS: VALSARTAN 160 MG TAB PO SCH (10:16)
[2020-05-07] MEDS: TROSPIUM CHLORIDE 20 MG TABLET PO SCH (10:16)
[2020-05-07] MEDS: PIOGLITAZONE 30 MG TAB PO SCH (10:55)
[2020-05-07] MEDS: ISOSORBIDE MONONITRATE ER 60 MG TAB.ER.24H PO SCH (10:56)
[2020-05-07] MEDS: PRIMIDONE 50 MG TAB PO SCH ×2 (10:56→20:18)
[2020-05-07] MEDS: levETIRAcetam 500 MG TAB PO SCH ×2 (10:56→20:14)
--- NOTE | 2020-05-07 11:25 | P.CNPUL ---
History of Present Illness Consult date: 05/07/20 Chief complaint: Lines weakness, questionable pulmonary embolism History of present illness: 69-year-old female patient, intermediate resident, was brought in for chief complaint of weakness and fever. The patient had developed increased weakness over the past 2 days. She has a feeling very weak and she hasn't been able to do any activities of daily today life knowing that she was able to do those despite her previous left BKA. The patient also was feeling nauseated. She had emesis at the [facility]. She hasn't been able to drink and eat and she was getting progressively more dehydrated. She is not having any shortness of breat h. She was brought into the emergency department. Her Covid 19 was-negative the patient has already received his vaccination. The patient a normal nonlabored breathing. No tachypnea. Temperature was 97.8 with some mild tachycardia. Blood pressure was also maintained. She was updated about 2 by nasal cannula with a pulse ox of 97%. The blood work showed white cell count of 18.9 with a hemoglobin of 14.8 and the patient had a 55% neutrophilia. The patient's BUN was 28 with a creatinine of 1.1, lactic acid level was 2.6 and 26, There Was a Mild Redness 1 of 0.3. AST ALT and Bilirubin Was Normal. Coagulation Profile Was within Normal Limits. The D-Dimer Was 0.6. The UA Was Abnormal and the Patient More 100 Needs to WBC. WBC Count and Many Bacteria. Urine Was Cloudy with a +2 Protein in Addition to Nitrite Positive. This patient has been infected with gram-negative bacteria in the past. She was certain IV fluids. She was given a combination of antibiotics including vancomy janeth and Rocephin. Meanwhile, a CT of the chest was also ordered and there was some motion artifact. No pneumothorax. Nonspecific minimal groundglass changes in the lungs and questionable non-enhancement of the right upper lobe pulmonary artery branch suspicious for a small flap although this is not certain. The main pulmonary arteries and hasn't adequately. Degenerative changes of the spine seen. The patient has small hiatal hernia. The patient currently is also on IV heparin. On today's evaluation, the patient is still on antibiotics. The white cell count is at 15.8 which is improved. She remains on IV heparin. Her electrolytes and renal function tests are all within normal limits. Her troponins were minimally elevated at 0.3 and 0.5 respectively sinus. The cultures and urine are still pending and the preliminary culture is not showing any growth yet. She does not have any fever. Pulse ox is around 98% 3 L of oxygen by nasal cannula. Review of Systems Constitutional: Reports fatigue, Reports lethargy, Reports weakness Eyes: denies as per HPI, denies blurred vision, denies bulging eye, denies decreased vision, denies diplopia, denies discharge, denies dry eye, denies irritation, denies itching, denies pain, denies photophobia, denies loss of peripheral vision, denies loss of vision, denies tunnel vision/blind spots Ears: deny: decreased hearing, ear discharge, earache, tinnitus Ears, nose, mouth and throat: Denies headache, Denies sore throat Breasts: absent: as per HPI, change in shape, gynecomastia, masses, nipple discharge, pain, skin changes, swelling Cardiovascular: Reports as per HPI Gastrointestinal: Reports as per HPI Genitourinary: Reports as per HPI Menstruation: Reports as per HPI Musculoskeletal: Reports as per HPI Musculoskeletal: absent: ankle pain, ankle stiffness, ankle swelling Integumentary: Reports as per HPI Neurological: Reports as per HPI Psychiatric: Reports as per HPI Endocrine: Reports as per HPI Hematologic/Lymphatic: Reports as per HPI Allergic/Immunologic: Reports as per HPI Past Medical History Past Medical History: COPD, Diabetes Mellitus, Hyperlipidemia, Hypertension, Musculoskeletal Disorder, Osteoarthritis (OA) Additional Past Medical History / Comment(s): tremors, migraines, History of Any Multi-Drug Resistant Organisms: None Reported Past Surgical History: Cholecystectomy, Hysterectomy, Orthopedic Surgery, Tubal Ligation Additional Past Surgical History / Comment(s): partial amp. toe R foot, June 2014 - cervical fusion (steel plate and cages), LBKA (07/2017), Heart cath with stents (10/2018) Past Anesthesia/Blood Transfusion Reactions: No Reported Reaction Past Psychological History: Depression, PTSD Additional Psychological History / Comment(s): pt states she has PTSD from having cats taken away from her when she moed to [place]. Smoking Status: Former smoker Past Alcohol Use History: None Reported Past Drug Use History: None Reported - Past Family History Father Family Medical History: Coronary Artery Disease (CAD), Hypertension Additional Family Medical History / Comment(s): Father at age 82 from coronary artery disease. Brother(s) Family Medical History: No Reported History, Coronary Artery Disease (CAD) Son(s) Family Medical History: No Reported History Mother Family Medical History: Coronary Artery Disease (CAD), Hypertension Additional Family Medical History / Comment(s): Mother at age 87 from coronary artery disease. Medications and Allergies Home Medications Medication Instructions Recorded Confirmed Type Aspirin [Adult Low Dose Aspirin EC] 81 mg PO DAILY 01/21/15 05/06/20 History Atorvastatin [Lipitor] 80 mg PO HS@199901/21/15 05/06/20 History Primidone [Mysoline] 150 mg PO BID 01/21/15 05/06/20 History levETIRAcetam [Keppra] 500 mg PO BID 12/07/17 05/06/20 History Acetaminophen Tab [Tylenol] 650 mg PO Q6HR PRN tab 12/12/17 05/06/20 Rx amLODIPine [Norvasc] 10 mg PO DAILY tab 12/12/17 05/06/20 Rx Cholecalciferol [Vitamin D3 (25 5,000 unit PO DAILY 10/07/18 05/06/20 History Mcg = 1000 Iu)] Ferrous Sulfate [Iron (65 MG 325 mg PO HS 10/07/18 05/06/20 History Elemental)] Solifenacin Succinate [Vesicare] 5 mg PO DAILY 10/07/18 05/06/20 History Valsartan [Diovan] 160 mg PO DAILY 12/04/18 05/06/20 History Amitriptyline HCl [Elavil] 10 mg PO DAILY@1600 05/06/20 05/06/20 History Dicyclomine [Bentyl] 10 mg PO BID 05/06/20 05/06/20 History Furosemide [Lasix] 20 mg PO DAILY@0800 05/06/20 05/06/20 History INSULIN ASPART (NovoLOG) [NovoLOG 4 unit SQ HS 05/06/20 05/06/20 History (formulary)] INSULIN ASPART (NovoLOG) [NovoLOG 12 unit SQ AC-TID 05/06/20 05/06/20 History (formulary)] Insulin Glargine,Hum.rec.anlog 54 unit SQ HS@199905/06/20 05/06/20 History [Lantus Solostar] Isosorbide Mononitrate ER [Imdur] 60 mg PO DAILY 05/06/20 05/06/20 History Omeprazole 20 mg PO DAILY 05/06/20 05/06/20 History Pioglitazone [Actos] 30 mg PO DAILY@0800 05/06/20 05/06/20 History Vascepa 1gm 2 gm PO BID 05/06/20 05/06/20 History Venlafaxine HCl [Effexor XR] 150 mg PO DAILY 05/06/20 05/06/20 History carvediloL [Coreg] 6.25 mg PO BID@0800,1600 05/06/20 05/06/20 History clonazePAM [KlonoPIN] 1 mg PO TID@0500,1200,1800 05/06/20 05/06/20 History Allergies Allergy/AdvReac Type Severity Reaction Status Date / Time codeine Allergy Nausea & Verified 12/04/18 07:12 Vomiting ibuprofen [From Motrin] Allergy Unknown Verified 12/04/18 07:12 promethazine Allergy Unknown Verified 05/06/20 12:05 yellow dye Allergy Swelling Verified 12/06/18 18:23 adhesive AdvReac Unknown Verified 05/06/20 12:05 codeine phosphate AdvReac Nausea & Verified 12/04/18 07:12 [From Codar GF] Vomiting guaifenesin [From Codar GF] AdvReac Unknown Verified 12/04/18 07:12 Physical Exam Vitals: Vital Signs Temp Pulse Pulse Resp BP BP Pulse Ox 05/07/20 10:12 80 16 124/60 98 05/07/20 07:56 98.7 F 81 16 126/66 96 05/07/20 03:21 98.5 F 92 18 155/71 96 05/06/20 23:46 98.3 F 93 18 146/74 98 05/06/20 19:27 97.8 F 94 18 144/70 97 05/06/20 18:29 99.6 F 92 24 153/73 94 L 05/06/20 16:00 90 16 104/54 95 05/06/20 15:00 16 95 05/06/20 14:00 98.8 F 94 16 95 05/06/20 13:00 100.9 F H 94 16 95 05/06/20 11:20 18 Intake and Output 05/06/20 05/07/20 05/07/20 22:59 06:59 14:59 Intake Total 769.609 129.603 Balance 769.609 129.603 Intake: Intake, IV Titration 769.609 129.603 Amount Heparin Sod,Pork in 0.45% 119.609 129.603 NaCl 25,000 unit In 0.45 % NaCl 1 250ml.bag @ 18 UNITS/KG/HR 16.574 mls/hr IV .Q15H6M KATIE Rx#: [id number] Sodium Chloride 0.9% 1, 400 000 ml @ 125 mls/hr IV . Q8H KATIE Rx#:[id number] Vancomycin 1,000 mg In 250 Sodium Chloride 0.9% 250 ml @ 125 mls/hr IVPB ONCE STA Rx#:[id number] Other: Voiding Method Diaper Diaper Incontinent Incontinent # Voids 2 1 Weight 92.079 kg Blood pressure 149/68 heart rate 58 afebrile maintaining oxygen saturation on 2 liter of O2 by [place] GENERAL: This is a 67-year-old female in no apparent distress at the time of my examination. HEENT: Head is atraumatic, normocephalic. Pupils are equal, round. Sclerae anicteric. Conjunctivae are clear. Mucous membranes of the mouth are moist. Neck is supple. There is no jugular venous distention. No carotid bruit is heard. LUNGS: Clear to auscultation no wheezes, rales or rhonchi. No chest wall tenderness is noted on palpation or with deep breathing. HEART: Regular rate and rhythm without murmurs, rubs or gallops. S1 and S2 heard. ABDOMEN: Soft, nontender. Bowel sounds are heard. No organomegaly noted. EXTREMITIES: No evidence of peripheral edema and no calf tenderness noted.The patient has a left BKA VASCULAR: Radial and dorsalis pedis pulses palpated, no evidence of clubbing. NEUROLOGIC: Patient is awake, alert and oriented x3. Results - Laboratory Findings CBC and BMP: 05/07/20 08:00 05/07/20 08:05 PT/INR, D-dimer PT 10.9 sec (9.0-12.0) 05/06/20 14:28 INR 1.0 (<1.2) 05/06/20 14:28 D-Dimer 0.60 mg/L FEU (<0.60) H 05/06/20 14:28 Abnormal lab findings: Abnormal Labs 05/06/20 05/06/20 05/06/20 12:14 12:14 12:14 WBC 18.9 H RBC Neutrophils # Neutrophils # (Manual) 16.60 H APTT D-Dimer Sodium 136 L BUN 28 H Creatinine 1.11 H Glucose 141 H POC Glucose (mg/dL) Plasma Lactic Acid Darian 2.6 H* Calcium Troponin I Urine Appearance Urine Protein Urine Blood Urine Nitrite Ur Leukocyte Esterase Urine RBC Urine WBC Urine WBC Clumps Urine Bacteria Urine Mucus 05/06/20 05/06/20 05/06/20 12:14 13:06 14:28 WBC RBC Neutrophils # Neutrophils # (Manual) APTT 32.8 H D-Dimer 0.60 H Sodium BUN Creatinine Glucose POC Glucose (mg/dL) Plasma Lactic Acid Darian Calcium Troponin I 0.312 H* Urine Appearance Cloudy H Urine Protein 2+ H Urine Blood Moderate H Urine Nitrite Positive H Ur Leukocyte Esterase Large H Urine RBC 12 H Urine WBC >182 H Urine WBC Clumps Many H Urine Bacteria Many H Urine Mucus Rare H 05/06/20 05/06/20 05/07/20 19:57 21:38 05:56 WBC RBC Neutrophils # Neutrophils # (Manual) APTT >200.0 H* D-Dimer Sodium BUN Creatinine Glucose POC Glucose (mg/dL) 143 H 131 H Plasma Lactic Acid Darian Calcium Troponin I Urine Appearance Urine Protein Urine Blood Urine Nitrite Ur Leukocyte Esterase Urine RBC Urine WBC Urine WBC Clumps Urine Bacteria Urine Mucus 05/07/20 05/07/20 05/07/20 08:00 08:00 08:05 WBC 13.8 H RBC 3.58 L Neutrophils # 11.3 H Neutrophils # (Manual) APTT >200.0 H* D-Dimer Sodium 135 L BUN 22 H Creatinine Glucose 142 H POC Glucose (mg/dL) Plasma Lactic Acid Darian Calcium 7.8 L Troponin I Urine Appearance Urine Protein Urine Blood Urine Nitrite Ur Leukocyte Esterase Urine RBC Urine WBC Urine WBC Clumps Urine Bacteria Urine Mucus 05/07/20 08:05 WBC RBC Neutrophils # Neutrophils # (Manual) APTT D-Dimer Sodium BUN Creatinine Glucose POC Glucose (mg/dL) Plasma Lactic Acid Darian Calcium Troponin I 0.506 H* Urine Appearance Urine Protein Urine Blood Urine Nitrite Ur Leukocyte Esterase Urine RBC Urine WBC Urine WBC Clumps Urine Bacteria Urine Mucus - Diagnostic Findings Chest x-ray: image reviewed CT scan - chest: image reviewed Assessment and Plan Plan: 1 acute urinary tract infection with secondary constitutional symptoms of gener alized weakness. The patient also has leukocytosis and the UA is quite abnormal, awaiting urine cultures and blood cultures. Currently on a combination of Rocephin and vancomycin. Consider sepsis due to UTI 2 acute leukocytosis secondary to above 3 abnormal computed tomography scan of the chest, complicated by motion artifact, questionable defect in the right upper lobe pulmonary artery branch, nevertheless, this does not correlate clinically and presently his more typical for UTI and sepsis and the patient has a low d-dimer of 0.6. Currently on 3 L of oxygen by nasal cannula. Limited groundglass changes, likely secondary to motion artifact or atelectasis 4 troponin leak, cardiothoracic consultation the patient is currently on IV heparin 5 COPD 6 diabetes mellitus 7 hypertension 8 hyperlipidemia 9 previous history of partial amputation of the right toe and left below-knee amputation done in 2017 10 coronary artery disease with previous cardiac catheterization and stenting in October 2018 plan Awaiting urine culture and blood cultures Continue same antibiotic coverage Obtain Doppler of the lower extremities and discontinue IV heparin if the Doppler of the lower extremities are negative, unless anticoagulation is required by cardiology. Believe that the diagnosis of pulmonary embolism is quite shaky and this is a week diagnosis now by radiology on a suboptimal CT angiogram. Clinically, her presentation is more consistent with UTI/sepsis. This was discussed with cardiology. cardiology consultation Resume home meds
[2020-05-07 11:47] LABS: Glucose,Whole Blood 152 mg/dL (75-99)
[2020-05-07] MEDS ORDERED: INSULIN ASPART (NovoLOG) 100 UNIT/ML VIAL SQ SCH (12:30)
--- NOTE | 2020-05-07 13:01 | P.HPIM ---
History of Present Illness H&P Date: 05/06/20 Chief Complaint: UTI/PE/Right leg cellulitis HISTORY OF PRESENT ILLNESS This is a 69-year-old female patient of mine currently residing at [facility] is a long-term resident with past medical history of diabetes mellitus type 2, hypertension, hyperlipidemia, coronary artery disease with stenting of the RCA, COPD, left [id number] amputation due to nonhealing ulcer, chronic anemia, diabetes mellitus type 2 insulin requiring, gastro esophageal reflux disease. Patient developed increasing weakness over the past 2 days and unable to do her normal activities. Patient had 2 episodes of emesis on the morning of May 06. She refused breakfast and medications due to nausea. She was unable to sit up and was found to be diaphoretic. She had a temperature of 101.6 axillary and heart rate of 131. Pulse ox was also 80% on room air. Blood pressure 173/85. Patient also had some noted confusion. Patient was sent to [facility] emergency center for evaluation. Temperature max 100.9, heart rate 106, blood pressure 146/74. Pulse ox 95% on 4 L nasal cannula. WBC 18.9, hemoglobin 14.8, platelets 170. D-dimer 0.6. Sodium 136, potassium 4.1, chloride 99, CO2 26, BUN 28 creatinine 1.11. Blood sugar 141. Lactic acid 2.6 and repeat 1.6. Troponin 0.312 and repeat 0.506. Liver function tests were normal. Urinalysis cloudy, blood moderate, nitrate positive, leukoesterase large, WBCs greater than 182 and WBC clumps many. Bacteria many. Urine culture and blood culture in progress. Chest x-ray reveals no acute cardiopulmonary process. CTA of the chest revealed cardiomegaly limited exam findings suspicious for small right secondary branch pulmonary embolism. Correlate clinically. 2 nonspecific groundglass changes involving the lungs. Maybe on the basis of atelectasis. The patient is in the emergency center waiting for a cardiac stepdown bed. Consult with pulmonary medicine has ruled out PE and recommended discontinuing heparin drip. Ultrasound of the lower extremities ordered. Cardiology consult in place. REVIEW OF SYSTEMS Constitutional: No documented fever, no chills, no night sweats. No weight change. Reports weakness, reports fatigue or lethargy. No daytime sleepiness. EENT: No headache. No blurred vision or double vision, no loss of vision. No l oss of Hearing, no ringing in the ears, no dizziness. No nasal drainage or congestion. No epistaxis. No sore throat. Lungs: No shortness of breath, no cough, no sputum production. No wheezing. Re ports dyspnea with activity. Cardiovascular: No chest pain, no lower extremity edema. No palpitations. No paroxysmal nocturnal dyspnea. No orthopnea. No lightheadedness or dizziness. No syncopal episodes. Abdominal: Reports abdominal pain. No nausea, vomiting. No diarrhea. No constipation. No bloody or tarry stools. reports loss of appetite. Genitourinary: No dysuria, increased frequency, urgency. No urinary retention. Musculoskeletal: No myalgias. No muscle weakness, no gait dysfunction, no frequent falls. No back pain. No neck pain. Integumentary: Reports wounds, no lesions. No rash or pruritus. No unusual bruising. No change in hair or nails. Neurologic: No aphasia. No facial droop. Reports change in mentation. No head injury. No headache. No paralysis. No paresthesia. Psychiatric: No depression. No anxiety. No mood swings. Endocrine: No abnormal blood sugars. No weight change. SURGICAL HISTORY Left [id number] amputation due to nonhealing ulcer in July 2017, partial amputation of the right toe, cholecystectomy due to gallstones, cervical fusion in 2014, heart catheterization in October 2018, tubal ligation, hysterectomy. SOCIAL HISTORY Patient is a long-term resident at [facility]. Son and [id number] are her legal guardian. FAMILY HISTORY Mother at age 87 from coronary artery disease with history of hypertension. at age 82 from coronary artery disease with history of hypertension. Patient has a brother with history of coronary artery disease. Patient is a somewhat diminished medical problems. PHYSICAL EXAMINATION General: This is a 69-year-old female. Patient was seen in emergency center waiting for cardiac stepdown bed. HEENT: Head is atraumatic, normocephalic, pupils were equal round reactive to light and recommendation, extraocular muscle movement were intact, sclera nonicteric, conjunctivae were pale, mucous membranes of the mouth are somewhat dry. Neck: Supple, no JVP, normal carotid upstroke bilaterally, no lymphadenopathy. Chest: Decreased breath sounds at the bases, few rhonchi, no extremity wheezes, no chest wall tenderness, no intercostal retractions. Heart: First heart sound is normal, second heart sounds normal. Abdomen: Soft, nontender, nondistended, positive bowel sounds. Extremities: There is no edema no calf tenderness DP +2 bilaterally. Mild edema, erythema and warmth to the right lower extremity, wound to the right great toe nailbed. Left-sided [id number] amputation. Neurologic examination: Patient is awake alert and oriented x2, cranial nerves II-12 appear grossly intact, generalized weakness. ASSESSMENT AND PLAN 1. Sepsis with lactic acidosis secondary to acute urinary tract infection and right lower extremity cellulitis. Continue IV Rocephin and IV vancomycin pharmacy to dose, urine culture and blood culture are in progress. Local wound care with Silvadene wraps and elevation to the right lower extremity. 2. Lactic acidosis status post 1 L of IV fluids, stable. 3. Acute hypoxic respiratory failure with a pulse ox of 88% requiring oxygen of unclear etiology. Acute pulmonary embolism ruled out by pulmonary medicine. Bilateral lower extremity ultrasounds ordered. Pulmonary consult appreciated. Recommendations to discontinue heparin drip if cleared by cardiology. 4. Metabolic encephalopathy secondary to sepsis. Continue as in #1. 5. Elevated troponin, possible non-ST elevated myocardial infarction. Cardiology consult. Patient is currently on heparin drip. Patient had recent echocardiogram and stress test done at Dr. Callahan's office. Continue aspirin 81 mg daily, Lipitor 80 mg at bedtime, Coreg 6.25 mg twice daily, Imdur 60 mg daily. 6. Chronic kidney disease stage III. Monitor kidney function. 7. Diabetes mellitus type 2. Continue Levemir 54 units at bedtime, NovoLog 12 units with meals and 4 units at bedtime, continue Actos 30 mg daily. 8. Hypertension. Continue Norvasc 10 mg daily, valsartan 160 mg daily, Coreg 6.25 mg twice daily. 9. Hyperlipidemia. Continue Lipitor 80 mg daily, Vascepa 2 g oral twice daily. 10. COPD, stable without exacerbation. 11. Left below the knee amputation secondary to nonhealing diabetic ulcer, stable. Patient does have prosthetic device. Continue Elavil 10 mg at 1600. 12. Gastroesophageal reflux disease and she had prophylaxis. Protonix. 13. History of non-ST elevated myocardial infarction with coronary artery disease status post stent in the RCA in the proximal and mid segment in September 2018. Patient had recent echocardiogram and stress test done a Dr. Callahan's office. Continue Continue aspirin 81 mg daily, Lipitor 80 mg at bedtime, Coreg 6.25 mg twice daily, Imdur 60 mg daily. 14. Anemia of chronic disease. Continue ferrous sulfate 325 mg daily. DVT prophylaxis. Brilinta. 15. Recurrent depression and generalized anxiety disorder. Continue Elavil 10 mg daily and continue clonazepam 1 mg 3 times daily.. 16. Essential tremor. Continue primidone 150 mg oral twice daily. 17. History of nontraumatic subdural hemorrhage. Continue Keppra. 18. Overactive bladder. Continue trospium any milligrams daily. Patient will be admitted to the hospital for a minimum of 2 night stay. DISCHARGE PLAN Return to [facility] Past Medical History Past Medical History: COPD, Diabetes Mellitus, Hyperlipidemia, Hypertension, Musculoskeletal Disorder, Osteoarthritis (OA) Additional Past Medical History / Comment(s): tremors, migraines, History of Any Multi-Drug Resistant Organisms: None Reported Past Surgical History: Cholecystectomy, Hysterectomy, Orthopedic Surgery, Tubal Ligation Additional Past Surgical History / Comment(s): partial amp. toe R foot, June 2014 - cervical fusion (steel plate and cages), [facility] (07/2017), Heart cath with stents (10/2018) Past Anesthesia/Blood Transfusion Reactions: No Reported Reaction Past Psychological History: Depression, PTSD Additional Psychological History / Comment(s): pt states she has PTSD from having cats taken away from her when she moed to [facility]. Smoking Status: Former smoker Past Alcohol Use History: None Reported Past Drug Use History: None Reported - Past Family History Father Family Medical History: Coronary Artery Disease (CAD), Hypertension Additional Family Medical History / Comment(s): Father at age 82 from coronary artery disease. Brother(s) Family Medical History: No Reported History, Coronary Artery Disease (CAD) Son(s) Family Medical History: No Reported History Mother Family Medical History: Coronary Artery Disease (CAD), Hypertension Additional Family Medical History / Comment(s): Mother at age 87 from coronary artery disease. Medications and Allergies Home Medications Medication Instructions Recorded Confirmed Type Aspirin [Adult Low Dose Aspirin EC] 81 mg PO DAILY 01/21/15 05/06/20 History Atorvastatin [Lipitor] 80 mg PO HS@199901/21/15 05/06/20 History Primidone [Mysoline] 150 mg PO BID 01/21/15 05/06/20 History levETIRAcetam [Keppra] 500 mg PO BID 12/07/17 05/06/20 History Acetaminophen Tab [Tylenol] 650 mg PO Q6HR PRN tab 12/12/17 05/06/20 Rx amLODIPine [Norvasc] 10 mg PO DAILY tab 12/12/17 05/06/20 Rx Cholecalciferol [Vitamin D3 (25 5,000 unit PO DAILY 10/07/18 05/06/20 History Mcg = 1000 Iu)] Ferrous Sulfate [Iron (65 MG 325 mg PO HS 10/07/18 05/06/20 History Elemental)] Solifenacin Succinate [Vesicare] 5 mg PO DAILY 10/07/18 05/06/20 History Valsartan [Diovan] 160 mg PO DAILY 12/04/18 05/06/20 History Amitriptyline HCl [Elavil] 10 mg PO DAILY@1600 05/06/20 05/06/20 History Dicyclomine [Bentyl] 10 mg PO BID 05/06/20 05/06/20 History Furosemide [Lasix] 20 mg PO DAILY@0800 05/06/20 05/06/20 History INSULIN ASPART (NovoLOG) [NovoLOG 4 unit SQ HS 05/06/20 05/06/20 History (formulary)] INSULIN ASPART (NovoLOG) [NovoLOG 12 unit SQ AC-TID 05/06/20 05/06/20 History (formulary)] Insulin Glargine,Hum.rec.anlog 54 unit SQ HS@199905/06/20 05/06/20 History [Lantus Solostar] Isosorbide Mononitrate ER [Imdur] 60 mg PO DAILY 05/06/20 05/06/20 History Omeprazole 20 mg PO DAILY 05/06/20 05/06/20 History Pioglitazone [Actos] 30 mg PO DAILY@0800 05/06/20 05/06/20 History Vascepa 1gm 2 gm PO BID 05/06/20 05/06/20 History Venlafaxine HCl [Effexor XR] 150 mg PO DAILY 05/06/20 05/06/20 History carvediloL [Coreg] 6.25 mg PO BID@0800,1600 05/06/20 05/06/20 History clonazePAM [KlonoPIN] 1 mg PO TID@0500,1200,1800 05/06/20 05/06/20 History Allergies Allergy/AdvReac Type Severity Reaction Status Date / Time codeine Allergy Nausea & Verified 12/04/18 07:12 Vomiting ibuprofen [From Motrin] Allergy Unknown Verified 12/04/18 07:12 promethazine Allergy Unknown Verified 05/06/20 12:05 yellow dye Allergy Swelling Verified 12/06/18 18:23 adhesive AdvReac Unknown Verified 05/06/20 12:05 codeine phosphate AdvReac Nausea & Verified 12/04/18 07:12 [From Codar GF] Vomiting guaifenesin [From Codar GF] AdvReac Unknown Verified 12/04/18 07:12 Physical Exam Vitals: Vital Signs Temp Pulse Pulse Resp BP BP Pulse Ox 05/06/20 19:27 97.8 F 94 18 144/70 97 05/06/20 18:29 99.6 F 92 24 153/73 94 L 05/06/20 16:00 90 16 104/54 95 05/06/20 15:00 16 95 05/06/20 14:00 98.8 F 94 16 95 05/06/20 13:00 100.9 F H 94 16 95 05/06/20 11:20 18 05/06/20 11:17 100.7 F H 106 H 18 146/74 95 Intake and Output 05/06/20 05/06/20 05/06/20 06:59 14:59 22:59 Other: Voiding Method Diaper Diaper Incontinent Incontinent # Voids 2 Weight 92.079 kg 92.079 kg Results CBC & Chem 7: 05/07/20 08:00 05/07/20 08:05 Labs: Abnormal Lab Results - Last 24 Hours (Table) 05/06/20 05/06/20 05/06/20 Range/Units 12:14 12:14 12:14 WBC 18.9 H (3.8-10.6) k/uL Neutrophils # (Manual) 16.60 H (1.3-7.7) k/uL APTT (22.0-30.0) sec D-Dimer (<0.60) mg/L FEU Sodium 136 L (137-145) mmol/L BUN 28 H (7-17) mg/dL Creatinine 1.11 H (0.52-1.04) mg/dL Glucose 141 H (74-99) mg/dL Plasma Lactic Acid Darian 2.6 H* (0.7-2.0) mmol/L Troponin I (0.000-0.034) ng/mL Urine Appearance (Clear) Urine Protein (Negative) Urine Blood (Negative) Urine Nitrite (Negative) Ur Leukocyte Esterase (Negative) Urine RBC (0-5) /hpf Urine WBC (0-5) /hpf Urine WBC Clumps (None) /hpf Urine Bacteria (None) /hpf Urine Mucus (None) /hpf 05/06/20 05/06/20 05/06/20 Range/Units 12:14 13:06 14:28 WBC (3.8-10.6) k/uL Neutrophils # (Manual) (1.3-7.7) k/uL APTT 32.8 H (22.0-30.0) sec D-Dimer 0.60 H (<0.60) mg/L FEU Sodium (137-145) mmol/L BUN (7-17) mg/dL Creatinine (0.52-1.04) mg/dL Glucose (74-99) mg/dL Plasma Lactic Acid Darian (0.7-2.0) mmol/L Troponin I 0.312 H* (0.000-0.034) ng/mL Urine Appearance Cloudy H (Clear) Urine Protein 2+ H (Negative) Urine Blood Moderate H (Negative) Urine Nitrite Positive H (Negative) Ur Leukocyte Esterase Large H (Negative) Urine RBC 12 H (0-5) /hpf Urine WBC >182 H (0-5) /hpf Urine WBC Clumps Many H (None) /hpf Urine Bacteria Many H (None) /hpf Urine Mucus Rare H (None) /hpf Microbiology - Last 24 Hours (Table) 05/06/20 13:06 Urine Culture - Preliminary Urine,Voided Thrombosis Risk Factor Assmnt - Choose All That Apply Any of the Below Risk Factors Present?: Yes Each Factor Represents 1 point: Medical pt on bed rest, Obesity (BMI >25), Swollen legs (current) Other Risk Factors: Yes Each Risk Factor Represents 2 Points: Age 61-74 years Other congenital or acquired thrombophilia - If yes, enter type in comment: No Thrombosis Risk Factor Assessment Total Risk Factor Score: 5 Thrombosis Risk Factor Assessment Level: High Risk
--- NOTE | 2020-05-07 13:04 | P.CRDCN ---
History of Present Illness History of present illness: HISTORY OF PRESENTING ILLNESS This is a pleasant 69-year-old female past medical history significant for very artery disease status post PCI of the RCA in 2019, hypertension, dysli pidemia and diabetes mellitus. She follows in the office with Dr. Callahan. We have been asked to see in consultation for elevated troponins. She presented to the hospital with symptoms of weakness that has been getting progressively worse over the previous 2 days. She denies symptoms of chest pain, shortness of breath, dizziness or palpitations. On arrival she was diagnosed with urinary tract infection and sepsis. A CT was performed of her chest revealing a small pulmonary embolism in the right secondary branch. She has been seen by pulmonary care team and they do not believe she has a PE. DIAGNOSTICS EKG reveals sinus tachycardia heart rate of 106 with nonspecific abnormalities noted inferior/laterally. Chest xray negative for acute cardiopulmonary process. Laboratory reviewed, and WBC on admission 18.9 repeat today 13.8, hemoglobin 12.2, platelets 160, d-dimer 0.6, sodium 135, potassium 4.0, creatinine 1.01, troponin 0.312, 0.506, lactic acid on admission 2. 6 repeat after hydration 1.6. Current cardiac medications include Coreg 6.25 mg twice a day, amlodipine 10 mg daily, vascepa 2 mg BID, valsartan 160 mg daily, Imdur 60 mg daily, Lasix 20 mg daily, atorvastatin 80 mg daily and aspirin 81 mg daily. Most recent echocardiogram obtained in the office March 2020 revealed preserved LV systolic function with ejection fraction 55-60% with a mildly dilated left atrium and mild tricuspid regurgitation. REVIEW OF SYSTEMS At the time of my exam: CONSTITUTIONAL: Complains of generalized weakness. Denies fever or chills. CARDIOVASCULAR: Denies chest pain, shortness of breath, orthopnea, PND or palpitations. RESPIRATORY: Denies cough. GASTROINTESTINAL: Denies abdominal pain, diarrhea, constipation, nausea or vomiting. MUSCULOSKELETAL: Denies myalgias. NEUROLOGIC: Denies numbness, tingling, headacbe or weakness. ENDOCRINE: Denies fatigue, weight change, polydipsia or polyurina. GENITOURINARY: Denies burning, hematuria or urgency with micturation. HEMATOLOGIC: Denies history of anemia or bleeding. PHYSICAL EXAMINATION Blood pressure 124/60 heart rate 80 afebrile and maintaining oxygen saturation on nasal cannula. CONSTITUTIONAL: No apparent distress. HEENT: Head is normocephalic. Pupils are equal, round. Sclerae anicteric. Mucous membranes of the mouth are moist. No JVD. No carotid bruit. CHEST EXAMINATION: Lungs are clear to auscultation. No chest wall tenderness is noted on palpation or with deep breathing. HEART EXAMINATION: Regular rate and rhythm. S1, S2 heard. No murmurs, gallops or rub. ABDOMEN: Soft, nontender. Positive bowel sounds. EXTREMITIES: 2+ peripheral pulses, no lower extremity edema and no calf tenderness. NEUROLOGIC EXAMINATION: Patient is awake, alert and oriented x3. ASSESSMENT Urinary tract infection with sepsis Lactic acidosis Leuckocytosis Possible PE Troponin leak secondary to sepsis Coronary artery disease s/p PCI RCA 2019 Hypertension Dyslipidemia Diabettes mellitus PLAN No evidence of primary myocardial injury. Heparin infusion per pulmonary care team for possible PE. Check limited echo to assess for wall motion abnormalities. Ongoing medical management of infection and sepsis. No further cardiac intervention at this time. Thank you kindly for this consultation. Nurse Practitioner note has been reviewed, I agree with a documented findings and plan of care. Patient was seen and examined. Past Medical History Past Medical History: COPD, Diabetes Mellitus, Hyperlipidemia, Hypertension, Musculoskeletal Disorder, Osteoarthritis (OA) Additional Past Medical History / Comment(s): tremors, migraines, History of Any Multi-Drug Resistant Organisms: None Reported Past Surgical History: Cholecystectomy, Hysterectomy, Orthopedic Surgery, Tubal Ligation Additional Past Surgical History / Comment(s): partial amp. toe R foot, June 2014 - cervical fusion (steel plate and cages), [facility] (07/2017), Heart cath with stents (10/2018) Past Anesthesia/Blood Transfusion Reactions: No Reported Reaction Past Psychological History: Depression, PTSD Additional Psychological History / Comment(s): pt states she has PTSD from having cats taken away from her when she moed to [place]. Smoking Status: Former smoker Past Alcohol Use History: None Reported Past Drug Use History: None Reported - Past Family History Father Family Medical History: Coronary Artery Disease (CAD), Hypertension Additional Family Medical History / Comment(s): Father at age 82 from coronary artery disease. Brother(s) Family Medical History: No Reported History, Coronary Artery Disease (CAD) Son(s) Family Medical History: No Reported History Mother Family Medical History: Coronary Artery Disease (CAD), Hypertension Additional Family Medical History / Comment(s): Mother at age 87 from coronary artery disease. Medications and Allergies Home Medications Medication Instructions Recorded Confirmed Type Aspirin [Adult Low Dose Aspirin EC] 81 mg PO DAILY 01/21/15 05/06/20 History Atorvastatin [Lipitor] 80 mg PO HS@199901/21/15 05/06/20 History Primidone [Mysoline] 150 mg PO BID 01/21/15 05/06/20 History levETIRAcetam [Keppra] 500 mg PO BID 12/07/17 05/06/20 History Acetaminophen Tab [Tylenol] 650 mg PO Q6HR PRN tab 12/12/17 05/06/20 Rx amLODIPine [Norvasc] 10 mg PO DAILY tab 12/12/17 05/06/20 Rx Cholecalciferol [Vitamin D3 (25 5,000 unit PO DAILY 10/07/18 05/06/20 History Mcg = 1000 Iu)] Ferrous Sulfate [Iron (65 MG 325 mg PO HS 10/07/18 05/06/20 History Elemental)] Solifenacin Succinate [Vesicare] 5 mg PO DAILY 10/07/18 05/06/20 History Valsartan [Diovan] 160 mg PO DAILY 12/04/18 05/06/20 History Amitriptyline HCl [Elavil] 10 mg PO DAILY@1600 05/06/20 05/06/20 History Dicyclomine [Bentyl] 10 mg PO BID 05/06/20 05/06/20 History Furosemide [Lasix] 20 mg PO DAILY@0800 05/06/20 05/06/20 History INSULIN ASPART (NovoLOG) [NovoLOG 4 unit SQ HS 05/06/20 05/06/20 History (formulary)] INSULIN ASPART (NovoLOG) [NovoLOG 12 unit SQ AC-TID 05/06/20 05/06/20 History (formulary)] Insulin Glargine,Hum.rec.anlog 54 unit SQ HS@199905/06/20 05/06/20 History [Lantus Solostar] Isosorbide Mononitrate ER [Imdur] 60 mg PO DAILY 05/06/20 05/06/20 History Omeprazole 20 mg PO DAILY 05/06/20 05/06/20 History Pioglitazone [Actos] 30 mg PO DAILY@0800 05/06/20 05/06/20 History Vascepa 1gm 2 gm PO BID 05/06/20 05/06/20 History Venlafaxine HCl [Effexor XR] 150 mg PO DAILY 05/06/20 05/06/20 History carvediloL [Coreg] 6.25 mg PO BID@0800,1600 05/06/20 05/06/20 History clonazePAM [KlonoPIN] 1 mg PO TID@0500,1200,1800 05/06/20 05/06/20 History Allergies Allergy/AdvReac Type Severity Reaction Status Date / Time codeine Allergy Nausea & Verified 12/04/18 07:12 Vomiting ibuprofen [From Motrin] Allergy Unknown Verified 12/04/18 07:12 promethazine Allergy Unknown Verified 05/06/20 12:05 yellow dye Allergy Swelling Verified 12/06/18 18:23 adhesive AdvReac Unknown Verified 05/06/20 12:05 codeine phosphate AdvReac Nausea & Verified 12/04/18 07:12 [From Codar GF] Vomiting guaifenesin [From Codar GF] AdvReac Unknown Verified 12/04/18 07:12 Physical Exam Vitals: Vital Signs Temp Pulse Pulse Resp BP BP Pulse Ox 05/07/20 10:12 80 16 124/60 98 05/07/20 07:56 98.7 F 81 16 126/66 96 05/07/20 03:21 98.5 F 92 18 155/71 96 05/06/20 23:46 98.3 F 93 18 146/74 98 05/06/20 19:27 97.8 F 94 18 144/70 97 05/06/20 18:29 99.6 F 92 24 153/73 94 L 05/06/20 16:00 90 16 104/54 95 05/06/20 15:00 16 95 05/06/20 14:00 98.8 F 94 16 95 05/06/20 13:00 100.9 F H 94 16 95 Intake and Output 05/06/20 05/07/20 05/07/20 22:59 06:59 14:59 Intake Total 769.609 479.603 Balance 769.609 479.603 Intake: IV 50 cefTRIAXone 1 gm In 50 Sodium Chloride 0.9% 50 ml @ 100 mls/hr IVPB Q24HR [facility] Rx#:[id number] Intake, IV Titration 769.609 429.603 Amount Heparin Sod,Pork in 0.45% 119.609 129.603 NaCl 25,000 unit In 0.45 % NaCl 1 250ml.bag @ 18 UNITS/KG/HR 16.574 mls/hr IV .Q15H6M [facility] Rx#: [id number] Sodium Chloride 0.9% 1, 400 000 ml @ 125 mls/hr IV . Q8H [facility] Rx#:[id number] Sodium Chloride 0.9% 1, 300 000 ml @ 75 mls/hr IV . [id number] [facility] Rx#:[id number] Vancomycin 1,000 mg In 250 Sodium Chloride 0.9% 250 ml @ 125 mls/hr IVPB ONCE [facility] Rx#:[id number] Other: Voiding Method Diaper Diaper Diaper Incontinent Incontinent Incontinent # Voids 2 1 1 Weight 92.079 kg Results 05/07/20 08:00 05/07/20 08:05 Cardiac Enzymes 05/06/20 05/07/20 Range/Units 12:14 08:05 Troponin I 0.312 H* 0.506 H* (0.000-0.034) ng/mL Coagulation 05/06/20 05/06/20 05/07/20 Range/Units 14:28 21:38 08:00 PT 10.9 (9.0-12.0) sec APTT 32.8 H >200.0 H* >200.0 H* (22.0-30.0) sec CBC 05/06/20 05/07/20 Range/Units 12:14 08:00 WBC 18.9 H 13.8 H (3.8-10.6) k/uL RBC 4.35 3.58 L (3.80-5.40) m/uL Hgb 14.8 12.2 (11.4-16.0) gm/dL Hct 41.7 34.9 (34.0-46.0) % Plt Count 170 160 (150-450) k/uL Comprehensive Metabolic Panel 05/07/20 Range/Units 08:05 Sodium 135 L (137-145) mmol/L Potassium 4.0 (3.5-5.1) mmol/L Chloride 104 (98-107) mmol/L Carbon Dioxide 24 (22-30) mmol/L BUN 22 H (7-17) mg/dL Creatinine 1.01 (0.52-1.04) mg/dL Glucose 142 H (74-99) mg/dL Calcium 7.8 L (8.4-10.2) mg/dL Current Medications Generic Name Dose Route Start Last Admin Trade Name Freq PRN Reason Stop Dose Admin Acetaminophen 650 mg 05/06/20 19:55 Acetaminophen Tab 325 Mg Tab PO Q6H PRN Fever and/ or Mild Pain Amitriptyline HCl 10 mg 05/07/20 16:00 Amitriptyline Hcl 10 Mg Tab PO DAILY@1600 [facility] Amlodipine Besylate 10 mg 05/07/20 09:00 05/07/20 09:59 Amlodipine 10 Mg Tab PO 10 mg DAILY [facility] Administration Aspirin 81 mg 05/07/20 09:00 05/07/20 09:58 Aspirin 81 Mg PO 81 mg DAILY [facility] Administration Atorvastatin Calcium 80 mg 05/06/20 20:00 05/06/20 21:31 Atorvastatin 80 Mg Tab PO 80 mg HS@2000 [facility] Administration Carvedilol 6.25 mg 05/07/20 08:00 05/07/20 09:58 Carvedilol 6.25 Mg Tab PO 6.25 mg BID@0800,1600 [facility] Administration Cholecalciferol 125 mcg 05/07/20 09:00 05/07/20 09:58 Cholecalciferol 25 Mcg (1000 Iu) Tablet PO 125 mcg DAILY [facility] Administration Clonazepam 1 mg 05/07/20 05:00 05/07/20 12:35 Clonazepam 1 Mg Tab PO 1 mg TID@0500,1200,1800 [facility] Administration Dicyclomine HCl 10 mg 05/06/20 21:00 05/07/20 09:58 Dicyclomine 10 Mg Cap PO 10 mg BID [facility] Administration Ferrous Sulfate 325 mg 05/06/20 21:00 05/06/20 21:30 Ferrous Sulfate 325 Mg Tab PO Not Given HS [facility] Heparin Sodium (Porcine) 0 unit 05/06/20 14:53 Heparin Sodium,Porcine 5,000 Unit/Ml 1 Ml Vial IV PER PROTOCOL PRN Low PTT Protocol Hydromorphone HCl 0.5 mg 05/06/20 14:53 Hydromorphone 0.5 Mg/0.5 Ml Syringe IVP Q3HR PRN Moderate Pain Heparin Sodium/Sodium Chloride 250 mls @ 16.574 mls/hr 05/06/20 15:00 05/07/20 10:41 25,000 unit/ Sodium Chloride IV 12 units/kg/hr .Q15H6M [facility] 11.049 mls/hr Administration Protocol 18 UNITS/KG/HR Ceftriaxone Sodium 1 gm/ 50 mls @ 100 mls/hr 05/07/20 09:00 05/07/20 10:00 Sodium Chloride IVPB 100 mls/hr Q24HR [facility] Administration Vancomycin HCl 1,500 mg/ 250 mls @ 125 mls/hr 05/07/20 21:00 Sodium Chloride IVPB Q24H [facility] Sodium Chloride 1,000 mls @ 75 mls/hr 05/07/20 08:45 05/07/20 09:48 Saline 0.9% IV Not Given .[id number] [facility] Insulin Aspart 4 unit 05/06/20 21:00 05/06/20 21:30 Insulin Aspart (Novolog) 100 Unit/Ml Vial SQ Not Given HS [facility] Insulin Aspart 12 unit 05/07/20 07:30 05/07/20 12:35 Insulin Aspart (Novolog) 100 Unit/Ml Vial SQ 12 unit AC-TID [facility] Administration Insulin Detemir 54 unit 05/06/20 20:00 05/06/20 21:31 Insulin Detemir (Levemir) 100 Unit/Ml Syr SQ 54 unit HS@2000 [facility] Administration Isosorbide Mononitrate 60 mg 05/07/20 09:00 05/07/20 10:56 Isosorbide Mononitrate Er 60 Mg Tab.Er.24h PO 60 mg DAILY [facility] Administration Levetiracetam 500 mg 05/06/20 21:00 05/07/20 10:56 Levetiracetam 500 Mg Tab PO 500 mg BID [facility] Administration Lorazepam 0.5 mg 05/06/20 14:53 Lorazepam 2 Mg/Ml Inj IV Q6HR PRN Anxiety Naloxone HCl 0.2 mg 05/06/20 14:53 Naloxone 0.4 Mg/Ml 1 Ml Vial IV Q2M PRN Opioid Reversal Non-Formulary Medication 2 gm 05/06/20 21:00 05/07/20 09:59 Vascepa 1gm PO Not Given BID [facility] Ondansetron HCl 4 mg 05/06/20 14:53 Ondansetron 4 Mg/2 Ml Vial IVP Q8HR PRN Nausea And Vomiting Pantoprazole Sodium 40 mg 05/07/20 07:30 05/07/20 05:52 Pantoprazole 40 Mg Tablet PO 40 mg DAILY@0730 [facility] Administration Pioglitazone HCl 30 mg 05/07/20 08:00 05/07/20 10:55 Pioglitazone 30 Mg Tab PO 30 mg DAILY@0800 [facility] Administration Primidone 150 mg 05/06/20 21:00 05/07/20 10:56 Primidone 50 Mg Tab PO 150 mg BID [facility] Administration Silver Sulfadiazine 1 applic 05/07/20 09:00 05/07/20 09:59 Silver Sulfadiazine 1% Cream 25 Gm Tube TOPICAL 1 applic BID [facility] Administration Trospium 20 mg 05/07/20 09:00 05/07/20 10:16 Trospium Chloride 20 Mg Tablet PO 20 mg DAILY [facility] Administration Valsartan 160 mg 05/07/20 09:00 05/07/20 10:16 Valsartan 160 Mg Tab PO 160 mg DAILY [facility] Administration Venlafaxine HCl 150 mg 05/07/20 09:00 05/07/20 10:16 Venlafaxine Hcl Er 150 Mg Cap PO 150 mg DAILY [facility] Administration Intake and Output 05/06/20 05/07/20 05/07/20 22:59 06:59 14:59 Intake Total 769.609 479.603 Balance 769.609 479.603 Intake: IV 50 cefTRIAXone 1 gm In 50 Sodium Chloride 0.9% 50 ml @ 100 mls/hr IVPB Q24HR [facility] Rx#:[id number] Intake, IV Titration 769.609 429.603 Amount Heparin Sod,Pork in 0.45% 119.609 129.603 NaCl 25,000 unit In 0.45 % NaCl 1 250ml.bag @ 18 UNITS/KG/HR 16.574 mls/hr IV .Q15H6M [facility] Rx#: [id number] Sodium Chloride 0.9% 1, 400 000 ml @ 125 mls/hr IV . Q8H [facility] Rx#:[id number] Sodium Chloride 0.9% 1, 300 000 ml @ 75 mls/hr IV . [id number] [facility] Rx#:[id number] Vancomycin 1,000 mg In 250 Sodium Chloride 0.9% 250 ml @ 125 mls/hr IVPB ONCE [facility] Rx#:[id number] Other: Voiding Method Diaper Diaper Diaper Incontinent Incontinent Incontinent # Voids 2 1 1 Weight 92.079 kg 05/07/20 08:00 05/07/20 08:05
--- NOTE | 2020-05-07 13:27 | P.PN ---
Subjective Progress Note Date: 05/07/20 HISTORY OF PRESENT ILLNESS This is a 69-year-old female patient of mine currently residing at [facility] is a long-term resident with past medical history of diabetes mellitus type 2, hypertension, hyperlipidemia, coronary artery disease with stenting of the RCA, COPD, left [id number] amputation due to nonhealing ulcer, chronic anemia, diabetes mellitus type 2 insulin requiring, gastroesophageal reflux disease. Patient developed increasing weakness over the past 2 days and unable to do her normal activities. Patient had 2 episodes of emesis on the morning of May 06. She refused breakfast and medications due to nausea. She was unable to sit up and was found to be diaphoretic. She had a temperature of 101.6 axillary and heart rate of 131. Pulse ox was also 80% on room air. Blood pressure 173/85. Patient also had some noted confusion. Patient was sent to [facility] emergency center for evaluation. Temperature max 100.9, heart rate 106, blood pressure 146/74. Pulse ox 95% on 4 L nasal cannula. WBC 18.9, hemoglobin 14.8, platelets 170. D-dimer 0.6. Sodium 136, potassium 4.1, chloride 99, CO2 26, BUN 28 creatinine 1.11. Blood sugar 141. Lactic acid 2.6 and repeat 1.6. Troponin 0.312 and repeat 0.506. Liver function tests were normal. Urinalysis cloudy, blood moderate, nitrate positive, leukoesterase large, WBCs greater than 182 and WBC clumps many. Bacteria many. Urine culture and blood culture in progress. Chest x-ray reveals no acute cardiopulmonary process. CTA of the chest revealed cardiomegaly li mited exam findings suspicious for small right secondary branch pulmonary embolism. Correlate clinically. 2 nonspecific groundglass changes involving the lungs. Maybe on the basis of atelectasis. The patient is in the emergency center waiting for a cardiac stepdown bed. Consult with pulmonary medicine has ruled out PE and recommended discontinuing heparin drip. Ultrasound of the lower extremities ordered. Cardiology consult in place. 05/07: Patient is seen today in the emergency center if she is still waiting for a bed on the cardiac stepdown unit. Patient has been afebrile, heart rate 92, blood pressure 155/71, pulse ox 96% on 2 L nasal cannula. Urine culture and blood culture in progress. Patient remains on heparin drip but has been seen by pulmonary medicine and cardiology and we will discontinue as per recommendations. Pulmonary embolism has been ruled out by pulmonary medicine. No plan for any acute intervention by cardiology. Local wound care to the right lower extremity will be added with Silvadene wraps. Repeat blood work reveals WBC 13.8, hemoglobin 12.2, platelet count 160. Sodium 135 otherwise electrolytes and renal function are unremarkable. Blood sugar running between 131 and 152. Results placed with PT, OT, social work. REVIEW OF SYSTEMS Constitutional: No documented fever, no chills, no night sweats. No weight change. Reports weakness, reports fatigue or lethargy. No daytime sleepiness. EENT: No headache. No blurred vision or double vision, no loss of vision. No loss of Hearing, no ringing in the ears, no dizziness. No nasal drainage or congestion. No epistaxis. No sore throat. Lungs: No shortness of breath, no cough, no sputum production. No wheezing. Reports dyspnea with activity. Cardiovascular: No chest pain, no lower extremity edema. No palpitations. No paroxysmal nocturnal dyspnea. No orthopnea. No lightheadedness or dizziness. No syncopal episodes. Abdominal: Reports abdominal pain. No nausea, vomiting. No diarrhea. No constipation. No bloody or tarry stools. reports loss of appetite. Genitourinary: No dysuria, increased frequency, urgency. No urinary retention. Musculoskeletal: No myalgias. No muscle weakness, no gait dysfunction, no frequent falls. No back pain. No neck pain. Integumentary: Reports wounds, no lesions. No rash or pruritus. No unusual bruising. No change in hair or nails. Neurologic: No aphasia. No facial droop. Reports change in mentation. No head i njury. No headache. No paralysis. No paresthesia. Psychiatric: No depression. No anxiety. No mood swings. Endocrine: No abnormal blood sugars. No weight change. PHYSICAL EXAMINATION General: This is a 69-year-old female. Patient was seen in emergency center waiting for cardiac stepdown bed. HEENT: Head is atraumatic, normocephalic, pupils were equal round reactive to light and recommendation, extraocular muscle movement were intact, sclera nonicteric, conjunctivae were pale, mucous membranes of the mouth are somewhat dry. Neck: Supple, no JVP, normal carotid upstroke bilaterally, no lymphadenopathy. Chest: Decreased breath sounds at the bases, few rhonchi, no extremity wheezes, no chest wall tenderness, no intercostal retractions. Heart: First heart sound is normal, second heart sounds normal. Abdomen: Soft, nontender, nondistended, positive bowel sounds. Extremities: There is no edema no calf tenderness DP +2 bilaterally. Mild edema, erythema and warmth to the right lower extremity, wound to the right great toe nailbed. Left-sided [id number] amputation. Neurologic examination: Patient is awake alert and oriented x2, cranial nerves II-12 appear grossly intact, generalized weakness. ASSESSMENT AND PLAN 1. Sepsis with lactic acidosis secondary to acute urinary tract infection and right lower extremity cellulitis. Continue IV Rocephin and IV vancomycin pharmacy to dose, urine culture and blood culture are in progress. Local wound care with Silvadene wraps and elevation to the right lower extremity. 2. Lactic acidosis status post 1 L of IV fluids, stable. IV fluids decreased to 75 mL per hour. 3. Acute hypoxic respiratory failure with a pulse ox of 88% requiring oxygen of unclear etiology. Acute pulmonary embolism ruled out by pulmonary medicine. Bilateral lower extremity ultrasounds ordered. Pulmonary consult appreciated. Heparin drip will be discontinued. 4. Metabolic encephalopathy secondary to sepsis. Continue as in #1. 5. Elevated troponin, possible non-ST elevated myocardial infarction. Cardiology consult. Heparin drip discontinued Patient had recent echocardiogram and stress test done at Dr. Callahan's office. Continue aspirin 81 mg daily, Lipitor 80 mg at bedtime, Coreg 6.25 mg twice daily, Imdur 60 mg daily. 6. Chronic kidney disease stage III. Monitor kidney function. 7. Diabetes mellitus type 2. Continue Levemir 54 units at bedtime, NovoLog 12 units with meals and 4 units at bedtime, continue Actos 30 mg daily. 8. Hypertension. Continue Norvasc 10 mg daily, valsartan 160 mg daily, Coreg 6.25 mg twice daily. 9. Hyperlipidemia. Continue Lipitor 80 mg daily, Vascepa 2 g oral twice daily. 10. COPD, stable without exacerbation. 11. Left below the knee amputation secondary to nonhealing diabetic ulcer, stable. Patient does have prosthetic device. Continue Elavil 10 mg at 1600. 12. Gastroesophageal reflux disease and she had prophylaxis. Protonix. 13. History of non-ST elevated myocardial infarction with coronary artery disease status post stent in the RCA in the proximal and mid segment in September 2018. Patient had recent echocardiogram and stress test done a Dr. Callahan's office. Continue Continue aspirin 81 mg daily, Lipitor 80 mg at bedtime, Coreg 6.25 mg twice daily, Imdur 60 mg daily. 14. Anemia of chronic disease. Continue ferrous sulfate 325 mg daily. DVT prophylaxis. Brilinta. 15. Recurrent depression and generalized anxiety disorder. Continue Elavil 10 mg daily and continue clonazepam 1 mg 3 times daily.. 16. Essential tremor. Continue primidone 150 mg oral twice daily. 17. History of nontraumatic subdural hemorrhage. Continue Keppra. 18. Overactive bladder. Continue trospium any milligrams daily. DISCHARGE PLAN Return to [facility] Impression and plan of care have been directed as dictated by the signing physician. Adrianna Saenz nurse practitioner acting as scribe for signing physician. Objective - Vital Signs Vital signs: Vital Signs Temp 98.5 F 05/07/20 03:21 Pulse 92 05/07/20 03:21 Resp 18 05/07/20 03:21 BP 155/71 05/07/20 03:21 Pulse Ox 96 05/07/20 03:21 Intake & Output 05/06/20 05/07/20 05/07/20 18:59 06:59 18:59 Intake Total 769.609 Balance 769.609 Weight 92.079 kg Intake: Intake, IV Titration 769.609 Amount Heparin Sod,Pork in 0.45% 119.609 NaCl 25,000 unit In 0.45 % NaCl 1 250ml.bag @ 18 UNITS/KG/HR 16.574 mls/hr IV .Q15H6M KATIE Rx#: [id number] Sodium Chloride 0.9% 1, 400 000 ml @ 125 mls/hr IV . Q8H KATIE Rx#:[id number] Vancomycin 1,000 mg In 250 Sodium Chloride 0.9% 250 ml @ 125 mls/hr IVPB ONCE STA Rx#:[id number] Other: Voiding Method Diaper Diaper Incontinent Incontinent # Voids 1 - Labs CBC & Chem 7: 05/07/20 08:00 05/07/20 08:05 Labs: Abnormal Lab Results - Last 24 Hours (Table) 05/06/20 05/06/20 05/06/20 Range/Units 12:14 12:14 12:14 WBC 18.9 H (3.8-10.6) k/uL Neutrophils # (Manual) 16.60 H (1.3-7.7) k/uL APTT (22.0-30.0) sec D-Dimer (<0.60) mg/L FEU Sodium 136 L (137-145) mmol/L BUN 28 H (7-17) mg/dL Creatinine 1.11 H (0.52-1.04) mg/dL Glucose 141 H (74-99) mg/dL POC Glucose (mg/dL) (75-99) mg/dL Plasma Lactic Acid Darian 2.6 H* (0.7-2.0) mmol/L Troponin I (0.000-0.034) ng/mL Urine Appearance (Clear) Urine Protein (Negative) Urine Blood (Negative) Urine Nitrite (Negative) Ur Leukocyte Esterase (Negative) Urine RBC (0-5) /hpf Urine WBC (0-5) /hpf Urine WBC Clumps (None) /hpf Urine Bacteria (None) /hpf Urine Mucus (None) /hpf 05/06/20 05/06/20 05/06/20 Range/Units 12:14 13:06 14:28 WBC (3.8-10.6) k/uL Neutrophils # (Manual) (1.3-7.7) k/uL APTT 32.8 H (22.0-30.0) sec D-Dimer 0.60 H (<0.60) mg/L FEU Sodium (137-145) mmol/L BUN (7-17) mg/dL Creatinine (0.52-1.04) mg/dL Glucose (74-99) mg/dL POC Glucose (mg/dL) (75-99) mg/dL Plasma Lactic Acid Darian (0.7-2.0) mmol/L Troponin I 0.312 H* (0.000-0.034) ng/mL Urine Appearance Cloudy H (Clear) Urine Protein 2+ H (Negative) Urine Blood Moderate H (Negative) Urine Nitrite Positive H (Negative) Ur Leukocyte Esterase Large H (Negative) Urine RBC 12 H (0-5) /hpf Urine WBC >182 H (0-5) /hpf Urine WBC Clumps Many H (None) /hpf Urine Bacteria Many H (None) /hpf Urine Mucus Rare H (None) /hpf 05/06/20 05/06/20 05/07/20 Range/Units 19:57 21:38 05:56 WBC (3.8-10.6) k/uL Neutrophils # (Manual) (1.3-7.7) k/uL APTT >200.0 H* (22.0-30.0) sec D-Dimer (<0.60) mg/L FEU Sodium (137-145) mmol/L BUN (7-17) mg/dL Creatinine (0.52-1.04) mg/dL Glucose (74-99) mg/dL POC Glucose (mg/dL) 143 H 131 H (75-99) mg/dL Plasma Lactic Acid Darian (0.7-2.0) mmol/L Troponin I (0.000-0.034) ng/mL Urine Appearance (Clear) Urine Protein (Negative) Urine Blood (Negative) Urine Nitrite (Negative) Ur Leukocyte Esterase (Negative) Urine RBC (0-5) /hpf Urine WBC (0-5) /hpf Urine WBC Clumps (None) /hpf Urine Bacteria (None) /hpf Urine Mucus (None) /hpf Microbiology - Last 24 Hours (Table) 05/06/20 13:06 Urine Culture - Preliminary Urine,Voided
--- NOTE | 2020-05-07 14:11 | US ---
EXAMINATION TYPE: US venous doppler duplex LE DATE OF EXAM: 05/07/2020 12:46 PM COMPARISON: NONE CLINICAL HISTORY: DVT. pain right leg. left below knee amputation SIDE PERFORMED: bilateral TECHNIQUE: The lower extremity deep venous system is examined utilizing real time linear array sonog ady with graded compression, doppler sonography and color-flow sonography. VESSELS IMAGED: Common Femoral Vein Deep Femoral Vein Greater Saphenous Vein * Femoral Vein Popliteal Vein Small Saphenous Vein * Proximal Calf Veins (* superficial vessels) Right Leg: no evidence of DVT as visualized Left Leg: no evidence of DVT as visualized IMPRESSION: 1. Bilateral lower extremity ultrasound negative for deep venous thrombosis.
[2020-05-07 16:36] LABS: Hemoglobin A1C 7.8 % (4.0-6.0)
[2020-05-07 17:05] LABS: Glucose,Whole Blood 204 mg/dL (75-99)
[2020-05-07] MEDS ORDERED: VANCOMYCIN IV PER PHARMACY 1 EACH MISC MISCELLANE PRN (19:54)
[2020-05-07 19:59] LABS: Glucose,Whole Blood 231 mg/dL (75-99)
[2020-05-07] MEDS: AMITRIPTYLINE HCL 10 MG TAB PO SCH (20:14)
[2020-05-07] MEDS: FERROUS SULFATE 325 MG TAB PO SCH (20:14)
[2020-05-07] MEDS: ATORVASTATIN 80 MG TAB PO SCH (20:14)
[2020-05-07] MEDS: ACETAMINOPHEN TAB 325 MG TAB PO PRN (20:18)
[2020-05-07] MEDS: INSULIN DETEMIR (LEVEMIR) 100 UNIT/ML SYR SQ SCH (20:20)
[2020-05-07] MEDS: VANCOMYCIN 1,500 MG in SODIUM CHLORIDE 0.9% 250 ML IVPB SCH (21:06)
[2020-05-08] MEDS: SODIUM CHLORIDE 0.9% 1,000 ML IV SCH ×2 (00:07→12:55)
[2020-05-08] MEDS: clonazePAM 1 MG TAB PO SCH ×3 (06:00→17:46)
[2020-05-08] MEDS: PANTOPRAZOLE 40 MG TABLET PO SCH (06:01)
[2020-05-08 07:23] LABS: Glucose,Whole Blood 107 mg/dL (75-99)
[2020-05-08] MEDS: INSULIN ASPART (NovoLOG) 100 UNIT/ML VIAL SQ SCH ×4 (08:58→21:07)
[2020-05-08] MEDS: TROSPIUM CHLORIDE 20 MG TABLET PO SCH (08:59)
[2020-05-08] MEDS: carvediloL 6.25 MG TAB PO SCH ×2 (08:59→17:46)
[2020-05-08] MEDS: CHOLECALCIFEROL 25 MCG (1000 IU) TABLET PO SCH (08:59)
[2020-05-08] MEDS: DICYCLOMINE 10 MG CAP PO SCH ×2 (08:59→20:00)
[2020-05-08] MEDS: PRIMIDONE 50 MG TAB PO SCH ×2 (08:59→20:00)
[2020-05-08] MEDS: ISOSORBIDE MONONITRATE ER 60 MG TAB.ER.24H PO SCH (08:59)
[2020-05-08] MEDS: levETIRAcetam 500 MG TAB PO SCH ×2 (08:59→20:00)
[2020-05-08] MEDS: amLODIPine 10 MG TAB PO SCH (08:59)
[2020-05-08] MEDS: ASPIRIN 81 MG PO SCH (08:59)
[2020-05-08] MEDS: PIOGLITAZONE 30 MG TAB PO SCH (09:00)
[2020-05-08] MEDS: VENLAFAXINE HCL ER 150 MG CAP PO SCH (09:00)
[2020-05-08] MEDS: VALSARTAN 160 MG TAB PO SCH (09:00)
[2020-05-08] MEDS: VASCEPA PO SCH ×2 (09:01→20:01)
[2020-05-08 10:33] LABS: HCT 31.1 % (34.0-46.0); HGB 10.5 gm/dL (11.4-16.0); MCH 32.7 pg (25.0-35.0); MCHC 33.9 g/dL (31.0-37.0); MCV 96.5 fL (80.0-100.0); Mean Platelet Volume 7.3; Platelet Count 163 k/uL (150-450); RBC 3.22 m/uL (3.80-5.40); RDW 14.3 % (11.5-15.5); WBC 9.5 k/uL (3.8-10.6)
[2020-05-08 10:52] LABS: Calcium 7.5 mg/dL (8.4-10.2); Potassium 3.9 mmol/L (3.5-5.1)
--- NOTE | 2020-05-08 11:00 | ECHOF ---
Referral Reason:lv function MEASUREMENTS -------- HEIGHT: 170.2 cm WEIGHT: 92.1 kg BP: FINDINGS -------- Sinus rhythm. Limited Function for lv function, echo done in [facility]. Overall left ventricular systolic function is normal with, an EF between 55 - 60 %. There is no pericardial effusion. CONCLUSIONS -------- 1. Limited Function for lv function, echo done in [facility]. 2. Overall left ventricular systolic function is normal with, an EF between 55 - 60 %. 3. There is no pericardial effusion. CASHIER GENERAL: Corrina Gaytan RDCS
--- NOTE | 2020-05-08 11:48 | P.PN ---
Subjective 69-year-old female patient, intermediate resident, was brought in for chief complaint of weakness and fever. The patient had developed increased weakness over the past 2 days. She has a feeling very weak and she hasn't been able to do any activities of daily today life knowing that she was able to do those despite her previous left BKA. The patient also was feeling nauseated. She had emesis at the medical [facility]. She hasn't been able to drink and eat and she was getting progressively more dehydrated. She is not having any shortness of ming ath. She was brought into the emergency department. Her Covid 19 was-negative the patient has already received his vaccination. The patient a normal nonlabored breathing. No tachypnea. Temperature was 97.8 with some mild tachycardia. Blood pressure was also maintained. She was updated about 2 by nasal cannula with a pulse ox of 97%. The blood work showed white cell count of 18.9 with a hemoglobin of 14.8 and the patient had a 55% neutrophilia. The patient's BUN was 28 with a creatinine of 1.1, lactic acid level was 2.6 and 26, There Was a Mild Redness 1 of 0.3. AST ALT and Bilirubin Was Normal. Coagulation Profile Was within Normal Limits. The D-Dimer Was 0.6. The UA Was Abnormal and the Patient More 100 Needs to WBC. WBC Count and Many Bacteria. Urine Was Cloudy with a +2 Protein in Addition to Nitrite Positive. This patient has been infected with gram-negative bacteria in the past. She was certain IV fluids. She was given a combination of antibiotics including vanco mycin and Rocephin. Meanwhile, a CT of the chest was also ordered and there was some motion artifact. No pneumothorax. Nonspecific minimal groundglass changes in the lungs and questionable non-enhancement of the right upper lobe pulmonary artery branch suspicious for a small flap although this is not certain. The main pulmonary arteries and hasn't adequately. Degenerative changes of the spine seen. The patient has small hiatal hernia. The patient currently is also on IV heparin. On today's evaluation, the patient is still on antibiotics. The white cell count is at 15.8 which is improved. She remains on IV heparin. Her electrolytes and renal function tests are all within normal limits. Her troponins were minimally elevated at 0.3 and 0.5 respectively sinus. The cultures and urine are still pending and the preliminary culture is not showing any growth yet. She does not have any fever. Pulse ox is around 98% 3 L of oxygen by nasal cannula. 05/08/2020 patient seen in follow-up on selective care, she is up, right now, she is on room air, pulse ox is 93%, no pulmonary complaints at this time, no shortness of breath, no chest pain, no hemoptysis, vital signs have been stable. No acute events overnight, patient is on antibiotics for gram-negative urinary tract infection possibly related to E. coli, will await final cultures, blood cultures have shown no growth, echocardiogram revealed normal EF of 55-60% and this was a limited study. Objective - Vital Signs Vital signs: Vital Signs Temp 98.5 F 05/08/20 08:00 Pulse 92 05/08/20 08:00 Resp 20 05/08/20 04:45 BP 182/77 05/08/20 08:00 Pulse Ox 93 L 05/08/20 08:00 Intake & Output 05/07/20 05/08/20 05/08/20 18:59 06:59 18:59 Intake Total 919.603 240 Output Total 100 Balance 919.603 140 Intake: IV 50 [id number] 1 gm In 50 Sodium Chloride 0.9% 50 ml @ 100 mls/hr IVPB Q24HR KATIE Rx#:[id number] Intake, IV Titration 429.603 Amount Heparin Sod,Pork in 0.45% 129.603 NaCl 25,000 unit In 0.45 % NaCl 1 250ml.bag @ 18 UNITS/KG/HR 16.574 mls/hr IV .Q15H6M KATIE Rx#: [id number] Sodium Chloride 0.9% 1, 300 000 ml @ 75 mls/hr IV . [id number] KATIE Rx#:[id number] Oral 440 240 Output: Urine 100 Other: Voiding Method Diaper Diaper Diaper Incontinent Incontinent Incontinent # Voids 1 1 - Exam GENERAL EXAM: Alert, active, 69-year-old white female, on room air with pulse ox of 93% comfortable in no apparent distress. HEAD: Normocephalic/atraumatic. EYES: Normal reaction of pupils, equal size. Conjunctiva pink, sclera white. NOSE: Clear with pink turbinates. THROAT: No erythema or exudates. NECK: No masses, no JVD, no thyroid enlargement, no adenopathy. CHEST: No chest wall deformity. Symmetrical expansion. LUNGS: Equal air entry with no crackles, wheeze, rhonchi or dullness. CVS: Regular rate and rhythm, normal S1 and S2, no gallops, no murmurs, no rubs ABDOMEN: Soft, nontender. No hepatosplenomegaly, normal bowel sounds, no guarding or rigidity. EXTREMITIES: No clubbing, no edema, no cyanosis, 2+ pulses and upper and lower extremities. MUSCULOSKELETAL: Muscle strength and tone normal. She has a left BKA SPINE: No scoliosis or deformity SKIN: No rashes CENTRAL NERVOUS SYSTEM: Alert and oriented -3. No focal deficits, tone is normal in all 4 extremities. PSYCHIATRIC: Alert and oriented -3. Appropriate affect. Intact judgment and insight. - Labs CBC & Chem 7: 05/08/20 10:04 05/08/20 10:04 Labs: Abnormal Lab Results - Last 24 Hours (Table) 05/07/20 05/07/20 05/07/20 Range/Units 08:00 11:46 17:03 RBC (3.80-5.40) m/uL Hgb (11.4-16.0) gm/dL Hct (34.0-46.0) % Sodium (137-145) mmol/L BUN (7-17) mg/dL Glucose (74-99) mg/dL POC Glucose (mg/dL) 152 H 204 H (75-99) mg/dL Hemoglobin A1c 7.8 H (4.0-6.0) % Calcium (8.4-10.2) mg/dL 05/07/20 05/08/20 05/08/20 Range/Units 19:57 07:22 10:04 RBC (3.80-5.40) m/uL Hgb (11.4-16.0) gm/dL Hct (34.0-46.0) % Sodium 133 L (137-145) mmol/L BUN 19 H (7-17) mg/dL Glucose 241 H (74-99) mg/dL POC Glucose (mg/dL) 231 H 107 H (75-99) mg/dL Hemoglobin A1c (4.0-6.0) % Calcium 7.5 L (8.4-10.2) mg/dL 05/08/20 Range/Units 10:04 RBC 3.22 L (3.80-5.40) m/uL Hgb 10.5 L (11.4-16.0) gm/dL Hct 31.1 L (34.0-46.0) % Sodium (137-145) mmol/L BUN (7-17) mg/dL Glucose (74-99) mg/dL POC Glucose (mg/dL) (75-99) mg/dL Hemoglobin A1c (4.0-6.0) % Calcium (8.4-10.2) mg/dL Microbiology - Last 24 Hours (Table) 05/06/20 13:06 Urine Culture - Preliminary Urine,Voided Gram Neg Bacilli 05/06/20 12:14 Blood Culture - Preliminary Blood No Growth after 24 hours 05/06/20 12:14 Blood Culture - Preliminary Blood No Growth after 24 hours Assessment and Plan Plan: 1 acute urinary tract infection with secondary constitutional symptoms of generalized weakness. The patient also has leukocytosis and the UA is quite abnormal, awaiting urine cultures and blood cultures. Currently on a combination of Rocephin and vancomycin. Consider sepsis due to UTI 2 acute leukocytosis secondary to above 3 abnormal computed tomography scan of the chest, complicated by motion artifact, questionable defect in the right upper lobe pulmonary artery branch, nevertheless, this does not correlate clinically and presently his more typical for UTI and sepsis and the patient has a low d-dimer of 0.6. Currently on 3 L of oxygen by nasal cannula. Limited groundglass changes, likely secondary to motion artifact or atelectasis 4 troponin leak, cardiothoracic consultation the patient is currently on IV heparin 5 COPD 6 diabetes mellitus 7 hypertension 8 hyperlipidemia 9 previous history of partial amputation of the right toe and left below-knee amputation done in 2018 10 coronary artery disease with previous cardiac catheterization and stenting in October 2018 plan Continue antibiotics, for urinary tract infection, final cultures are pending, patient remains without any pulmonary symptoms, she is on room air, there is no clear evidence of pulmonary embolism, lower extremity Dopplers were negative for DVT, anticoagulation has been discontinued, pulmonary service will sign of a follow-up on as-needed basis I performed a history & physical examination of the patient and discussed their management with my nurse practitioner, Heather Weinstein. I reviewed the nurse practitioner's note and agree with the documented findings and plan of care. Lung sounds are positive for diminished breath sounds. The findings and the imp ression was discussed with the patient. I attest to the documentation by the nurse practitioner. Time with Patient: Less than 30
[2020-05-08 11:54] LABS: Glucose,Whole Blood 216 mg/dL (75-99)
[2020-05-08] MEDS ORDERED: FUROSEMIDE 10 MG/ML 4 ML VIAL IV STA ×2 (13:08→21:50)
--- NOTE | 2020-05-08 13:45 | P.PN ---
Subjective Progress Note Date: 05/08/20 HISTORY OF PRESENT ILLNESS This is a 69-year-old female patient of mine currently residing at [facility] is a long-term resident with past medical history of diabetes mellitus type 2, hypertension, hyperlipidemia, coronary artery disease with stenting of the RCA, COPD, left vlqvq-gyu-xewk amputation due to nonhealing ulcer, chronic anemia, diabetes mellitus type 2 insulin requiring, gastroesophageal reflux disease. Patient developed increasing weakness over the past 2 days and unable to do her normal activities. Patient had 2 episodes of emesis on the morning of May 06. She refused breakfast and medications due to nausea. She was unable to sit up and was found to be diaphoretic. She had a temperature of 101.6 axillary and heart rate of 131. Pulse ox was also 80% on room air. Blood pressure 173/85. Patient also had some noted confusion. Patient was sent to [facility] emergency center for evaluation. Temperature max 100.9, heart rate 106, blood pressure 146/74. Pulse ox 95% on 4 L nasal cannula. WBC 18.9, hemoglobin 14.8, platelets 170. D-dimer 0.6. Sodium 136, potassium 4.1, chloride 99, CO2 26, BUN 28 creatinine 1.11. Blood sugar 141. Lactic acid 2.6 and repeat 1.6. Troponin 0.312 and repeat 0.506. Liver function tests were normal. Urinalysis cloudy, blood moderate, nitrate positive, leukoesterase large, WBCs greater than 182 and WBC clumps many. Bacteria many. Urine culture and blood culture in progress. Chest x-ray reveals no acute cardiopulmonary process. CTA of the chest revealed cardiomegaly li mited exam findings suspicious for small right secondary branch pulmonary embolism. Correlate clinically. 2 nonspecific groundglass changes involving the lungs. Maybe on the basis of atelectasis. The patient is in the emergency center waiting for a cardiac stepdown bed. Consult with pulmonary medicine has ruled out PE and recommended discontinuing heparin drip. Ultrasound of the lower extremities ordered. Cardiology consult in place. 05/07: Patient is seen today in the emergency center if she is still waiting for a bed on the cardiac stepdown unit. Patient has been afebrile, heart rate 92, blood pressure 155/71, pulse ox 96% on 2 L nasal cannula. Urine culture and blood culture in progress. Patient remains on heparin drip but has been seen by pulmonary medicine and cardiology and we will discontinue as per recommendations. Pulmonary embolism has been ruled out by pulmonary medicine. No plan for any acute intervention by cardiology. Local wound care to the right lower extremity will be added with Silvadene wraps. Repeat blood work reveals WBC 13.8, hemoglobin 12.2, platelet count 160. Sodium 135 otherwise electrolytes and renal function are unremarkable. Blood sugar running between 131 and 152. Results placed with PT, OT, social work. 05/08: July is seen today sitting up in a recliner. Her mental status is back to baseline. Patient is eating well. She does have lower extremity edema for which IV fluids will be discontinued and one dose of IV Lasix ordered. Erythema to the right lower extremity is improved. Patient has been afebrile, heart rate 83, blood pressure 167/73, pulse ox 94% on room air. Blood sugars are running between 152 and 231. Hemoglobin A1c 7.8. WBC 9.5, hemoglobin 10.5, platelet count 163. Sodium 133, potassium 3.9, chloride 103, CO2 25, BUN 19 and creatinine 0.89. Ultrasound of the bilateral lower extremity negative for DVT. Echocardiogram reveals EF of 55-60%. Pulmonary medicine has signed off. Anticipate probable discharge in the next 24-48 hours. REVIEW OF SYSTEMS Constitutional: No documented fever, no chills, no night sweats. No weight change. Reports weakness, reports fatigue or lethargy. No daytime sleepiness. EENT: No headache. No blurred vision or double vision, no loss of vision. No loss of Hearing, no ringing in the ears, no dizziness. No nasal drainage or congestion. No epistaxis. No sore throat. Lungs: No shortness of breath, no cough, no sputum production. No wheezing. Reports dyspnea with activity. Cardiovascular: No chest pain, reports lower extremity edema. No palpitations. No paroxysmal nocturnal dyspnea. No orthopnea. No lightheadedness or dizziness. No syncopal episodes. Abdominal: Reports abdominal pain. No nausea, vomiting. No diarrhea. No c onstipation. No bloody or tarry stools. reports loss of appetite. Genitourinary: No dysuria, increased frequency, urgency. No urinary retention. Musculoskeletal: No myalgias. No muscle weakness, no gait dysfunction, no frequent falls. No back pain. No neck pain. Integumentary: Reports wounds, no lesions. No rash or pruritus. No unusual bruising. No change in hair or nails. Neurologic: No aphasia. No facial droop. Denies change in mentation. No head injury. No headache. No paralysis. No paresthesia. Psychiatric: No depression. No anxiety. No mood swings. Endocrine: No abnormal blood sugars. No weight change. PHYSICAL EXAMINATION General: This is a 69-year-old female. Patient is resting comfortably and recliner. She appears to be in no acute distress.. HEENT: Head is atraumatic, normocephalic, pupils were equal round reactive to light and recommendation, extraocular muscle movement were intact, sclera nonicteric, conjunctivae were pale. Neck: Supple, no JVP, normal carotid upstroke bilaterally, no lymphadenopathy. Chest: Decreased breath sounds at the bases, few rhonchi, no extremity wheezes, no chest wall tenderness, no intercostal retractions. Heart: First heart sound is normal, second heart sounds normal. Abdomen: Soft, nontender, nondistended, positive bowel sounds. Extremities: There is 1+ edema no calf tenderness DP +2 bilaterally. Mild edema, erythema and warmth to the right lower extremity, wound to the right great toe nailbed. Left-sided gnsdi-sbo-lvvi amputation. Neurologic examination: Patient is awake alert and oriented x2, cranial nerves II-12 appear grossly intact, generalized weakness. ASSESSMENT AND PLAN 1. Sepsis with lactic acidosis secondary to acute urinary tract infection and right lower extremity cellulitis. Continue IV Rocephin and IV vancomycin pharmacy to dose, urine culture and blood culture are in progress. Local wound care with Silvadene wraps and elevation to the right lower extremity. 2. Lactic acidosis status post 1 L of IV fluids, stable. IV fluids di scontinued. 3. Acute hypoxic respiratory failure with a pulse ox of 88% requiring oxygen of unclear etiology. Acute pulmonary embolism ruled out by pulmonary medicine. Bilateral lower extremity ultrasounds ordered. Pulmonary consult appreciated. Heparin drip will be discontinued. 4. Metabolic encephalopathy secondary to sepsis. Continue as in #1. 5. Elevated troponin, acute coronary syndrome ruled out. Cardiology consult appreciated. Heparin drip discontinued Patient had recent echocardiogram and stress test done at Dr. Callahan's office. Continue aspirin 81 mg daily, Lipitor 80 mg at bedtime, Coreg 6.25 mg twice daily, Imdur 60 mg daily. 6. Chronic kidney disease stage III. Monitor kidney function. 7. Diabetes mellitus type 2. A1c 7.8. Continue Levemir 54 units at bedtime, NovoLog 12 units with meals and 4 units at bedtime, continue Actos 30 mg daily. 8. Hypertension. Continue Norvasc 10 mg daily, valsartan 160 mg daily, Coreg 6.25 mg twice daily. 9. Hyperlipidemia. Continue Lipitor 80 mg daily, Vascepa 2 g oral twice daily. 10. COPD, stable without exacerbation. 11. Left below the knee amputation secondary to nonhealing diabetic ulcer, stable. Patient does have prosthetic device. Continue Elavil 10 mg at 1600. 12. Gastroesophageal reflux disease and she had prophylaxis. Protonix. 13. History of non-ST elevated myocardial infarction with coronary artery disease status post stent in the RCA in the proximal and mid segment in September 2018. Patient had recent echocardiogram and stress test done a Dr. Callahan's office. Continue Continue aspirin 81 mg daily, Lipitor 80 mg at bedtime, Coreg 6.25 mg twice daily, Imdur 60 mg daily. 14. Anemia of chronic disease. Continue ferrous sulfate 325 mg daily. 15. DVT prophylaxis. Heparin subcu. 15. Recurrent depression and generalized anxiety disorder. Continue Elavil 10 mg daily and continue clonazepam 1 mg 3 times daily.. 16. Essential tremor. Continue primidone 150 mg oral twice daily. 17. History of nontraumatic subdural hemorrhage. Continue Keppra. 18. Overactive bladder. Continue trospium any milligrams daily. DISCHARGE PLAN Return to [facility] in the next 24-48 hours Impression and plan of care have been directed as dictated by the signing physician. Adrianna Saenz nurse practitioner acting as scribe for signing physician. Objective - Vital Signs Vital signs: Vital Signs Temp 98.9 F 05/08/20 04:45 Pulse 83 05/08/20 04:45 Resp 20 05/08/20 04:45 BP 167/73 05/08/20 04:45 Pulse Ox 94 L 05/08/20 04:45 Intake & Output 05/07/20 05/08/20 05/08/20 18:59 06:59 18:59 Intake Total 919.603 Balance 919.603 Intake: IV 50 cefTRIAXone 1 gm In 50 Sodium Chloride 0.9% 50 ml @ 100 mls/hr IVPB Q24HR [facility] Rx#:[id number] Intake, IV Titration 429.603 Amount Heparin Sod,Pork in 0.45% 129.603 NaCl 25,000 unit In 0.45 % NaCl 1 250ml.bag @ 18 UNITS/KG/HR 16.574 mls/hr IV .[id number] [facility] Rx#: [id number] Sodium Chloride 0.9% 1, 300 000 ml @ 75 mls/hr IV . [id number] [facility] Rx#:[id number] Oral 440 Other: Voiding Method Diaper Diaper Incontinent Incontinent # Voids 1 1 - Labs CBC & Chem 7: 05/08/20 10:04 05/08/20 10:04 Labs: Abnormal Lab Results - Last 24 Hours (Table) 05/07/20 05/07/20 05/07/20 Range/Units 08:00 08:00 08:00 WBC 13.8 H (3.8-10.6) k/uL RBC 3.58 L (3.80-5.40) m/uL Neutrophils # 11.3 H (1.3-7.7) k/uL APTT >200.0 H* (22.0-30.0) sec Sodium (137-145) mmol/L BUN (7-17) mg/dL Glucose (74-99) mg/dL POC Glucose (mg/dL) (75-99) mg/dL Hemoglobin A1c 7.8 H (4.0-6.0) % Calcium (8.4-10.2) mg/dL Troponin I (0.000-0.034) ng/mL 05/07/20 05/07/20 05/07/20 Range/Units 08:05 08:05 11:46 WBC (3.8-10.6) k/uL RBC (3.80-5.40) m/uL Neutrophils # (1.3-7.7) k/uL APTT (22.0-30.0) sec Sodium 135 L (137-145) mmol/L BUN 22 H (7-17) mg/dL Glucose 142 H (74-99) mg/dL POC Glucose (mg/dL) 152 H (75-99) mg/dL Hemoglobin A1c (4.0-6.0) % Calcium 7.8 L (8.4-10.2) mg/dL Troponin I 0.506 H* (0.000-0.034) ng/mL 05/07/20 05/07/20 Range/Units 17:03 19:57 WBC (3.8-10.6) k/uL RBC (3.80-5.40) m/uL Neutrophils # (1.3-7.7) k/uL APTT (22.0-30.0) sec Sodium (137-145) mmol/L BUN (7-17) mg/dL Glucose (74-99) mg/dL POC Glucose (mg/dL) 204 H 231 H (75-99) mg/dL Hemoglobin A1c (4.0-6.0) % Calcium (8.4-10.2) mg/dL Troponin I (0.000-0.034) ng/mL Microbiology - Last 24 Hours (Table) 05/06/20 13:06 Urine Culture - Preliminary Urine,Voided Gram Neg Bacilli 05/06/20 12:14 Blood Culture - Preliminary Blood No Growth after 24 hours 05/06/20 12:14 Blood Culture - Preliminary Blood No Growth after 24 hours
[2020-05-08] MEDS: VANCOMYCIN 1,500 MG in SODIUM CHLORIDE 0.9% 250 ML IVPB SCH ×2 (14:45→17:46)
[2020-05-08 17:10] LABS: Glucose,Whole Blood 230 mg/dL (75-99)
[2020-05-08] MEDS: AMITRIPTYLINE HCL 10 MG TAB PO SCH (17:46)
[2020-05-08] MEDS: HEPARIN SODIUM,PORCINE 5,000 UNIT/ML 1 ML VIAL SQ SCH (20:00)
[2020-05-08] MEDS: FERROUS SULFATE 325 MG TAB PO SCH (20:00)
[2020-05-08] MEDS: ATORVASTATIN 80 MG TAB PO SCH (20:00)
[2020-05-08 20:38] LABS: Glucose,Whole Blood 198 mg/dL (75-99)
[2020-05-08] MEDS: INSULIN DETEMIR (LEVEMIR) 100 UNIT/ML SYR SQ SCH (21:07)
[2020-05-09] MEDS: clonazePAM 1 MG TAB PO SCH ×3 (06:06→17:45)
[2020-05-09] MEDS: VANCOMYCIN 1,500 MG in SODIUM CHLORIDE 0.9% 250 ML IVPB SCH (06:59)
[2020-05-09] MEDS: PANTOPRAZOLE 40 MG TABLET PO SCH (06:59)
[2020-05-09 07:13] LABS: Glucose,Whole Blood 257 mg/dL (75-99)
[2020-05-09] MEDS: amLODIPine 10 MG TAB PO SCH (08:58)
[2020-05-09] MEDS: CHOLECALCIFEROL 25 MCG (1000 IU) TABLET PO SCH (08:58)
[2020-05-09] MEDS: ISOSORBIDE MONONITRATE ER 60 MG TAB.ER.24H PO SCH (08:59)
[2020-05-09] MEDS: DICYCLOMINE 10 MG CAP PO SCH ×2 (08:59→20:24)
[2020-05-09] MEDS: carvediloL 6.25 MG TAB PO SCH (08:59)
[2020-05-09] MEDS: levETIRAcetam 500 MG TAB PO SCH ×2 (08:59→20:24)
[2020-05-09] MEDS: ASPIRIN 81 MG PO SCH (08:59)
[2020-05-09] MEDS: PRIMIDONE 50 MG TAB PO SCH ×2 (08:59→20:24)
[2020-05-09] MEDS: INSULIN ASPART (NovoLOG) 100 UNIT/ML VIAL SQ SCH ×7 (09:00→20:26)
[2020-05-09] MEDS: VASCEPA PO SCH ×2 (09:01→20:28)
[2020-05-09] MEDS: HEPARIN SODIUM,PORCINE 5,000 UNIT/ML 1 ML VIAL SQ SCH ×2 (09:01→20:24)
[2020-05-09] MEDS: VENLAFAXINE HCL ER 150 MG CAP PO SCH (09:03)
[2020-05-09] MEDS: VALSARTAN 160 MG TAB PO SCH (09:03)
[2020-05-09] MEDS: TROSPIUM CHLORIDE 20 MG TABLET PO SCH (09:03)
[2020-05-09] MEDS: PIOGLITAZONE 30 MG TAB PO SCH (09:04)
[2020-05-09 09:18] LABS: Calcium 8.1 mg/dL (8.4-10.2); Potassium 3.9 mmol/L (3.5-5.1)
[2020-05-09 09:22] LABS: HCT 33.6 % (34.0-46.0); HGB 11.4 gm/dL (11.4-16.0); MCH 32.9 pg (25.0-35.0); MCV 96.8 fL (80.0-100.0); Mean Platelet Volume 7.4; Platelet Count 200 k/uL (150-450); RBC 3.47 m/uL (3.80-5.40); RDW 14.3 % (11.5-15.5); WBC 8.7 k/uL (3.8-10.6)
[2020-05-09] MEDS ORDERED: carvediloL 6.25 MG TAB PO STA (11:36)
--- NOTE | 2020-05-09 11:48 | P.PN ---
Subjective Progress Note Date: 05/09/20 HISTORY OF PRESENT ILLNESS This is a 69-year-old female patient of mine currently residing at [facility] is a long-term resident with past medical history of diabetes mellitus type 2, hypertension, hyperlipidemia, coronary artery disease with stenting of the RCA, COPD, left hslss-yil-mupa amputation due to nonhealing ulcer, chronic anemia, diabetes mellitus type 2 insulin requiring, gastroesophageal reflux disease. Patient developed increasing weakness over the past 2 days and unable to do her normal activities. Patient had 2 episodes of emesis on the morning of May 06. She refused breakfast and medications due to nausea. She was unable to sit up and was found to be diaphoretic. She had a temperature of 101.6 axillary and heart rate of 131. Pulse ox was also 80% on room air. Blood pressure 173/85. Patient also had some noted confusion. Patient was sent to [facility] emergency center for evaluation. Temperature max 100.9, heart rate 106, blood pressure 146/74. Pulse ox 95% on 4 L nasal cannula. WBC 18.9, hemoglobin 14.8, platelets 170. D-dimer 0.6. Sodium 136, potassium 4.1, chloride 99, CO2 26, BUN 28 creatinine 1.11. Blood sugar 141. Lactic acid 2.6 and repeat 1.6. Troponin 0.312 and repeat 0.506. Liver function tests were normal. Urinalysis cloudy, blood moderate, nitrate positive, leukoesterase large, WBCs greater than 182 and WBC clumps many. Bacteria many. Urine culture and blood culture in progress. Chest x-ray reveals no acute cardiopulmonary process. CTA of the chest revealed cardiomegaly li mited exam findings suspicious for small right secondary branch pulmonary embolism. Correlate clinically. 2 nonspecific groundglass changes involving the lungs. Maybe on the basis of atelectasis. The patient is in the emergency center waiting for a cardiac stepdown bed. Consult with pulmonary medicine has ruled out PE and recommended discontinuing heparin drip. Ultrasound of the lower extremities ordered. Cardiology consult in place. 05/07: Patient is seen today in the emergency center if she is still waiting for a bed on the cardiac stepdown unit. Patient has been afebrile, heart rate 92, blood pressure 155/71, pulse ox 96% on 2 L nasal cannula. Urine culture and blood culture in progress. Patient remains on heparin drip but has been seen by pulmonary medicine and cardiology and we will discontinue as per recommendations. Pulmonary embolism has been ruled out by pulmonary medicine. No plan for any acute intervention by cardiology. Local wound care to the right lower extremity will be added with Silvadene wraps. Repeat blood work reveals WBC 13.8, hemoglobin 12.2, platelet count 160. Sodium 135 otherwise electrolytes and renal function are unremarkable. Blood sugar running between 131 and 152. Results placed with PT, OT, social work. 05/08: Patient is seen today sitting up in a recliner. Her mental status is back to baseline. Patient is eating well. She does have lower extremity edema for which IV fluids will be discontinued and one dose of IV Lasix ordered. Erythema to the right lower extremity is improved. Patient has been afebrile, heart rate 83, blood pressure 167/73, pulse ox 94% on room air. Blood sugars are running between 152 and 231. Hemoglobin A1c 7.8. WBC 9.5, hemoglobin 10.5, platelet count 163. Sodium 133, potassium 3.9, chloride 103, CO2 25, BUN 19 and creatinine 0.89. Ultrasound of the bilateral lower extremity negative for DVT. Echocardiogram reveals EF of 55-60%. Pulmonary medicine has signed off. Anticipate probable discharge in the next 24-48 hours. 05/09: The patient's mental status continues to be improved and back to baseline. She did require a second dose of IV Lasix last evening. She has been afebrile, heart rate 68, blood pressure 189/79, pulse ox 94% on room air. Coreg and valsartan will be increased. Repeat blood work reveals W BC 8.7, hemoglobin 11.4, platelet count 200. Sodium 132, potassium 3.9, chloride 101, CO2 25, BUN 21 creatinine 0.97. NovoLog scale will be added. Blood sugars running between 196 and 257. Urine culture is positive for Enterobacter and E. coli both sensitive to ceftriaxone. REVIEW OF SYSTEMS Constitutional: No documented fever, no chills, no night sweats. No weight change. Reports weakness, reports fatigue no lethargy. No daytime sleepiness. EENT: No headache. No blurred vision or double vision, no loss of vision. No loss of Hearing, no ringing in the ears, no dizziness. No nasal drainage or congestion. No epistaxis. No sore throat. Lungs: No shortness of breath, no cough, no sputum production. No wheezing. Reports dyspnea with activity. Cardiovascular: No chest pain, reports lower extremity edema. No palpitations. No paroxysmal nocturnal dyspnea. No orthopnea. No lightheadedness or dizziness. No syncopal episodes. Abdominal: Reports abdominal pain. No nausea, vomiting. No diarrhea. No constipation. No bloody or tarry stools. reports loss of appetite. Genitourinary: No dysuria, increased frequency, urgency. No urinary retention. Musculoskeletal: No myalgias. No muscle weakness, no gait dysfunction, no f requent falls. No back pain. No neck pain. Integumentary: Reports wounds, no lesions. No rash or pruritus. No unusual bruising. No change in hair or nails. Neurologic: No aphasia. No facial droop. Denies change in mentation. No head injury. No headache. No paralysis. No paresthesia. Psychiatric: No depression. No anxiety. No mood swings. Endocrine: No abnormal blood sugars. No weight change. PHYSICAL EXAMINATION General: This is a 69-year-old female. Patient is resting comfortably in recliner. She appears to be in no acute distress.. HEENT: Head is atraumatic, normocephalic, pupils were equal round reactive to light and recommendation, extraocular muscle movement were intact, sclera nonicteric, conjunctivae were pale. Neck: Supple, no JVP, normal carotid upstroke bilaterally, no lymphadenopathy. Chest: Decreased breath sounds at the bases, few rhonchi, no extremity wheezes, no chest wall tenderness, no intercostal retractions. Heart: First heart sound is normal, second heart sounds normal. Abdomen: Soft, nontender, nondistended, positive bowel sounds. Extremities: There is 1+ edema no calf tenderness DP +2 bilaterally. Mild erythema and warmth to the right lower extremity is improved, wound to the right great toe nailbed. Left-sided bctep-rbk-bzji amputation. Neurologic examination: Patient is awake alert and oriented x2, cranial nerves II-12 appear grossly intact, generalized weakness. ASSESSMENT AND PLAN 1. Sepsis with lactic acidosis secondary to acute urinary tract infection and right lower extremity cellulitis. Continue IV Rocephin and IV vancomycin will be discontinued, urine culture and blood culture are in progress. Local wound care with Silvadene wraps and elevation to the right lower extremity. 2. Lactic acidosis status post 1 L of IV fluids, stable. IV fluids discontinued. Patient status post IV Lasix 2 doses. 3. Acute hypoxic respiratory failure with a pulse ox of 88% requiring oxygen of unclear etiology. Acute pulmonary embolism ruled out by pulmonary medicine. Bilateral lower extremity ultrasounds ordered. Pulmonary consult appreciated. Heparin drip will be discontinued. 4. Metabolic encephalopathy secondary to sepsis. Continue as in #1. 5. Elevated troponin, acute coronary syndrome ruled out. Cardiology consult appreciated. Heparin drip discontinued Patient had recent echocardiogram and stress test done at Dr. Callahan's office. Continue aspirin 81 mg daily, Lipitor 80 mg at bedtime, Coreg 6.25 mg twice daily, Imdur 60 mg daily. 6. Chronic kidney disease stage III. Monitor kidney function. 7. Diabetes mellitus type 2. A1c 7.8. Continue Levemir 54 units at bedtime, NovoLog 12 units with meals and 4 units at bedtime, continue Actos 30 mg daily. 8. Hypertension. Continue Norvasc 10 mg daily, valsartan 160 mg daily increased frequency to twice daily, Coreg increased to 12.5 mg twice daily. 9. Hyperlipidemia. Continue Lipitor 80 mg daily, Vascepa 2 g oral twice daily. 10. COPD, stable without exacerbation. 11. Left below the knee amputation secondary to nonhealing diabetic ulcer, stable. Patient does have prosthetic device. Continue Elavil 10 mg at 1600. 12. Gastroesophageal reflux disease and she had prophylaxis. Protonix. 13. History of non-ST elevated myocardial infarction with coronary artery disease status post stent in the RCA in the proximal and mid segment in September 2018. Patient had recent echocardiogram and stress test done a Dr. Callahan's office. Continue Continue aspirin 81 mg daily, Lipitor 80 mg at bedtime, Coreg 12.5 mg twice daily, Imdur 60 mg daily. 14. Anemia of chronic disease. Continue ferrous sulfate 325 mg daily. 15. DVT prophylaxis. Heparin subcu. 15. Recurrent depression and generalized anxiety disorder. Continue Elavil 10 mg daily and continue clonazepam 1 mg 3 times daily.. 16. Essential tremor. Continue primidone 150 mg oral twice daily. 17. History of nontraumatic subdural hemorrhage. Continue Keppra. 18. Overactive bladder. Continue trospium 20 milligrams daily. DISCHARGE PLAN Return to [facility] on Tuesday. Impression and plan of care have been directed as dictated by the signing physician. Adrianna Saenz nurse practitioner acting as scribe for signing physician. Objective - Vital Signs Vital signs: Vital Signs Temp 99.3 F 05/09/20 04:00 Pulse 81 05/09/20 04:00 Resp 18 05/09/20 04:00 BP 149/72 05/09/20 04:00 Pulse Ox 95 05/09/20 04:00 Intake & Output 05/08/20 05/09/20 05/09/20 18:59 06:59 18:59 Intake Total 600 Output Total 100 Balance 500 Weight 91.5 kg Intake: Oral 600 Output: Urine 100 Other: Voiding Method Diaper Diaper Incontinent Incontinent # Voids 3 3 # Bowel Movements 1 - Labs CBC & Chem 7: 05/09/20 08:22 05/09/20 08:22 Labs: Abnormal Lab Results - Last 24 Hours (Table) 05/08/20 05/08/20 05/08/20 Range/Units 10:04 10:04 11:52 RBC 3.22 L (3.80-5.40) m/uL Hgb 10.5 L (11.4-16.0) gm/dL Hct 31.1 L (34.0-46.0) % Sodium 133 L (137-145) mmol/L BUN 19 H (7-17) mg/dL Glucose 241 H (74-99) mg/dL POC Glucose (mg/dL) 216 H (75-99) mg/dL Calcium 7.5 L (8.4-10.2) mg/dL 05/08/20 05/08/20 05/09/20 Range/Units 17:01 20:37 07:10 RBC (3.80-5.40) m/uL Hgb (11.4-16.0) gm/dL Hct (34.0-46.0) % Sodium (137-145) mmol/L BUN (7-17) mg/dL Glucose (74-99) mg/dL POC Glucose (mg/dL) 230 H 198 H 257 H (75-99) mg/dL Calcium (8.4-10.2) mg/dL Microbiology - Last 24 Hours (Table) 05/06/20 13:06 Urine Culture - Final Urine,Voided Enterobacter aerogenes Escherichia coli 05/06/20 12:14 Blood Culture - Preliminary Blood No Growth after 48 hours 05/06/20 12:14 Blood Culture - Preliminary Blood No Growth after 48 hours
--- NOTE | 2020-05-09 11:59 | P.DS ---
Providers Date of admission: 05/06/20 14:51 Expected date of discharge: 05/10/20 Attending physician: Tomasa Sommer Consults: 05/06/20 15:38 Consult Physician Routine Consulting Provider: Shane Rivera Consult Reason/Comments: Pulmonary embolism, elevated troponin, UTI with sepsis Do you want consulting provider notified?: Yes Consult Physician Routine Consulting Provider: Charlie Jenkins Consult Reason/Comments: PE Do you want consulting provider notified?: Yes Primary care physician: Tomasa Sommer [facility] Course: HISTORY OF PRESENT ILLNESS This is a 69-year-old female patient of mine currently residing at [facility] is a long-term resident with past medical history of diabetes mellitus type 2, hypertension, hyperlipidemia, coronary artery disease with stenting of the RCA, COPD, left [id number] amputation due to nonhealing ulcer, chronic anemia, diabetes mellitus type 2 insulin requiring, gastroesophageal reflux disease. Patient developed increasing weakness over the past 2 days and unable to do her normal activities. Patient had 2 episodes of emesis on the morning of May 06. She refused breakfast and medications due to nausea. She was unable to sit up and was found to be diaphoretic. She had a temperature of 101.6 axillary and heart rate of 131. Pulse ox was also 80% on room air. Blood pressure 173/85. Patient also had some noted confusion. Patient was sent to [facility] emergency center for evaluation. Temperature max 100.9, heart rate 106, blood pressure 146/74. Pulse ox 95% on 4 L nasal cannula. WBC 18.9, hemoglobin 14.8, platelets 170. D-dimer 0.6. Sodium 136, potassium 4.1, chloride 99, CO2 26, BUN 28 creatinine 1.11. Blood sugar 141. Lactic acid 2.6 and repeat 1.6. Troponin 0.312 and repeat 0.506. Liver function tests were normal. Urinalysis cloudy, blood moderate, nitrate positive, leukoesterase large, WBCs greater than 182 and WBC clumps many. Bacteria many. Urine culture and blood culture in progress. Chest x-ray reveals no acute cardiopulmonary process. CTA of the chest revealed cardiomegaly limited exam findings suspicious for small right secondary branch pulmonary embolism. Correlate clinically. 2 nonspecific groundglass changes involving the lungs. Maybe on the basis of atelectasis. The patient is in the emergency center waiting for a cardiac stepdown bed. Consult with pulmonary medicine has ruled out PE and recommended discontinuing heparin drip. Ultrasound of the lower extremities ordered. Cardiology consult in place. 05/07: Patient is seen today in the emergency center if she is still waiting for a bed on the cardiac stepdown unit. Patient has been afebrile, heart rate 92, blood pressure 155/71, pulse ox 96% on 2 L nasal cannula. Urine culture and blood culture in progress. Patient remains on heparin drip but has been seen by pulmonary medicine and cardiology and we will discontinue as per recommendations. Pulmonary embolism has been ruled out by pulmonary medicine. No plan for any acute intervention by cardiology. Local wound care to the right lower extremity will be added with Silvadene wraps. Repeat blood work reveals WBC 13.8, hemoglobin 12.2, platelet count 160. Sodium 135 otherwise electrolytes and renal function are unremarkable. Blood sugar running between 131 and 152. Results placed with PT, OT, social work. 05/08: Patient is seen today sitting up in a recliner. Her mental status is back to baseline. Patient is eating well. She does have lower extremity edema for which IV fluids will be discontinued and one dose of IV Lasix ordered. Erythema to the right lower extremity is improved. Patient has been afebrile, heart rate 83, blood pressure 167/73, pulse ox 94% on room air. Blood sugars are running between 152 and 231. Hemoglobin A1c 7.8. WBC 9.5, hemoglobin 10.5, platelet count 163. Sodium 133, potassium 3.9, chloride 103, CO2 25, BUN 19 and creatinine 0.89. Ultrasound of the bilateral lower extremity negative for DVT. Echocardiogram reveals EF of 55-60%. Pulmonary medicine has signed off. Anticipate probable discharge in the next 24-48 hours. 05/09: The patient's mental status continues to be improved and back to baseline. She did require a second dose of IV Lasix last evening. She has been afebrile, heart rate 68, blood pressure 189/79, pulse ox 94% on room air. Coreg and valsartan will be increased. Repeat blood work reveals W BC 8.7, hemoglobin 11.4, platelet count 200. Sodium 132, potassium 3.9, chloride 101, CO2 25, BUN 21 creatinine 0.97. NovoLog scale will be added. Blood sugars running between 196 and 257. Urine culture is positive for Enterobacter and E. coli both sensitive to ceftriaxone. 05/10: The patient will be monitored overnight and plan [facility] after patient has been evaluated by Dr. Sommer. ASSESSMENT AND PLAN 1. Sepsis with lactic acidosis secondary to acute urinary tract infection and right lower extremity cellulitis. 2. Lactic acidosis status post 1 L of IV fluids, stable. 3. Acute hypoxic respiratory failure with a pulse ox of 88% requiring oxygen of unclear etiology. Acute pulmonary embolism ruled out by pulmonary medicine. 4. Metabolic encephalopathy secondary to sepsis. 5. Elevated troponin, acute coronary syndrome ruled out. 6. Chronic kidney disease stage III. 7. Diabetes mellitus type 2. A1c 7.8. 8. Hypertension. 9. Hyperlipidemia. 10. COPD, stable without exacerbation. 11. Left below the knee amputation secondary to nonhealing diabetic ulcer, stable. 12. Gastroesophageal reflux disease. 13. History of non-ST elevated myocardial infarction with coronary artery disease status post stent in the RCA in the proximal and mid segment in September 2018. 14. Anemia of chronic disease. 15. Recurrent depression and generalized anxiety disorder. 16. Essential tremor. 17. History of nontraumatic subdural hemorrhage. 18. Overactive bladder. DISCHARGE PLAN Return to [facility] on Tuesday. Impression and plan of care have been directed as dictated by the signing physician. Adrianna Saenz nurse practitioner acting as scribe for signing physician. Patient Condition at Discharge: Good Plan - Discharge Summary Discharge Rx Participant: Yes New Discharge Prescriptions: New carvediloL [Coreg*] 12.5 mg PO BID-W/MEALS tab SILVER sulfADIAZINE CREAM [Silvadene Cream] 1 applic TOPICAL BID applic Cefuroxime Axetil [Ceftin] 500 mg PO BID 7 Days #14 tab Valsartan 320 mg PO DAILY #30 tab Continue Atorvastatin [Lipitor] 80 mg PO HS@2000 Primidone [Mysoline] 150 mg PO BID Aspirin [Adult Low Dose Aspirin EC] 81 mg PO DAILY levETIRAcetam [Keppra] 500 mg PO BID Acetaminophen Tab [Tylenol] 650 mg PO Q6HR PRN tab PRN Reason: Fever and/ or Mild Pain amLODIPine [Norvasc] 10 mg PO DAILY tab Cholecalciferol [Vitamin D3 (25 Mcg = 1000 Iu)] 5,000 unit PO DAILY Ferrous Sulfate [Iron (65 MG Elemental)] 325 mg PO HS Solifenacin Succinate [Vesicare] 5 mg PO DAILY Amitriptyline HCl [Elavil] 10 mg PO DAILY@1600 Furosemide [Lasix] 20 mg PO DAILY@0800 INSULIN ASPART (NovoLOG) [NovoLOG (formulary)] 12 unit SQ AC-TID Vascepa 1gm 2 gm PO BID clonazePAM [KlonoPIN] 1 mg PO TID@0500,1200,1800 Dicyclomine [Bentyl] 10 mg PO BID INSULIN ASPART (NovoLOG) [NovoLOG (formulary)] 4 unit SQ HS Insulin Glargine,Hum.rec.anlog [Lantus Solostar] 54 unit SQ HS@1999 Isosorbide Mononitrate ER [Imdur] 60 mg PO DAILY Omeprazole 20 mg PO DAILY Pioglitazone [Actos] 30 mg PO DAILY@0800 Venlafaxine HCl [Effexor XR] 150 mg PO DAILY Discontinued Valsartan [Diovan] 160 mg PO DAILY carvediloL [Coreg] 6.25 mg PO BID@0800,1600 Discharge Medication List Aspirin [Adult Low Dose Aspirin EC] 81 mg PO DAILY 01/21/15 [History] Atorvastatin [Lipitor] 80 mg PO HS@199901/21/15 [History] Primidone [Mysoline] 150 mg PO BID 01/21/15 [History] levETIRAcetam [Keppra] 500 mg PO BID 12/07/17 [History] Acetaminophen Tab [Tylenol] 650 mg PO Q6HR PRN tab 12/12/17 [Rx] amLODIPine [Norvasc] 10 mg PO DAILY tab 12/12/17 [Rx] Cholecalciferol [Vitamin D3 (25 Mcg = 1000 Iu)] 5,000 unit PO DAILY 10/07/18 [History] Ferrous Sulfate [Iron (65 MG Elemental)] 325 mg PO HS 10/07/18 [History] Solifenacin Succinate [Vesicare] 5 mg PO DAILY 10/07/18 [History] Amitriptyline HCl [Elavil] 10 mg PO DAILY@1600 05/06/20 [History] Dicyclomine [Bentyl] 10 mg PO BID 05/06/20 [History] Furosemide [Lasix] 20 mg PO DAILY@0800 05/06/20 [History] INSULIN ASPART (NovoLOG) [NovoLOG (formulary)] 4 unit SQ HS 05/06/20 [History] INSULIN ASPART (NovoLOG) [NovoLOG (formulary)] 12 unit SQ AC-TID 05/06/20 [History] Insulin Glargine,Hum.rec.anlog [Lantus Solostar] 54 unit SQ HS@199905/06/20 [History] Isosorbide Mononitrate ER [Imdur] 60 mg PO DAILY 05/06/20 [History] Omeprazole 20 mg PO DAILY 05/06/20 [History] Pioglitazone [Actos] 30 mg PO DAILY@0800 05/06/20 [History] Vascepa 1gm 2 gm PO BID 05/06/20 [History] Venlafaxine HCl [Effexor XR] 150 mg PO DAILY 05/06/20 [History] clonazePAM [KlonoPIN] 1 mg PO TID@0500,1200,1800 05/06/20 [History] Cefuroxime Axetil [Ceftin] 500 mg PO BID 7 Days #14 tab 05/09/20 [Rx] SILVER sulfADIAZINE CREAM [Silvadene Cream] 1 applic TOPICAL BID applic 05/09/20 [Rx] Valsartan 320 mg PO DAILY #30 tab 05/09/20 [Rx] carvediloL [Coreg*] 12.5 mg PO BID-W/MEALS tab 05/09/20 [Rx] Follow up Appointment(s)/Referral(s): Rafa Callahan MD [STAFF PHYSICIAN] - 2 Weeks Tomasa Sommer MD [Primary Care Provider] - 1 Week (at [facility]) Discharge Disposition: TRANSFER TO SNF/ECF
[2020-05-09] MEDS ORDERED: VALSARTAN 160 MG TAB PO STA (12:01)
[2020-05-09 12:14] LABS: Glucose,Whole Blood 226 mg/dL (75-99)
[2020-05-09 17:00] LABS: Glucose,Whole Blood 205 mg/dL (75-99)
[2020-05-09] MEDS: AMITRIPTYLINE HCL 10 MG TAB PO SCH (17:45)
[2020-05-09] MEDS: carvediloL 12.5 MG TAB PO SCH (17:45)
[2020-05-09] MEDS: ACETAMINOPHEN TAB 325 MG TAB PO PRN (19:51)
[2020-05-09 20:16] LABS: Glucose,Whole Blood 281 mg/dL (75-99)
[2020-05-09] MEDS: FERROUS SULFATE 325 MG TAB PO SCH (20:24)
[2020-05-09] MEDS: ATORVASTATIN 80 MG TAB PO SCH (20:25)
[2020-05-09] MEDS: INSULIN DETEMIR (LEVEMIR) 100 UNIT/ML SYR SQ SCH (20:29)
[2020-05-09] MEDS ORDERED: VALSARTAN 160 MG TAB PO SCH (21:00)
[2020-05-10 05:51] VITALS: RESP 16
[2020-05-10] MEDS: clonazePAM 1 MG TAB PO SCH (06:15)
[2020-05-10 07:06] LABS: Glucose,Whole Blood 148 mg/dL (75-99)
[2020-05-10] MEDS: INSULIN ASPART (NovoLOG) 100 UNIT/ML VIAL SQ SCH ×2 (07:08→08:31)
[2020-05-10] MEDS: PANTOPRAZOLE 40 MG TABLET PO SCH (07:08)
[2020-05-10] MEDS: carvediloL 12.5 MG TAB PO SCH (07:08)
[2020-05-10] MEDS: PRIMIDONE 50 MG TAB PO SCH (08:31)
[2020-05-10] MEDS: levETIRAcetam 500 MG TAB PO SCH (08:32)
[2020-05-10] MEDS: amLODIPine 10 MG TAB PO SCH (08:32)
[2020-05-10] MEDS: ASPIRIN 81 MG PO SCH (08:32)
[2020-05-10] MEDS: HEPARIN SODIUM,PORCINE 5,000 UNIT/ML 1 ML VIAL SQ SCH (08:32)
[2020-05-10] MEDS: ISOSORBIDE MONONITRATE ER 60 MG TAB.ER.24H PO SCH (08:32)
[2020-05-10] MEDS: CHOLECALCIFEROL 25 MCG (1000 IU) TABLET PO SCH (08:32)
[2020-05-10] MEDS: DICYCLOMINE 10 MG CAP PO SCH (08:32)
[2020-05-10] MEDS: VASCEPA PO SCH (08:33)
[2020-05-10] MEDS: TROSPIUM CHLORIDE 20 MG TABLET PO SCH (08:33)
[2020-05-10] MEDS: PIOGLITAZONE 30 MG TAB PO SCH (08:33)
[2020-05-10] MEDS: VENLAFAXINE HCL ER 150 MG CAP PO SCH (08:33)
[2020-05-10] MEDS ORDERED: VALSARTAN 160 MG TAB PO SCH (09:00)
[2020-05-10 10:55] VITALS: BP 141/54; PULSE 69; TEMP 98.4
== END 2020-05-10 12:05 | DRG 871 ==
LOC: EC 10:56 → 3SCARD 14:51
PROVIDERS: ADMIT Internal Medicine; ATTEND Internal Medicine
DX: A41.9 Sepsis, unspecified organism (principal); G93.41 Metabolic encephalopathy; J96.01 Acute respiratory failure with hypoxia; E87.2 Acidosis; F33.9 Major depressive disorder, recurrent, unspecified; L03.115 Cellulitis of right lower limb; N39.0 Urinary tract infection, site not specified; E11.22 Type 2 diabetes mellitus with diabetic chronic kidney disease; N18.30 Chronic kidney disease, stage 3 unspecified; D63.1 Anemia in chronic kidney disease; Z79.4 Long term (current) use of insulin; E11.622 Type 2 diabetes mellitus with other skin ulcer; E78.5 Hyperlipidemia, unspecified; E86.0 Dehydration; F41.1 Generalized anxiety disorder; F43.10 Post-traumatic stress disorder, unspecified; G25.0 Essential tremor; Z20.822 Contact with and (suspected) exposure to COVID-19; I25.10 Atherosclerotic heart disease of native coronary artery without angina pectoris; I25.2 Old myocardial infarction; J44.9 Chronic obstructive pulmonary disease, unspecified; K21.9 Gastro-esophageal reflux disease without esophagitis; K44.9 Diaphragmatic hernia without obstruction or gangrene; L98.499 Non-pressure chronic ulcer of skin of other sites with unspecified severity; I13.10 Hypertensive heart and chronic kidney disease without heart failure, with stage 1 through stage 4 chronic kidney disease, or unspecified chronic kidney disease; N32.81 Overactive bladder; R65.20 Severe sepsis without septic shock; Z79.82 Long term (current) use of aspirin; Z79.899 Other long term (current) drug therapy; Z82.49 Family history of ischemic heart disease and other diseases of the circulatory system; Z87.891 Personal history of nicotine dependence; Z89.512 Acquired absence of left leg below knee; Z90.710 Acquired absence of both cervix and uterus; Z95.5 Presence of coronary angioplasty implant and graft; Z98.1 Arthrodesis status; Z98.51 Tubal ligation status; Z90.49 Acquired absence of other specified parts of digestive tract; G43.909 Migraine, unspecified, not intractable, without status migrainosus; Z88.5 Allergy status to narcotic agent; Z91.02 Food additives allergy status; Z88.8 Allergy status to other drugs, medicaments and biological substances; Z88.6 Allergy status to analgesic agent
CPT/HCPCS: 36415; 71046; 71275; 80048; 80053; 81001; 83036; 83605; 84484; 85025; 85027; 85379; 85610; 85730; 87040; 87077; 87086; 87186; 87502; 87635; 93005; 93308; 93970; 96361; 96365; 99285

== ENCOUNTER → 2023-02-11 | Outpatient (CLI) | payer MEDICARE, OTHER ==
--- NOTE | 2023-02-11 15:02 | FL ---
Exam Date: 02/11/2023 1:37 PM. Modified barium swallow for dysphagia. Consistencies administered: Various consistency of barium. Fluoro time: 50 seconds No images were sent to PACS. Please see speech pathology report. DAP: Not reported by machine [email or web address]
== END | disposition home or self-care (01) ==
LOC: RADFLMAIN 13:09
PROVIDERS: ATTEND Internal Medicine
DX: R13.10 Dysphagia, unspecified (principal)
CPT/HCPCS: 74230

== ENCOUNTER → 2023-07-22 | Outpatient (CLI) | payer MEDICARE, OTHER ==
--- NOTE | 2023-07-22 12:48 | CT ---
EXAMINATION TYPE: CT brain wo con CT DLP: 1133.3 mGycm, Automated exposure control for dose reduction was used. DATE OF EXAM: 07/22/2023 10:56 AM COMPARISON: . CLINICAL INDICATION:Female, 72 years old with history of I62.00 NONTRAUMATIC SUBDURAL HEMORRHAGE, UNS PECIFIC, multiple falls, head pain TECHNIQUE: Brain: Axial CT images of the brain were obtained with coronal and sagittal reformats created and rev iewed. Contrast used: None. Oral contrast used: None. FINDINGS: Brain: Extra-axial spaces: No abnormal extra-axial fluid collections. Ventricular system: Ventricles and sulci are mildly prominent consistent with age-related involution Cerebral parenchyma: No acute intraparenchymal hemorrhage or mass effect. The saunders-white junction is well differentiated. Scattered hypoattenuating areas are seen within the white matter. Cerebellum: Unremarkable. Mass effect: No evidence of midline shift. Intracranial vasculature: unremarkable Soft tissues: Normal. Calvarium/osseous structures: No depressed skull fracture. Paranasal sinuses and mastoid air cells: Mild scattered paranasal sinus disease. Visualized orbits: Orbital contents are intact. IMPRESSION: No acute intracranial process. Age-related findings. No subdural hematoma appreciated.
== END | disposition home or self-care (01) ==
LOC: RADCTMAIN 10:34
PROVIDERS: ATTEND Internal Medicine
DX: I62.00 Nontraumatic subdural hemorrhage, unspecified (principal)
CPT/HCPCS: 70450

== ENCOUNTER → 2023-11-28 | Outpatient (CLI) | payer MEDICARE, OTHER ==
--- NOTE | 2023-11-28 12:56 | CT ---
EXAMINATION TYPE: CT brain wo con CT DLP: 1108.4 mGycm, Automated exposure control for dose reduction was used. DATE OF EXAM: 11/28/2023 12:43 PM COMPARISON: Prior CT Brain from 07/22/2023 . CLINICAL INDICATION:Female, 72 years old with history of Z87.828 PERSONAL HISTORY OF OTH (HEALED) PHY SICAL, fall TECHNIQUE: Brain: Multiple axial CT images of the brain were obtained without IV contrast. . Coronal and sagitta l reformats reviewed. FINDINGS: Brain: Extra-axial spaces: No abnormal extra-axial fluid collections. Ventricular system: Dilatation in proportion to cerebral atrophy. Cerebral parenchyma: Cerebral atrophy. No acute intraparenchymal hemorrhage or mass effect. The saunders -white junction is well differentiated. Scattered hypoattenuating areas are seen within the periventr icular white matter. Cerebellum: Unremarkable. Mass effect: No evidence of midline shift. Intracranial vasculature: Atherosclerotic calcifications of the intracranial vessels. Soft tissues: Normal. Calvarium/osseous structures: No depressed skull fracture. Paranasal sinuses and mastoid air cells: Clear Visualized orbits: Bilateral aphakia IMPRESSION: 1. No acute intracranial process. 2. Age-appropriate cerebral atrophy with nonspecific white matter changes, likely secondary to chroni c small vessel ischemic disease. [facility], , 11/28/2023 12:53 PM
== END | disposition home or self-care (01) ==
LOC: RADCTMAIN 12:11
PROVIDERS: ATTEND Internal Medicine
DX: Z87.828 Personal history of other (healed) physical injury and trauma
CPT/HCPCS: 70450

== ENCOUNTER → 2024-05-08 | Outpatient (CLI) | payer MEDICARE, OTHER ==
[2024-05-08 13:10] LABS: African American GFR (CKD) 58 (>60 ml/min/1.73 sqM); Blood Urea Nitrogen 32 mg/dL (7-17); Non-African American GFR(CKD) 50 (>60 ml/min/1.73 sqM)
--- NOTE | 2024-05-08 14:07 | CT ---
EXAMINATION TYPE: CT soft tissue neck w con DATE OF EXAM: 05/08/2024 1:41 PM COMPARISON: None CLINICAL INDICATION: Female, 73 years old with history of M54.2 CERVICALGIA; PHH, cervicalgia TECHNIQUE: CT scan of the neck is performed following with IV Contrast, patient injected with 80cc mL of Isovue 300. Axial images are obtained, coronal and sagittal reformatted images are reviewed. CT DLP: 630.[address] CTDI: mGy Automated exposure control for dose reduction was used. Findings: The thyroid gland is not enlarged and there are no focal masses. The larynx including the thyroid, arytenoid, cricoid cartilages as well as the vocal cords are normal and symmetric without laryngeal mass. The tongue base, epiglottis, aryepiglottic folds, piriform sinuses and vallecula are normal and symme tric. There is no oral or nasal pharyngeal or parapharyngeal or pharyngeal soft tissue mass or enhancement. The submandibular glands and parotid glands are normal and symmetric. The great vessels of the neck are normal. There is no adenopathy or abscess within the neck. Visualized osseous structures are intact. IMPRESSION: No significant abnormality seen. [facility], , 05/08/2024 2:05 PM
== END | disposition home or self-care (01) ==
LOC: RADCTMAIN 12:18
PROVIDERS: ATTEND Internal Medicine
DX: M54.2 Cervicalgia (principal)
CPT/HCPCS: 82565; 84520; 70491; 36415; Q9967